=== PATIENT | male | born 1955 | race Caucasian/White ===

== ENCOUNTER 2019-01-15 18:15 | Inpatient (IN) | payer OTHER ==
--- NOTE | 2019-01-15 19:01 | PDOC ---
History of Present Illness - General Chief Complaint: SIRS, Suspected/Possible Stated Complaint: FEVER Time Seen by Provider: 01/15/19 18:44 - History of Present Illness Initial Comments: 01/15/19 20:18 The patient is a 63 year old male with a history of HTN, HLD, DM, CVA who presents via ambulance from his NH for evaluation of fever. Per the patient's NH, he was noted to have a fever of 100 today with associated hypotension prompting his presentation to the ED for further evaluation. The patient is a poor historian due to his prior CVA and denies any symptoms currently but is notably hypotensive on presentation to the ED. The patient otherwise denies chills, SOB, cough, chest pain, nausea, vomiting, abdominal pain, or changes with urination or bowel movements. Past History - Past Medical History Allergies/Adverse Reactions: Allergies Allergy/AdvReac Type Severity Reaction Status Date / Time No Known Allergies Allergy Verified 01/15/19 21:14 Home Medications: Ambulatory Orders Apixaban [Eliquis] 5 mg PO BID 01/15/19 Aspirin 81 mg PO DAILY 01/15/19 Atorvastatin Calcium 80 mg PO HS 01/15/19 Dextromethorphan HBr/Quinidine [Nuedexta 20-10 mg Capsule] 1 each PO BID Fluoxetine HCl [Prozac] 40 mg PO DAILY 01/15/19 Hydrochlorothiazide [Hctz -] 12.5 mg PO DAILY 01/15/19 LORazepam [Ativan] 0.5 mg PO BID 01/15/19 Metoprolol Succinate 50 mg PO DAILY 01/15/19 Metoprolol Succinate 100 mg PO DAILY 01/15/19 Sitagliptin Phosphate [Januvia] 50 mg PO DAILY 01/15/19 Cholecalciferol (Vitamin D3) [Vitamin D3] 2,000 unit PO DAILY 01/16/19 Potassium Chloride 40 meq PO DAILY 01/16/19 - Suicide/Smoking/Psychosocial Hx Smoking History: Never smoked Have you smoked in the past 12 months: No Information on smoking cessation initiated: No Hx Alcohol Use: No Drug/Substance Use Hx: No Review of Systems - Review of Systems Comments:: 01/15/19 20:21 Constitutional: Fever. No chills, fatigue, malaise HEENT: No Rhinorrhea, nasal congestion, visual changes Cardiovascular: No chest pain, syncope, palpitations, lightheadedness Respiratory: No Cough, SOB, Hemoptysis, Gastrointestinal: No Abdominal pain, Nausea, Vomiting, Constipation, Diarrhea, Melena Genitourinary: No Dysuria, Frequency, Urgency, Hesitancy, Hematuria, Flank pain Musculoskeletal: No Myalgia, arthralgia Skin: No rashes, itching, bruising, pallor Neurologic: No Headache, Dizziness, Numbness, Weakness, or Tingling Psychiatric: No Hallucinations. No SI or HI *Physical Exam - Vital Signs Last Vital Signs Temp Pulse Resp BP Pulse Ox 99.8 F H 65 18 90/61 98 01/15/19 18:51 01/15/19 18:36 01/15/19 18:36 01/15/19 18:36 01/15/19 18:36 - Physical Exam Comments: 01/15/19 20:21 General Appearance: Nourished. No Apparent Distress HEENT: EOMI, GERMAINE. No Pharyngeal Erythema, Tonsillar Exudate, Tonsillar Erythema Neck: No Cervical Lymphadenopathy Respiratory/Chest: Lungs Clear, Normal Breath Sounds. No Crackles, Rales, Rhonchi, Wheezing Cardiovascular: Regular Rhythm, Regular Rate. No Murmur, Gallops, Rubs Gastrointestinal/Abdominal: Normal Bowel Sounds, Soft. No Guarding, Rebound, Tenderness Musculoskeletal: No CVA Tenderness Extremity: Normal Capillary Refill Integumentary: Normal Color, Dry, Warm Neurologic: Oriented x1, Alert, Normal Mood/Affect, Normal Response, Heart Score/ECG Review #1 ECG reviewed & interpreted by me at: 20:22 General ECG Interpretation: Sinus Rhythm, Normal Intervals, No acute ischemic changes 01/15/19 20:22 Sinus Bradycardia No Acute ST changes HR 50 QRS 108 QTc 479 ED Treatment Course - LABORATORY CBC & Chemistry Diagram: 01/16/19 05:30 01/16/19 05:30 Medical Decision Making - Medical Decision Making 01/15/19 20:23 The patient is a 63 year old male with a history of HTN, HLD, DM, CVA who presents via ambulance from his [place] for evaluation of fever. Differential includes but is not limited to: Sepsis, UTI, Pneumonia, Infectious, Metabolic Derangement. Given the patient's history and physical exam, we will obtain a cbc, cmp, troponin, blood cultures, ua, lactate, urine cultures, chest plain film, ekg to evaluate further. We will treat with iv fluids, vanc and zosyn here in the ED and continue to monitor and reassess. The patient will likely require admission for further management and monitoring. 01/16/19 19:27 CBC demonstrates elevated wbc to 18. CMP demonstrates a creatinine of 1.4. UA demonstrates positive nitrites, leuk esterase and elevated wbc consistent with a UTI. Chest plain films are unremarkable. It is likely the patient's symptoms are due to sepsis from UTI. We discussed the case with the admitting team who accepted the patient for admission. *DC/Admit/Observation/Transfer Diagnosis at time of Disposition: Sepsis Qualifiers: Sepsis type: sepsis due to unspecified organism Qualified Code(s): A41.9 - Sepsis, unspecified organism UTI (urinary tract infection) Qualifiers: Urinary tract infection type: site unspecified - Discharge Dispostion Condition at time of disposition: Stable Decision to Admit order: Yes - Referrals - Patient Instructions - Post Discharge Activity
[2019-01-15] MEDS ORDERED: SODIUM CHLORIDE 1,000 ML IV STA ×2 (19:09→20:28)
[2019-01-15 19:50] LABS: BASO % 0.3 % (0-2.0); HEMATOCRIT 29.5 % (35.4-49); HEMOGLOBIN 9.8 GM/dL (11.7-16.9); LYMPH % 8.2 % (8-40); MCH 29.2 pg (25.7-33.7); MCHC 33.3 g/dl (32.0-35.9); MEAN CELL VOLUME 87.6 fl (80-96); MEAN PLT VOLUME 9.2 fl (7.5-11.1); MONO % 9.3 % (3.8-10.2); NEUT % 82.2 % (42.8-82.8); PLATELET COUNT 203 K/MM3 (134-434); RBC 3.37 M/mm3 (4.00-5.60); RDW 14.7 % (11.9-15.9); WHITE BLOOD COUNT 18.6 K/mm3 (4.0-10.0)
[2019-01-15 20:04] LABS: INR 2.27 (0.83-1.09)
[2019-01-15 20:12] LABS: ALBUMIN 3.2 g/dl (3.4-5.0); BILIRUBIN,TOTAL 1.6 mg/dL (0.2-1); CALCIUM 8.5 mg/dL (8.5-10.1); CREATININE 1.4 mg/dL (0.55-1.3); POTASSIUM 3.7 mmol/L (3.5-5.1); TOT PROT 6.8 g/dl (6.4-8.2)
[2019-01-15] MEDS ORDERED: PIPERACILLIN/TAZOB 4.5 GM 4.5 GM in DEXTROSE 5%-WATER 100 ML IVPB ONE (20:17)
[2019-01-15] MEDS ORDERED: VANCOMYCIN HCL 1,500 MG in DEXTROSE 5%-WATER - 500 ML IVPB ONE (20:17)
[2019-01-15] MEDS ORDERED: PIPERACILLIN/TAZOB 4.5 GM 4.5 GM/100 ML BAG IVPB ONE (20:34)
[2019-01-15 21:15] LABS: EPI CELLS 0.9 /HPF (0-5/HPF); URINE APPEARANCE CLOUDY; URINE BACTERIA 7196.8 /hpf (NEGATIVE); URINE BILIRUBIN NEGATIVE (NEGATIVE); URINE CASTS 1 /lpf (0-8); URINE COLOR YELLOW; URINE GLUCOSE (UA) NEGATIVE (NEGATIVE); URINE KETONE NEGATIVE (NEGATIVE); URINE LEUK ESTERASE 3+ (NEGATIVE); URINE NITRITE POSITIVE (NEGATIVE); URINE PROTEIN 1+ (NEGATIVE); URINE WBC 612 /hpf (0-5)
[2019-01-15 21:26] LABS: URINE RBC 66.3 /hpf (0-4)
--- NOTE | 2019-01-15 22:15 | PDOC ---
Documentation entered by Ferny Gleason SCRIBE, acting as scribe for Ericka Leonard DO. Ericka Leonard DO: This documentation has been prepared by the Victorino ferrara Matthew, SCRIBE, under my direction and personally reviewed by me in its entirety. I confirm that the documentation accurately reflects all work, treatment, procedures, and medical decision making performed by me. Attending Attestation - Resident Resident Name: Matteo Vazquez - ED Attending Attestation I have performed the following: I have examined & evaluated the patient, The case was reviewed & discussed with the resident, I agree w/resident's findings & plan - HPI HPI: 01/15/19 19:57 Patient is a 63 year old male with a significant past medical history of HTN, HLD, Diabetes, CVA, who presents to the ED with complaints of elevated fever. As per NH patient has been experiencing episodes of elevated fever of 100F and hypotension, prompting them to send him into the ED for further evaluation. Patient unable to give reliable history secondary to CVA. Denies chest pain, Sob. Denies nausea, vomiting. Denies fevers, chills. Denies constipation, diarrhea. Denies dysuria, hematuria. Denies contact with sick individuals, out of state travelling. Denies any other symptoms. Allergies: None Social history: No smoking, No alcohol. No illicit drugs. Surgical history: None PMD: Dr. Felix - Physicial Exam PE: 01/15/19 19:57 Agree with residents Physical Exam. - Critical Care Time Total Critical Care Time: 45 Critical Care Statement: The care of this patient involved high complexity decision making to prevent further life threatening deterioration of the patient 's condition and/or to evaluate & treat vital organ system(s) failure or risk of failure. - Medical Decision Making 01/15/19 22:14 63-year-old male sent from a senior living facility with fevers Patient meets SIRS/sepsis criteria with urinary tract infection Zosyn and vancomycin initiated in the emergency department as well as sepsis protocol IV fluid bolus Initial systolic blood pressure ranged from 85/53, now normalized Patient to be admitted to medical service for further management 01/15/19 22:15
--- NOTE | 2019-01-15 22:28 | PN ---
Teaching Attending Note Name of Resident: Angel Spivey ATTENDING PHYSICIAN STATEMENT I saw and evaluated the patient. I reviewed the resident's note and discussed the case with the resident. I agree with the resident's findings and plan as documented. SUBJECTIVE: Patient is a 63 year old man with PMH of HTN, HLD, NIDDM, Afib on Eliquis and CVA who presents via ambulance from his NH for evaluation of fever. Per the patient's NH, he was noted to have a fever of 100 today with associated hypotension prompting his referral to the ER for further evaluation. The patient is a poor historian due to his prior CVA and denies any symptoms currently but is notably hypotensive on presentation to the ER. The patient otherwise denies chills, SOB, cough, chest pain, nausea, vomiting, abdominal pain, or changes with urination or bowel movements. OBJECTIVE: Alert Vital Signs Period Temp Pulse Resp BP Sys/Meléndez Pulse Ox Last 24 Hr 98.1 F-99.8 F 47-65 18-20 83-103/53-63 96-100 HEENT: No Jaundice, eye redness or discharge, PERRLA, EOMI. Normocephalic, atraumatic. External ears are normal and hearing is grossly intact. No nasal discharge. Neck: Supple, nontender. No palpable adenopathy or thyromegaly. No JVD Chest: Good effort. Clear to auscultation and percussion. Heart: Regular. No S3, rub or murmur Abdomen: Obese abdomen, not distended, soft, nontender and no HSM. No rebound or guarding. Normal bowel sounds. Ext: Peripheral pulses intact. No leg edema. Left big toe amputation. Skin: Warm and dry. No petechiae, rash or ecchymosis. Neuro: Alert. Oriented to person and place. CN 2-12 grossly intact. Sensation grossly intact in all four extremities and DTR are symmetric. Psych: Appropriate mood and affect. Good insight. Current Medications Generic Name Dose Route Start Last Admin Trade Name Freq PRN Reason Stop Dose Admin Acetaminophen 650 mg 01/15/19 22:28 Tylenol - PO Q4H PRN PAIN Lactated Ringer's 1,000 mls @ 100 mls/hr 01/15/19 22:30 Lactated Ringers Solution IV 01/17/19 08:29 ASDIR KASSIDY Insulin Aspart 1 vial 01/16/19 07:00 Novolog Vial Sliding Scale - SQ ACHS [facility] Protocol Non-Formulary Medication 1 each 01/15/19 22:45 Dextromethorphan Hbr/Quinidine [Nuedexta 20-10 Mg Capsule] PO ONCE [facility] Home Medications Medication Instructions Recorded Apixaban [Eliquis] 5 mg PO ONCE 01/15/19 Aspirin 81 mg PO ONCE 01/15/19 Atorvastatin Calcium 80 mg PO ONCE 01/15/19 Cholecalciferol (Vitamin D3) 400 unit PO DAILY 01/15/19 [Vitamin D3 -] Dextromethorphan HBr/Quinidine 1 each PO ONCE 01/15/19 [Nuedexta 20-10 mg Capsule] Fluoxetine HCl [Prozac] 40 mg PO DAILY 01/15/19 Hydrochlorothiazide [Hctz -] 12.5 mg PO DAILY 01/15/19 KCl 20 Meq Premix Bag [Potassium 20 tab PO BID 01/15/19 Chloride 20 Meq Premix Ivpb -] LORazepam [Ativan] 0.5 mg PO BID 01/15/19 Metoprolol Succinate 50 mg PO ONCE 01/15/19 Metoprolol Succinate 100 mg PO ONCE 01/15/19 Sitagliptin Phosphate [Januvia] 50 mg PO ONCE 01/15/19 Abnormal Lab Results 01/15/19 01/15/19 01/15/19 19:36 19:36 19:36 WBC 18.6 H RBC 3.37 L Hgb 9.8 L Hct 29.5 L Absolute Neuts (auto) 15.3 H PT with INR 27.00 H INR 2.27 H PTT (Actin FS) 41.0 H BUN 28 H Creatinine 1.4 H Random Glucose 199 H Total Bilirubin 1.6 H AST 13 L Albumin 3.2 L Urine Protein Urine Blood Urine Nitrite Ur Leukocyte Esterase 01/15/19 21:03 WBC RBC Hgb Hct Absolute Neuts (auto) PT with INR INR PTT (Actin FS) BUN Creatinine Random Glucose Total Bilirubin AST Albumin Urine Protein 1+ H Urine Blood 3+ H Urine Nitrite Positive H Ur Leukocyte Esterase 3+ H ASSESSMENT AND PLAN: 1. Sepsis due to UTI - Being treated with IV Vancomycin and Zosyn and IV NS according to sepsis protocol. BP improved after initial fluid bolus. No acute abnormality on CXR and EKG shows sinus bradycardia with no significant ST-T wave changes. Bradycardia likely due to high dose of metoprolol - will reduce dose. Consult ID. 2. Hypoalbuminemia - Possibly due to combined effects of malnutrition, proteinuria and inflammation associated with comorbid chronic conditions. Will ensure adequate dietary protein intake and also consult teacher hearing impaired. 3. Uncontrolled DM For now, we will hold the home diabetes drugs and implement sliding scale insulin regimen. Provide comprehensive diabetes care with patient teaching and counseling about the importance of adherence to prescribed diabetes regimen, euglycemia, eye care and foot care. 4. CKD - Has risk factors for CKD. Will consult nephrology and avoid nephrotoxic agents such as NSAIDS, aminoglycosides, contrast dyes and certain Alternative medicine products. 5. Anemia - Likely multifactorial including renal anemia. will do basic anemia work up including serial stool guaiacs, reticulocyte count and iron studies. 6. Obesity Counseled on the risks associated with obesity. Will provide patient all the necessary assistance, counseling and positive reinforcement to facilitate weight loss. Consult teacher hearing impaired. 7. Hypertension - Restart outpatient antihypertensive drugs when clinically appropriate. Nonpharmacologic measures to control hypertension like weight loss , salt restriction and exercise discussed. 8. DVT prophylaxis - Patient on Eliquis 9. Advance directives - Full code
--- NOTE | 2019-01-15 22:40 | HP ---
CHIEF COMPLAINT: fever, hypotension PCP: from [facility] HISTORY OF PRESENT ILLNESS: 63 year old male with a history of HTN, HLD, DM, CVA who presents via ambulance from his NH for evaluation of fever. Per the patient's NH, he was noted to have a fever of 100 today with associated hypotension prompting his presentation to the ED for further evaluation. The patient is a poor historian , but denies any current complaints, including chest pain, SOB, nausea, vomiting , diarrhea, fevers, chills, abdominal pain, dysuria. Per ED, patient is incontinent. ER course was notable for: (1) WBC 18 (2) Cre 1.4 (3) CXR normal Recent Travel: PAST MEDICAL HISTORY: HTN, HLD, DM, CVA PAST SURGICAL HISTORY: unknown Social History: Smoking: unknown Alcohol: unknown Drugs: unknown Family History: unknown Allergies No Known Allergies Allergy (Verified 01/15/19 21:14) HOME MEDICATIONS: Home Medications Medication Instructions Recorded Apixaban [Eliquis] 5 mg PO ONCE 01/15/19 Aspirin 81 mg PO ONCE 01/15/19 Atorvastatin Calcium 80 mg PO ONCE 01/15/19 Cholecalciferol (Vitamin D3) 400 unit PO DAILY 01/15/19 [Vitamin D3 -] Dextromethorphan HBr/Quinidine 1 each PO ONCE 01/15/19 [Nuedexta 20-10 mg Capsule] Fluoxetine HCl [Prozac] 40 mg PO DAILY 01/15/19 Hydrochlorothiazide [Hctz -] 12.5 mg PO DAILY 01/15/19 KCl 20 Meq Premix Bag [Potassium 20 tab PO BID 01/15/19 Chloride 20 Meq Premix Ivpb -] LORazepam [Ativan] 0.5 mg PO BID 01/15/19 Metoprolol Succinate 50 mg PO ONCE 01/15/19 Metoprolol Succinate 100 mg PO ONCE 01/15/19 Sitagliptin Phosphate [Januvia] 50 mg PO ONCE 01/15/19 REVIEW OF SYSTEMS CONSTITUTIONAL: Absent: fever, chills, diaphoresis, generalized weakness, malaise, loss of appetite, weight change HEENT: Absent: rhinorrhea, nasal congestion, throat pain, throat swelling, difficulty swallowing, mouth swelling, ear pain, eye pain, visual changes CARDIOVASCULAR: Absent: chest pain, syncope, palpitations, irregular heart rate, lightheadedness , peripheral edema RESPIRATORY: Absent: cough, shortness of breath, dyspnea with exertion, orthopnea, wheezing, stridor, hemoptysis GASTROINTESTINAL: Absent: abdominal pain, abdominal distension, nausea, vomiting, diarrhea, constipation, melena, hematochezia GENITOURINARY: Absent: dysuria, frequency, urgency, hesitancy, hematuria, flank pain, genital pain MUSCULOSKELETAL: Absent: myalgia, arthralgia, joint swelling, back pain, neck pain SKIN: Absent: rash, itching, pallor HEMATOLOGIC/IMMUNOLOGIC: Absent: easy bleeding, easy bruising, lymphadenopathy, frequent infections ENDOCRINE: Absent: unexplained weight gain, unexplained weight loss, heat intolerance, cold intolerance NEUROLOGIC: Absent: headache, focal weakness or paresthesias, dizziness, unsteady gait, seizure, mental status changes, bladder or bowel incontinence PSYCHIATRIC: Absent: anxiety, depression, suicidal or homicidal ideation, hallucinations. PHYSICAL EXAMINATION Vital Signs - 24 hr 01/15/19 01/15/19 01/15/19 18:36 18:40 18:51 Temperature 98.1 F 99.8 F H 99.8 F H Pulse Rate 65 Pulse Rate [ Apical] Respiratory 18 Rate Blood Pressure 90/61 Blood Pressure [Right Arm] O2 Sat by Pulse 98 96 Oximetry (%) 01/15/19 01/15/19 01/15/19 19:18 20:30 22:00 Temperature 98.6 F Pulse Rate Pulse Rate [ 55 L 50 L 47 L Apical] Respiratory 18 20 20 Rate Blood Pressure Blood Pressure 83/53 L 103/60 100/63 [Right Arm] O2 Sat by Pulse 98 100 100 Oximetry (%) GENERAL: A&Ox2, no acute distress EYES: PERRLA, EOMI ENT: Dry mucus membranes NECK: No JVD LUNGS: CTA, no wheezes HEART: bradycardic, no murmurs ABDOMEN: Soft, nontender, BS present MUSCULOSKELETAL: No CVA Tenderness EXTREMITIES: 2+ pulses, no edema. L great toe amputated : Solis in place draining cloudy yellow urine Laboratory Results - last 24 hr 01/15/19 01/15/19 01/15/19 19:36 19:36 19:36 WBC 18.6 H RBC 3.37 L Hgb 9.8 L Hct 29.5 L MCV 87.6 MCH 29.2 MCHC 33.3 RDW 14.7 Plt Count 203 MPV 9.2 Absolute Neuts (auto) 15.3 H Neutrophils % 82.2 Lymphocytes % 8.2 Monocytes % 9.3 Eosinophils % 0.0 Basophils % 0.3 Nucleated RBC % 0 PT with INR 27.00 H INR 2.27 H PTT (Actin FS) 41.0 H Sodium 136 Potassium 3.7 Chloride 103 Carbon Dioxide 25 Anion Gap 8 BUN 28 H Creatinine 1.4 H Est GFR (CKD-EPI)AfAm 60.68 Est GFR (CKD-EPI)NonAf 52.35 Random Glucose 199 H Lactic Acid Calcium 8.5 Total Bilirubin 1.6 H AST 13 L ALT 20 Alkaline Phosphatase 81 Troponin I Total Protein 6.8 Albumin 3.2 L Urine Color Urine Appearance Urine pH Ur Specific Campbell Urine Protein Urine Glucose (UA) Urine Ketones Urine Blood Urine Nitrite Urine Bilirubin Urine Urobilinogen Ur Leukocyte Esterase Urine WBC (Auto) Urine RBC (Auto) Urine Casts (Auto) U Epithel Cells (Auto) Urine Bacteria (Auto) 01/15/19 01/15/19 01/15/19 19:36 19:36 21:03 WBC RBC Hgb Hct MCV MCH MCHC RDW Plt Count MPV Absolute Neuts (auto) Neutrophils % Lymphocytes % Monocytes % Eosinophils % Basophils % Nucleated RBC % PT with INR INR PTT (Actin FS) Sodium Potassium Chloride Carbon Dioxide Anion Gap BUN Creatinine Est GFR (CKD-EPI)AfAm Est GFR (CKD-EPI)NonAf Random Glucose Lactic Acid 1.0 Calcium Total Bilirubin AST ALT Alkaline Phosphatase Troponin I < 0.02 Total Protein Albumin Urine Color Yellow Urine Appearance Cloudy Urine pH 5.0 Ur Specific Campbell 1.017 Urine Protein 1+ H Urine Glucose (UA) Negative Urine Ketones Negative Urine Blood 3+ H Urine Nitrite Positive H Urine Bilirubin Negative Urine Urobilinogen 1.0 Ur Leukocyte Esterase 3+ H Urine WBC (Auto) 612 Urine RBC (Auto) 66.3 Urine Casts (Auto) 1 U Epithel Cells (Auto) 0.9 Urine Bacteria (Auto) 7196.8 ASSESSMENT/PLAN: 63 year old male with a history of HTN, HLD, DM, CVA who presents via ambulance from his [place] for evaluation of fever and admitted for treatment of sepsis 2/2 UTI #Sepsis 2/2 UTI: BP responded to fluid resuscitation and temp improved -UA + for protein, blood, LE and nitrites -cultures pending -LR resuscitatoin -vanc/zosyn -ID consultation -monitor vital signs #Acute Kidney Injury: likely prerenal but we do not have a baseline creatinine, could have component of chronic kidney disease -fluid hydration -renal/bladder US ordered -solis in place -consider renal lytes in AM if creatinine does not improve #Anemia: normochromic, normocytic, likely 2/2 chronic disease vs renal origin -reticulocytes -iron studies #Hyperbilirubinemia: unclear etiology at present -direct bilirubin -RUQ US #Atrial Fibrillation: currently sinus bradycardia on EKG -on eliquis 5mg, continue home dose -on toprol XL at home, per NH record he takes 2 doses daily, 100 and 50, possibly once in morning and once at night? but unclear -will start on toprol XL 100 in the morning and recommend calling NH in the morning to confirm dose and timing. Concerned about starting full 150 at present moment due to bradycardia in the 40s-50s #Diabetes Mellitus: BGM 199 -A1C -BGM ACHS -ISS -diabetic diet #Hx of CVA -continue home ASA -continue atorvastatin 80 #FEN -LR @ 100cc/hr 2-3 bags -replete lytes as necessary -diabetic diet #Prophylaxis -on eliquis #Disposition -admit med surg, anticipate DC in 3-4 days Visit type - Emergency Visit Emergency Visit: Yes ED Registration Date: 01/15/19 Care time: The patient presented to the Emergency Department on the above date and was hospitalized for further evaluation of their emergent condition. - New Patient This patient is new to me today: Yes Date on this admission: 01/16/19 - Critical Care Critical Care patient: No
[2019-01-15] MEDS ORDERED: [UNRECOGNIZED DRUG - OTHER] PO SCH (22:45)
[2019-01-15] MEDS ORDERED: QUINIDINE PO SCH (22:45)
[2019-01-15] MEDS ORDERED: DEXTROMETHORPHAN HBR PO SCH (22:45)
[2019-01-15] MEDS: LACTATED RINGERS SOLUTION 1,000 ML IV SCH (23:29)
[2019-01-16 00:49] LABS: BILIRUBIN,DIRECT 0.4 mg/dL (0.0-0.2)
[2019-01-16 02:17] VITALS: BMI 30.4
[2019-01-16] MEDS ORDERED: PIPERACILLIN/TAZOB 2.25 GM 2.25 GM in DEXTROSE 5%-WATER - 50 ML IVPB SCH ×2 (03:00→21:00)
[2019-01-16] MEDS ORDERED: DEXTROSE 5%-WATER - 50 ML IVPB ONE ×3 (04:29→15:38)
[2019-01-16] MEDS ORDERED: PIPERACILLIN/TAZOBACTAM 3.375 GM VIAL IVPB ONE ×2 (04:29→10:58)
[2019-01-16] MEDS: PIPERACILLIN/TAZOB 3.375 GM 3.375 GM in DEXTROSE 5%-WATER - 50 ML IVPB SCH ×2 (04:30→11:03)
[2019-01-16] MEDS: INSULIN SLIDING SCALE (NOVOLOG) 1 VIAL SQ SCH ×3 (06:04→15:57)
[2019-01-16 06:11] LABS: HEMATOCRIT 28.6 % (35.4-49); HEMOGLOBIN 9.8 GM/dL (11.7-16.9); MCH 29.8 pg (25.7-33.7); MCHC 34.2 g/dl (32.0-35.9); MEAN CELL VOLUME 87.3 fl (80-96); MEAN PLT VOLUME 9.1 fl (7.5-11.1); PLATELET COUNT 161 K/MM3 (134-434); RBC 3.27 M/mm3 (4.00-5.60); RDW 14.7 % (11.9-15.9); WHITE BLOOD COUNT 12.8 K/mm3 (4.0-10.0)
[2019-01-16 06:41] LABS: ALBUMIN 2.7 g/dl (3.4-5.0); BILIRUBIN,TOTAL 1.2 mg/dL (0.2-1); CALCIUM 8.1 mg/dL (8.5-10.1); MAGNESIUM 1.8 mg/dL (1.8-2.4); PHOSPHOROUS 2.7 mg/dL (2.5-4.9); POTASSIUM 3.6 mmol/L (3.5-5.1); TOT PROT 6.3 g/dl (6.4-8.2)
[2019-01-16] MEDS ORDERED: VANCOMYCIN 1,250 MG in DEXTROSE 5%-WATER - 250 ML IVPB SCH ×2 (08:00→20:00)
[2019-01-16] MEDS ORDERED: VANCOMYCIN 1 GRAM (PRE-DOCKED) 1,000 MG/250 ML BAG IVPB SCH (08:00)
--- NOTE | 2019-01-16 09:04 | PN ---
Teaching Attending Note Name of Resident: Amor Lester ATTENDING PHYSICIAN STATEMENT I saw and evaluated the patient. I reviewed the resident's note and discussed the case with the resident. I agree with the resident's findings and plan as documented. SUBJECTIVE: Patient is feeling better with no acute distress. Patient is from [facility]. OBJECTIVE: Vital Signs Temperature 97.3 F L 01/16/19 08:45 Pulse Rate 59 L 01/16/19 08:45 Respiratory Rate 20 01/16/19 08:45 Blood Pressure 127/89 01/16/19 08:45 O2 Sat by Pulse Oximetry (%) 100 01/16/19 01:40 GENERAL: The patient is awake, alert, and fully oriented, in no acute distress. HEAD: Normal with no signs of trauma. EYES: PERRL, extraocular movements intact, sclera anicteric, conjunctiva clear. ENT: Ears normal, oropharynx clear without exudates, moist mucous membranes. NECK: Trachea midline, full range of motion, supple. LUNGS: Breath sounds equal, clear to auscultation bilaterally, no wheezes, no crackles, no accessory muscle use. HEART: Regular rate and rhythm, S1, S2 without murmur, rub or gallop. ABDOMEN: Soft, nontender, ND, normoactive bowel sounds, no guarding, no rebound , no hepatosplenomegaly, no masses. EXTREMITIES: 2+ pulses, warm, well-perfused, no edema. NEUROLOGICAL: Cranial nerves II through XII grossly intact. speech is slightly delayed due to his old stroke, gait not observed. PSYCH: Normal mood, normal affect. SKIN: Warm, dry, normal turgor, no rashes or lesions noted CBCD WBC 12.8 K/mm3 (4.0-10.0) H 01/16/19 05:30 RBC 3.27 M/mm3 (4.00-5.60) L 01/16/19 05:30 Hgb 9.8 GM/dL (11.7-16.9) L 01/16/19 05:30 Hct 28.6 % (35.4-49) L 01/16/19 05:30 MCV 87.3 fl (80-96) 01/16/19 05:30 MCHC 34.2 g/dl (32.0-35.9) 01/16/19 05:30 RDW 14.7 % (11.9-15.9) 01/16/19 05:30 Plt Count 161 K/MM3 (134-434) D 01/16/19 05:30 MPV 9.1 fl (7.5-11.1) 01/16/19 05:30 CMP Sodium 136 mmol/L (136-145) 01/16/19 05:30 Potassium 3.6 mmol/L (3.5-5.1) 01/16/19 05:30 Chloride 104 mmol/L (98-107) 01/16/19 05:30 Carbon Dioxide 26 mmol/L (21-32) 01/16/19 05:30 Anion Gap 7 MMOL/L (8-16) L 01/16/19 05:30 BUN 21 mg/dL (7-18) H 01/16/19 05:30 Creatinine 1.0 mg/dL (0.55-1.3) 01/16/19 05:30 Random Glucose 164 mg/dL (74-106) H 01/16/19 05:30 Calcium 8.1 mg/dL (8.5-10.1) L 01/16/19 05:30 Total Bilirubin 1.2 mg/dL (0.2-1) H 01/16/19 05:30 AST 10 U/L (15-37) L 01/16/19 05:30 ALT 19 U/L (13-61) 01/16/19 05:30 Alkaline Phosphatase 69 U/L (45-117) 01/16/19 05:30 Total Protein 6.3 g/dl (6.4-8.2) L 01/16/19 05:30 Albumin 2.7 g/dl (3.4-5.0) L 01/16/19 05:30 CARDIAC ENZYMES Troponin I < 0.02 ng/ml (0.00-0.05) 01/15/19 19:36 Current Medications Generic Name Dose Route Start Last Admin Trade Name Freq PRN Reason Stop Dose Admin Acetaminophen 650 mg 01/15/19 22:28 Tylenol - PO Q4H PRN PAIN Apixaban 5 mg 01/16/19 10:00 Eliquis - PO BID [facility] Aspirin 81 mg 01/16/19 10:00 Asa - PO DAILY [facility] Atorvastatin Calcium 80 mg 01/16/19 22:00 Lipitor - PO HS [facility] Cholecalciferol 400 unit 01/16/19 10:00 Vitamin D3 - PO DAILY [facility] Lactated Ringer's 1,000 mls @ 100 mls/hr 01/15/19 22:30 01/15/19 23:29 Lactated Ringers Solution IV 01/17/19 08:29 100 mls/hr ASDIR KASSIDY Administration Vancomycin HCl 1,250 mg/ 250 mls @ 166.667 mls/hr 01/16/19 20:00 Dextrose IVPB BID@0800,2000 [facility] Protocol Piperacillin Sod/Tazobactam 50 mls @ 100 mls/hr 01/16/19 21:00 Sod 3.375 gm/ Dextrose IVPB Q6H-IV KASSIDY Protocol Vancomycin HCl 1,250 mg/ 250 mls @ 166.667 mls/hr 01/16/19 08:00 Dextrose IVPB 01/16/19 09:29 BID@0800,2000 [facility] Piperacillin Sod/Tazobactam 50 mls @ 100 mls/hr 01/16/19 03:00 01/16/19 04:30 Sod 3.375 gm/ Dextrose IVPB 01/16/19 15:29 100 mls/hr Q6H-IV KASSIDY Administration Insulin Aspart 1 vial 01/16/19 07:00 01/16/19 06:04 Novolog Vial Sliding Scale - SQ Not Given ACHS [facility] Protocol Lorazepam 0.5 mg 01/16/19 10:00 Ativan - PO BID [facility] Metoprolol Succinate 100 mg 01/16/19 10:00 Toprol Xl - PO DAILY [facility] Non-Formulary Medication 1 each 01/15/19 22:45 Dextromethorphan Hbr/Quinidine [Nuedexta 20-10 Mg Capsule] PO ONCE [facility] Home Medications Medication Instructions Recorded Apixaban [Eliquis] 5 mg PO BID 01/15/19 Aspirin 81 mg PO DAILY 01/15/19 Atorvastatin Calcium 80 mg PO DAILY 01/15/19 Cholecalciferol (Vitamin D3) 400 unit PO DAILY 01/15/19 [Vitamin D3 -] Dextromethorphan HBr/Quinidine 1 each PO BID 01/15/19 [Nuedexta 20-10 mg Capsule] Fluoxetine HCl [Prozac] 40 mg PO DAILY 01/15/19 Hydrochlorothiazide [Hctz -] 12.5 mg PO DAILY 01/15/19 KCl 20 Meq Premix Bag [Potassium 20 tab PO DAILY 01/15/19 Chloride 20 Meq Premix Ivpb -] LORazepam [Ativan] 0.5 mg PO BID 01/15/19 Metoprolol Succinate 50 mg PO DAILY 01/15/19 Metoprolol Succinate 100 mg PO DAILY 01/15/19 Sitagliptin Phosphate [Januvia] 50 mg PO DAILY 01/15/19 Cholecalciferol (Vitamin D3) 2,000 unit PO DAILY 01/16/19 [Vitamin D3] Valacyclovir HCl [Valtrex -] 1,000 mg PO BID 01/16/19 Urine Test Results Urine Color Yellow 01/15/19 21:03 Urine Appearance Cloudy 01/15/19 21:03 Urine pH 5.0 (5.0-8.0) 01/15/19 21:03 Ur Specific [place] 1.017 (1.010-1.035) 01/15/19 21:03 Urine Protein 1+ (NEGATIVE) H 01/15/19 21:03 Urine Glucose (UA) Negative (NEGATIVE) 01/15/19 21:03 Urine Ketones Negative (NEGATIVE) 01/15/19 21:03 Urine Blood 3+ (NEGATIVE) H 01/15/19 21:03 Urine Nitrite Positive (NEGATIVE) H 01/15/19 21:03 Urine Bilirubin Negative (NEGATIVE) 01/15/19 21:03 Ur Leukocyte Esterase 3+ (NEGATIVE) H 01/15/19 21:03 Laboratory Tests 01/15/19 01/16/19 19:36 05:30 BUN 28 H 21 H Creatinine 1.4 H 1.0 ASSESSMENT AND PLAN: Patient is a 63 year old male with a PMHx of HTN, HLD, DM, CVA who presents to ED. from [facility] ,presented with sepsis, UTI. #Sepsis due to UTI: On IV antibiotic Zosyn and Vancomycin, ID consult Dr. Hughes # Acute UTI: pancx ordered, on iv Antibiotic continue #Acute Kidney Injury: improved on IVF # Normochromic Anemia: will get Iron panel #Hyperbilirubinemia: will trend #Atrial Fibrillation: with slow ventricular rate, continue eliquis 5mg, will reduce the dose of Toprol XL 100mg from 150mg #Diabetes Mellitus: BGM 199, A1C, BGM ACHS, diabetic diet #Hx of CVA continue home ASA, and on atorvastatin 80 and on Eliquis DVt Px: on eliquis
[2019-01-16] MEDS ORDERED: CHOLECALCIFEROL (VITAMIN D3) 400 UNIT TABLET (FP) PO SCH (10:00)
[2019-01-16] MEDS: LACTATED RINGERS SOLUTION 1,000 ML IV SCH (11:03)
[2019-01-16] MEDS: ASPIRIN 81 MG CHEWABLE TABLETS PO SCH (11:11)
[2019-01-16] MEDS: LORazepam 0.5 MG TABLET PO SCH ×2 (11:11→22:38)
[2019-01-16] MEDS: APIXABAN 5 MG TABLET PO SCH ×2 (11:11→22:38)
[2019-01-16] MEDS ORDERED: CHOLECALCIFEROL (VITAMIN D3) 1,000 UNIT TABLET (FP) PO SCH (13:30)
--- NOTE | 2019-01-16 14:37 | PN ---
Physical Exam: SUBJECTIVE: Patient seen and examined at bedside. no complaints. denies fever, cp, sob, n/v/d OBJECTIVE: Vital Signs Period Temp Pulse Resp BP Sys/Meléndez Pulse Ox Last 24 Hr 97.6 F-99.8 F 47-66 18-20 83-143/53-86 96-100 GENERAL: A&Ox3, no acute distress EYES: PERRLA, EOMI ENT: Dry mucus membranes NECK: No JVD LUNGS: CTA, no wheezes HEART: bradycardic, no murmurs ABDOMEN: Soft, nontender, BS present MUSCULOSKELETAL: No CVA Tenderness EXTREMITIES: 2+ pulses, no edema. L great toe amputated NEURO: strength sensation grossly intact. L facial droop (chronic 2/2 old CVA) : [place] in place draining cloudy yellow urine Laboratory Results - last 24 hr 01/15/19 01/15/19 01/15/19 19:36 19:36 19:36 WBC 18.6 H RBC 3.37 L Hgb 9.8 L Hct 29.5 L MCV 87.6 MCH 29.2 MCHC 33.3 RDW 14.7 Plt Count 203 MPV 9.2 Absolute Neuts (auto) 15.3 H Neutrophils % 82.2 Lymphocytes % 8.2 Monocytes % 9.3 Eosinophils % 0.0 Basophils % 0.3 Nucleated RBC % 0 PT with INR 27.00 H INR 2.27 H PTT (Actin FS) 41.0 H Sodium 136 Potassium 3.7 Chloride 103 Carbon Dioxide 25 Anion Gap 8 BUN 28 H Creatinine 1.4 H Est GFR (CKD-EPI)AfAm 60.68 Est GFR (CKD-EPI)NonAf 52.35 POC Glucometer Random Glucose 199 H Lactic Acid Calcium 8.5 Phosphorus Magnesium Total Bilirubin 1.6 H Direct Bilirubin AST 13 L ALT 20 Alkaline Phosphatase 81 Troponin I Total Protein 6.8 Albumin 3.2 L TSH Urine Color Urine Appearance Urine pH Ur Specific [place] Urine Protein Urine Glucose (UA) Urine Ketones Urine Blood Urine Nitrite Urine Bilirubin Urine Urobilinogen Ur Leukocyte Esterase Urine WBC (Auto) Urine RBC (Auto) Urine Casts (Auto) U Epithel Cells (Auto) Urine Bacteria (Auto) 01/15/19 01/15/19 01/15/19 19:36 19:36 21:03 WBC RBC Hgb Hct MCV MCH MCHC RDW Plt Count MPV Absolute Neuts (auto) Neutrophils % Lymphocytes % Monocytes % Eosinophils % Basophils % Nucleated RBC % PT with INR INR PTT (Actin FS) Sodium Potassium Chloride Carbon Dioxide Anion Gap BUN Creatinine Est GFR (CKD-EPI)AfAm Est GFR (CKD-EPI)NonAf POC Glucometer Random Glucose Lactic Acid 1.0 Calcium Phosphorus Magnesium Total Bilirubin Direct Bilirubin 0.4 H AST ALT Alkaline Phosphatase Troponin I < 0.02 Total Protein Albumin TSH Urine Color Yellow Urine Appearance Cloudy Urine pH 5.0 Ur Specific [place] 1.017 Urine Protein 1+ H Urine Glucose (UA) Negative Urine Ketones Negative Urine Blood 3+ H Urine Nitrite Positive H Urine Bilirubin Negative Urine Urobilinogen 1.0 Ur Leukocyte Esterase 3+ H Urine WBC (Auto) 612 Urine RBC (Auto) 66.3 Urine Casts (Auto) 1 U Epithel Cells (Auto) 0.9 Urine Bacteria (Auto) 7196.8 01/16/19 01/16/19 01/16/19 05:30 05:30 05:45 WBC 12.8 H RBC 3.27 L Hgb 9.8 L Hct 28.6 L MCV 87.3 MCH 29.8 MCHC 34.2 RDW 14.7 Plt Count 161 D MPV 9.1 Absolute Neuts (auto) Neutrophils % Lymphocytes % Monocytes % Eosinophils % Basophils % Nucleated RBC % PT with INR INR PTT (Actin FS) Sodium 136 Potassium 3.6 Chloride 104 Carbon Dioxide 26 Anion Gap 7 L BUN 21 H Creatinine 1.0 Est GFR (CKD-EPI)AfAm 91.13 Est GFR (CKD-EPI)NonAf 78.63 POC Glucometer 146 Random Glucose 164 H Lactic Acid Calcium 8.1 L Phosphorus 2.7 Magnesium 1.8 Total Bilirubin 1.2 H Direct Bilirubin AST 10 L ALT 19 Alkaline Phosphatase 69 Troponin I Total Protein 6.3 L Albumin 2.7 L TSH 0.95 Urine Color Urine Appearance Urine pH Ur Specific [place] Urine Protein Urine Glucose (UA) Urine Ketones Urine Blood Urine Nitrite Urine Bilirubin Urine Urobilinogen Ur Leukocyte Esterase Urine WBC (Auto) Urine RBC (Auto) Urine Casts (Auto) U Epithel Cells (Auto) Urine Bacteria (Auto) 01/16/19 12:30 WBC RBC Hgb Hct MCV MCH MCHC RDW Plt Count MPV Absolute Neuts (auto) Neutrophils % Lymphocytes % Monocytes % Eosinophils % Basophils % Nucleated RBC % PT with INR INR PTT (Actin FS) Sodium Potassium Chloride Carbon Dioxide Anion Gap BUN Creatinine Est GFR (CKD-EPI)AfAm Est GFR (CKD-EPI)NonAf POC Glucometer 200 Random Glucose Lactic Acid Calcium Phosphorus Magnesium Total Bilirubin Direct Bilirubin AST ALT Alkaline Phosphatase Troponin I Total Protein Albumin TSH Urine Color Urine Appearance Urine pH Ur Specific [place] Urine Protein Urine Glucose (UA) Urine Ketones Urine Blood Urine Nitrite Urine Bilirubin Urine Urobilinogen Ur Leukocyte Esterase Urine WBC (Auto) Urine RBC (Auto) Urine Casts (Auto) U Epithel Cells (Auto) Urine Bacteria (Auto) Active Medications Generic Name Dose Route Start Last Admin Trade Name Freq PRN Reason Stop Dose Admin Acetaminophen 650 mg 01/15/19 22:28 Tylenol - PO Q4H PRN PAIN Apixaban 5 mg 01/16/19 10:00 01/16/19 11:11 Eliquis - PO 5 mg BID KASSIDY Administration Aspirin 81 mg 01/16/19 10:00 01/16/19 11:11 Asa - PO 81 mg DAILY [facility] Administration Atorvastatin Calcium 80 mg 01/16/19 22:00 Lipitor - PO HS [facility] Cholecalciferol 2,000 unit 01/17/19 10:00 Vitamin D3 - PO DAILY [facility] Lactated Ringer's 1,000 mls @ 100 mls/hr 01/15/19 22:30 01/16/19 11:03 Lactated Ringers Solution IV 01/17/19 08:29 100 mls/hr ASDIR KASSIDY Administration Ceftriaxone Sodium 1 gm/ 50 mls @ 100 mls/hr 01/16/19 13:15 Dextrose IVPB DAILY [facility] Protocol Insulin Aspart 1 vial 01/16/19 07:00 01/16/19 12:31 Novolog Vial Sliding Scale - SQ 2 units ACHS [facility] Administration Protocol Lorazepam 0.5 mg 01/16/19 10:00 01/16/19 11:11 Ativan - PO 0.5 mg BID [facility] Administration Metoprolol Succinate 100 mg 01/16/19 10:00 01/16/19 11:11 Toprol Xl - PO 100 mg DAILY [facility] Administration Non-Formulary Medication 1 each 01/15/19 22:45 Dextromethorphan Hbr/Quinidine [Nuedexta 20-10 Mg Capsule] PO ONCE [facility] [id number] US/ABDOMEN US -LIMITED HISTORY PROVIDED: Hyperbilirubinemia. Real time examination of the abdomen demonstrates the following: The gallbladder is normal in size. It is filled with echogenic biliary sludge. No definite calculi are seen. There is no evidence of intra or extrahepatic biliary duct dilatation. The liver is enlarged measuring 18.3 cm in craniocaudad and dimension. It is somewhat heterogeneous in texture suspicious for diffuse fatty infiltration. No discrete intrahepatic masses are identified. Hepatopedal flow is documented within the main portal vein. The pancreas is normal in size and texture with no pancreatic masses identified. The spleen is enlarged measuring 16 cm in craniocaudad dimension. There is no evidence of hydronephrosis or acute renal abnormalities. There is a septated cyst within the upper pole the right kidney measuring 6.8 x 5.5 x 6.8 cm. There is no evidence of AAA. The IVC is patent. IMPRESSION: 1. Biliary sludge within the gallbladder with no evidence of cholelithiasis or biliary ductal dilatation. 2. Hepatosplenomegaly with probable diffuse fatty infiltration of the liver. 3. Large right upper pole renal cyst. Please see above discussion. ASSESSMENT/PLAN: 63 yo M PMH HTN, HLD, DM, CVA who [place] for evaluation of fever and admitted for treatment of sepsis 2/2 UTI #Sepsis 2/2 UTI: BP responded to fluid resuscitation and temp improved. leukocytosis downtrending -UA + for protein, blood, LE and nitrites -cultures pending -LR resuscitatoin -s/p vanc/zosyn. start rocephin -ID consultation -monitor vital signs #Acute Kidney Injury: likely prerenal but we do not have a baseline creatinine, could have component of CKD -fluid hydration -renal/bladder US ordered -lydia [facility] #Anemia: normochromic, normocytic, likely 2/2 chronic disease vs renal origin -reticulocytes -iron studies #Hyperbilirubinemia: downtrending -direct bilirubin 0.4 -RUQ US reviewed #Atrial Fibrillation: currently sinus bradycardia on EKG -on eliquis 5mg, continue home dose -on toprol XL at home, per NH he takes 2 doses daily, 100 and 50, all at once -will start on toprol XL 100 in the morning. Concerned about starting full 150 at present moment due to bradycardia in the 40s-50s #Diabetes Mellitus: -A1C -BGM ACHS -ISS -diabetic diet #Hx of CVA -continue home ASA -continue atorvastatin 80 #FEN -LR @ 100cc/hr -replete lytes as necessary -diabetic diet #Prophylaxis -on eliquis #Disposition -med surg Visit type - Emergency Visit Emergency Visit: Yes ED Registration Date: 01/15/19 Care time: The patient presented to the Emergency Department on the above date and was hospitalized for further evaluation of their emergent condition. - New Patient This patient is new to me today: Yes Date on this admission: 01/16/19 - Critical Care Critical Care patient: No
[2019-01-16] MEDS ORDERED: cefTRIAXone SODIUM 1 GM VIAL ONE (15:38)
[2019-01-16] MEDS: CEFTRIAXONE 1 GM in DEXTROSE 5%-WATER - 50 ML IVPB SCH (15:43)
--- NOTE | 2019-01-16 15:56 | ECHO ---
Name: STELLA BURGOS Exam:Adult Echocardiogram Study Date: 01/16/2019 09:58 AM Age: 63 yrs Reason For Study: A-Fib Height: 73 in Weight: 228 lb BSA: 2.3 m2 MMode/2D Measurements & Calculations IVSd: 1.4 cm Ao root diam: 2.9 cm LVIDd: 4.4 cm LA dimension: 4.0 cm LVIDs: 3.2 cm LVPWd: 0.92 cm EDV(Teich): 86.7 ml LVOT diam: 2.0 cm ESV(Teich): 39.9 ml LAV (MOD-bp): 65.8 ml Doppler Measurements & Calculations MV E max lee: 69.4 cm/sec Ao V2 max: 177.8 cm/sec MV A max lee: 72.3 cm/sec Ao max P.6 mmHg MV E/A: 0.96 MV dec time: 0.28 sec LEONID(V,D): 2.2 cm2 LV V1 max P.6 mmHg PA V2 max: 97.7 cm/sec LV V1 max: 128.5 cm/sec PA max P.8 mmHg Med Peak E' Lee: 6.6 cm/sec PI Vmax: 146.6 cm/sec Med E/e': 10.5 Lat Peak E' Lee: 7.5 cm/sec Lat E/e': 9.2 Procedure A complete two-dimensional transthoracic echocardiogram was performed (2D, M-mode, Doppler and color flow Doppler). Left Ventricle The left ventricular size, thickness and function are normal. The left ventricular ejection fraction is normal. Ejection Fraction = 60-65%. The left ventricular wall motion is normal. Right Ventricle The right ventricle is normal in size and function. Atria Normal left and right atrial size and function. Mitral Valve There is no mitral regurgitation noted. Tricuspid Valve There is trace tricuspid regurgitation. There was insufficient TR detected to calculate RV systolic p ressure. Aortic Valve The aortic valve is trileaflet. There is mild aortic valve thickening. No hemodynamically significant valvular aortic stenosis. No aortic regurgitation is present. Pulmonic Valve There is no pulmonic valvular regurgitation. Great Vessels The aortic root is normal size. Pericardium/Pleura There is no pericardial effusion. Interpretation Summary The left ventricular size, thickness and function are normal The right ventricle is normal in size and function. There is trace tricuspid regurgitation. MD Lance Ballard 01/16/2019 03:56 PM
--- NOTE | 2019-01-16 17:16 | EKG ---
Test Reason : Blood Pressure : / mmHG Vent. Rate : 050 BPM Atrial Rate : 050 BPM P-R Int : 204 ms QRS Dur : 108 ms QT Int : 526 ms P-R-T Axes : 084 -25 016 degrees QTc Int : 479 ms SINUS BRADYCARDIA OTHERWISE NORMAL ECG NO PREVIOUS ECGS AVAILABLE Confirmed by JENNIFER AZEVEDO MD ([id number]) on 01/16/2019 5:16:15 PM Referred By: Confirmed By:JENNIFER AZEVEDO MD
[2019-01-16] MEDS ORDERED: PIPERACILLIN/TAZOB 3.375 GM 3.375 GM in DEXTROSE 5%-WATER - 50 ML IVPB SCH (21:00)
[2019-01-16] MEDS: ATORVASTATIN CA 80 MG TABLET (FP) PO SCH (22:38)
[2019-01-17] MEDS: INSULIN SLIDING SCALE (NOVOLOG) 1 VIAL SQ SCH ×5 (06:10→21:41)
[2019-01-17] MEDS: LACTATED RINGERS SOLUTION 1,000 ML IV SCH (06:12)
[2019-01-17 07:25] LABS: BASO % 0.5 % (0-2.0); EOS % 0.7 % (0-4.5); HEMATOCRIT 28.3 % (35.4-49); HEMOGLOBIN 9.6 GM/dL (11.7-16.9); LYMPH % 16.3 % (8-40); MCH 29.4 pg (25.7-33.7); MCHC 34.1 g/dl (32.0-35.9); MEAN CELL VOLUME 86.1 fl (80-96); MEAN PLT VOLUME 9.3 fl (7.5-11.1); MONO % 9.1 % (3.8-10.2); NEUT % 73.4 % (42.8-82.8); PLATELET COUNT 166 K/MM3 (134-434); RBC 3.28 M/mm3 (4.00-5.60); RDW 14.6 % (11.9-15.9); WHITE BLOOD COUNT 11.4 K/mm3 (4.0-10.0)
--- NOTE | 2019-01-17 07:42 | PN ---
Physical Exam: SUBJECTIVE: Patient seen and examined at bedside. no acute events. no complaints. denies fever, cp, sob, n/v/d OBJECTIVE: Vital Signs Period Temp Pulse Resp BP Sys/Meléndez Pulse Ox Last 24 Hr 97.7 F-98.6 F 50-62 17-20 110-149/59-80 100 GENERAL: A&Ox3, no acute distress EYES: PERRLA, EOMI ENT: MMM NECK: No JVD LUNGS: CTA, no wheezes HEART: bradycardic, no murmurs ABDOMEN: Soft, nontender, BS present MUSCULOSKELETAL: No CVA Tenderness EXTREMITIES: 2+ pulses, no edema. L great toe amputated NEURO: strength sensation grossly intact. L facial droop (chronic 2/2 old CVA) : [place] in place draining cloudy yellow urine Laboratory Results - last 24 hr 01/16/19 01/16/19 01/16/19 12:30 15:55 21:47 WBC RBC Hgb Hct MCV MCH MCHC RDW Plt Count MPV Absolute Neuts (auto) Neutrophils % Lymphocytes % Monocytes % Eosinophils % Basophils % Nucleated RBC % Retic Count POC Glucometer 200 163 132 01/17/19 01/17/19 01/17/19 05:51 06:00 06:00 WBC 11.4 H RBC 3.28 L Hgb 9.6 L Hct 28.3 L MCV 86.1 MCH 29.4 MCHC 34.1 RDW 14.6 Plt Count 166 MPV 9.3 Absolute Neuts (auto) 8.4 H Neutrophils % 73.4 Lymphocytes % 16.3 D Monocytes % 9.1 Eosinophils % 0.7 D Basophils % 0.5 Nucleated RBC % 0 Retic Count 1.44 POC Glucometer 138 Active Medications Generic Name Dose Route Start Last Admin Trade Name Freq PRN Reason Stop Dose Admin Acetaminophen 650 mg 01/15/19 22:28 Tylenol - PO Q4H PRN PAIN Apixaban 5 mg 01/16/19 10:00 01/16/19 22:38 Eliquis - PO 5 mg BID KASSIDY Administration Aspirin 81 mg 01/16/19 10:00 01/16/19 11:11 Asa - PO 81 mg DAILY KASSIDY Administration Atorvastatin Calcium 80 mg 01/16/19 22:00 01/16/19 22:38 Lipitor - PO 80 mg HS KASSIDY Administration Cholecalciferol 2,000 unit 01/17/19 10:00 Vitamin D3 - PO DAILY [facility] Lactated Ringer's 1,000 mls @ 100 mls/hr 01/15/19 22:30 01/17/19 06:12 Lactated Ringers Solution IV 01/17/19 08:29 Not Given ASDIR KASSIDY Ceftriaxone Sodium 1 gm/ 50 mls @ 100 mls/hr 01/16/19 13:15 01/16/19 15:43 Dextrose IVPB 100 mls/hr DAILY KASSIDY Administration Protocol Insulin Aspart 1 vial 01/16/19 07:00 01/17/19 06:10 Novolog Vial Sliding Scale - SQ Not Given ACHS [facility] Protocol Lorazepam 0.5 mg 01/16/19 10:00 01/16/19 22:38 Ativan - PO 0.5 mg BID KASSIDY Administration Metoprolol Succinate 100 mg 01/16/19 10:00 01/16/19 11:11 Toprol Xl - PO 100 mg DAILY KASSIDY Administration Non-Formulary Medication 1 each 01/15/19 22:45 Dextromethorphan Hbr/Quinidine [Nuedexta 20-10 Mg Capsule] PO ONCE [facility] [id number] US/ABDOMEN US -LIMITED HISTORY PROVIDED: Hyperbilirubinemia. Real time examination of the abdomen demonstrates the following: The gallbladder is normal in size. It is filled with echogenic biliary sludge. No definite calculi are seen. There is no evidence of intra or extrahepatic biliary duct dilatation. The liver is enlarged measuring 18.3 cm in craniocaudad and dimension. It is somewhat heterogeneous in texture suspicious for diffuse fatty infiltration. No discrete intrahepatic masses are identified. Hepatopedal flow is documented within the main portal vein. The pancreas is normal in size and texture with no pancreatic masses identified. The spleen is enlarged measuring 16 cm in craniocaudad dimension. There is no evidence of hydronephrosis or acute renal abnormalities. There is a septated cyst within the upper pole the right kidney measuring 6.8 x 5.5 x 6.8 cm. There is no evidence of AAA. The IVC is patent. IMPRESSION: 1. Biliary sludge within the gallbladder with no evidence of cholelithiasis or biliary ductal dilatation. 2. Hepatosplenomegaly with probable diffuse fatty infiltration of the liver. 3. Large right upper pole renal cyst. Please see above discussion. ECHO Interpretation Summary The left ventricular size, thickness and function are normal The right ventricle is normal in size and function. There is trace tricuspid regurgitation. ASSESSMENT/PLAN: 63 yo M PMH HTN, HLD, DM, CVA who presents via ambulance from his [place] for evaluation of fever and admitted for treatment of sepsis 2/2 UTI #Sepsis 2/2 UTI: resolving. BP responded to fluid resuscitation and remains afebrile. leukocytosis downtrending -bcx neg -ucx lactose ferm neg bacilli, f/u sensitivities -dc IVF -s/p vanc/zosyn. c/w rocephin -ID consulted #Acute Kidney Injury: likely prerenal but we do not have a baseline creatinine, could have component of CKD -PO fluid hydration -renal/bladder US ordered -dc irma #Anemia: normochromic, normocytic, likely 2/2 chronic disease vs renal origin -reticulocytes 1.44 nl -iron studies pending #Hyperbilirubinemia: downtrending -direct bilirubin 0.4 -RUQ US reviewed #Atrial Fibrillation: currently sinus bradycardia on EKG -on eliquis 5mg, continue home dose -on toprol XL at home, per NH he takes 2 doses daily, 100 and 50, all at once -will start on toprol XL 100 in the morning. Concerned about starting full 150 at present moment due to bradycardia in the 40s-50s #Diabetes Mellitus: -A1C 6.1 -BGM ACHS -ISS #Hx of CVA -continue home ASA -continue atorvastatin 80 #FEN -dc LR @ 100cc/hr. PO hydration -replete lytes as necessary -diabetic diet #Prophylaxis -on eliquis #Disposition -med surg -PT eval -can dc once sensitivities are back Visit type - Emergency Visit Emergency Visit: Yes ED Registration Date: 01/15/19 Care time: The patient presented to the Emergency Department on the above date and was hospitalized for further evaluation of their emergent condition. - New Patient This patient is new to me today: Yes Date on this admission: 01/17/19 - Critical Care Critical Care patient: No
[2019-01-17 08:13] LABS: ALBUMIN 2.7 g/dl (3.4-5.0); BILIRUBIN,TOTAL 1.1 mg/dL (0.2-1); CREATININE 0.7 mg/dL (0.55-1.3); POTASSIUM 3.5 mmol/L (3.5-5.1)
[2019-01-17] MEDS ORDERED: DEXTROSE 5%-WATER - 50 ML IVPB ONE (09:05)
[2019-01-17] MEDS ORDERED: cefTRIAXone SODIUM 1 GM VIAL ONE (09:05)
[2019-01-17] MEDS: LORazepam 0.5 MG TABLET PO SCH ×2 (09:15→21:42)
[2019-01-17] MEDS: ASPIRIN 81 MG CHEWABLE TABLETS PO SCH (09:15)
[2019-01-17] MEDS: CHOLECALCIFEROL (VITAMIN D3) 1,000 UNIT TABLET (FP) PO SCH (09:15)
[2019-01-17] MEDS: APIXABAN 5 MG TABLET PO SCH ×2 (09:15→21:42)
[2019-01-17] MEDS: CEFTRIAXONE 1 GM in DEXTROSE 5%-WATER - 50 ML IVPB SCH (09:15)
--- NOTE | 2019-01-17 10:14 | CONSULT ---
Admitting History and Physical - Primary Care Physician PCP: Kaitlin Tinoco - Admission History of Present Illness: 63 year old male with a history of HTN, HLD, DM, CVA who presents via ambulance from his [place] for evaluation of fever and admitted for treatment of sepsis 2/2 UTI Per transfer sheet from [facility]- "Cerebral infarction,Ataxia, Dysphagia type II, DM,HTN" Pt was on a reg diet/thin liquids. Full code. 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 - Admission Reason For Visit: URINARY TRACT INFECTION,SEPSIS - Diagnostics X-ray: Report Reviewed (CXR (-)) - General Mental Status: Alert and Oriented, Awake and Alert, Able to Follow Commands Attention: Distractible, Mild Impairment Ability to Follow Directions: Good Head/Neck Control: Good - Hearing Hearing: Functional Hearing: Normal Speech Evaluation - Communication Primary Language: MACEDONIAN Oral Expression Ability: Yes: Mild Impairment - Speech Production Apraxia: Yes Able to Make Needs Known: Yes: Mildly Impaired Intelligibility: Yes: WNL - Speech Characteristics Voice Loudness: Normal Voice Pitch: Yes: Normal Voice Phonatory-based Quality: Yes: Normal Speech Pattern: Normal Speech Clarity: < 100% Nasal Resonance: Normal Articulation: Yes: Precise Rate of Speech: Too Slow - Language/Auditory Comprehension Observation: Able to respond to yes/no queries: Yes, Yes/No Confusion: No, Comprehends Conversational Speech: Yes - Language/Verbal Expression Aphasia: Yes: Anomia Able to Respond to Simple Queries: Yes: Mildly Impaired Able to Communicate Wants and Needs: Yes: Mildly Impaired Functional Communication Status: Yes: Mildly Impaired - Swallow Evaluation/Bedside Assessment Current Nutritional Intake: Regular, Thin Liquids Oral Secretions: Yes: WFL Dentition: Yes: Adequate Facial Symmetry at Rest: Symmetrical Lingual Movement: Symmetric Lingual Speed of Movement: Reduced Lingual Movement Strgth Against Opposition: Normal Lingual Movement Characteristics: Normal Laryngeal Elevation: WFL Laryngeal Movement: Able to Palpate Rate of Intake: WFL Bolus Size: WFL Labial Seal: WFL Chewing: Impaired (mildly dyscoordinated) Oral Prep Time: Increased A-P Transit: WFL Pocketing: None Coughing/Throat Clear: No Change in Voice: No Recommendations - Speech Evaluation, Impression/Plan Impression: Although oriented and verbal, delayed word retrieval in propositional speech tasks. Says he is "very careful when speaking" but denies any difficulty. Apraxic, unable to smile/retract lips but not related to weakness. Suspect cognitive deficits in insight although decent historian. Pt can functionally communicate but slowly, distractible. Swallowing is functional. Mastication mildly dyscoordinated, likely sec to Apraxia - Dysphagia Impressions/Plan Dysphagia Impressions: Mild Impairment *Silent aspiration: cannot be R/O at bedside Dysphagia Treatment Plan: Chin Tuck/Down, Clear Pocket Food, OOB for meals, OOB for 1 h. after meals - Recommendations Diet Consistency: Regular Medication Administration: Whole with water Liquids: Thin Liquids
--- NOTE | 2019-01-17 14:33 | PN ---
Teaching Attending Note Name of Resident: Amor Lester ATTENDING PHYSICIAN STATEMENT I saw and evaluated the patient. I reviewed the resident's note and discussed the case with the resident. I agree with the resident's findings and plan as documented. SUBJECTIVE: Patient is feeling better with no acute distress. OBJECTIVE: Vital Signs Temperature 98.1 F 01/17/19 10:00 Pulse Rate 53 L 01/17/19 10:00 Respiratory Rate 18 01/17/19 10:00 Blood Pressure 148/75 01/17/19 10:00 O2 Sat by Pulse Oximetry (%) 99 01/17/19 09:00 GENERAL: The patient is awake, alert, and fully oriented, in no acute distress. HEAD: Normal with no signs of trauma. EYES: PERRL, extraocular movements intact, sclera anicteric, conjunctiva clear. ENT: Ears normal, oropharynx clear without exudates, moist mucous membranes. NECK: Trachea midline, full range of motion, supple. LUNGS: Breath sounds equal, clear to auscultation bilaterally, no wheezes, no crackles, no accessory muscle use. HEART: Regular rate and rhythm, S1, S2 without murmur, rub or gallop. ABDOMEN: Soft, nontender, ND, normoactive bowel sounds, no guarding, no rebound , no hepatosplenomegaly, no masses. EXTREMITIES: 2+ pulses, warm, well-perfused, no edema. NEUROLOGICAL: Cranial nerves II through XII grossly intact. speech is slightly delayed due to his old stroke, gait not observed. PSYCH: Normal mood, normal affect. SKIN: Warm, dry, normal turgor, no rashes or lesions noted CBCD WBC 11.4 K/mm3 (4.0-10.0) H 01/17/19 06:00 RBC 3.28 M/mm3 (4.00-5.60) L 01/17/19 06:00 Hgb 9.6 GM/dL (11.7-16.9) L 01/17/19 06:00 Hct 28.3 % (35.4-49) L 01/17/19 06:00 MCV 86.1 fl (80-96) 01/17/19 06:00 MCHC 34.1 g/dl (32.0-35.9) 01/17/19 06:00 RDW 14.6 % (11.9-15.9) 01/17/19 06:00 Plt Count 166 K/MM3 (134-434) 01/17/19 06:00 MPV 9.3 fl (7.5-11.1) 01/17/19 06:00 CMP Sodium 136 mmol/L (136-145) 01/17/19 06:00 Potassium 3.5 mmol/L (3.5-5.1) 01/17/19 06:00 Chloride 103 mmol/L (98-107) 01/17/19 06:00 Carbon Dioxide 25 mmol/L (21-32) 01/17/19 06:00 Anion Gap 8 MMOL/L (8-16) 01/17/19 06:00 BUN 16 mg/dL (7-18) 01/17/19 06:00 Creatinine 0.7 mg/dL (0.55-1.3) 01/17/19 06:00 Random Glucose 128 mg/dL (74-106) H 01/17/19 06:00 Calcium 8.0 mg/dL (8.5-10.1) L 01/17/19 06:00 Total Bilirubin 1.1 mg/dL (0.2-1) H 01/17/19 06:00 AST 14 U/L (15-37) L 01/17/19 06:00 ALT 17 U/L (13-61) 01/17/19 06:00 Alkaline Phosphatase 70 U/L (45-117) 01/17/19 06:00 Total Protein 6.0 g/dl (6.4-8.2) L 01/17/19 06:00 Albumin 2.7 g/dl (3.4-5.0) L 01/17/19 06:00 CARDIAC ENZYMES Troponin I < 0.02 ng/ml (0.00-0.05) 01/15/19 19:36 Current Medications Generic Name Dose Route Start Last Admin Trade Name Freq PRN Reason Stop Dose Admin Acetaminophen 650 mg 01/15/19 22:28 Tylenol - PO Q4H PRN PAIN Apixaban 5 mg 01/16/19 10:00 01/17/19 09:15 Eliquis - PO 5 mg BID KASSIDY Administration Aspirin 81 mg 01/16/19 10:00 01/17/19 09:15 Asa - PO 81 mg DAILY KASSIDY Administration Atorvastatin Calcium 80 mg 01/16/19 22:00 01/16/19 22:38 Lipitor - PO 80 mg HS [facility] Administration Cholecalciferol 2,000 unit 01/17/19 10:00 01/17/19 09:15 Vitamin D3 - PO 2,000 unit DAILY KASSIDY Administration Ceftriaxone Sodium 1 gm/ 50 mls @ 100 mls/hr 01/16/19 13:15 01/17/19 09:15 Dextrose IVPB 100 mls/hr DAILY [facility] Administration Protocol Insulin Aspart 1 vial 01/16/19 07:00 01/17/19 11:17 Novolog Vial Sliding Scale - SQ Not Given ACHS [facility] Protocol Lorazepam 0.5 mg 01/16/19 10:00 01/17/19 09:15 Ativan - PO 0.5 mg BID KASSIDY Administration Metoprolol Succinate 100 mg 01/16/19 10:00 01/17/19 09:15 Toprol Xl - PO 100 mg DAILY KASSIDY Administration Non-Formulary Medication 1 each 01/15/19 22:45 Dextromethorphan Hbr/Quinidine [Nuedexta 20-10 Mg Capsule] PO ONCE [facility] Home Medications Medication Instructions Recorded Apixaban [Eliquis] 5 mg PO BID 01/15/19 Aspirin 81 mg PO DAILY 01/15/19 Atorvastatin Calcium 80 mg PO HS 01/15/19 Dextromethorphan HBr/Quinidine 1 each PO BID 01/15/19 [Nuedexta 20-10 mg Capsule] Fluoxetine HCl [Prozac] 40 mg PO DAILY 01/15/19 Hydrochlorothiazide [Hctz -] 12.5 mg PO DAILY 01/15/19 LORazepam [Ativan] 0.5 mg PO BID 01/15/19 Metoprolol Succinate 50 mg PO DAILY 01/15/19 Metoprolol Succinate 100 mg PO DAILY 01/15/19 Sitagliptin Phosphate [Januvia] 50 mg PO DAILY 01/15/19 Cholecalciferol (Vitamin D3) 2,000 unit PO DAILY 01/16/19 [Vitamin D3] Potassium Chloride 40 meq PO DAILY 01/16/19 Microbiology 01/15/19 21:03 Urine - Urine - Catheterized Urine Culture - Preliminary Lactose Fermenting Neg Bacilli 01/15/19 19:36 Blood - Peripheral Venous Blood Culture - Preliminary NO GROWTH OBTAINED AFTER 24 HOURS, INCUBATION TO CONTINUE FOR 4 DAYS. 01/15/19 19:36 Blood - Peripheral Venous Blood Culture - Preliminary NO GROWTH OBTAINED AFTER 24 HOURS, INCUBATION TO CONTINUE FOR 4 DAYS. ASSESSMENT AND PLAN: Patient is a 63 year old male with a PMHx of HTN, HLD, DM, CVA who presents to ED. from [facility] ,presented with sepsis, UTI. #Sepsis due to UTI: On IV antibiotic Rocephin , waiting for the sensitivity , ID consult Dr. Hughes # Acute UTI: pancx ordered, on iv Antibiotic continue #Acute Kidney Injury: improved on IVF # Normochromic Anemia: follow up Iron panel #Hyperbilirubinemia: will trend #Atrial Fibrillation: with slow ventricular rate, continue eliquis 5mg, will reduce the dose of Toprol XL 100mg from 150mg #Diabetes Mellitus: BGM 199, A1C, BGM ACHS, diabetic diet #Hx of CVA continue home ASA, and on atorvastatin 80 and on Eliquis DVt Px: on eliquis
[2019-01-17] MEDS: ATORVASTATIN CA 80 MG TABLET (FP) PO SCH (21:42)
[2019-01-18 04:10] LABS: SERUM IRON SATURATION 23 % (15-55); TOTAL IRON BINDING CAPACITY 146 ug/dL (250-450); UIBC 113 ug/dL (111-343)
[2019-01-18] MEDS: INSULIN SLIDING SCALE (NOVOLOG) 1 VIAL SQ SCH ×4 (06:01→21:33)
[2019-01-18 08:02] LABS: BASO % 0.7 % (0-2.0); EOS % 0.8 % (0-4.5); HEMATOCRIT 28.1 % (35.4-49); HEMOGLOBIN 9.7 GM/dL (11.7-16.9); LYMPH % 22.4 % (8-40); MCH 30.1 pg (25.7-33.7); MCHC 34.6 g/dl (32.0-35.9); MEAN CELL VOLUME 86.9 fl (80-96); MEAN PLT VOLUME 9.8 fl (7.5-11.1); MONO % 10.7 % (3.8-10.2); NEUT % 65.4 % (42.8-82.8); PLATELET COUNT 155 K/MM3 (134-434); RBC 3.23 M/mm3 (4.00-5.60); RDW 14.2 % (11.9-15.9); WHITE BLOOD COUNT 7.2 K/mm3 (4.0-10.0)
[2019-01-18 08:13] LABS: ALBUMIN 2.5 g/dl (3.4-5.0); BILIRUBIN,TOTAL 0.9 mg/dL (0.2-1); CALCIUM 8.1 mg/dL (8.5-10.1); CREATININE 0.7 mg/dL (0.55-1.3); POTASSIUM 3.4 mmol/L (3.5-5.1); TOT PROT 5.9 g/dl (6.4-8.2)
[2019-01-18] MEDS ORDERED: DEXTROSE 5%-WATER - 50 ML IVPB ONE (09:42)
[2019-01-18] MEDS ORDERED: PT OWN MED DRAWER 7, Y5N ONE (09:42)
[2019-01-18] MEDS ORDERED: cefTRIAXone SODIUM 1 GM VIAL ONE (09:42)
[2019-01-18] MEDS: APIXABAN 5 MG TABLET PO SCH ×2 (09:45→21:32)
[2019-01-18] MEDS: CEFTRIAXONE 1 GM in DEXTROSE 5%-WATER - 50 ML IVPB SCH (09:45)
[2019-01-18] MEDS: CHOLECALCIFEROL (VITAMIN D3) 1,000 UNIT TABLET (FP) PO SCH (09:45)
[2019-01-18] MEDS: ASPIRIN 81 MG CHEWABLE TABLETS PO SCH (09:45)
[2019-01-18] MEDS: LORazepam 0.5 MG TABLET PO SCH ×2 (09:46→21:33)
--- NOTE | 2019-01-18 11:07 | PN ---
Progress Note (short form) - Note Progress Note: ID CONSULT DICTATED ESBL UTI POSSIBLE SEPSIS SECONDARY TO UTI OBS ERTAPENEM 1GM Q24H CONTACT PRECAUTIONS
--- NOTE | 2019-01-18 11:30 | CONS ---
INFECTIOUS DISEASE CONSULTATION DATE OF CONSULTATION: DATE OF DICTATION: 01/18/2019 The patient is a 63-year-old male who was admitted to the hospital on January 15, 2019, after he was noted to be febrile and hypotensive at the [facility]. He was evaluated in the emergency room where his white blood cell count was noted to 18,000. Urinalysis showed many white cells. He was empirically treated with vancomycin and Zosyn. Patient was subsequently changed to ceftriaxone. Urine culture is now growing an ESBL. He is awake and alert. However, he is confused. He offers no focal complaint. He denies any dysuria or hematuria. No complaints of suprapubic or flank pain. He has had no previous cultures here at [facility]. PAST MEDICAL HISTORY: Positive for dementia, stroke, hypertension, diabetes, hyperlipidemia. ALLERGIES: No known allergies. MEDICATIONS: Eliquis, aspirin, Lipitor, Prozac, hydrochlorothiazide, Januvia. SOCIAL HISTORY: He resides at a long-term facility, is dependent in activities of daily living. No active tobacco or alcohol use. SYSTEMS REVIEW: Neurologic: Positive for stroke and dementia. Cardiac: Negative chest pain or palpitations. Respiratory: Negative cough or sputum production. Gastrointestinal: Negative vomiting or diarrhea. Genitourinary: As per HPI. LABORATORY DATA: White count on admission 18.6, presently 7.2; hematocrit 28.1; platelet count 155. Urinalysis: White cells 612. Creatinine 0.7. Liver enzymes normal. Blood cultures negative. Chest x-ray: Negative for acute infiltrate. PHYSICAL EXAMINATION: General: He is awake, but confused. Vital Signs: Temperature 98.4, T-max 99.7; blood pressure 122/70; pulse 56, regular; respirations 18 per minute. HEENT: Sclerae are anicteric. Heart: Sounds S1, S2. Lungs: Clear. Abdomen: Soft. No tenderness elicited. No mass, rebound, or rigidity. No suprapubic or flank tenderness. Extremities: Negative for edema. IMPRESSION: 1. Extended spectrum beta-lactamase urinary tract infection. 2. Possible sepsis secondary to urinary tract infection. 3. Leukocytosis, resolved. 4. Dementia. Substitute ertapenem 1 g IV piggyback daily for treatment of ESBL urinary tract infection and possible urosepsis. Contact precautions. Thank you for the kind referral. RAUL HUSAIN M.D. [id number]
[2019-01-18] MEDS: ERTAPENEM SODIUM 1 GM in SODIUM CHLORIDE 50 ML IVPB SCH (12:36)
--- NOTE | 2019-01-18 14:10 | PN ---
Progress Note (short form) - Note Progress Note: Patient is better with no acute distress, no nausea or vomiting, no further fever. Vital Signs Temperature 98.4 F 01/18/19 10:00 Pulse Rate 56 L 01/18/19 10:00 Respiratory Rate 18 01/18/19 10:00 Blood Pressure 122/70 01/18/19 10:00 O2 Sat by Pulse Oximetry (%) 99 01/18/19 09:00 Initial Vital Signs Temp Pulse Resp BP Pulse Ox 98.1 F 65 18 90/61 98 01/15/19 18:36 01/15/19 18:36 01/15/19 18:36 01/15/19 18:36 01/15/19 18:36 GENERAL: The patient is awake, alert, and fully oriented, in no acute distress. HEAD: Normal with no signs of trauma. EYES: PERRL, extraocular movements intact, sclera anicteric, conjunctiva clear. . ENT: Ears normal, oropharynx clear without exudates, moist mucous membranes. NECK: Trachea midline, full range of motion, supple. LUNGS: Breath sounds equal, clear to auscultation bilaterally, no wheezes, no crackles, no accessory muscle use. HEART: Regular rate and rhythm, S1, S2 without murmur, rub or gallop. ABDOMEN: Soft, nontender, nondistended, normoactive bowel sounds, no guarding, no rebound, no hepatosplenomegaly, no masses. EXTREMITIES: 2+ pulses, warm, Left foot open wound, and swelling improving, positive for edema 2 plus. NEUROLOGICAL: Cranial nerves II through XII grossly intact. Normal speech, gait not observed. PSYCH: Normal mood, normal affect. SKIN: Warm, dry, normal turgor, no rashes or lesions noted CBCD WBC 7.2 K/mm3 (4.0-10.0) 01/18/19 05:15 RBC 3.23 M/mm3 (4.00-5.60) L 01/18/19 05:15 Hgb 9.7 GM/dL (11.7-16.9) L 01/18/19 05:15 Hct 28.1 % (35.4-49) L 01/18/19 05:15 MCV 86.9 fl (80-96) 01/18/19 05:15 MCHC 34.6 g/dl (32.0-35.9) 01/18/19 05:15 RDW 14.2 % (11.9-15.9) 01/18/19 05:15 Plt Count 155 K/MM3 (134-434) 01/18/19 05:15 MPV 9.8 fl (7.5-11.1) 01/18/19 05:15 CMP Sodium 135 mmol/L (136-145) L 01/18/19 05:15 Potassium 3.4 mmol/L (3.5-5.1) L 01/18/19 05:15 Chloride 102 mmol/L (98-107) 01/18/19 05:15 Carbon Dioxide 25 mmol/L (21-32) 01/18/19 05:15 Anion Gap 8 MMOL/L (8-16) 01/18/19 05:15 BUN 12 mg/dL (7-18) 01/18/19 05:15 Creatinine 0.7 mg/dL (0.55-1.3) 01/18/19 05:15 Random Glucose 123 mg/dL (74-106) H 01/18/19 05:15 Calcium 8.1 mg/dL (8.5-10.1) L 01/18/19 05:15 Total Bilirubin 0.9 mg/dL (0.2-1) 01/18/19 05:15 AST 13 U/L (15-37) L 01/18/19 05:15 ALT 16 U/L (13-61) 01/18/19 05:15 Alkaline Phosphatase 69 U/L (45-117) 01/18/19 05:15 Total Protein 5.9 g/dl (6.4-8.2) L 01/18/19 05:15 Albumin 2.5 g/dl (3.4-5.0) L 01/18/19 05:15 CARDIAC ENZYMES Troponin I < 0.02 ng/ml (0.00-0.05) 01/15/19 19:36 Current Medications Generic Name Dose Route Start Last Admin Trade Name Freq PRN Reason Stop Dose Admin Acetaminophen 650 mg 01/15/19 22:28 Tylenol - PO Q4H PRN PAIN Apixaban 5 mg 01/16/19 10:00 01/18/19 09:45 Eliquis - PO 5 mg BID KASSIDY Administration Aspirin 81 mg 01/16/19 10:00 01/18/19 09:45 Asa - PO 81 mg DAILY KASSIDY Administration Atorvastatin Calcium 80 mg 01/16/19 22:00 01/17/19 21:42 Lipitor - PO 80 mg HS KASSIDY Administration Cholecalciferol 2,000 unit 01/17/19 10:00 01/18/19 09:45 Vitamin D3 - PO 2,000 unit DAILY KASSIDY Administration Ertapenem 1 gm/ Sodium 50 mls @ 100 mls/hr 01/18/19 11:30 01/18/19 12:36 Chloride IVPB 100 mls/hr DAILY KASSIDY Administration Insulin Aspart 1 vial 01/16/19 07:00 01/18/19 11:42 Novolog Vial Sliding Scale - SQ Not Given ACHS [facility] Protocol Lorazepam 0.5 mg 01/16/19 10:00 01/18/19 09:46 Ativan - PO 0.5 mg BID KASSIDY Administration Metoprolol Succinate 100 mg 01/16/19 10:00 01/18/19 09:46 Toprol Xl - PO 100 mg DAILY KASSIDY Administration Home Medications Medication Instructions Recorded Apixaban [Eliquis] 5 mg PO BID 01/15/19 Aspirin 81 mg PO DAILY 01/15/19 Atorvastatin Calcium 80 mg PO HS 01/15/19 Dextromethorphan HBr/Quinidine 1 each PO BID 01/15/19 [Nuedexta 20-10 mg Capsule] Fluoxetine HCl [Prozac] 40 mg PO DAILY 01/15/19 Hydrochlorothiazide [Hctz -] 12.5 mg PO DAILY 01/15/19 LORazepam [Ativan] 0.5 mg PO BID 01/15/19 Metoprolol Succinate 50 mg PO DAILY 01/15/19 Metoprolol Succinate 100 mg PO DAILY 01/15/19 Sitagliptin Phosphate [Januvia] 50 mg PO DAILY 01/15/19 Cholecalciferol (Vitamin D3) 2,000 unit PO DAILY 01/16/19 [Vitamin D3] Potassium Chloride 40 meq PO DAILY 01/16/19 Microbiology 01/15/19 21:03 Urine - Urine - Catheterized Urine Culture - Final Escherichia Coli Esbl Tilt Tray Driver 01/15/19 19:36 Blood - Peripheral Venous Blood Culture - Preliminary NO GROWTH OBTAINED AFTER 48 HOURS, INCUBATION TO CONTINUE FOR 3 DAYS. 01/15/19 19:36 Blood - Peripheral Venous Blood Culture - Preliminary NO GROWTH OBTAINED AFTER 48 HOURS, INCUBATION TO CONTINUE FOR 3 DAYS. Laboratory Tests 01/15/19 01/16/19 01/17/19 19:36 05:30 06:00 Hgb Hct Retic Count 1.44 BUN 28 H 21 H Creatinine 1.4 H 1.0 Iron TIBC Iron Saturation Ferritin 01/17/19 01/17/19 01/18/19 06:00 06:00 05:15 Hgb 9.7 L Hct 28.1 L Retic Count BUN Creatinine Iron 33 L TIBC 146 L Iron Saturation 23 Ferritin 1110.2 H Assessment and plan: Patient is a 63 year old male with a PMHx of HTN, HLD, DM, CVA who presents to ED. from [facility], presented with sepsis, UTI. #Sepsis due to UTI:cx is growing ESBL, on Ertapenem now, will dc IV Rocephin , ID consult appreciated. # Acute UTI: growing ESBL e.coli on Ertapenem, continue iv Antibiotic. #Acute Kidney Injury: improved on IVF # Anemia of chronic disease. result as above #Hyperbilirubinemia: will trend #Atrial Fibrillation: with slow ventricular rate, continue eliquis 5mg, will reduce the dose of Toprol XL 100mg from 150mg #Diabetes Mellitus: BGM 199, A1C, BGM ACHS, diabetic diet #Hx of CVA continue home ASA, and on atorvastatin 80 and on Eliquis DVt Px: on eliquis Visit type - Emergency Visit Emergency Visit: Yes ED Registration Date: 01/15/19 Care time: The patient presented to the Emergency Department on the above date and was hospitalized for further evaluation of their emergent condition. - New Patient This patient is new to me today: No - Critical Care Critical Care patient: No - Discharge Referral Referred to [facility] Med P.C.: No
[2019-01-18] MEDS: ATORVASTATIN CA 80 MG TABLET (FP) PO SCH (21:32)
[2019-01-19] MEDS: INSULIN SLIDING SCALE (NOVOLOG) 1 VIAL SQ SCH ×4 (06:12→21:15)
--- NOTE | 2019-01-19 07:41 | PN ---
Physical Exam: SUBJECTIVE: Patient seen and examined at bedside. no acute events. no complaints. denies fever, cp, sob, n/v/d OBJECTIVE: Vital Signs Period Temp Pulse Resp BP Sys/Meléndez Pulse Ox Last 24 Hr 97.4 F-98.4 F 51-56 18-18 122-143/67-72 98-99 GENERAL: A&Ox3, no acute distress EYES: PERRLA, EOMI ENT: MMM NECK: No JVD LUNGS: CTA, no wheezes HEART: bradycardic, no murmurs ABDOMEN: Soft, nontender, BS present MUSCULOSKELETAL: No CVA Tenderness EXTREMITIES: 2+ pulses, no edema. L great toe amputated NEURO: strength sensation grossly intact. L facial droop (chronic 2/2 old CVA) Laboratory Results - last 24 hr 01/18/19 01/18/19 01/18/19 05:15 05:15 11:17 WBC 7.2 RBC 3.23 L Hgb 9.7 L Hct 28.1 L MCV 86.9 MCH 30.1 MCHC 34.6 RDW 14.2 Plt Count 155 MPV 9.8 Absolute Neuts (auto) 4.7 Neutrophils % 65.4 Lymphocytes % 22.4 D Monocytes % 10.7 H Eosinophils % 0.8 Basophils % 0.7 Nucleated RBC % 0 Sodium 135 L Potassium 3.4 L Chloride 102 Carbon Dioxide 25 Anion Gap 8 BUN 12 Creatinine 0.7 Est GFR (CKD-EPI)AfAm 114.78 Est GFR (CKD-EPI)NonAf 99.03 POC Glucometer 144 Random Glucose 123 H Calcium 8.1 L Total Bilirubin 0.9 AST 13 L ALT 16 Alkaline Phosphatase 69 Total Protein 5.9 L Albumin 2.5 L 01/18/19 01/18/19 01/19/19 16:31 21:03 05:35 WBC RBC Hgb Hct MCV MCH MCHC RDW Plt Count MPV Absolute Neuts (auto) Neutrophils % Lymphocytes % Monocytes % Eosinophils % Basophils % Nucleated RBC % Sodium Potassium Chloride Carbon Dioxide Anion Gap BUN Creatinine Est GFR (CKD-EPI)AfAm Est GFR (CKD-EPI)NonAf POC Glucometer 123 138 133 Random Glucose Calcium Total Bilirubin AST ALT Alkaline Phosphatase Total Protein Albumin Active Medications Generic Name Dose Route Start Last Admin Trade Name Freq PRN Reason Stop Dose Admin Acetaminophen 650 mg 01/15/19 22:28 Tylenol - PO Q4H PRN PAIN Apixaban 5 mg 01/16/19 10:00 01/18/19 21:32 Eliquis - PO 5 mg BID KASSIDY Administration Aspirin 81 mg 01/16/19 10:00 01/18/19 09:45 Asa - PO 81 mg DAILY KASSIDY Administration Atorvastatin Calcium 80 mg 01/16/19 22:00 01/18/19 21:32 Lipitor - PO 80 mg HS KASSIDY Administration Cholecalciferol 2,000 unit 01/17/19 10:00 01/18/19 09:45 Vitamin D3 - PO 2,000 unit DAILY KASSIDY Administration Ertapenem 1 gm/ Sodium 50 mls @ 100 mls/hr 01/18/19 11:30 01/18/19 12:36 Chloride IVPB 100 mls/hr DAILY KASSIDY Administration Insulin Aspart 1 vial 01/16/19 07:00 01/19/19 06:12 Novolog Vial Sliding Scale - SQ Not Given ACHS [facility] Protocol Lorazepam 0.5 mg 01/16/19 10:00 01/18/19 21:33 Ativan - PO 0.5 mg BID KASSIDY Administration Metoprolol Succinate 50 mg 01/18/19 15:43 Toprol Xl - PO DAILY [facility] [id number] US/ABDOMEN US -LIMITED HISTORY PROVIDED: Hyperbilirubinemia. Real time examination of the abdomen demonstrates the following: The gallbladder is normal in size. It is filled with echogenic biliary sludge. No definite calculi are seen. There is no evidence of intra or extrahepatic biliary duct dilatation. The liver is enlarged measuring 18.3 cm in craniocaudad and dimension. It is somewhat heterogeneous in texture suspicious for diffuse fatty infiltration. No discrete intrahepatic masses are identified. Hepatopedal flow is documented within the main portal vein. The pancreas is normal in size and texture with no pancreatic masses identified. The spleen is enlarged measuring 16 cm in craniocaudad dimension. There is no evidence of hydronephrosis or acute renal abnormalities. There is a septated cyst within the upper pole the right kidney measuring 6.8 x 5.5 x 6.8 cm. There is no evidence of AAA. The IVC is patent. IMPRESSION: 1. Biliary sludge within the gallbladder with no evidence of cholelithiasis or biliary ductal dilatation. 2. Hepatosplenomegaly with probable diffuse fatty infiltration of the liver. 3. Large right upper pole renal cyst. Please see above discussion. ECHO Interpretation Summary The left ventricular size, thickness and function are normal The right ventricle is normal in size and function. There is trace tricuspid regurgitation. ASSESSMENT/PLAN: 63 yo M PMH HTN, HLD, DM, CVA who presents via ambulance from [facility] for evaluation of fever and admitted for treatment of sepsis 2/2 UTI #Sepsis 2/2 ESBL UTI: resolving. BP responded to fluid resuscitation and remains afebrile. leukocytosis resolved -bcx neg -ucx is growing ESBL -s/p vanc/zosyn. s/p rocephin. on IV Ertapenem day 2 -ID consulted -isolation precautions #KEN: resolved w/ IVF. Cr 1.4...0.7 #Anemia: normochromic, normocytic, likely 2/2 chronic disease -reticulocytes nl -iron studies reviewed. ferritin 1110, iron 33 #Hyperbilirubinemia: downtrending -direct bilirubin 0.4 -RUQ US reviewed #Atrial Fibrillation: currently sinus bradycardia on EKG -on eliquis 5mg, continue home dose -on toprol XL at home, per [place] he takes 2 doses daily, 100 and 50, all at once -c/w decreased dose of 50mg due to trey 40s-50s w/ toprol XL 100 #HTN -restart home dose HCTZ #Diabetes Mellitus: -A1C 6.1 -BGM ACHS -ISS #Hx of CVA -continue home ASA -continue atorvastatin 80 #FEN -PO hydration -replete lytes prn, restart home dose Kdur 40 -diabetic diet #Prophylaxis -on eliquis #Disposition -med surg -PT eval -anticipate dc in 24-48hr Visit type - Emergency Visit Emergency Visit: Yes ED Registration Date: 01/15/19 Care time: The patient presented to the Emergency Department on the above date and was hospitalized for further evaluation of their emergent condition. - New Patient This patient is new to me today: Yes Date on this admission: 01/19/19 - Critical Care Critical Care patient: No
[2019-01-19] MEDS: ASPIRIN 81 MG CHEWABLE TABLETS PO SCH (09:14)
[2019-01-19] MEDS: APIXABAN 5 MG TABLET PO SCH ×2 (09:14→21:15)
[2019-01-19] MEDS: LORazepam 0.5 MG TABLET PO SCH ×2 (09:14→21:15)
[2019-01-19] MEDS: POTASSIUM CHLORIDE TABS 20 MEQ TABLET.ER (FP) PO SCH (09:15)
[2019-01-19] MEDS: CHOLECALCIFEROL (VITAMIN D3) 1,000 UNIT TABLET (FP) PO SCH (09:15)
[2019-01-19] MEDS ORDERED: HYDROCHLOROTHIAZIDE 12.5 MG CAPSULE (FP) PO SCH (10:00)
[2019-01-19] MEDS: ERTAPENEM SODIUM 1 GM in SODIUM CHLORIDE 50 ML IVPB SCH (10:09)
--- NOTE | 2019-01-19 16:52 | PN ---
Teaching Attending Note Name of Resident: Amor Lester ATTENDING PHYSICIAN STATEMENT I saw and evaluated the patient. I reviewed the resident's note and discussed the case with the resident. I agree with the resident's findings and plan as documented. SUBJECTIVE: Patient is comfortable with no acute distress, no new changes. OBJECTIVE: Vital Signs Temperature 98 F 01/19/19 14:11 Pulse Rate 52 L 01/19/19 14:11 Respiratory Rate 18 01/19/19 14:11 Blood Pressure 108/58 L 01/19/19 14:11 O2 Sat by Pulse Oximetry (%) 100 01/19/19 09:00 GENERAL: The patient is awake, alert, and fully oriented, in no acute distress. HEAD: Normal with no signs of trauma. EYES: PERRL, extraocular movements intact, sclera anicteric, conjunctiva clear. . ENT: Ears normal, oropharynx clear without exudates, moist mucous membranes. NECK: Trachea midline, full range of motion, supple. LUNGS: Breath sounds equal, clear to auscultation bilaterally, no wheezes, no crackles, no accessory muscle use. HEART: Regular rate and rhythm, S1, S2 without murmur, rub or gallop. ABDOMEN: Soft, nontender, nondistended, normoactive bowel sounds, no guarding, no rebound, no hepatosplenomegaly, no masses. EXTREMITIES: 2+ pulses, warm, Left foot open wound, and swelling improving, positive for edema 2 plus. NEUROLOGICAL: Cranial nerves II through XII grossly intact. Normal speech, gait not observed. PSYCH: Normal mood, normal affect. SKIN: Warm, dry, normal turgor, no rashes or lesions noted CBCD WBC 7.2 K/mm3 (4.0-10.0) 01/18/19 05:15 RBC 3.23 M/mm3 (4.00-5.60) L 01/18/19 05:15 Hgb 9.7 GM/dL (11.7-16.9) L 01/18/19 05:15 Hct 28.1 % (35.4-49) L 01/18/19 05:15 MCV 86.9 fl (80-96) 01/18/19 05:15 MCHC 34.6 g/dl (32.0-35.9) 01/18/19 05:15 RDW 14.2 % (11.9-15.9) 01/18/19 05:15 Plt Count 155 K/MM3 (134-434) 01/18/19 05:15 MPV 9.8 fl (7.5-11.1) 01/18/19 05:15 CMP Sodium 135 mmol/L (136-145) L 01/18/19 05:15 Potassium 3.4 mmol/L (3.5-5.1) L 01/18/19 05:15 Chloride 102 mmol/L (98-107) 01/18/19 05:15 Carbon Dioxide 25 mmol/L (21-32) 01/18/19 05:15 Anion Gap 8 MMOL/L (8-16) 01/18/19 05:15 BUN 12 mg/dL (7-18) 01/18/19 05:15 Creatinine 0.7 mg/dL (0.55-1.3) 01/18/19 05:15 Random Glucose 123 mg/dL (74-106) H 01/18/19 05:15 Calcium 8.1 mg/dL (8.5-10.1) L 01/18/19 05:15 Total Bilirubin 0.9 mg/dL (0.2-1) 01/18/19 05:15 AST 13 U/L (15-37) L 01/18/19 05:15 ALT 16 U/L (13-61) 01/18/19 05:15 Alkaline Phosphatase 69 U/L (45-117) 01/18/19 05:15 Total Protein 5.9 g/dl (6.4-8.2) L 01/18/19 05:15 Albumin 2.5 g/dl (3.4-5.0) L 01/18/19 05:15 CARDIAC ENZYMES Troponin I < 0.02 ng/ml (0.00-0.05) 01/15/19 19:36 Current Medications Generic Name Dose Route Start Last Admin Trade Name Freq PRN Reason Stop Dose Admin Acetaminophen 650 mg 01/15/19 22:28 Tylenol - PO Q4H PRN PAIN Apixaban 5 mg 01/16/19 10:00 01/19/19 09:14 Eliquis - PO 5 mg BID KASSIDY Administration Aspirin 81 mg 01/16/19 10:00 01/19/19 09:14 Asa - PO 81 mg DAILY KASSIDY Administration Atorvastatin Calcium 80 mg 01/16/19 22:00 01/18/19 21:32 Lipitor - PO 80 mg HS KASSIDY Administration Cholecalciferol 2,000 unit 01/17/19 10:00 01/19/19 09:15 Vitamin D3 - PO 2,000 unit DAILY KASSIDY Administration Hydrochlorothiazide 12.5 mg 01/19/19 10:00 01/19/19 09:14 Hctz - PO 12.5 mg DAILY KASSIDY Administration will discontinue Ertapenem 1 gm/ Sodium 50 mls @ 100 mls/hr 01/18/19 11:30 01/19/19 10:09 Chloride IVPB 100 mls/hr DAILY KASSIDY Administration Insulin Aspart 1 vial 01/16/19 07:00 01/19/19 16:30 Novolog Vial Sliding Scale - SQ 2 units ACHS KASSIDY Administration Protocol Lorazepam 0.5 mg 01/16/19 10:00 01/19/19 09:14 Ativan - PO 0.5 mg BID KASSIDY Administration Metoprolol Succinate 50 mg 01/18/19 15:43 01/19/19 09:14 Toprol Xl - PO 50 mg DAILY KASSIDY Administration Potassium Chloride 40 meq 01/19/19 10:00 01/19/19 09:15 K-Dur - PO 40 meq DAILY KASSIDY Administration Home Medications Medication Instructions Recorded Apixaban [Eliquis] 5 mg PO BID 01/15/19 Aspirin 81 mg PO DAILY 01/15/19 Atorvastatin Calcium 80 mg PO HS 01/15/19 Dextromethorphan HBr/Quinidine 1 each PO BID 01/15/19 [Nuedexta 20-10 mg Capsule] Fluoxetine HCl [Prozac] 40 mg PO DAILY 01/15/19 Hydrochlorothiazide [Hctz -] 12.5 mg PO DAILY 01/15/19 LORazepam [Ativan] 0.5 mg PO BID 01/15/19 Metoprolol Succinate 50 mg PO DAILY 01/15/19 Metoprolol Succinate 100 mg PO DAILY 01/15/19 Sitagliptin Phosphate [Januvia] 50 mg PO DAILY 01/15/19 Cholecalciferol (Vitamin D3) 2,000 unit PO DAILY 01/16/19 [Vitamin D3] Potassium Chloride 40 meq PO DAILY 01/16/19 Microbiology 01/15/19 21:03 Urine - Urine - Catheterized Urine Culture - Final Escherichia Coli Esbl Latcher 01/15/19 19:36 Blood - Peripheral Venous Blood Culture - Preliminary NO GROWTH OBTAINED AFTER 48 HOURS, INCUBATION TO CONTINUE FOR 3 DAYS. 01/15/19 19:36 Blood - Peripheral Venous Blood Culture - Preliminary NO GROWTH OBTAINED AFTER 48 HOURS, INCUBATION TO CONTINUE FOR 3 DAYS. Laboratory Tests 01/15/19 01/16/19 01/17/19 19:36 05:30 06:00 Hgb Hct Retic Count 1.44 BUN 28 H 21 H Creatinine 1.4 H 1.0 Iron TIBC Iron Saturation Ferritin 01/17/19 01/17/19 01/18/19 06:00 06:00 05:15 Hgb 9.7 L Hct 28.1 L Retic Count BUN Creatinine Iron 33 L TIBC 146 L Iron Saturation 23 Ferritin 1110.2 H ASSESSMENT AND PLAN: Patient is a 63 year old male with a PMHx of HTN, HLD, DM, CVA who presents to ED. from [facility], presented with sepsis, UTI. #Sepsis due to UTI:cx is growing ESBL, on Ertapenem since growing ESBL as per ID, s/p IV Rocephin, as per ID , we'll continue Ertapenem one more day if patient is stable then patient can be discharged As per ID. # Acute UTI: growing ESBL e.coli on Ertapenem, continue iv Antibiotic for one more day. #Acute Kidney Injury: improved on IVF , will discontinue Hctz for now # Anemia of chronic disease. result as above #Hyperbilirubinemia: will trend #Atrial Fibrillation: with slow ventricular rate, continue eliquis 5mg, reduced the dose of Toprol XL 100mg from 150mg to toprol xl 50mg, discontinued Hctz since the patient is high risk for fall as well and the blood pressure is running on the low side. #Diabetes Mellitus: BGM 199, A1C, BGM ACHS, diabetic diet #Hx of CVA continue home ASA, and on atorvastatin 80 and on Eliquis DVt Px: on eliquis rpeat labs in am
[2019-01-19] MEDS: ATORVASTATIN CA 80 MG TABLET (FP) PO SCH (21:14)
[2019-01-20] MEDS: INSULIN SLIDING SCALE (NOVOLOG) 1 VIAL SQ SCH ×4 (06:21→21:34)
[2019-01-20 09:19] LABS: CALCIUM 8.5 mg/dL (8.5-10.1); CREATININE 0.7 mg/dL (0.55-1.3); POTASSIUM 4.1 mmol/L (3.5-5.1)
[2019-01-20] MEDS ORDERED: PT OWN MED DRAWER 7, Y5N ONE (10:13)
[2019-01-20] MEDS: POTASSIUM CHLORIDE TABS 20 MEQ TABLET.ER (FP) PO SCH (10:22)
[2019-01-20] MEDS: LORazepam 0.5 MG TABLET PO SCH ×2 (10:23→21:34)
[2019-01-20] MEDS: ERTAPENEM SODIUM 1 GM in SODIUM CHLORIDE 50 ML IVPB SCH (10:23)
[2019-01-20] MEDS: CHOLECALCIFEROL (VITAMIN D3) 1,000 UNIT TABLET (FP) PO SCH (10:23)
[2019-01-20] MEDS: APIXABAN 5 MG TABLET PO SCH ×2 (10:23→21:34)
[2019-01-20] MEDS: ASPIRIN 81 MG CHEWABLE TABLETS PO SCH (10:23)
--- NOTE | 2019-01-20 12:08 | PN ---
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 Pt speeaking more fluently, much improved as compared to last session, presumably back to baseline.
--- NOTE | 2019-01-20 12:26 | PN ---
Progress Note, Physician History of Present Illness: AWAKE BUT CONFUSED OFFERS NO COMPLAINTS DENIES DYSURIA/ HEMATURIA NO C/O SUPRAPUBIC OR FLANK PAIN NO F/C AFEBRILE WBC WNL CULTURES NEGATIVE - Current Medication List Current Medications: Active Medications Acetaminophen (Tylenol -) 650 mg PO Q4H PRN PRN Reason: PAIN Apixaban (Eliquis -) 5 mg PO BID [facility] Last Admin: 01/20/19 10:23 Dose: 5 mg Aspirin (Asa -) 81 mg PO DAILY [facility] Last Admin: 01/20/19 10:23 Dose: 81 mg Atorvastatin Calcium (Lipitor -) 80 mg PO HS [facility] Last Admin: 01/19/19 21:14 Dose: 80 mg Cholecalciferol (Vitamin D3 -) 2,000 unit PO DAILY [facility] Last Admin: 01/20/19 10:23 Dose: 2,000 unit Ertapenem 1 gm/ Sodium (Chloride) 50 mls @ 100 mls/hr IVPB DAILY [facility] Last Admin: 01/20/19 10:23 Dose: 100 mls/hr Insulin Aspart (Novolog Vial Sliding Scale -) 1 vial SQ ACHS [facility]; Protocol Last Admin: 01/20/19 12:14 Dose: Not Given Lorazepam (Ativan -) 0.5 mg PO BID [facility] Last Admin: 01/20/19 10:23 Dose: 0.5 mg Metoprolol Succinate (Toprol Xl -) 50 mg PO DAILY [facility] Last Admin: 01/20/19 10:23 Dose: 50 mg Potassium Chloride (K-Dur -) 40 meq PO DAILY [facility] Last Admin: 01/20/19 10:22 Dose: 40 meq - Objective Vital Signs: Vital Signs Temperature 97.9 F 01/20/19 05:51 Pulse Rate 54 L 01/20/19 05:51 Respiratory Rate 01/20/19 09:00 Blood Pressure 135/70 01/20/19 05:51 O2 Sat by Pulse Oximetry (%) 100 01/20/19 09:00 Constitutional: Yes: No Distress Eyes: Yes: Conjunctiva Clear Cardiovascular: Yes: Regular Rate and Rhythm, S1, S2 Respiratory: Yes: Diminished Gastrointestinal: Yes: Normal Bowel Sounds, Soft. No: Tenderness Edema: No Labs: CBC, BMP 01/18/19 05:15 01/20/19 08:40 INR, PTT INR 2.27 (0.83-1.09) H 01/15/19 19:36 Assessment/Plan ESBL UTI LEUKOCYTOSIS- RESOLVED OBS PT HAS RECEIVED 2DAYS ZOSYN, 3DAYS ERTAPENEM D/C ANTIBIOTICS, OBSERVE OFF
--- NOTE | 2019-01-20 12:44 | PN ---
Teaching Attending Note Name of Resident: Amor Lester ATTENDING PHYSICIAN STATEMENT I saw and evaluated the patient. I reviewed the resident's note and discussed the case with the resident. I agree with the resident's findings and plan as documented. SUBJECTIVE: Patient is comfortable with no acute distress. wants to go home. OBJECTIVE: Vital Signs Temperature 97.9 F 01/20/19 05:51 Pulse Rate 54 L 01/20/19 05:51 Respiratory Rate 19 01/20/19 09:00 Blood Pressure 135/70 01/20/19 05:51 O2 Sat by Pulse Oximetry (%) 100 01/20/19 09:00 GENERAL: The patient is awake, alert, and fully oriented, in no acute distress. HEAD: Normal with no signs of trauma. EYES: PERRL, extraocular movements intact, sclera anicteric, conjunctiva clear. . ENT: Ears normal, oropharynx clear without exudates, moist mucous membranes. NECK: Trachea midline, full range of motion, supple. LUNGS: Breath sounds equal, clear to auscultation bilaterally, no wheezes, no crackles, no accessory muscle use. HEART: mild bradycardia , S1, S2 without murmur, rub or gallop. ABDOMEN: Soft, nontender, nondistended, normoactive bowel sounds, no guarding, no rebound, no hepatosplenomegaly, no masses. EXTREMITIES: 2+ pulses, warm, Left foot open wound, and swelling improved. trace edema. NEUROLOGICAL: Cranial nerves II through XII grossly intact. Normal speech, gait not observed. PSYCH: Normal mood, normal affect. SKIN: Warm, dry, normal turgor, no rashes or lesions noted CBCD WBC 7.2 K/mm3 (4.0-10.0) 01/18/19 05:15 RBC 3.23 M/mm3 (4.00-5.60) L 01/18/19 05:15 Hgb 9.7 GM/dL (11.7-16.9) L 01/18/19 05:15 Hct 28.1 % (35.4-49) L 01/18/19 05:15 MCV 86.9 fl (80-96) 01/18/19 05:15 MCHC 34.6 g/dl (32.0-35.9) 01/18/19 05:15 RDW 14.2 % (11.9-15.9) 01/18/19 05:15 Plt Count 155 K/MM3 (134-434) 01/18/19 05:15 MPV 9.8 fl (7.5-11.1) 01/18/19 05:15 CMP Sodium 133 mmol/L (136-145) L 01/20/19 08:40 Potassium 4.1 mmol/L (3.5-5.1) 01/20/19 08:40 Chloride 100 mmol/L (98-107) 01/20/19 08:40 Carbon Dioxide 28 mmol/L (21-32) 01/20/19 08:40 Anion Gap 5 MMOL/L (8-16) L 01/20/19 08:40 BUN 15 mg/dL (7-18) 01/20/19 08:40 Creatinine 0.7 mg/dL (0.55-1.3) 01/20/19 08:40 Random Glucose 138 mg/dL (74-106) H 01/20/19 08:40 Calcium 8.5 mg/dL (8.5-10.1) 01/20/19 08:40 Total Bilirubin 0.9 mg/dL (0.2-1) 01/18/19 05:15 AST 13 U/L (15-37) L 01/18/19 05:15 ALT 16 U/L (13-61) 01/18/19 05:15 Alkaline Phosphatase 69 U/L (45-117) 01/18/19 05:15 Total Protein 5.9 g/dl (6.4-8.2) L 01/18/19 05:15 Albumin 2.5 g/dl (3.4-5.0) L 01/18/19 05:15 CARDIAC ENZYMES Troponin I < 0.02 ng/ml (0.00-0.05) 01/15/19 19:36 Current Medications Generic Name Dose Route Start Last Admin Trade Name Freq PRN Reason Stop Dose Admin Acetaminophen 650 mg 01/15/19 22:28 Tylenol - PO Q4H PRN PAIN Apixaban 5 mg 01/16/19 10:00 01/20/19 10:23 Eliquis - PO 5 mg BID KASSIDY Administration Aspirin 81 mg 01/16/19 10:00 01/20/19 10:23 Asa - PO 81 mg DAILY KASSIDY Administration Atorvastatin Calcium 80 mg 01/16/19 22:00 01/19/19 21:14 Lipitor - PO 80 mg HS KASSIDY Administration Cholecalciferol 2,000 unit 01/17/19 10:00 01/20/19 10:23 Vitamin D3 - PO 2,000 unit DAILY KASSIDY Administration Ertapenem 1 gm/ Sodium 50 mls @ 100 mls/hr 01/18/19 11:30 01/20/19 10:23 Chloride IVPB 100 mls/hr DAILY KASSIDY Administration Insulin Aspart 1 vial 01/16/19 07:00 01/20/19 12:14 Novolog Vial Sliding Scale - SQ Not Given ACHS KASSIDY Protocol Lorazepam 0.5 mg 01/16/19 10:00 01/20/19 10:23 Ativan - PO 0.5 mg BID KASSIDY Administration Metoprolol Succinate 50 mg 01/18/19 15:43 01/20/19 10:23 Toprol Xl - PO 50 mg DAILY KASSIDY Administration Potassium Chloride 40 meq 01/19/19 10:00 01/20/19 10:22 K-Dur - PO 40 meq DAILY KASSIDY Administration Home Medications Medication Instructions Recorded Apixaban [Eliquis] 5 mg PO BID 01/15/19 Aspirin 81 mg PO DAILY 01/15/19 Atorvastatin Calcium 80 mg PO HS 01/15/19 Fluoxetine HCl [Prozac] 40 mg PO DAILY 01/15/19 LORazepam [Ativan] 0.5 mg PO BID 01/15/19 Metoprolol Succinate 50 mg PO DAILY 01/15/19 Sitagliptin Phosphate [Januvia] 50 mg PO DAILY 01/15/19 Cholecalciferol (Vitamin D3) 2,000 unit PO DAILY 01/16/19 [Vitamin D3] Microbiology 01/15/19 19:36 Blood - Peripheral Venous Blood Culture - Preliminary NO GROWTH OBTAINED AFTER 96 HOURS, INCUBATION TO CONTINUE FOR 1 DAYS. 01/15/19 19:36 Blood - Peripheral Venous Blood Culture - Preliminary NO GROWTH OBTAINED AFTER 96 HOURS, INCUBATION TO CONTINUE FOR 1 DAYS. 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 from [facility], presented with sepsis, UTI. #s/p sepsis due to UTI: cx is growing ESBL, received zosyn x 2 days and Ertapenem for 3 days, patient is feeling better now, as per ID, completed the treatment since the patient is afebrile and no further antibiotic is needed upon discharge # Acute UTI: growing ESBL e.coli on Ertapenem, continue iv Antibiotic for one more day. #Acute Kidney Injury: improved on IVF , will discontinue Hctz for now # Anemia of chronic disease. result as above #Hyperbilirubinemia: improved is 0.9 today #Atrial Fibrillation: with slow ventricular rate, continue eliquis 5mg, reduced the dose of Toprol XL 100mg from 150mg to toprol xl 50mg, discontinued Hctz since the patient is high risk for fall as well and the blood pressure is running on the low side. continue toprol xl 50mg #Diabetes Mellitus: BGM 199, A1C, BGM ACHS, diabetic diet #Hx of CVA continue home ASA, and on atorvastatin 80 and Eliquis discharge patient home.
--- NOTE | 2019-01-20 13:03 | DS ---
Physical Exam: SUBJECTIVE: Patient seen and examined at bedside. no acute events. no complaints. denies fever, cp, sob, n/v/d OBJECTIVE: Vital Signs Period Temp Pulse Resp BP Sys/Meléndez Pulse Ox Last 24 Hr 97.6 F-98.6 F 49-54 18-20 108-142/58-70 95-100 PHYSICAL EXAM GENERAL: A&Ox3, no acute distress EYES: PERRLA, EOMI ENT: MMM NECK: No JVD LUNGS: CTA, no wheezes HEART: bradycardic, no murmurs ABDOMEN: Soft, nontender, BS present MUSCULOSKELETAL: No CVA Tenderness EXTREMITIES: 2+ pulses, no edema. L great toe amputated NEURO: strength sensation grossly intact. L facial droop (chronic 2/2 old CVA) LABS Laboratory Results - last 24 hr 01/19/19 01/19/19 01/20/19 16:17 21:14 06:05 Sodium Potassium Chloride Carbon Dioxide Anion Gap BUN Creatinine Est GFR (CKD-EPI)AfAm Est GFR (CKD-EPI)NonAf POC Glucometer 153 125 131 Random Glucose Calcium 01/20/19 01/20/19 08:40 11:33 Sodium 133 L Potassium 4.1 Chloride 100 Carbon Dioxide 28 Anion Gap 5 L BUN 15 Creatinine 0.7 Est GFR (CKD-EPI)AfAm 114.78 Est GFR (CKD-EPI)NonAf 99.03 POC Glucometer 134 Random Glucose 138 H Calcium 8.5 [id number] US/ABDOMEN US -LIMITED HISTORY PROVIDED: Hyperbilirubinemia. Real time examination of the abdomen demonstrates the following: The gallbladder is normal in size. It is filled with echogenic biliary sludge. No definite calculi are seen. There is no evidence of intra or extrahepatic biliary duct dilatation. The liver is enlarged measuring 18.3 cm in craniocaudad and dimension. It is somewhat heterogeneous in texture suspicious for diffuse fatty infiltration. No discrete intrahepatic masses are identified. Hepatopedal flow is documented within the main portal vein. The pancreas is normal in size and texture with no pancreatic masses identified. The spleen is enlarged measuring 16 cm in craniocaudad dimension. There is no evidence of hydronephrosis or acute renal abnormalities. There is a septated cyst within the upper pole the right kidney measuring 6.8 x 5.5 x 6.8 cm. There is no evidence of AAA. The IVC is patent. IMPRESSION: 1. Biliary sludge within the gallbladder with no evidence of cholelithiasis or biliary ductal dilatation. 2. Hepatosplenomegaly with probable diffuse fatty infiltration of the liver. 3. Large right upper pole renal cyst. Please see above discussion. ECHO Interpretation Summary The left ventricular size, thickness and function are normal The right ventricle is normal in size and function. There is trace tricuspid regurgitation. HOSPITAL COURSE: Date of Admission:01/15/19 Date of Discharge: 01/20/19 63 yo M PMH HTN, HLD, DM, CVA who presents via ambulance from [facility] for evaluation of fever and admitted for treatment of sepsis 2/2 UTI #Sepsis 2/2 ESBL UTI: resolved. BP responded to fluid resuscitation and pt remains afebrile. leukocytosis resolved -bcx neg -s/p vanc/zosyn x2d. -s/p IV Ertapenem x3d -ID consulted, latoya #KEN: resolved w/ IVF. Cr 1.4...0.7 #Anemia: normochromic, normocytic, likely 2/2 chronic disease -reticulocytes nl -iron studies reviewed. ferritin 1110, iron 33 #Hyperbilirubinemia: resolved -direct bilirubin 0.4 -RUQ US reviewed above #Atrial Fibrillation: currently sinus bradycardia on EKG -on eliquis 5mg bid, continue home dose at dc -on toprol XL at home, per OR he takes 2 doses daily, 100 and 50, all at once -c/w decreased dose of 50mg at dc due to noted trey 40s-50s while on higher doses #HTN -will stop HCTZ and 40meq K at dc due to noted low BPs. pt to f/u w/ PCP as to when to resume #Diabetes Mellitus: -A1C 6.1 #Hx of CVA -continue home ASA -continue atorvastatin 80 pt stable and ready for dc w/ appropriate f/u Minutes to complete discharge: 39 Discharge Summary Reason For Visit: URINARY TRACT INFECTION,SEPSIS Current Active Problems Sepsis (Acute) UTI (urinary tract infection) (Acute) Condition: Stable - Instructions Diet, Activity, Other Instructions: you came in for urinary tract infection. we gave you antibiotics and you improved We decreased your metoprolol from 150 to 50mg once a day because your heart rate was slow Please resume your home meds Please follow up with your primary care physician within 1 week Please follow up with infectious disease Dr Schwartz within 1 week If you experience any fever, chills, shortness of breath, burning on urination, abdominal pain, please call 911 or go to the ER Referrals: Jagdish Schwartz MD [Staff Physician] - 1 Week Disposition: INTERMEDIATE FACILITY - Home Medications Comprehensive Discharge Medication List: Ambulatory Orders Apixaban [Eliquis] 5 mg PO BID 01/15/19 Aspirin 81 mg PO DAILY 01/15/19 Atorvastatin Calcium 80 mg PO HS 01/15/19 Fluoxetine HCl [Prozac] 40 mg PO DAILY 01/15/19 LORazepam [Ativan] 0.5 mg PO BID 01/15/19 Metoprolol Succinate 50 mg PO DAILY 01/15/19 Sitagliptin Phosphate [Januvia] 50 mg PO DAILY 01/15/19 Cholecalciferol (Vitamin D3) [Vitamin D3] 2,000 unit PO DAILY 01/16/19 This patient is new to me today: Yes Date on this admission: 01/20/19 Emergency Visit: Yes ED Registration Date: 01/15/19 Care time: The patient presented to the Emergency Department on the above date and was hospitalized for further evaluation of their emergent condition. Critical Care patient: No - Discharge Referral Referred to [facility] Med [facility].C.: No
[2019-01-20] MEDS ORDERED: TAMSULOSIN HCL 0.4 MG CAP PO ONE (16:06)
[2019-01-20] MEDS: ATORVASTATIN CA 80 MG TABLET (FP) PO SCH (21:34)
[2019-01-20] MEDS: ACETAMINOPHEN 325 MG TABLET (FP) PO PRN (23:26)
[2019-01-21] MEDS: INSULIN SLIDING SCALE (NOVOLOG) 1 VIAL SQ SCH ×4 (06:10→22:15)
--- NOTE | 2019-01-21 07:04 | PN ---
Progress Note (short form) - Note Progress Note: SUBJECTIVE: Patient seen and examined at bedside. no acute events. no complaints. denies fever, cp, sob, n/v/d. dc was held overnight since patient was having difficulty with urination, started on Flomax and now improved OBJECTIVE: Vital Signs Period Temp Pulse Resp BP Sys/Meléndez Pulse Ox Last 24 Hr 97.0 F-97.8 F 47-50 19-20 109-137/60-73 97-100 PHYSICAL EXAM GENERAL: A&Ox3, no acute distress EYES: PERRLA, EOMI ENT: MMM NECK: No JVD LUNGS: CTA, no wheezes HEART: bradycardic, no murmurs ABDOMEN: Soft, nontender, BS present MUSCULOSKELETAL: No CVA Tenderness EXTREMITIES: 2+ pulses, no edema. L great toe amputated NEURO: strength sensation grossly intact. L facial droop (chronic 2/2 old CVA) A/P 63 yo M PMH HTN, HLD, DM, CVA who presents via ambulance from [facility] for evaluation of fever and admitted for treatment of sepsis 2/2 UTI ESBL UTI - resolved w/ abx dispo dc was held overnight since patient was having difficulty with urination, was started on Flomax and now improved will dc this morning and cont flomax at dc
[2019-01-21] MEDS ORDERED: TAMSULOSIN HCL 0.4 MG CAP PO SCH (08:30)
[2019-01-21 08:52] LABS: CALCIUM 8.5 mg/dL (8.5-10.1); CREATININE 0.8 mg/dL (0.55-1.3); POTASSIUM 4.6 mmol/L (3.5-5.1)
[2019-01-21] MEDS ORDERED: GLYCERIN 1 RECTAL SUPPOSITORY, ADULT RC ONE (10:02)
[2019-01-21] MEDS ORDERED: DOCUSATE SODIUM 100 MG CAPSULE (FP) PO ONE (10:02)
[2019-01-21] MEDS ORDERED: SENNOSIDES 8.6MG TABLET (FP) PO ONE (10:03)
[2019-01-21] MEDS: ASPIRIN 81 MG CHEWABLE TABLETS PO SCH (10:31)
[2019-01-21] MEDS: LORazepam 0.5 MG TABLET PO SCH ×2 (10:31→22:14)
[2019-01-21] MEDS: CHOLECALCIFEROL (VITAMIN D3) 1,000 UNIT TABLET (FP) PO SCH (10:31)
[2019-01-21] MEDS: APIXABAN 5 MG TABLET PO SCH ×2 (10:31→22:14)
[2019-01-21] MEDS: POTASSIUM CHLORIDE TABS 20 MEQ TABLET.ER (FP) PO SCH (10:31)
[2019-01-21] MEDS ORDERED: PT OWN MED DRAWER 7, Y5N ONE (10:45)
[2019-01-21] MEDS ORDERED: TAMSULOSIN HCL 0.4 MG CAP PO ONE (14:18)
--- NOTE | 2019-01-21 14:26 | PN ---
Teaching Attending Note Name of Resident: Amor Lester ATTENDING PHYSICIAN STATEMENT I saw and evaluated the patient. I reviewed the resident's note and discussed the case with the resident. I agree with the resident's findings and plan as documented. SUBJECTIVE: Patient continues to have urinary retention ,as per nurse has 600ml urinary retention again, started on Flomax 0.4mcg yesterday will increase the dose. Other saravia no fever or chills. patient had a bid large movement. OBJECTIVE: Vital Signs Temperature 98.0 F 01/21/19 10:30 Pulse Rate 51 L 01/21/19 10:30 Respiratory Rate 17 01/21/19 10:30 Blood Pressure 106/57 L 01/21/19 10:30 O2 Sat by Pulse Oximetry (%) 97 01/20/19 20:39 GENERAL: The patient is awake, alert, and fully oriented, in no acute distress. HEAD: Normal with no signs of trauma. EYES: PERRL, extraocular movements intact, sclera anicteric, conjunctiva clear. . ENT: Ears normal, oropharynx clear without exudates, moist mucous membranes. NECK: Trachea midline, full range of motion, supple. LUNGS: Breath sounds equal, clear to auscultation bilaterally, no wheezes, no crackles, no accessory muscle use. HEART: mild bradycardia , S1, S2 without murmur, rub or gallop. ABDOMEN: Soft, NT, ND, normoactive bowel sounds, no guarding, no rebound, no hepatosplenomegaly, no masses appreciated. EXTREMITIES: 2+ pulses, warm, Left foot open wound, and swelling improved. trace edema. NEUROLOGICAL: Cranial nerves II through XII grossly intact. Normal speech, gait not observed. PSYCH: Normal mood, normal affect. SKIN: Warm, dry, normal turgor, no rashes or lesions noted. CBCD WBC 7.2 K/mm3 (4.0-10.0) 01/18/19 05:15 RBC 3.23 M/mm3 (4.00-5.60) L 01/18/19 05:15 Hgb 9.7 GM/dL (11.7-16.9) L 01/18/19 05:15 Hct 28.1 % (35.4-49) L 01/18/19 05:15 MCV 86.9 fl (80-96) 01/18/19 05:15 MCHC 34.6 g/dl (32.0-35.9) 01/18/19 05:15 RDW 14.2 % (11.9-15.9) 01/18/19 05:15 Plt Count 155 K/MM3 (134-434) 01/18/19 05:15 MPV 9.8 fl (7.5-11.1) 01/18/19 05:15 CMP Sodium 138 mmol/L (136-145) 01/21/19 08:05 Potassium 4.6 mmol/L (3.5-5.1) 01/21/19 08:05 Chloride 104 mmol/L (98-107) 01/21/19 08:05 Carbon Dioxide 28 mmol/L (21-32) 01/21/19 08:05 Anion Gap 6 MMOL/L (8-16) L 01/21/19 08:05 BUN 17 mg/dL (7-18) 01/21/19 08:05 Creatinine 0.8 mg/dL (0.55-1.3) 01/21/19 08:05 Random Glucose 139 mg/dL (74-106) H 01/21/19 08:05 Calcium 8.5 mg/dL (8.5-10.1) 01/21/19 08:05 Total Bilirubin 0.9 mg/dL (0.2-1) 01/18/19 05:15 AST 13 U/L (15-37) L 01/18/19 05:15 ALT 16 U/L (13-61) 01/18/19 05:15 Alkaline Phosphatase 69 U/L (45-117) 01/18/19 05:15 Total Protein 5.9 g/dl (6.4-8.2) L 01/18/19 05:15 Albumin 2.5 g/dl (3.4-5.0) L 01/18/19 05:15 CARDIAC ENZYMES Troponin I < 0.02 ng/ml (0.00-0.05) 01/15/19 19:36 Current Medications Generic Name Dose Route Start Last Admin Trade Name Freq PRN Reason Stop Dose Admin Acetaminophen 650 mg 01/15/19 22:28 01/20/19 23:26 Tylenol - PO 650 mg Q4H PRN Administration PAIN Apixaban 5 mg 01/16/19 10:00 01/21/19 10:31 Eliquis - PO 5 mg BID KASSIDY Administration Aspirin 81 mg 01/16/19 10:00 01/21/19 10:31 Asa - PO 81 mg DAILY KASSIDY Administration Atorvastatin Calcium 80 mg 01/16/19 22:00 01/20/19 21:34 Lipitor - PO 80 mg HS KASSIDY Administration Cholecalciferol 2,000 unit 01/17/19 10:00 01/21/19 10:31 Vitamin D3 - PO 2,000 unit DAILY KASSIDY Administration Insulin Aspart 1 vial 01/16/19 07:00 01/21/19 11:57 Novolog Vial Sliding Scale - SQ Not Given ACHS [facility] Protocol Lorazepam 0.5 mg 01/16/19 10:00 01/21/19 10:31 Ativan - PO 0.5 mg BID KASSIDY Administration Metoprolol Succinate 50 mg 01/18/19 15:43 01/21/19 10:31 Toprol Xl - PO 50 mg DAILY KASSIDY Administration Potassium Chloride 40 meq 01/19/19 10:00 01/21/19 10:31 K-Dur - PO 40 meq DAILY [facility] Administration Tamsulosin HCl 0.4 mg 01/21/19 14:17 Flomax - PO 01/21/19 14:18 ONCE ONE Tamsulosin HCl 0.4 mg 01/21/19 14:18 Flomax - PO 01/21/19 14:19 ONCE ONE Tamsulosin HCl 0.8 mg 01/22/19 08:30 Flomax - PO DAILY@0830 [facility] Home Medications Medication Instructions Recorded Apixaban [Eliquis] 5 mg PO BID 01/15/19 Aspirin 81 mg PO DAILY 01/15/19 Atorvastatin Calcium 80 mg PO HS 01/15/19 Fluoxetine HCl [Prozac] 40 mg PO DAILY 01/15/19 LORazepam [Ativan] 0.5 mg PO BID 01/15/19 Metoprolol Succinate 50 mg PO DAILY 01/15/19 Sitagliptin Phosphate [Januvia] 50 mg PO DAILY 01/15/19 Cholecalciferol (Vitamin D3) 2,000 unit PO DAILY 01/16/19 [Vitamin D3] Tamsulosin HCl [Flomax] 0.4 mg PO DAILY #14 capsule 01/20/19 Docusate Sodium [Colace] 100 mg PO TID #1 capsule 01/21/19 Microbiology 01/15/19 19:36 Blood - Peripheral Venous Blood Culture - Preliminary NO GROWTH OBTAINED AFTER 96 HOURS, INCUBATION TO CONTINUE FOR 1 DAYS. 01/15/19 19:36 Blood - Peripheral Venous Blood Culture - Preliminary NO GROWTH OBTAINED AFTER 96 HOURS, INCUBATION TO CONTINUE FOR 1 DAYS. 01/15/19 21:03 Urine - Urine - Catheterized Urine Culture - Final Escherichia Coli Esbl Hoof Trimmer ASSESSMENT AND PLAN: Patient is a 63 year old male with a PMHx of HTN, HLD, DM, CVA who presents to ED. from [facility], presented with sepsis, UTI. #s/p sepsis due to UTI: cx is growing ESBL, received zosyn x 2 days and Ertapenem for 3 days, patient is feeling better now, as per ID, completed the treatment since the patient is afebrile and no further antibiotic is needed. patient has been retaining urine for the past 2 days 600ml , will straight cath and increased the dose of Flomax, will get urology consulted Dr. Rodríguez # Acute UTI: growing ESBL e.coli on Ertapenem, completed antibiotic course. Will try to avoid foly catheter if possible since he had esbl ecoli uti. #Atrial Fibrillation: with slow ventricular rate, continue eliquis 5mg, reduced the dose of Toprol XL 100mg from 150mg to toprol xl 50mg, discontinued Hctz since the patient is high risk for fall as well and the blood pressure is running on the low side. continue toprol xl 50mg #Acute Kidney Injury: improved on IVF , will discontinue Hctz for now # Anemia of chronic disease. result as above #Hyperbilirubinemia: improved is 0.9 today #Diabetes Mellitus: BGM 199, A1C, BGM ACHS, diabetic diet #Hx of CVA continue home ASA, and on atorvastatin 80 and Eliquis discharge patient when stable .
[2019-01-21] MEDS: TAMSULOSIN HCL 0.4 MG CAP PO ONE ×2 (14:59→15:00)
[2019-01-21] MEDS ORDERED: SENNOSIDES 8.6MG TABLET (FP) PO PRN (16:21)
[2019-01-21] MEDS: ATORVASTATIN CA 80 MG TABLET (FP) PO SCH (22:14)
[2019-01-21] MEDS: ACETAMINOPHEN 325 MG TABLET (FP) PO PRN (22:15)
[2019-01-21] MEDS: DOCUSATE SODIUM 100 MG CAPSULE (FP) PO SCH (22:15)
[2019-01-22] MEDS: INSULIN SLIDING SCALE (NOVOLOG) 1 VIAL SQ SCH ×2 (06:16→11:02)
[2019-01-22 06:48] LABS: BASO % 0.5 % (0-2.0); EOS % 2.9 % (0-4.5); HEMATOCRIT 30.1 % (35.4-49); HEMOGLOBIN 10.3 GM/dL (11.7-16.9); LYMPH % 27.9 % (8-40); MCH 29.6 pg (25.7-33.7); MCHC 34.3 g/dl (32.0-35.9); MEAN CELL VOLUME 86.3 fl (80-96); MEAN PLT VOLUME 9.3 fl (7.5-11.1); MONO % 5.8 % (3.8-10.2); NEUT % 62.9 % (42.8-82.8); PLATELET COUNT 197 K/MM3 (134-434); RBC 3.48 M/mm3 (4.00-5.60); RDW 14.6 % (11.9-15.9); WHITE BLOOD COUNT 9.2 K/mm3 (4.0-10.0)
[2019-01-22 07:13] LABS: CALCIUM 8.7 mg/dL (8.5-10.1); CREATININE 0.7 mg/dL (0.55-1.3)
[2019-01-22] MEDS ORDERED: TAMSULOSIN HCL 0.4 MG CAP PO SCH (08:30)
[2019-01-22] MEDS: LORazepam 0.5 MG TABLET PO SCH (09:26)
[2019-01-22] MEDS: ASPIRIN 81 MG CHEWABLE TABLETS PO SCH (09:26)
[2019-01-22] MEDS: CHOLECALCIFEROL (VITAMIN D3) 1,000 UNIT TABLET (FP) PO SCH (09:26)
[2019-01-22] MEDS: APIXABAN 5 MG TABLET PO SCH (09:26)
[2019-01-22] MEDS: POTASSIUM CHLORIDE TABS 20 MEQ TABLET.ER (FP) PO SCH (09:26)
[2019-01-22] MEDS: DOCUSATE SODIUM 100 MG CAPSULE (FP) PO SCH (09:27)
--- NOTE | 2019-01-22 11:31 | DS ---
Physical Exam: SUBJECTIVE: Patient seen and examined at bedside. no acute events. no complaints. denies fever, cp, sob, n/v/d. urinating well now w/ flomax OBJECTIVE: Vital Signs Period Temp Pulse Resp BP Sys/Meléndez Pulse Ox Last 24 Hr 96.7 F-97.6 F 53-54 18-20 97-106/58-64 95 PHYSICAL EXAM GENERAL: A&Ox3, no acute distress EYES: PERRLA, EOMI ENT: MMM NECK: No JVD LUNGS: CTA, no wheezes HEART: bradycardic, no murmurs ABDOMEN: Soft, nontender, BS present MUSCULOSKELETAL: No CVA Tenderness EXTREMITIES: 2+ pulses, no edema. L great toe amputated NEURO: strength sensation grossly intact. L facial droop (chronic 2/2 old CVA) LABS Laboratory Results - last 24 hr 01/21/19 01/21/19 01/21/19 11:56 16:44 22:14 WBC RBC Hgb Hct MCV MCH MCHC RDW Plt Count MPV Absolute Neuts (auto) Neutrophils % Lymphocytes % Monocytes % Eosinophils % Basophils % Nucleated RBC % Sodium Potassium Chloride Carbon Dioxide Anion Gap BUN Creatinine Est GFR (CKD-EPI)AfAm Est GFR (CKD-EPI)NonAf POC Glucometer 145 129 141 Random Glucose Calcium 01/22/19 01/22/19 01/22/19 06:00 06:00 06:14 WBC 9.2 RBC 3.48 L Hgb 10.3 L Hct 30.1 L MCV 86.3 MCH 29.6 MCHC 34.3 RDW 14.6 Plt Count 197 D MPV 9.3 Absolute Neuts (auto) 5.8 Neutrophils % 62.9 Lymphocytes % 27.9 D Monocytes % 5.8 Eosinophils % 2.9 D Basophils % 0.5 Nucleated RBC % 0 Sodium 135 L Potassium 4.0 Chloride 104 Carbon Dioxide 24 Anion Gap 8 BUN 19 H Creatinine 0.7 Est GFR (CKD-EPI)AfAm 114.78 Est GFR (CKD-EPI)NonAf 99.03 POC Glucometer 129 Random Glucose 127 H Calcium 8.7 01/22/19 11:00 WBC RBC Hgb Hct MCV MCH MCHC RDW Plt Count MPV Absolute Neuts (auto) Neutrophils % Lymphocytes % Monocytes % Eosinophils % Basophils % Nucleated RBC % Sodium Potassium Chloride Carbon Dioxide Anion Gap BUN Creatinine Est GFR (CKD-EPI)AfAm Est GFR (CKD-EPI)NonAf POC Glucometer 135 Random Glucose Calcium 4379-2930 US/ABDOMEN US -LIMITED HISTORY PROVIDED: Hyperbilirubinemia. Real time examination of the abdomen demonstrates the following: The gallbladder is normal in size. It is filled with echogenic biliary sludge. No definite calculi are seen. There is no evidence of intra or extrahepatic biliary duct dilatation. The liver is enlarged measuring 18.3 cm in craniocaudad and dimension. It is somewhat heterogeneous in texture suspicious for diffuse fatty infiltration. No discrete intrahepatic masses are identified. Hepatopedal flow is documented within the main portal vein. The pancreas is normal in size and texture with no pancreatic masses identified. The spleen is enlarged measuring 16 cm in craniocaudad dimension. There is no evidence of hydronephrosis or acute renal abnormalities. There is a septated cyst within the upper pole the right kidney measuring 6.8 x 5.5 x 6.8 cm. There is no evidence of AAA. The IVC is patent. IMPRESSION: 1. Biliary sludge within the gallbladder with no evidence of cholelithiasis or biliary ductal dilatation. 2. Hepatosplenomegaly with probable diffuse fatty infiltration of the liver. 3. Large right upper pole renal cyst. Please see above discussion. ECHO Interpretation Summary The left ventricular size, thickness and function are normal The right ventricle is normal in size and function. There is trace tricuspid regurgitation. HOSPITAL COURSE: Date of Admission:01/15/19 Date of Discharge: 01/22/19 63 yo M PMH HTN, HLD, DM, CVA who presents via ambulance from [facility] for evaluation of fever and admitted for treatment of sepsis 2/2 UTI #Sepsis 2/2 ESBL UTI: resolved. BP responded to fluid resuscitation and pt remains afebrile. leukocytosis resolved -bcx neg -s/p vanc/zosyn x2d. -s/p IV Ertapenem x3d -ID latoya taylor #KEN: resolved w/ IVF. Cr 1.4...0.7 #Anemia: normochromic, normocytic, likely 2/2 chronic disease -reticulocytes nl -iron studies reviewed. ferritin 1110, iron 33 #Hyperbilirubinemia: resolved -direct bilirubin 0.4 -RUQ US reviewed above #Atrial Fibrillation: currently sinus bradycardia on EKG -on eliquis 5mg bid, continue home dose at dc -on toprol XL at home, per NH he takes 2 doses daily, 100 and 50, all at once -c/w decreased dose of 50mg at dc due to noted trey 40s-50s while on higher doses #HTN -will stop HCTZ and 40meq K at dc due to noted low BPs. pt to f/u w/ PCP as to when to resume #Diabetes Mellitus: -A1C 6.1 BPH? - pt noted w/ urinary retention requiring straight cath. flomax started and now pt urinating well. -will cont flomax at dc outpt uro f/u w/ grey or gilma colace 100mg tid for constipation #Hx of CVA -continue home ASA -continue atorvastatin 80 pt stable and ready for dc w/ appropriate f/u Minutes to complete discharge: 39 Discharge Summary Reason For Visit: URINARY TRACT INFECTION,SEPSIS Current Active Problems UTI (urinary tract infection) (Acute) Benign prostatic hyperplasia (Chronic) Condition: Improved - Instructions Diet, Activity, Other Instructions: you came in for urinary tract infection. we gave you antibiotics and you improved We decreased your metoprolol from 150 to 50mg once a day because your heart rate was slow please stop taking your potassium and hydrochlorothiazide as your blood pressure was low. Please follow up with your primary care physician about when to resume this medication. Please take flomax 0.4mg once a day to help you urinate Please resume your other home meds please take colace 100mg three times a day for constipation Please follow up with your primary care physician within 1 week Please follow up with infectious disease Dr Schwartz within 1 week please follow up with your key worker within a week period. if you don't have one please follow up with Dr. Hang felix. If you experience any fever, chills, shortness of breath, burning on urination, abdominal pain, please call 911 or go to the ER Referrals: Jagdish Schwartz MD [Staff Physician] - 1 Week Clayton Rooney MD [Staff Physician] - Angel Pepe MD [Staff Physician] - 1 Week Hang Tomlin MD [Staff Physician] - 1 Week Disposition: [facility] - Home Medications Comprehensive Discharge Medication List: Ambulatory Orders Apixaban [Eliquis] 5 mg PO BID 01/15/19 Aspirin 81 mg PO DAILY 01/15/19 Atorvastatin Calcium 80 mg PO HS 01/15/19 Fluoxetine HCl [Prozac] 40 mg PO DAILY 01/15/19 LORazepam [Ativan] 0.5 mg PO BID 01/15/19 Metoprolol Succinate 50 mg PO DAILY 01/15/19 Sitagliptin Phosphate [Januvia] 50 mg PO DAILY 01/15/19 Cholecalciferol (Vitamin D3) [Vitamin D3] 2,000 unit PO DAILY 01/16/19 Tamsulosin HCl [Flomax] 0.4 mg PO DAILY #14 capsule 01/20/19 Docusate Sodium [Colace] 100 mg PO TID #1 capsule 01/21/19 This patient is new to me today: Yes Date on this admission: 01/22/19 Emergency Visit: Yes ED Registration Date: 01/15/19 Care time: The patient presented to the Emergency Department on the above date and was hospitalized for further evaluation of their emergent condition. Critical Care patient: No - Discharge Referral Referred to [facility] No
[2019-01-22 14:15] VITALS: BP 133/58; PULSE 50; TEMP 97.8
--- NOTE | 2019-01-22 18:54 | PN ---
Teaching Attending Note Name of Resident: Bhargav Kessler ATTENDING PHYSICIAN STATEMENT I saw and evaluated the patient. I reviewed the resident's note and discussed the case with the resident. I agree with the resident's findings and plan as documented. SUBJECTIVE: no fever or chills. No RICHARDSON , no abd pain OBJECTIVE: NA d Cv : RRR Lungs: CTAB Ext ; rnoey elgin Abd: soft , NT, ND , NL BS. no CVA tenderness Ext : no edema or erythems ASSESSMENT AND PLAN: Patient is a 63 year old male with a PMHx of HTN, A fib,anemia, HLD, DM, CVA who has been treated with ESBL UTI 1- ESBL E coli UTI 2- A Fib 3- KEN : resolved 4- urinary retention : resolved . urinated all night and today plan : imporved - cont home meds - off Abx per Id recs ( d/w ID again today ) . - cont flomax - f/u with uro as out pt dc back to assisted living
== END 2019-01-22 17:52 | DRG 872 ==
LOC: JER 18:15 → JERBED 21:31 → J4S 01-16 01:24
PROVIDERS: ADMIT Internal Medicine; ATTEND Internal Medicine
PROC: 0T9B70Z Drainage of Bladder with Drainage Device, Via Natural or Artificial Opening (ICD-10-PCS; principal; 2019-01-20)
DX: A41.9 Sepsis, unspecified organism (principal); N39.0 Urinary tract infection, site not specified; N17.9 Acute kidney failure, unspecified; E11.65 Type 2 diabetes mellitus with hyperglycemia; Z16.12 Extended spectrum beta lactamase (ESBL) resistance; E88.09 Other disorders of plasma-protein metabolism, not elsewhere classified; I12.9 Hypertensive chronic kidney disease with stage 1 through stage 4 chronic kidney disease, or unspecified chronic kidney disease; E11.22 Type 2 diabetes mellitus with diabetic chronic kidney disease; N18.9 Chronic kidney disease, unspecified; I48.91 Unspecified atrial fibrillation; E66.9 Obesity, unspecified; Z68.30 Body mass index [BMI] 30.0-30.9, adult; D64.9 Anemia, unspecified; Z79.84 Long term (current) use of oral hypoglycemic drugs; I95.9 Hypotension, unspecified; Z89.412 Acquired absence of left great toe; D63.8 Anemia in other chronic diseases classified elsewhere; I69.392 Facial weakness following cerebral infarction; R13.10 Dysphagia, unspecified; B96.29 Other Escherichia coli [E. coli] as the cause of diseases classified elsewhere; E80.6 Other disorders of bilirubin metabolism; R33.9 Retention of urine, unspecified
CPT/HCPCS: 36415; 71045-TC-FY; 76705-TC; 76856-TC; 80048; 80053; 81003; 82248; 82607; 82728; 82962; 83036; 83540; 83550; 83605; 83735; 84100; 84443; 84484; 85025; 85027; 85044; 85610; 85730; 87040; 87086; 87186; 93005; 93010; 93306-TC; 97116-GP; 97161-GP; 99285-25; J7030

== ENCOUNTER 2019-02-07 07:08 | Inpatient (IN) | payer OTHER ==
--- NOTE | 2019-02-07 07:28 | PDOC ---
History of Present Illness - General Stated Complaint: Syncope/Near Syncope Time Seen by Provider: 02/07/19 07:24 - History of Present Illness Initial Comments: The pt is a 63M w/ a history of T2DM, HTN, CVA, and CAD who presents from [facility] after having a syncopal episode while sitting on the toilet this morning. History limited due to patient's limited memory, which he is reported to have at baseline per his NH. Per their staff, the patient was found unconscious on the toilet, he did not fall. He was noted to have some mild stiffening of his extremities and was noted to be having both a BM and urinating when found. The patient denies any pain, RICHARDSON, vision changes, dizziness, chest pain, SOB, abdominal pain, N/V/C/D, blood in his stool, or blood in his urine 02/07/19 07:42 Past History - Past Medical History Allergies/Adverse Reactions: Allergies Allergy/AdvReac Type Severity Reaction Status Date / Time No Known Allergies Allergy Verified 01/15/19 21:14 Home Medications: Ambulatory Orders Apixaban [Eliquis] 5 mg PO BID 01/15/19 Aspirin 81 mg PO DAILY 01/15/19 Atorvastatin Calcium 80 mg PO HS 01/15/19 Fluoxetine HCl [Prozac] 40 mg PO DAILY 01/15/19 LORazepam [Ativan] 0.5 mg PO BID 01/15/19 Metoprolol Succinate 50 mg PO DAILY 01/15/19 Sitagliptin Phosphate [Januvia] 50 mg PO DAILY 01/15/19 Cholecalciferol (Vitamin D3) [Vitamin D3] 2,000 unit PO DAILY 01/16/19 Dextromethorphan HBr/Quinidine [Nuedexta 20-10 mg Capsule] 1 each PO BID Cardiac Disorders: Yes (A. fib,) CVA: Yes COPD: No CHF: Yes Diabetes: Yes HTN: Yes Hypercholesterolemia: Yes - Suicide/Smoking/Psychosocial Hx Smoking History: Never smoked Have you smoked in the past 12 months: No Hx Alcohol Use: No Drug/Substance Use Hx: No Review of Systems - Review of Systems Able to Perform ROS?: Yes Comments:: GENERAL/CONSTITUTIONAL: No fever or chills HEAD, EYES, EARS, NOSE AND THROAT: No change in vision. No ear pain or discharge. No sore throat CARDIOVASCULAR: No chest pain or shortness of breath RESPIRATORY: Denies cough, hemoptysis GASTROINTESTINAL: No nausea, vomiting, diarrhea or constipation GENITOURINARY: No dysuria, frequency, or change in urination MUSCULOSKELETAL: No joint or muscle swelling or pain. No neck or back pain SKIN: No rash NEUROLOGIC: No headache, or change in strength/sensation ENDOCRINE: No increased thirst. No abnormal weight change HEMATOLOGIC/LYMPHATIC: +hx of CVA (eliquis) ALLERGIC/IMMUNOLOGIC: No hives or skin allergy 02/07/19 07:27 Is the patient limited Pakistani proficient: No *Physical Exam - Vital Signs Vital Signs Temp Pulse Resp BP Pulse Ox 97.5 F L 68 18 168/88 99 02/07/19 07:15 02/07/19 07:15 02/07/19 07:15 02/07/19 07:15 02/07/19 07:15 02/07/19 07:50 - Physical Exam Comments: GENERAL: Awake, alert, and oriented to person/place/time, in no acute distress HEAD: No signs of trauma, normocephalic, atraumatic EYES: PERRLA, EOMI, sclera anicteric, conjunctiva clear ENT: Hearing grossly normal, nares patent, oropharynx clear without exudates. Moist mucosa LUNGS: No distress, speaks full sentences, clear to auscultation bilaterally HEART: Regular rate and rhythm, normal S1 and S2, no murmurs appreciated, peripheral pulses normal and equal bilaterally ABDOMEN: Soft, nontender, normoactive bowel sounds. No guarding, no rebound EXTREMITIES: Moves all extremities independently. S/p left hallux ray amputation. Strength 5/5 throughout. Pelvis w/o lateral compression TTP NEUROLOGICAL: Cranial nerves II through XII grossly intact. Tangential speech, no focal sensorimotor deficits SKIN: Warm, Dry 02/07/19 07:28 ED Treatment Course - LABORATORY CBC & Chemistry Diagram: 02/07/19 08:18 02/07/19 08:18 Medical Decision Making - Medical Decision Making The pt is a 63M w/ a history of HTN, CVA, T2DM, BPH who presents for evaluation s/p syncopal episode Ddx includes vasovagal, ACS, dysrhythmia, lyte disturbance; consider CVA stroke (however, no focal deficits) ED Course CMP, CBC, Trop I, Coags ECG CXR CT head 02/07/19 07:53 No leukocytosis Mild anemia, at baseline CXR w/o acute pathology 02/07/19 08:36 CT Head w/o contrasts There is moderate atrophy and ventricular dilatation. Moderate to marked periventricular chronic microvascular ischemic disease changes. Low-attenuation density in the left posterior temporal and frontal lobe and left parietal lobe consistent with an infarct, likely chronic due to ex vacuo dilatation of the posterior aspect of the left lateral ventricle and occipital horn. No discrete mass lesion or intracranial hemorrhage are identified. There is no shift of the midline structures. The craniocervical junction appears unremarkable. Visualized paranasal sinuses and mastoid air cells are well aerated. Calcification of the cavernous carotid arteries are present. The calvarium is intact IMPRESSION: Likely chronic infarct in the left middle cerebral artery territory involving the left posterior temporal and frontal lobe as well as the left parietal lobe with ex vacuo dilatation of the left posterior lateral ventricle. Clinical correlation is needed. Consider correlation with MRI for confirmation of its chronicity since no prior is available for comparison and a late subacute infarct cannot be entirely excluded. 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
[2019-02-07 08:30] LABS: BASO % 0.5 % (0-2.0); EOS % 0.7 % (0-4.5); HEMATOCRIT 34.1 % (35.4-49); HEMOGLOBIN 11.4 GM/dL (11.7-16.9); LYMPH % 13.8 % (8-40); MCHC 33.5 g/dl (32.0-35.9); MEAN CELL VOLUME 89.4 fl (80-96); MEAN PLT VOLUME 9.1 fl (7.5-11.1); MONO % 5.1 % (3.8-10.2); NEUT % 79.9 % (42.8-82.8); PLATELET COUNT 156 K/MM3 (134-434); RBC 3.81 M/mm3 (4.00-5.60); WHITE BLOOD COUNT 9.4 K/mm3 (4.0-10.0)
[2019-02-07 09:03] LABS: ALBUMIN 3.4 g/dl (3.4-5.0); ALK PHOS 92 U/L (45-117); ANION GAP 11 MMOL/L (8-16); BILIRUBIN,TOTAL 0.9 mg/dL (0.2-1); BLOOD UREA NITROGEN 16 mg/dL (7-18); CALCIUM 8.9 mg/dL (8.5-10.1); CHLORIDE 104 mmol/L (98-107); CO2 24 mmol/L (21-32); GLUCOSE,RANDOM 159 mg/dL (74-106); POTASSIUM 3.6 mmol/L (3.5-5.1); SGOT/AST 15 U/L (15-37); SGPT/ALT 26 U/L (13-61); SODIUM 139 mmol/L (136-145); TOT PROT 6.8 g/dl (6.4-8.2)
[2019-02-07] MEDS ORDERED: SODIUM CHLORIDE 0.9% 500 ML INFUS.BAG IV ONE (09:47)
--- NOTE | 2019-02-07 09:58 | PDOC ---
Attending Attestation - Resident Resident Name: HafsajamilAbran - ED Attending Attestation I have performed the following: I have examined & evaluated the patient, The case was reviewed & discussed with the resident, I agree w/resident's findings & plan, Exceptions are as noted - HPI HPI: 02/07/19 14:06 Reviewed Residents HPI - Physicial Exam PE: 02/07/19 14:07 Reviewed Residents PE - Medical Decision Making 02/07/19 15:33 63 years old past medical history significant for type 2 diabetes, hypertension , CVA, coronary artery disease presents from assisted living with syncopal episode this morning history Limited by dementia Laboratory analysis within normal limits EKG demonstrates no acute ischemic changes EKG performed at 718 demonstrates normal sinus rhythm no ST elevations noted T-wave inversions possible inferior infarct age indeterminate Troponin was negative Given poor history and multiple risk factors we'll observe for syncope overnight.
--- NOTE | 2019-02-07 14:50 | HP ---
CHIEF COMPLAINT: syncope PCP: HISTORY OF PRESENT ILLNESS: Pt. is a 63 y.o. M w/ PMHx. of NIDDM, HTN, CVA( residual R. sided weakness) and ?CAD presents from [place] at [facility] after being found unconscious on toilet while passing stool and urine. Pt. states that he hit his head on the sink before going unconscious. Pt. states that he has difficulty initiating urine. Pt. denies any difficulty passing urine or constipation. Pt. denies constipation or straining while passing stool. Pt. denies any dizziness, lightheadedness, chest pain, shortness of breath or blood in the stool or urine before the syncopal episode. Pt. denies any headache, blurry vision, or abdominal pain. Pt. was recently treated for UTI, during last admission Pt. had Metoprolol decreased to 50mg and was instructed to discontinue HCTZ and potassium supplements. ER course was notable for: (1)CBC, CMP (2)Head CT (3) Recent Travel: No PAST MEDICAL HISTORY: As above PAST SURGICAL HISTORY: L. Hallux amputation. Social History: Smoking: Denies Alcohol: Denies Drugs: Denies Family History: Pt. unable to answer Allergies No Known Allergies Allergy (Verified 01/15/19 21:14) HOME MEDICATIONS: Home Medications Medication Instructions Recorded Apixaban [Eliquis] 5 mg PO BID 01/15/19 Aspirin 81 mg PO DAILY 01/15/19 Atorvastatin Calcium 80 mg PO HS 01/15/19 Fluoxetine HCl [Prozac] 40 mg PO DAILY 01/15/19 LORazepam [Ativan] 0.5 mg PO BID 01/15/19 Metoprolol Succinate 50 mg PO DAILY 01/15/19 Sitagliptin Phosphate [Januvia] 50 mg PO DAILY 01/15/19 Cholecalciferol (Vitamin D3) 2,000 unit PO DAILY 01/16/19 [Vitamin D3] Dextromethorphan HBr/Quinidine 1 each PO BID 02/07/19 [Nuedexta 20-10 mg Capsule] REVIEW OF SYSTEMS As above PHYSICAL EXAMINATION Vital Signs - 24 hr 02/07/19 07:15 Temperature 97.5 F L Pulse Rate 68 Respiratory 18 Rate Blood Pressure 168/88 O2 Sat by Pulse 99 Oximetry (%) GENERAL: Awake, alert, and fully oriented, in no acute distress. HEAD: Normal with no signs of trauma. EYES: Pupils equal, round and reactive to light, extraocular movements intact, sclera anicteric, conjunctiva clear. EARS, NOSE, THROAT: Ears normal, nares patent, poor dentition, Moist mucous membranes. NECK: Normal range of motion, no carotid bruit, supple without lymphadenopathy, JVD, or masses. LUNGS: Breath sounds equal, clear to auscultation bilaterally. No wheezes, and no crackles. No accessory muscle use. HEART: Regular rate and rhythm, normal S1 and S2 without murmur ABDOMEN: Soft, nontender, not distended, normoactive bowel sounds, no guarding, no rebound, no masses. MUSCULOSKELETAL: Normal range of motion at all joints. No bony deformities or tenderness. No CVA tenderness. UPPER EXTREMITIES: 2+ pulses, warm, well-perfused. No cyanosis. No clubbing. No peripheral edema. LOWER EXTREMITIES: 1+ dorsal pedal pulses, warm, no calf tenderness, well- perfused. No calf tenderness. No peripheral edema. NEUROLOGICAL: Cranial nerves II-XII intact. Normal speech. Gait not assessed. R. sided numbness including right face. 4/5 strength in the right side. PSYCHIATRIC: Cooperative. Good eye contact. Appropriate mood and affect. SKIN: Warm, dry, normal turgor, no rashes or lesions noted Laboratory Results - last 24 hr 02/07/19 02/07/19 02/07/19 08:18 08:18 08:18 WBC 9.4 RBC 3.81 L Hgb 11.4 L Hct 34.1 L MCV 89.4 MCH 30.0 MCHC 33.5 RDW 16.0 H Plt Count 156 D MPV 9.1 Absolute Neuts (auto) 7.5 Neutrophils % 79.9 D Lymphocytes % 13.8 D Monocytes % 5.1 Eosinophils % 0.7 Basophils % 0.5 Nucleated RBC % 0 PTT (Actin FS) 37.1 H Sodium 139 Potassium 3.6 Chloride 104 Carbon Dioxide 24 Anion Gap 11 BUN 16 Creatinine 1.0 Est GFR (CKD-EPI)AfAm 91.13 Est GFR (CKD-EPI)NonAf 78.63 Random Glucose 159 H Calcium 8.9 Total Bilirubin 0.9 AST 15 ALT 26 Alkaline Phosphatase 92 Troponin I < 0.02 Total Protein 6.8 Albumin 3.4 Stool Occult Blood 02/07/19 14:10 WBC RBC Hgb Hct MCV MCH MCHC RDW Plt Count MPV Absolute Neuts (auto) Neutrophils % Lymphocytes % Monocytes % Eosinophils % Basophils % Nucleated RBC % PTT (Actin FS) Sodium Potassium Chloride Carbon Dioxide Anion Gap BUN Creatinine Est GFR (CKD-EPI)AfAm Est GFR (CKD-EPI)NonAf Random Glucose Calcium Total Bilirubin AST ALT Alkaline Phosphatase Troponin I Total Protein Albumin Stool Occult Blood Negative ASSESSMENT/PLAN: Pt. is a 63 y.o. M w/ PMHx. of NIDDM, HTN, CVA(residual R. sided weakness) and ? CAD presents after being found unconscious on toilet while passing stool and urine. #Syncope Likely 2/2 vaso-vagal syncope EKG: NSR, QTc: 500 Echo(01/16/19): Normal, trace TR, EF: 60-65% Head CT: Neg. for acute pathology, chronic infarct in left MCA involving left posterior temporal and frontal lobe as well as left parietal w/ ex Vacuo dilatation of left posterior lateral ventricle f/u FOBT #Suspected UTI f/u UA and UCx. Hx. of recurrent UTIs #NIDDM Hold oral medications Recent A1c: 5.8% BGM ACHS ISS ACHS #CVA History c/w ASA 81mg c/w Eliquis 5mg BID #HTN c/w Metoprolol #HLD c/w Atorvastatin #Depression/Anxiety c/w Fluoxetine c/w Nuedexta for Pseudobulbar affect c/w Lorazepam #FEN no IVF, encourage PO intake monitor electrolytes and replete as needed Diabetic/Na restricted diet #DVT Ppx. c/w Eliquis Visit type - Emergency Visit Emergency Visit: Yes ED Registration Date: 02/08/19 Care time: The patient presented to the Emergency Department on the above date and was hospitalized for further evaluation of their emergent condition. - New Patient This patient is new to me today: Yes Date on this admission: 02/08/19 - Critical Care Critical Care patient: No
--- NOTE | 2019-02-07 15:05 | EKG ---
Test Reason : Blood Pressure : / mmHG Vent. Rate : 067 BPM Atrial Rate : 067 BPM P-R Int : 152 ms QRS Dur : 106 ms QT Int : 474 ms P-R-T Axes : 000 -20 006 degrees QTc Int : 500 ms NORMAL SINUS RHYTHM INFERIOR INFARCT , AGE UNDETERMINED PROLONGED QT ABNORMAL ECG WHEN COMPARED WITH ECG OF 15-JAN-2019 19:35, NO SIGNIFICANT CHANGE WAS FOUND Confirmed by RAUL SEBASTIAN MD ([id number]) on 02/07/2019 3:04:44 PM Referred By: Confirmed By:RAUL SEBASTIAN MD
--- NOTE | 2019-02-07 17:05 | PN ---
Teaching Attending Note Name of Resident: Raleigh Lopez ATTENDING PHYSICIAN STATEMENT I saw and evaluated the patient. I reviewed the resident's note and discussed the case with the resident. I agree with the resident's findings and plan as documented. SUBJECTIVE:63yo M [facility] dementia, DM, HTN, CVA with residual R sided weakness and CAD presented to the ER [facility] syncopal epsiode. pt was on the toilet having a BM when he fell forward and struck his head on the sink causing him to pass out. He recalls striking his head but does not recall what occurred after that. family saw him passed out on the toilet but did not witness him striking his head. was treated for UTI earlier this month and reports he completed abx therapy. During his recent hospitalization his metoprolol was reduced to 50mg and HCTZ was d/c denies Cp, SOB, fever, chills, N/V/C/D, blurred vision, loosing his bowels OBJECTIVE: Last Vital Signs Temp Pulse Resp BP Pulse Ox 97.5 F L 68 18 168/88 99 02/07/19 07:15 02/07/19 07:15 02/07/19 07:15 02/07/19 07:15 02/07/19 07:15 General NAD, dysarthric CV S1 S2 RRR no murmur/rub/gallop Lungs CTA B/L no wheezing/rales/rhonchi ABdomen soft NT/ND obese Extremities 1+ pitting edema B/L ASSESSMENT AND PLAN: 63yo M [facility] dementia, DM, HTN, afib on eliquis with residual R sided weakness and CAD presented to the ER [facility] syncopal episode while toileting 1. Syncope- liekly vasovagal but concern for arrhythmia or medication induced. will place on cardiac monitoring. check orthostatics. will cont his medication for now with possible further adjustment. echo done on recent hospitalization noted and no signs of . no indication to repeat. trop neg x2 2. HTN- above goal. possible due to pain. will monitor will consider adjusting medication if persists 3. DM- A1c 6.1 earlier this month. hold oral agents. cont bgm and iss. re-start po on discharge 4. CVA with residual R sided weakness and dysarthria- cont asa 5. Narcolepsy- on nuedexta. this has many side effects which could be contributing however been on medication for some time and unfamiliar with abruptly stopping.encouraged to f/u with prescriber about it 6. afib- on eliquis. cont rate control. on reduced dose of metoprolol 7. DVT ppx- eliquis 8. spoke with mother present at bedside. all questions answered. verbalized understanding and agreement
[2019-02-07] MEDS: INSULIN SLIDING SCALE (NOVOLOG) 1 VIAL SQ SCH ×2 (17:16→22:55)
[2019-02-07] MEDS ORDERED: ASPIRIN 81 MG CHEWABLE TABLETS ONE (19:33)
[2019-02-07] MEDS: ASPIRIN 81 MG CHEWABLE TABLETS PO SCH (19:40)
[2019-02-07] MEDS: CHOLECALCIFEROL (VIT D3) 1,000 UNIT (25 MCG) TABLET PO SCH (20:47)
[2019-02-07] MEDS: FLUoxetine HCL 20 MG CAPSULE (FP) PO SCH (20:47)
[2019-02-07] MEDS ORDERED: QUINIDINE PO SCH (22:00)
[2019-02-07] MEDS ORDERED: [UNRECOGNIZED DRUG - OTHER] PO SCH (22:00)
[2019-02-07] MEDS ORDERED: DEXTROMETHORPHAN HBR PO SCH (22:00)
[2019-02-07] MEDS ORDERED: ATORVASTATIN CA 80 MG TABLET (FP) ONE (22:34)
[2019-02-07] MEDS ORDERED: LORazepam 0.5 MG TABLET ONE (22:34)
[2019-02-07] MEDS: LORazepam 0.5 MG TABLET PO SCH (23:16)
[2019-02-07] MEDS: ATORVASTATIN CA 80 MG TABLET (FP) PO SCH (23:16)
[2019-02-07] MEDS: APIXABAN 5 MG TABLET PO SCH (23:16)
[2019-02-08 06:04] LABS: HEMATOCRIT 32.9 % (35.4-49); HEMOGLOBIN 11.3 GM/dL (11.7-16.9); MCH 30.5 pg (25.7-33.7); MCHC 34.5 g/dl (32.0-35.9); MEAN CELL VOLUME 88.5 fl (80-96); MEAN PLT VOLUME 8.9 fl (7.5-11.1); PLATELET COUNT 165 K/MM3 (134-434); RBC 3.72 M/mm3 (4.00-5.60); RDW 15.9 % (11.9-15.9); WHITE BLOOD COUNT 9.6 K/mm3 (4.0-10.0)
[2019-02-08 06:34] LABS: CREATININE 0.9 mg/dL (0.55-1.3); POTASSIUM 3.4 mmol/L (3.5-5.1)
[2019-02-08 06:35] LABS: CALCIUM 8.9 mg/dL (8.5-10.1); MAGNESIUM 1.6 mg/dL (1.8-2.4); PHOSPHOROUS 3.9 mg/dL (2.5-4.9)
[2019-02-08] MEDS: INSULIN SLIDING SCALE (NOVOLOG) 1 VIAL SQ SCH ×4 (08:18→22:30)
[2019-02-08] MEDS: FLUoxetine HCL 20 MG CAPSULE (FP) PO SCH (09:20)
[2019-02-08] MEDS: APIXABAN 5 MG TABLET PO SCH ×2 (09:20→22:26)
[2019-02-08] MEDS: CHOLECALCIFEROL (VIT D3) 1,000 UNIT (25 MCG) TABLET PO SCH (09:21)
[2019-02-08] MEDS: ASPIRIN 81 MG CHEWABLE TABLETS PO SCH (09:21)
[2019-02-08] MEDS ORDERED: LORazepam 0.5 MG TABLET ONE (09:23)
[2019-02-08] MEDS: LORazepam 0.5 MG TABLET PO SCH ×2 (09:24→22:27)
[2019-02-08] MEDS ORDERED: SODIUM CHLORIDE 1,000 ML IV STA (09:38)
[2019-02-08 11:58] LABS: EPI CELLS >36 /HPF (0-5/HPF); HYALINE CASTS 34 /lpf (0-8); PH,URINE 6.5 (5.0-8.0); URINE APPEARANCE TURBID; URINE BACTERIA 13.4 /hpf (NEGATIVE); URINE BILIRUBIN NEGATIVE (NEGATIVE); URINE COLOR YELLOW; URINE GLUCOSE (UA) NEGATIVE (NEGATIVE); URINE KETONE NEGATIVE (NEGATIVE); URINE LEUK ESTERASE 3+ (NEGATIVE); URINE NITRITE POSITIVE (NEGATIVE); URINE PROTEIN 2+ (NEGATIVE); URINE RBC 0 /hpf (0-4); URINE WBC 60 /hpf (0-5)
[2019-02-08] MEDS ORDERED: MAGNESIUM OXIDE 400 MG TABLET (FP) PO ONE (13:07)
[2019-02-08] MEDS ORDERED: POTASSIUM CHLORIDE ORAL LIQUID 20 MEQ/15 ML PO ONE (13:07)
--- NOTE | 2019-02-08 13:08 | PN ---
Progress Note (short form) - Note Progress Note: states he feels better today, no repeat episodes of feeling dizzy or near syncope. denies CP, SOB, fever, chills, N/V/C/D Current Medications Generic Name Dose Route Start Last Admin Trade Name Allison PRN Reason Stop Dose Admin Apixaban 5 mg 02/07/19 22:00 02/08/19 09:20 Eliquis - PO 5 mg BID KASSIDY Administration Aspirin 81 mg 02/07/19 18:30 02/08/19 09:21 Asa - PO 81 mg DAILY KASSIDY Administration Atorvastatin Calcium 80 mg 02/07/19 22:00 02/07/19 23:16 Lipitor - PO 80 mg HS KASSIDY Administration Cholecalciferol 2,000 unit 02/07/19 17:15 02/08/19 09:21 Vitamin D3 - PO 2,000 unit DAILY KASSIDY Administration Fluoxetine HCl 40 mg 02/07/19 17:15 02/08/19 09:20 Prozac - PO 40 mg DAILY KASSIDY Administration Insulin Aspart 1 vial 02/07/19 16:30 02/08/19 11:32 Novolog Vial Sliding Scale - SQ Not Given ACHS [facility] Protocol Lorazepam 0.5 mg 02/07/19 22:00 02/08/19 09:24 Ativan - PO 0.5 mg BID KASSIDY Administration Metoprolol Succinate 50 mg 02/07/19 18:30 02/08/19 09:21 Toprol Xl - PO 50 mg DAILY KASSIDY Administration Non-Formulary Medication 1 each 02/07/19 22:00 Dextromethorphan Hbr/Quinidine [Nuedexta 20-10 Mg Capsule] PO BID [facility] Last Vital Signs Temp Pulse Resp BP Pulse Ox 98.1 F 57 L 18 153/84 100 02/08/19 11:13 02/08/19 11:32 02/08/19 11:13 02/08/19 11:32 02/08/19 11:13 General NAD, dysarthric CV S1 S2 RRR no murmur/rub/gallop Lungs CTA B/L no wheezing/rales/rhonchi Abdomen soft +suprapubic tendenress no rebound or guarding extremities pedal edema CBCD WBC 9.6 K/mm3 (4.0-10.0) 02/08/19 05:41 RBC 3.72 M/mm3 (4.00-5.60) L 02/08/19 05:41 Hgb 11.3 GM/dL (11.7-16.9) L 02/08/19 05:41 Hct 32.9 % (35.4-49) L 02/08/19 05:41 MCV 88.5 fl (80-96) 02/08/19 05:41 MCHC 34.5 g/dl (32.0-35.9) 02/08/19 05:41 RDW 15.9 % (11.9-15.9) 02/08/19 05:41 Plt Count 165 K/MM3 (134-434) 02/08/19 05:41 MPV 8.9 fl (7.5-11.1) 02/08/19 05:41 CMP Sodium 139 mmol/L (136-145) 02/08/19 05:41 Potassium 3.4 mmol/L (3.5-5.1) L 02/08/19 05:41 Chloride 104 mmol/L (98-107) 02/08/19 05:41 Carbon Dioxide 25 mmol/L (21-32) 02/08/19 05:41 Anion Gap 10 MMOL/L (8-16) 02/08/19 05:41 BUN 12 mg/dL (7-18) 02/08/19 05:41 Creatinine 0.9 mg/dL (0.55-1.3) 02/08/19 05:41 Calcium 8.9 mg/dL (8.5-10.1) 02/08/19 05:41 Total Bilirubin 0.9 mg/dL (0.2-1) 02/07/19 08:18 AST 15 U/L (15-37) 02/07/19 08:18 ALT 26 U/L (13-61) 02/07/19 08:18 Alkaline Phosphatase 92 U/L (45-117) 02/07/19 08:18 Total Protein 6.8 g/dl (6.4-8.2) 02/07/19 08:18 Albumin 3.4 g/dl (3.4-5.0) 02/07/19 08:18 ASSESSMENT AND PLAN: 63yo M wtih PMH dementia, DM, HTN, afib on eliquis with residual R sided weakness and CAD presented to the ER wtih syncopal episode while toileting 1. Syncope- liekly vasovagal but concern for arrhythmia or medication induced. orthostatics + will give 1L NS and re-assess. no repeat episodes. 2. HTN- now controlled. cont current regimen. 3. UA- + with suprapubic pain was recently treated for ESBL E coli. will start zosyn and call ID ct. await UCx 4. hypokalemia- KCl 5. DM- A1c 6.1 earlier this month. hold oral agents. cont bgm and iss. re-start po on discharge 6. CVA with residual R sided weakness and dysarthria- cont asa 7. Narcolepsy- on nuedexta. this has many side effects which could be contributing however been on medication for some time and unfamiliar with abruptly stopping.encouraged to f/u with prescriber about it 8. afib- on eliquis. cont rate control. on reduced dose of metoprolol 9. DVT ppx- eliquis Visit type - Emergency Visit Emergency Visit: Yes ED Registration Date: 02/07/19 Care time: The patient presented to the Emergency Department on the above date and was hospitalized for further evaluation of their emergent condition. - New Patient This patient is new to me today: No - Critical Care Critical Care patient: No - Discharge Referral Referred to [facility] Med [facility].C.: No
[2019-02-08 13:12] LABS: YEAST NONE SEEN (NEGATIVE)
[2019-02-08] MEDS ORDERED: PIPERACILLIN/TAZOB 3.375 GM 3.375 GM in DEXTROSE 5%-WATER - 50 ML IVPB SCH ×2 (13:15→18:00)
[2019-02-08] MEDS ORDERED: PIPERACILLIN/TAZOB 3.375 GM 3.375 GM/50 ML BAG IVPB ONE (13:16)
[2019-02-08] MEDS ORDERED: PIPERACILLIN/TAZOBACTAM 3.375 GM VIAL IVPB ONE (17:46)
[2019-02-08] MEDS ORDERED: DEXTROSE 5%-WATER - 50 ML IVPB ONE (17:47)
[2019-02-08] MEDS: PIPERACILLIN/TAZOB 3.375 GM 3.375 GM in DEXTROSE 5%-WATER - 50 ML IVPB SCH (18:07)
[2019-02-08] MEDS: ATORVASTATIN CA 80 MG TABLET (FP) PO SCH (22:26)
[2019-02-09] MEDS ORDERED: PIPERACILLIN/TAZOBACTAM 3.375 GM VIAL IVPB ONE ×2 (02:36→08:58)
[2019-02-09] MEDS ORDERED: DEXTROSE 5%-WATER - 50 ML IVPB ONE ×2 (02:36→08:58)
[2019-02-09] MEDS: PIPERACILLIN/TAZOB 3.375 GM 3.375 GM in DEXTROSE 5%-WATER - 50 ML IVPB SCH ×2 (03:00→09:05)
[2019-02-09] MEDS: INSULIN SLIDING SCALE (NOVOLOG) 1 VIAL SQ SCH ×4 (07:05→22:30)
[2019-02-09 07:39] LABS: CALCIUM 8.9 mg/dL (8.5-10.1); CREATININE 0.9 mg/dL (0.55-1.3); POTASSIUM 3.6 mmol/L (3.5-5.1)
--- NOTE | 2019-02-09 08:24 | PN ---
Physical Exam: SUBJECTIVE: Patient seen and examined at bedside- no acute events overnight patient states that he is feeling ok; he denies any dizziness or palpitations nor is he having any urinary symptoms; denies CP/SOB/N/V OBJECTIVE: Vital Signs Period Temp Pulse Resp BP Sys/Meléndez Pulse Ox Last 24 Hr 97.8 F-98.3 F 56-82 16-18 92-156/65-91 94-100 GENERAL: The patient is awake, alert, and fully oriented, in no acute distress. EYES:PEERLA: EOMI no scleral icterus NECK:no JVD; no lymphadenopathy LUNGS: CTA B/L; no rales, rhonchi or wheezing. HEART: Regular rate and rhythm, S1, S2 without murmur, rub or gallop. ABDOMEN: Soft, no suprapubic tenderness; nondistended +BS in all 4 quadrants EXTREMITIES: 2+ pulses, warm, well-perfused, no edema. NEUROLOGICAL: Cranial nerves II through XII grossly intact. dysarthric (at baseline given history of L MCA stroke) ; sensation intact throughout 5/5 strength for LUE/LLE; 4/5 RUE/RLE (residual weakness from CVA) PSYCH: Normal mood, normal affect. SKIN: Warm, dry, normal turgor, no rashes or lesions noted Laboratory Results - last 24 hr 02/08/19 02/08/19 02/08/19 05:41 08:36 11:00 Sodium Potassium Chloride Carbon Dioxide Anion Gap BUN Creatinine Est GFR (CKD-EPI)AfAm Est GFR (CKD-EPI)NonAf POC Glucometer Random Glucose Calcium Magnesium Creatine Kinase 46 Troponin I < 0.02 Urine Color Yellow Urine Appearance Turbid Urine pH 6.5 D Ur Specific Echo 1.012 Urine Protein 2+ H Urine Glucose (UA) Negative Urine Ketones Negative Urine Blood 2+ H Urine Nitrite Positive H Urine Bilirubin Negative Urine Urobilinogen 1.0 Ur Leukocyte Esterase 3+ H Urine WBC (Auto) 60 Urine RBC (Auto) 0 Urine Casts (Auto) 34 U Pathogenic Cast Auto None seen U Epithel Cells (Auto) >36 Urine Bacteria (Auto) 13.4 Urine Yeast (Auto) None seen Blood Type O POSITIVE 02/08/19 02/08/19 02/08/19 11:21 16:36 22:25 Sodium Potassium Chloride Carbon Dioxide Anion Gap BUN Creatinine Est GFR (CKD-EPI)AfAm Est GFR (CKD-EPI)NonAf POC Glucometer 158 147 121 Random Glucose Calcium Magnesium Creatine Kinase Troponin I Urine Color Urine Appearance Urine pH Ur Specific Echo Urine Protein Urine Glucose (UA) Urine Ketones Urine Blood Urine Nitrite Urine Bilirubin Urine Urobilinogen Ur Leukocyte Esterase Urine WBC (Auto) Urine RBC (Auto) Urine Casts (Auto) U Pathogenic Cast Auto U Epithel Cells (Auto) Urine Bacteria (Auto) Urine Yeast (Auto) Blood Type 02/09/19 02/09/19 06:20 06:55 Sodium 137 Potassium 3.6 Chloride 106 Carbon Dioxide 25 Anion Gap 6 L BUN 10 Creatinine 0.9 Est GFR (CKD-EPI)AfAm 103.51 Est GFR (CKD-EPI)NonAf 89.31 POC Glucometer 121 Random Glucose 111 H Calcium 8.9 Magnesium 2.0 Creatine Kinase Troponin I Urine Color Urine Appearance Urine pH Ur Specific Echo Urine Protein Urine Glucose (UA) Urine Ketones Urine Blood Urine Nitrite Urine Bilirubin Urine Urobilinogen Ur Leukocyte Esterase Urine WBC (Auto) Urine RBC (Auto) Urine Casts (Auto) U Pathogenic Cast Auto U Epithel Cells (Auto) Urine Bacteria (Auto) Urine Yeast (Auto) Blood Type Active Medications Generic Name Dose Route Start Last Admin Trade Name Freq PRN Reason Stop Dose Admin Apixaban 5 mg 02/07/19 22:00 02/08/19 22:26 Eliquis - PO 5 mg BID KASSIDY Administration Aspirin 81 mg 02/07/19 18:30 02/08/19 09:21 Asa - PO 81 mg DAILY KASSIDY Administration Atorvastatin Calcium 80 mg 02/07/19 22:00 02/08/19 22:26 Lipitor - PO 80 mg HS KASSIDY Administration Cholecalciferol 2,000 unit 02/07/19 17:15 02/08/19 09:21 Vitamin D3 - PO 2,000 unit DAILY KASSIDY Administration Fluoxetine HCl 40 mg 02/07/19 17:15 02/08/19 09:20 Prozac - PO 40 mg DAILY KASSIDY Administration Piperacillin Sod/Tazobactam 50 mls @ 100 mls/hr 02/08/19 18:00 02/09/19 03:00 Sod 3.375 gm/ Dextrose IVPB 02/09/19 10:29 100 mls/hr Q8H-IV KASSIDY Administration Protocol Piperacillin Sod/Tazobactam 50 mls @ 100 mls/hr 02/08/19 18:00 Sod 3.375 gm/ Dextrose IVPB Q8H-IV KASSIDY Protocol Insulin Aspart 1 vial 02/07/19 16:30 02/09/19 07:05 Novolog Vial Sliding Scale - SQ Not Given ACHS KASSIDY Protocol Lorazepam 0.5 mg 02/07/19 22:00 02/08/19 22:27 Ativan - PO 0.5 mg BID KASSIDY Administration Metoprolol Succinate 50 mg 02/07/19 18:30 02/08/19 09:21 Toprol Xl - PO 50 mg DAILY KASSIDY Administration Non-Formulary Medication 1 each 02/07/19 22:00 Dextromethorphan Hbr/Quinidine [Nuedexta 20-10 Mg Capsule] PO BID KASSIDY ASSESSMENT/PLAN: Pt. is a 63 y.o. M w/ PMHx. of NIDDM, HTN, CVA(residual R. sided weakness) and ? CAD presents after being found unconscious on toilet while passing stool and urine. #Syncope Likely 2/2 vaso-vagal syncope EKG: NSR, QTc: 500 Echo(01/16/19): Normal, trace TR, EF: 60-65% Head CT: Neg. for acute pathology, chronic infarct in left MCA involving left posterior temporal and frontal lobe as well as left parietal w/ ex Vacuo dilatation of left posterior lateral ventricle #UTI patient had a positive UA given history of ESBL in past started patient on Zosyn (day 2) f/u cx ID consulted #NIDDM Hold oral medications Recent A1c: 5.8% BGM ACHS ISS ACHS #CVA History c/w ASA 81mg c/w Eliquis 5mg BID #HTN c/w Metoprolol #HLD c/w Atorvastatin #Depression/Anxiety c/w Fluoxetine c/w Nuedexta for Pseudobulbar affect c/w Lorazepam #FEN no IVF, encourage PO intake monitor electrolytes and replete as needed Diabetic/Na restricted diet #DVT Ppx. c/w Eliquis Problem List - Problems (1) CVA (cerebral vascular accident) Code(s): I63.9 - CEREBRAL INFARCTION, UNSPECIFIED Qualifiers: CVA mechanism: unspecified Qualified Code(s): I63.9 - Cerebral infarction, unspecified (2) Hypertension Code(s): I10 - ESSENTIAL (PRIMARY) HYPERTENSION Qualifiers: Hypertension type: unspecified Qualified Code(s): I10 - Essential (primary ) hypertension (3) Syncope Code(s): R55 - SYNCOPE AND COLLAPSE Qualifiers: Syncope type: unspecified Qualified Code(s): R55 - Syncope and collapse (4) Type 2 diabetes mellitus Code(s): E11.9 - TYPE 2 DIABETES MELLITUS WITHOUT COMPLICATIONS Qualifiers: Diabetes mellitus [employer] insulin use: unspecified senior care insulin use status Diabetes mellitus complication status: with unspecified complications Qualified Code(s): E11.8 - Type 2 diabetes mellitus with unspecified complications (5) UTI (urinary tract infection) Code(s): N39.0 - URINARY TRACT INFECTION, SITE NOT SPECIFIED Qualifiers: Urinary tract infection type: site unspecified Visit type - Emergency Visit Emergency Visit: Yes ED Registration Date: 02/08/19 Care time: The patient presented to the Emergency Department on the above date and was hospitalized for further evaluation of their emergent condition. - New Patient This patient is new to me today: Yes Date on this admission: 02/09/19 - Critical Care Critical Care patient: No
[2019-02-09] MEDS: ASPIRIN 81 MG CHEWABLE TABLETS PO SCH (09:04)
[2019-02-09] MEDS: FLUoxetine HCL 20 MG CAPSULE (FP) PO SCH (09:04)
[2019-02-09] MEDS: LORazepam 0.5 MG TABLET PO SCH ×2 (09:04→22:29)
[2019-02-09] MEDS: APIXABAN 5 MG TABLET PO SCH ×2 (09:05→22:29)
[2019-02-09] MEDS: CHOLECALCIFEROL (VIT D3) 1,000 UNIT (25 MCG) TABLET PO SCH (09:05)
--- NOTE | 2019-02-09 11:49 | PN ---
Teaching Attending Note Name of Resident: Yecenia Hernandez ATTENDING PHYSICIAN STATEMENT I saw and evaluated the patient. I reviewed the resident's note and discussed the case with the resident. I agree with the resident's findings and plan as documented. SUBJECTIVE: No complaints. Denies any chest pain/palps/dizziness/ lightheadedness. No fever/chills. No dysuria/hematuria. Unable to relate specifics of the episode that landed him in the ED. OBJECTIVE: Afebrile, Hemodynamically Stable. Last Vital Signs Temp Pulse Resp BP Pulse Ox 97.8 F 60 16 146/84 95 02/09/19 05:00 02/09/19 05:00 02/08/19 13:29 02/09/19 05:00 02/08/19 21:00 HEart - S1, S2, RRR Lungs - clear to auscultation Abdomen - Soft, non-tender. Bowel Sounds normal. Extremities - no edema, no calf tenderness. Laboratory Results - last 24 hr 02/08/19 02/08/19 02/08/19 11:00 16:36 22:25 Sodium Potassium Chloride Carbon Dioxide Anion Gap BUN Creatinine Est GFR (CKD-EPI)AfAm Est GFR (CKD-EPI)NonAf POC Glucometer 147 121 Random Glucose Calcium Magnesium Urine Color Yellow Urine Appearance Turbid Urine pH 6.5 D Ur Specific [place] 1.012 Urine Protein 2+ H Urine Glucose (UA) Negative Urine Ketones Negative Urine Blood 2+ H Urine Nitrite Positive H Urine Bilirubin Negative Urine Urobilinogen 1.0 Ur Leukocyte Esterase 3+ H Urine WBC (Auto) 60 Urine RBC (Auto) 0 Urine Casts (Auto) 34 U Pathogenic Cast Auto None seen U Epithel Cells (Auto) >36 Urine Bacteria (Auto) 13.4 Urine Yeast (Auto) None seen 02/09/19 02/09/19 06:20 06:55 Sodium 137 Potassium 3.6 Chloride 106 Carbon Dioxide 25 Anion Gap 6 L BUN 10 Creatinine 0.9 Est GFR (CKD-EPI)AfAm 103.51 Est GFR (CKD-EPI)NonAf 89.31 POC Glucometer 121 Random Glucose 111 H Calcium 8.9 Magnesium 2.0 Urine Color Urine Appearance Urine pH Ur Specific [place] Urine Protein Urine Glucose (UA) Urine Ketones Urine Blood Urine Nitrite Urine Bilirubin Urine Urobilinogen Ur Leukocyte Esterase Urine WBC (Auto) Urine RBC (Auto) Urine Casts (Auto) U Pathogenic Cast Auto U Epithel Cells (Auto) Urine Bacteria (Auto) Urine Yeast (Auto) Current Medications Generic Name Dose Route Start Last Admin Trade Name Allison PRN Reason Stop Dose Admin Apixaban 5 mg 02/07/19 22:00 02/09/19 09:05 Eliquis - PO 5 mg BID [facility] Administration Aspirin 81 mg 02/07/19 18:30 02/09/19 09:04 Asa - PO 81 mg DAILY [facility] Administration Atorvastatin Calcium 80 mg 02/07/19 22:00 02/08/19 22:26 Lipitor - PO 80 mg HS [facility] Administration Cholecalciferol 2,000 unit 02/07/19 17:15 02/09/19 09:05 Vitamin D3 - PO 2,000 unit DAILY [facility] Administration Fluoxetine HCl 40 mg 02/07/19 17:15 02/09/19 09:04 Prozac - PO 40 mg DAILY [facility] Administration Piperacillin Sod/Tazobactam 50 mls @ 100 mls/hr 02/08/19 18:00 Sod 3.375 gm/ Dextrose IVPB Q8H-IV [facility] Protocol Insulin Aspart 1 vial 02/07/19 16:30 02/09/19 07:05 Novolog Vial Sliding Scale - SQ Not Given ACHS [facility] Protocol Lorazepam 0.5 mg 02/07/19 22:00 02/09/19 09:04 Ativan - PO 0.5 mg BID [facility] Administration Metoprolol Succinate 50 mg 02/07/19 18:30 02/09/19 09:05 Toprol Xl - PO 50 mg DAILY [facility] Administration Non-Formulary Medication 1 each 02/07/19 22:00 Dextromethorphan Hbr/Quinidine [Nuedexta 20-10 Mg Capsule] PO BID [facility] Home Medications Medication Instructions Recorded Apixaban [Eliquis] 5 mg PO BID 01/15/19 Aspirin 81 mg PO DAILY 01/15/19 Atorvastatin Calcium 80 mg PO HS 01/15/19 Fluoxetine HCl [Prozac] 40 mg PO DAILY 01/15/19 LORazepam [Ativan] 0.5 mg PO BID 01/15/19 Metoprolol Succinate 50 mg PO DAILY 01/15/19 Sitagliptin Phosphate [Januvia] 50 mg PO DAILY 01/15/19 Cholecalciferol (Vitamin D3) 2,000 unit PO DAILY 01/16/19 [Vitamin D3] Dextromethorphan HBr/Quinidine 1 each PO BID 02/07/19 [Nuedexta 20-10 mg Capsule] ASSESSMENT AND PLAN: 63 year old male with history of Dementia, DM2, HTN, Atrial Fibrillation on Eliquis, CAD, Hx CVA with residual R sided weakness presented with syncopal episode while on toilet. 1. Syncope - likely vasovagal. Patient was found to have positive orthostatic vitals and responded well to IV hydration. No telemonitoring events. CT Brain - chronic infarct MCA territory 2. UTI - Urine Cx LFNB Hx ESBL Empirically on IV Zosyn as per ID Awaiting final Urine Cx ID and Sens as well as ID evaluation. Afebrile, Hemodynamically Stable. 3. Dehydration sec to UTI - resolved s/p IV hydration. 4. HTN - Continue Metoprolol 5. DM 2 - Controlled - A1c 6.1 - maintained on sliding scale. Oral anti- hyperglycemic agents held. 6. Hx CVA with mild residual R sided weakness and Expressive Dysphasia - on Aspirin and Apixaban, Statin. 8. Atrial Fibrillation - Continue Metoprolol and Eliquis. 9. Depression/Anxiety and Narcolepsy - on Fluoxetine and Nuedexta. DVT Px - on Eliquis.
--- NOTE | 2019-02-09 13:55 | CON.ID ---
Consult Consult Specialty:: infectious disease Referred by:: hospitalist Reason for Consultation:: UTI - History of Present Illness Chief Complaint: syncope History of Present Illness: admitted from SNF with syncope while sitting on the toilet notes some urinary incontinence no real dysuria no fevers recent admission to [facility] in January for hypotension and leukocytosis treated with zosyn then ertapenem for ecoli esbl in urine - History Source History Provided By: Patient, Family Member, Medical Record Limitations to Obtaining History: Dementia - Past Medical History NURSE MIDWIFE: Yes: CVA, Dementia Cardio/Vascular: Yes: CAD, HTN Endocrine: Yes: Diabetes Mellitus - Alcohol/Substance Use Hx Alcohol Use: No - Smoking History Smoking history: Former smoker Have you smoked in the past 12 months: No - Social History Usual Living Arrangement: [facility] ADL: Support Services 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,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 Place of : [facility] History of Recent Travel: No Home Medications - Allergies Allergies/Adverse Reactions: Allergies Allergy/AdvReac Type Severity Reaction Status Date / Time No Known Allergies Allergy Verified 01/15/19 21:14 - Home Medications Home Medications: Ambulatory Orders Apixaban [Eliquis] 5 mg PO BID 01/15/19 Aspirin 81 mg PO DAILY 01/15/19 Atorvastatin Calcium 80 mg PO HS 01/15/19 Fluoxetine HCl [Prozac] 40 mg PO DAILY 01/15/19 LORazepam [Ativan] 0.5 mg PO BID 01/15/19 Metoprolol Succinate 50 mg PO DAILY 01/15/19 Sitagliptin Phosphate [Januvia] 50 mg PO DAILY 01/15/19 Cholecalciferol (Vitamin D3) [Vitamin D3] 2,000 unit PO DAILY 01/16/19 Dextromethorphan HBr/Quinidine [Nuedexta 20-10 mg Capsule] 1 each PO BID Family Disease History - Family Disease History Family History: Unable to Obtain Review of Systems - Review of Systems Constitutional: denies: Chills, Fever Physical Exam Vital Signs: Vital Signs Temperature 98.2 F 02/09/19 10:00 Pulse Rate 60 02/09/19 10:00 Respiratory Rate 18 02/09/19 10:00 Blood Pressure 127/70 02/09/19 10:00 O2 Sat by Pulse Oximetry (%) 96 02/09/19 12:12 Constitutional: Yes: Well Nourished, No Distress, Calm Eyes: Yes: Conjunctiva Clear, EOM Intact HENT: Yes: Atraumatic, Normocephalic Neck: Yes: Supple, Trachea Midline Cardiovascular: Yes: Regular Rate and Rhythm Respiratory: Yes: Regular, CTA Bilaterally Gastrointestinal: Yes: Normal Bowel Sounds, Soft ...Rectal Exam: Yes: Deferred Renal/: No: Bladder Distention, CVA Tenderness - Left, CVA Tenderness - Right Extremities: Yes: WNL Labs: CBC, BMP 02/08/19 05:41 02/09/19 06:20 Microbiology 02/08/19 11:00 Urine - Urine Clean Catch Urine Culture - Preliminary Lactose Fermenting Neg Bacilli Imaging - Results Chest X-ray: Report Reviewed Problem List - Problems (1) Syncope Code(s): R55 - SYNCOPE AND COLLAPSE Qualifiers: Syncope type: unspecified Qualified Code(s): R55 - Syncope and collapse (2) UTI (urinary tract infection) Code(s): N39.0 - URINARY TRACT INFECTION, SITE NOT SPECIFIED Qualifiers: Urinary tract infection type: site unspecified (3) History of ESBL E. coli infection Code(s): Z86.19 - PERSONAL HISTORY OF OTHER INFECTIOUS AND PARASITIC DISEASES Assessment/Plan syncope UTI f/u cultures resume ertapenem
[2019-02-09] MEDS: ERTAPENEM SODIUM 1 GM in SODIUM CHLORIDE 50 ML IVPB SCH (16:53)
[2019-02-09] MEDS: ATORVASTATIN CA 80 MG TABLET (FP) PO SCH (22:29)
[2019-02-10] MEDS: INSULIN SLIDING SCALE (NOVOLOG) 1 VIAL SQ SCH ×4 (06:38→21:23)
[2019-02-10 07:10] LABS: HEMATOCRIT 35.5 % (35.4-49); HEMOGLOBIN 12.1 GM/dL (11.7-16.9); MCH 30.2 pg (25.7-33.7); MCHC 34.1 g/dl (32.0-35.9); MEAN CELL VOLUME 88.5 fl (80-96); MEAN PLT VOLUME 9.6 fl (7.5-11.1); PLATELET COUNT 166 K/MM3 (134-434); RBC 4.02 M/mm3 (4.00-5.60); RDW 15.5 % (11.9-15.9); WHITE BLOOD COUNT 14.3 K/mm3 (4.0-10.0)
[2019-02-10 07:43] LABS: CALCIUM 8.7 mg/dL (8.5-10.1); CREATININE 0.9 mg/dL (0.55-1.3); MAGNESIUM 1.7 mg/dL (1.8-2.4); PHOSPHOROUS 3.4 mg/dL (2.5-4.9); POTASSIUM 3.5 mmol/L (3.5-5.1)
[2019-02-10] MEDS ORDERED: MAGNESIUM SULF 50% (8.12 MEQ/2 ML-1 GM VIAL) IVPB ONE (07:58)
[2019-02-10] MEDS: FLUoxetine HCL 20 MG CAPSULE (FP) PO SCH (10:31)
[2019-02-10] MEDS: ASPIRIN 81 MG CHEWABLE TABLETS PO SCH (10:32)
[2019-02-10] MEDS: APIXABAN 5 MG TABLET PO SCH ×2 (10:32→21:20)
[2019-02-10] MEDS: CHOLECALCIFEROL (VIT D3) 1,000 UNIT (25 MCG) TABLET PO SCH (10:34)
[2019-02-10] MEDS: ERTAPENEM SODIUM 1 GM in SODIUM CHLORIDE 50 ML IVPB SCH (10:35)
[2019-02-10] MEDS: LORazepam 0.5 MG TABLET PO SCH ×2 (12:15→21:19)
[2019-02-10] MEDS ORDERED: PT OWN MED DRAWER 7, Y5N ONE (12:34)
--- NOTE | 2019-02-10 13:32 | PN ---
Physical Exam: SUBJECTIVE: Patient seen and examined at bedside. No acute events overnight. Denies f/c, n/v, chest pain, abd pain, urinary/bowel symptoms. Feels well. OBJECTIVE: Vital Signs Temperature 98.5 F 02/10/19 06:00 Pulse Rate 69 02/10/19 06:00 Respiratory Rate 20 02/09/19 22:00 Blood Pressure 157/75 02/10/19 06:00 O2 Sat by Pulse Oximetry (%) 98 02/09/19 21:00 GENERAL: AAOx3. NAD. Resting comfortably in bed. EYES:PEERLA: EOMI no scleral icterus LUNGS: CTA B/L; no rales, rhonchi or wheezing. HEART: Regular rate and rhythm, S1, S2 without murmur, rub or gallop. ABDOMEN: Soft, no suprapubic tenderness; nondistended +BS in all 4 quadrants EXTREMITIES: 2+ pulses, warm, well-perfused, no edema. NEUROLOGICAL: Cranial nerves II through XII grossly intact. dysarthric (at baseline given history of L MCA stroke) CBC, BMP 02/10/19 05:18 02/10/19 05:18 Active Medications Apixaban (Eliquis -) 5 mg PO BID [facility] Last Admin: 02/10/19 10:32 Dose: 5 mg Aspirin (Asa -) 81 mg PO DAILY [facility] Last Admin: 02/10/19 10:32 Dose: 81 mg Atorvastatin Calcium (Lipitor -) 80 mg PO HS [facility] Last Admin: 02/09/19 22:29 Dose: 80 mg Cholecalciferol (Vitamin D3 -) 2,000 unit PO DAILY [facility] Last Admin: 02/10/19 10:34 Dose: 2,000 unit Fluoxetine HCl (Prozac -) 40 mg PO DAILY [facility] Last Admin: 02/10/19 10:31 Dose: 40 mg Ertapenem 1 gm/ Sodium (Chloride) 50 mls @ 100 mls/hr IVPB DAILY [facility] Last Admin: 02/10/19 10:35 Dose: 100 mls/hr Insulin Aspart (Novolog Vial Sliding Scale -) 1 vial SQ ACHS [facility]; Protocol Last Admin: 02/10/19 12:13 Dose: 2 units Lorazepam (Ativan -) 0.5 mg PO BID [facility] Last Admin: 02/10/19 12:15 Dose: 0.5 mg Metoprolol Succinate (Toprol Xl -) 50 mg PO DAILY [facility] Last Admin: 02/10/19 10:32 Dose: 50 mg Non-Formulary Medication (Dextromethorphan Hbr/Quinidine [Nuedexta 20-10 Mg Capsule]) 1 each PO BID [facility] IMAGING: * Echo (01/16/19): Normal, trace TR, EF: 60-65% ASSESSMENT/PLAN: 63M w/ PMHx. of NIDDM, HTN, CVA(residual R. sided weakness) and ?CAD presents after being found unconscious on toilet while passing stool and urine. #Syncope, likely 2/2 vaso-vagal syncope -Head CT: Neg. for acute pathology, chronic infarct in left MCA involving left posterior temporal and frontal lobe as well as left parietal w/ ex Vacuo dilatation of -left posterior lateral ventricle -orthostatics neg -stable #ESBL E. 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 c/w Eliquis Visit type - Emergency Visit Emergency Visit: Yes ED Registration Date: 02/08/19 Care time: The patient presented to the Emergency Department on the above date and was hospitalized for further evaluation of their emergent condition. - New Patient This patient is new to me today: Yes Date on this admission: 02/10/19 - Critical Care Critical Care patient: No
--- NOTE | 2019-02-10 16:00 | PN ---
Teaching Attending Note Name of Resident: Amanda Whiteside ATTENDING PHYSICIAN STATEMENT I saw and evaluated the patient. I reviewed the resident's note and discussed the case with the resident. I agree with the resident's findings and plan as documented. SUBJECTIVE:asymptomatic. denies CP, SOB, fever, chills, N/V/C/D, LOC or dizzyness OBJECTIVE: Last Vital Signs Temp Pulse Resp BP Pulse Ox 98.5 F 69 20 157/75 98 02/10/19 06:00 02/10/19 06:00 02/09/19 22:00 02/10/19 06:00 02/09/19 21:00 General NAD Abdomen soft NT/ND ASSESSMENT AND PLAN: 63yo M wtih PMH dementia, DM, HTN, afib on eliquis with residual R sided weakness and CAD presented to the ER wtih syncopal episode while toileting 1. Syncope- liekly vasovagal but concern for arrhythmia or medication induced. orthostatics now negative. no further workup 2. HTN- now controlled. cont current regimen. 3. ESBL Ecoli UTI- MDR Ecoli. will need to d/w ID about duration. may require tunneled catheter for meterman IV abx. currently on Ertapenem day 2 but total of 4 days of IV abx. f/u with ID 4. hypokalemia- resolved 5. DM- A1c 6.1 earlier this month. hold oral agents. cont bgm and iss. re-start po on discharge 6. CVA with residual R sided weakness and dysarthria- cont asa 7. Narcolepsy- on nuedexta. this has many side effects which could be contributing however been on medication for some time and unfamiliar with abruptly stopping.encouraged to f/u with prescriber about it 8. afib- on eliquis. cont rate control. on reduced dose of metoprolol 9. DVT ppx- eliquis 10. spoke with mother present at bedside. informed her possible need of assisted IV abx, if needed will need to go to SNF for transfusions. verbalized understanding and agreement with plan
[2019-02-10] MEDS ORDERED: INSULIN (NOVOLOG) ASPART 100 UNITS/ML 10ML VIAL ONE (21:00)
[2019-02-10] MEDS: ATORVASTATIN CA 80 MG TABLET (FP) PO SCH (21:19)
[2019-02-10] MEDS ORDERED: QUINIDINE PO SCH (22:00)
[2019-02-10] MEDS ORDERED: DEXTROMETHORPHAN HBR PO SCH (22:00)
[2019-02-10] MEDS ORDERED: [UNRECOGNIZED DRUG - OTHER] PO SCH (22:00)
[2019-02-11] MEDS: INSULIN SLIDING SCALE (NOVOLOG) 1 VIAL SQ SCH ×4 (06:19→21:19)
[2019-02-11 08:25] LABS: HEMATOCRIT 34.3 % (35.4-49); HEMOGLOBIN 11.5 GM/dL (11.7-16.9); MCH 29.6 pg (25.7-33.7); MCHC 33.7 g/dl (32.0-35.9); MEAN CELL VOLUME 88.1 fl (80-96); MEAN PLT VOLUME 9.5 fl (7.5-11.1); PLATELET COUNT 148 K/MM3 (134-434); RDW 15.8 % (11.9-15.9)
[2019-02-11] MEDS: ERTAPENEM SODIUM 1 GM in SODIUM CHLORIDE 50 ML IVPB SCH (09:50)
[2019-02-11] MEDS: LORazepam 0.5 MG TABLET PO SCH ×2 (09:50→21:16)
[2019-02-11] MEDS: APIXABAN 5 MG TABLET PO SCH ×2 (09:50→21:17)
[2019-02-11] MEDS: ASPIRIN 81 MG CHEWABLE TABLETS PO SCH (09:50)
[2019-02-11] MEDS: FLUoxetine HCL 20 MG CAPSULE (FP) PO SCH (09:50)
[2019-02-11] MEDS: CHOLECALCIFEROL (VIT D3) 1,000 UNIT (25 MCG) TABLET PO SCH (09:50)
[2019-02-11 11:41] LABS: HEMATOCRIT 36.8 % (35.4-49); HEMOGLOBIN 12.3 GM/dL (11.7-16.9); MCH 29.7 pg (25.7-33.7); MCHC 33.3 g/dl (32.0-35.9); MEAN CELL VOLUME 89.2 fl (80-96); MEAN PLT VOLUME 10.2 fl (7.5-11.1); PLATELET COUNT 142 K/MM3 (134-434); RBC 4.13 M/mm3 (4.00-5.60); RDW 15.9 % (11.9-15.9); WHITE BLOOD COUNT 23.9 K/mm3 (4.0-10.0)
--- NOTE | 2019-02-11 12:36 | PN ---
Physical Exam: SUBJECTIVE: Patient seen and examined at bedside. No acute events overnight. Denies cp, sob, abd pain, urinary/bowel symptoms. OBJECTIVE: Vital Signs Temperature 98.0 F 02/11/19 10:00 Pulse Rate 68 02/11/19 10:00 Respiratory Rate 20 02/11/19 10:00 Blood Pressure 135/77 02/11/19 10:00 O2 Sat by Pulse Oximetry (%) 95 02/11/19 09:00 GENERAL: AAOx3. NAD. Resting comfortably in bed. EYES:PEERLA: EOMI no scleral icterus LUNGS: CTA B/L; no rales, rhonchi or wheezing. HEART: Regular rate and rhythm, S1, S2 without murmur, rub or gallop. ABDOMEN: Soft, no suprapubic tenderness; nondistended +BS in all 4 quadrants EXTREMITIES: 2+ pulses, warm, well-perfused, no edema. L great toe amputated NEUROLOGICAL: Cranial nerves II through XII grossly intact. dysarthric (at baseline given history of L MCA stroke) CBC, BMP 02/11/19 11:15 02/10/19 05:18 Active Medications Apixaban (Eliquis -) 5 mg PO BID [facility] Last Admin: 02/11/19 09:50 Dose: 5 mg Aspirin (Asa -) 81 mg PO DAILY [facility] Last Admin: 02/11/19 09:50 Dose: 81 mg Atorvastatin Calcium (Lipitor -) 80 mg PO HS [facility] Last Admin: 02/10/19 21:19 Dose: 80 mg Cholecalciferol (Vitamin D3 -) 2,000 unit PO DAILY [facility] Last Admin: 02/11/19 09:50 Dose: 2,000 unit Fluoxetine HCl (Prozac -) 40 mg PO DAILY [facility] Last Admin: 02/11/19 09:50 Dose: 40 mg Ertapenem 1 gm/ Sodium (Chloride) 50 mls @ 100 mls/hr IVPB DAILY [facility] Last Admin: 02/11/19 09:50 Dose: 100 mls/hr Insulin Aspart (Novolog Vial Sliding Scale -) 1 vial SQ ACHS [facility]; Protocol Last Admin: 02/11/19 10:54 Dose: 2 unit Lorazepam (Ativan -) 0.5 mg PO BID [facility] Last Admin: 02/11/19 09:50 Dose: 0.5 mg Metoprolol Succinate (Toprol Xl -) 50 mg PO DAILY [facility] Last Admin: 02/11/19 09:50 Dose: 50 mg Non-Formulary Medication (Dextromethorphan Hbr/Quinidine [Nuedexta 20-10 Mg Capsule]) 1 each PO BID [facility] ASSESSMENT/PLAN: IMAGING: * Echo (01/16/19): Normal, trace TR, EF: 60-65% ASSESSMENT/PLAN: 63M w/ PMHx. of NIDDM, HTN, CVA(residual R. sided weakness) and ?CAD presents after being found unconscious on toilet while passing stool and urine. #Syncope, likely 2/2 vaso-vagal syncope. Now stable, no new episodes. -Head CT: Neg. for acute pathology, chronic infarct in left MCA involving left posterior temporal and frontal lobe as well as left parietal w/ ex Vacuo dilatation of -left posterior lateral ventricle -orthostatics neg #ESBL E. coli UTI; multi-drug resistant -Per ID, cont Ertapenem 1 gm QD, day 3 (Day 5 total of IV abx) -Consult ID about duration of IV abx as he may need tunneled cath for assisted IV abx; await recs #NIDDM Hold home oral medications -Recent A1c: 5.8% -BGM/ISS ACHS #CVA History- Cont home meds: ASA 81mg, Eliquis 5mg BID #HTN- Cont home meds: Metoprolol 50 QD #HLD- Cont home meds: Atorvastatin 80 PO HS #Depression/Anxiety- Cont home meds: Fluoxetine 40 QD, 0.5 BID Lorazepam #Narcolepsy- Cont home med: Nuedexta 1 BID for Pseudobulbar affect #FEN -no IVF, encourage PO intake -monitor electrolytes and replete as needed -Diabetic/Na restricted diet #DVT Ppx. -Eliquis 5 BID Visit type - Emergency Visit Emergency Visit: Yes ED Registration Date: 02/08/19 Care time: The patient presented to the Emergency Department on the above date and was hospitalized for further evaluation of their emergent condition. - New Patient This patient is new to me today: No - Critical Care Critical Care patient: No
--- NOTE | 2019-02-11 14:19 | PN ---
Teaching Attending Note Name of Resident: Amanda Whiteside ATTENDING PHYSICIAN STATEMENT I saw and evaluated the patient. I reviewed the resident's note and discussed the case with the resident. I agree with the resident's findings and plan as documented. SUBJECTIVE: No complaints. Feels well. Denies any chest pain/palps/dizziness/ lightheadedness. No fever/chills. No dysuria/hematuria. Unable to relate specifics of the episode that landed him in the ED. OBJECTIVE: Afebrile, Hemodynamically Stable. Last Vital Signs Temp Pulse Resp BP Pulse Ox 98.0 F 68 20 135/77 95 02/11/19 10:00 02/11/19 10:00 02/11/19 10:02/11/19 10:02/11/19 09:00 HEart - S1, S2, RRR Lungs - clear to auscultation Abdomen - Soft, mild suprapubic tenderness. Bowel Sounds normal. Extremities - no edema, no calf tenderness. Neuro - AAO x 3. Mildly Reduced Power RUE/RLE. Mild expressive dysphasia. Laboratory Results - last 24 hr 02/10/19 02/10/19 02/11/19 17:32 21:21 05:26 WBC RBC Hgb Hct MCV MCH MCHC RDW Plt Count MPV POC Glucometer 169 182 219 02/11/19 02/11/19 02/11/19 07:35 10:51 11:15 WBC 23.0 H 23.9 H RBC 3.90 L 4.13 Hgb 11.5 L 12.3 Hct 34.3 L 36.8 MCV 88.1 89.2 MCH 29.6 29.7 MCHC 33.7 33.3 RDW 15.8 15.9 Plt Count 148 142 MPV 9.5 10.2 POC Glucometer 201 Current Medications Generic Name Dose Route Start Last Admin Trade Name Freq PRN Reason Stop Dose Admin Apixaban 5 mg 02/10/19 22:00 02/11/19 09:50 Eliquis - PO 5 mg BID [facility] Administration Aspirin 81 mg 02/11/19 10:00 02/11/19 09:50 Asa - PO 81 mg DAILY [facility] Administration Atorvastatin Calcium 80 mg 02/10/19 22:00 02/10/19 21:19 Lipitor - PO 80 mg HS [facility] Administration Cholecalciferol 2,000 unit 02/11/19 10:00 02/11/19 09:50 Vitamin D3 - PO 2,000 unit DAILY [facility] Administration Fluoxetine HCl 40 mg 02/11/19 10:00 02/11/19 09:50 Prozac - PO 40 mg DAILY [facility] Administration Ertapenem 1 gm/ Sodium 50 mls @ 100 mls/hr 02/09/19 16:00 02/11/19 09:50 Chloride IVPB 100 mls/hr DAILY [facility] Administration Insulin Aspart 1 vial 02/10/19 22:00 02/11/19 10:54 Novolog Vial Sliding Scale - SQ 2 unit ACHS [facility] Administration Protocol Lorazepam 0.5 mg 02/10/19 22:00 02/11/19 09:50 Ativan - PO 0.5 mg BID [facility] Administration Metoprolol Succinate 50 mg 02/11/19 10:00 02/11/19 09:50 Toprol Xl - PO 50 mg DAILY [facility] Administration Non-Formulary Medication 1 each 02/10/19 22:00 Dextromethorphan Hbr/Quinidine [Nuedexta 20-10 Mg Capsule] PO BID ON LICENSE OF [facility] ASSESSMENT AND PLAN: 63 year old male with history of Dementia, DM2, HTN, Atrial Fibrillation on Eliquis, CAD, Hx CVA with residual R sided weakness presented with syncopal episode while on toilet. 1. Syncope - likely vasovagal. Patient was found to have positive orthostatic vitals and responded well to IV hydration. No telemonitoring events. CT Brain - chronic infarct MCA territory No further syncopal events. Neurologically Stable. 2. UTI - Urine Cx ESBL Hx ESBL Leukocytosis worsening - WBC jumped to 23 from 14.3 - Afebrile, hemodynamically Stable. No diarrhea. Continue Ertapenem (Day 3). ID for further recommendations 3. Dehydration sec to UTI - resolved s/p IV hydration. 4. HTN - Continue Metoprolol 5. DM 2 - Controlled - A1c 6.1 - maintained on sliding scale. Oral anti- hyperglycemic agents held. 6. Hx CVA with mild residual R sided weakness and Expressive Dysphasia - on Aspirin and Apixaban, Statin. 8. Atrial Fibrillation - Continue Metoprolol and Eliquis. 9. Depression/Anxiety and Narcolepsy - on Fluoxetine and Nuedexta. DVT Px - on Eliquis.
--- NOTE | 2019-02-11 14:57 | PN ---
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 Current Medications Apixaban (Eliquis -) 5 mg PO BID [facility] Last Admin: 02/11/19 09:50 Dose: 5 mg Aspirin (Asa -) 81 mg PO DAILY [facility] Last Admin: 02/11/19 09:50 Dose: 81 mg Atorvastatin Calcium (Lipitor -) 80 mg PO HS [facility] Last Admin: 02/10/19 21:19 Dose: 80 mg Cholecalciferol (Vitamin D3 -) 2,000 unit PO DAILY [facility] Last Admin: 02/11/19 09:50 Dose: 2,000 unit Fluoxetine HCl (Prozac -) 40 mg PO DAILY [facility] Last Admin: 02/11/19 09:50 Dose: 40 mg Ertapenem 1 gm/ Sodium (Chloride) 50 mls @ 100 mls/hr IVPB DAILY [facility] Last Admin: 02/11/19 09:50 Dose: 100 mls/hr Insulin Aspart (Novolog Vial Sliding Scale -) 1 vial SQ ACHS [facility]; Protocol Last Admin: 02/11/19 10:54 Dose: 2 unit Lorazepam (Ativan -) 0.5 mg PO BID [facility] Last Admin: 02/11/19 09:50 Dose: 0.5 mg Metoprolol Succinate (Toprol Xl -) 50 mg PO DAILY [facility] Last Admin: 02/11/19 09:50 Dose: 50 mg Non-Formulary Medication (Dextromethorphan Hbr/Quinidine [Nuedexta 20-10 Mg Capsule]) 1 each PO BID [facility] a/p leukocytosis uti ecoli esbl day #3 ertapenem check bladder scan, may need bladder/renal sono blood cultures ?urinary retention he had urinary retention last admission and was placed on flomax (no longer taking) repeat cbc in am d/w resident Problem List - Problems (1) Syncope Code(s): R55 - SYNCOPE AND COLLAPSE Qualifiers: Syncope type: unspecified Qualified Code(s): R55 - Syncope and collapse (2) UTI (urinary tract infection) Code(s): N39.0 - URINARY TRACT INFECTION, SITE NOT SPECIFIED Qualifiers: Urinary tract infection type: site unspecified (3) History of ESBL E. coli infection Code(s): Z86.19 - PERSONAL HISTORY OF OTHER INFECTIOUS AND PARASITIC DISEASES
[2019-02-11] MEDS: ACETAMINOPHEN 325 MG TABLET (FP) PO PRN (18:53)
[2019-02-11] MEDS ORDERED: PT OWN MED DRAWER 7, Y5N ONE (21:06)
[2019-02-11] MEDS ORDERED: INSULIN (NOVOLOG) ASPART 100 UNITS/ML 10ML VIAL ONE (21:07)
[2019-02-11] MEDS: ATORVASTATIN CA 80 MG TABLET (FP) PO SCH (21:16)
[2019-02-12] MEDS ORDERED: MEROPENEM 1 GM in DEXTROSE 5%-WATER 100 ML IVPB ONE (00:48)
[2019-02-12] MEDS ORDERED: VANCOMYCIN 1 GM in D5W (PRE-DOCKED) 1,000 MG/250 ML IVPB ONE (00:49)
[2019-02-12] MEDS ORDERED: DEXTROSE 5%-WATER 100 ML IVPB ONE ×2 (01:23→17:09)
[2019-02-12] MEDS ORDERED: MEROPENEM 1 GM VIAL (RESTRICTED TO ID) IVPB ONE ×2 (01:23→17:08)
[2019-02-12 01:46] LABS: ALBUMIN 2.8 g/dl (3.4-5.0); BILIRUBIN,TOTAL 1.5 mg/dL (0.2-1); CALCIUM 8.3 mg/dL (8.5-10.1); CREATININE 1.1 mg/dL (0.55-1.3); POTASSIUM 3.6 mmol/L (3.5-5.1); TOT PROT 6.1 g/dl (6.4-8.2)
[2019-02-12] MEDS: ACETAMINOPHEN 325 MG TABLET (FP) PO PRN ×2 (01:53→18:33)
[2019-02-12] MEDS: INSULIN SLIDING SCALE (NOVOLOG) 1 VIAL SQ SCH ×4 (06:14→22:17)
[2019-02-12 08:30] LABS: HEMOGLOBIN 11.2 GM/dL (11.7-16.9); MCH 29.4 pg (25.7-33.7); MCHC 32.9 g/dl (32.0-35.9); MEAN CELL VOLUME 89.4 fl (80-96); MEAN PLT VOLUME 10.2 fl (7.5-11.1); PLATELET COUNT 165 K/MM3 (134-434); RDW 15.6 % (11.9-15.9); WHITE BLOOD COUNT 25.3 K/mm3 (4.0-10.0)
[2019-02-12] MEDS: ERTAPENEM SODIUM 1 GM in SODIUM CHLORIDE 50 ML IVPB SCH (09:57)
[2019-02-12] MEDS: LORazepam 0.5 MG TABLET PO SCH ×2 (10:00→22:17)
[2019-02-12] MEDS: CHOLECALCIFEROL (VIT D3) 1,000 UNIT (25 MCG) TABLET PO SCH (10:01)
[2019-02-12] MEDS: FLUoxetine HCL 20 MG CAPSULE (FP) PO SCH (10:01)
[2019-02-12] MEDS: ASPIRIN 81 MG CHEWABLE TABLETS PO SCH (10:01)
[2019-02-12 10:49] LABS: AMYLASE 31 U/L (25-115); LIPASE 92 U/L (73-393)
[2019-02-12] MEDS ORDERED: MEROPENEM 1 GM in DEXTROSE 5%-WATER 100 ML IVPB SCH (11:45)
[2019-02-12] MEDS ORDERED: INSULIN (NOVOLOG) ASPART 100 UNITS/ML 10ML VIAL ONE (12:02)
--- NOTE | 2019-02-12 13:09 | PN ---
Physical Exam: SUBJECTIVE: Patient seen and examined at bedside. Pt complaining of more diffuse abdominal pain today. Denies f/c, cp, sob, urinary/bowel symptoms. Per nurse, no acute events overnight. OBJECTIVE: Vital Signs Temperature 98.2 F 02/12/19 10:00 Pulse Rate 64 02/12/19 10:00 Respiratory Rate 18 02/12/19 10:00 Blood Pressure 113/58 L 02/12/19 10:00 O2 Sat by Pulse Oximetry (%) 94 L 02/12/19 09:00 GENERAL: AAOx3. NAD. Resting comfortably in bed. EYES:PEERLA: EOMI no scleral icterus LUNGS: CTA B/L; no rales, rhonchi or wheezing. HEART: Regular rate and rhythm, S1, S2 without murmur, rub or gallop. ABDOMEN: Soft, diffuse abdominal tenderness; nondistended +BS in all 4 quadrants EXTREMITIES: 2+ pulses, warm, well-perfused, no edema. L great toe amputated NEUROLOGICAL: Cranial nerves II through XII grossly intact. dysarthric (at baseline given history of L MCA stroke) CBC, BMP 02/12/19 07:30 02/12/19 01:00 Active Medications Acetaminophen (Tylenol -) 650 mg PO Q4H PRN PRN Reason: PAIN LEVEL 6-10 Last Admin: 02/12/19 01:53 Dose: 650 mg Apixaban (Eliquis -) 5 mg PO BID [facility] Last Admin: 02/11/19 21:17 Dose: 5 mg Aspirin (Asa -) 81 mg PO DAILY [facility] Last Admin: 02/12/19 10:01 Dose: 81 mg Atorvastatin Calcium (Lipitor -) 80 mg PO HS [facility] Last Admin: 02/11/19 21:16 Dose: 80 mg Cholecalciferol (Vitamin D3 -) 2,000 unit PO DAILY [facility] Last Admin: 02/12/19 10:01 Dose: 2,000 unit Fluoxetine HCl (Prozac -) 40 mg PO DAILY [facility] Last Admin: 02/12/19 10:01 Dose: 40 mg Meropenem 1 gm/ Dextrose 100 mls @ 200 mls/hr IVPB Q8H-IV KASSIDY Meropenem 1 gm/ Dextrose 100 mls @ 200 mls/hr IVPB Q8H-IV [facility] Stop: 02/13/19 10:29 Insulin Aspart (Novolog Vial Sliding Scale -) 1 vial SQ ACHS [facility]; Protocol Last Admin: 02/12/19 12:03 Dose: 2 unit Lorazepam (Ativan -) 0.5 mg PO BID [facility] Last Admin: 02/12/19 10:00 Dose: 0.5 mg Metoprolol Succinate (Toprol Xl -) 50 mg PO DAILY [facility] Last Admin: 02/12/19 10:01 Dose: 50 mg Non-Formulary Medication (Dextromethorphan Hbr/Quinidine [Nuedexta 20-10 Mg Capsule]) 1 each PO BID [facility] IMAGING: * Echo (01/16/19): Normal, trace TR, EF: 60-65% * Renal/Bladder U/S: No hydronephrosis seen. Kidneys unremarkable aside from incidental note of a 6.3 cm L renal cortical cyst. Urinary bladder volume 165 mL. Noted small to moderate amt of punctate debris within urinary bladder lumen layering along posterior wall. In comparison to study done on 01/16/19, interval development of diffuse GB wall thickening is seen. Trace amt of fluid within thickened GB wall. GB appears mildly overdistended. Mod amount of inspissated bile/sludge seen within GB lumen. No obvious GB calculus noted allowing for partially obscuring inspissated bile/sludge. CBD region not included. * CTAP w/ contrast: pending ASSESSMENT/PLAN: 63M w/ PMHx. of NIDDM, HTN, CVA(residual R. sided weakness) and ?CAD presents after being found unconscious on toilet while passing stool and urine. #Acute Cholecystitis -Finding of likely acute cholecystitis found on renal/bladder U/S. Per surg, cholecystectomy scheduled for tomorrow. Will discuss with surgery possibility of having procedure done earlier as pt's abd pain is worsening, and WBC is rising. Spoke with ID regarding status despite pt on Day 4 of Ertapenem and in agreement. -CTAP w/ oral contrast ordered by surg for further evaluation -F/u surgical recs -Switch IV abx to Meropenem 1 gm Q8H IVPB #Syncope, likely 2/2 vaso-vagal syncope. Now stable, no new episodes. -Head CT: Neg. for acute pathology, chronic infarct in left MCA involving left posterior temporal and frontal lobe as well as left parietal w/ ex Vacuo dilatation of -left posterior lateral ventricle -Orthostatics neg #ESBL E. coli UTI; multi-drug resistant -Per ID, cont Ertapenem 1 gm QD, day 4 (Day 5 total of IV abx) -Consult ID about duration of IV abx as he may need tunneled cath for senior living IV abx; await recs #NIDDM Hold home oral medications -Recent A1c: 5.8% -BGM/ISS ACHS #CVA History- Hold home meds: ASA 81mg, Eliquis 5mg BID due to surgery tomorrow #HTN- Cont home meds: Metoprolol 50 QD #HLD- Cont home meds: Atorvastatin 80 PO HS #Depression/Anxiety- Cont home meds: Fluoxetine 40 QD, 0.5 BID Lorazepam #Narcolepsy- Cont home med: Nuedexta 1 BID for Pseudobulbar affect #FEN -no IVF, encourage PO intake -monitor electrolytes and replete as needed -Diabetic/Na restricted diet #DVT Ppx. -Hold Eliquis 5 BID Dispo -cont to monitor on med-surg -full code -According to pt, his brother, Jon Casper (lives in [place]) makes medical decisions/gives consent for patient. Visit type - Emergency Visit Emergency Visit: Yes ED Registration Date: 02/08/19 Care time: The patient presented to the Emergency Department on the above date and was hospitalized for further evaluation of their emergent condition. - New Patient This patient is new to me today: No - Critical Care Critical Care patient: No
--- NOTE | 2019-02-12 13:39 | PN ---
Progress Note (short form) - Note Progress Note: leukocytosis persists notes diffuse abdominal pain sonogram with GB wall thickness (new) no diarrhea voiding difficulty per patient Vital Signs Period Temp Pulse Resp BP Sys/Meléndez Pulse Ox Last 24 Hr 98.2 F-99.7 F 58-89 16-19 113-131/58-78 94-99 cor-rrr lungs decreased bs at bases abd +bs soft, RUQ and suprapubic discomfort to pallpation ext no edema CBC, BMP 02/12/19 07:30 02/12/19 01:00 Microbiology 02/08/19 11:00 Urine - Urine Clean Catch Urine Culture - Final Escherichia Coli [employer] blood cultures pending a/p leukocytosis uti ecoli esbl day #4 ertapenem switch to meropenem surgical evaluation pending ct scan abd/pelvis ordered by surgery and pending d/w medical service Problem List - Problems (1) Syncope Code(s): R55 - SYNCOPE AND COLLAPSE Qualifiers: Syncope type: unspecified Qualified Code(s): R55 - Syncope and collapse (2) UTI (urinary tract infection) Code(s): N39.0 - URINARY TRACT INFECTION, SITE NOT SPECIFIED Qualifiers: Urinary tract infection type: site unspecified (3) History of ESBL E. coli infection Code(s): Z86.19 - PERSONAL HISTORY OF OTHER INFECTIOUS AND PARASITIC DISEASES
--- NOTE | 2019-02-12 15:34 | CONSULT ---
- Consultation REQUESTING PROVIDER: CONSULT REQUEST: We have been asked to surgically evaluate this patient for RUQ pain/cholecystitis PCP:Zana Snyder MD HISTORY OF PRESENT ILLNESS: 63yo M h/o CVA and paraplegia, pt has difficulty giving history as has some difficulty with speaking. As per medicine team and chart. Pt was admitted to the hospital for UTI, but was found to have worsening WBC now 25. Pt is unclear if he has abd pain with eating. Denies n/v. PMHx: CVA, AFIB, HTN, CAD, DM Home Medications Medication Instructions Recorded Apixaban [Eliquis] 5 mg PO BID 01/15/19 Aspirin 81 mg PO DAILY 01/15/19 Atorvastatin Calcium 80 mg PO HS 01/15/19 Fluoxetine HCl [Prozac] 40 mg PO DAILY 01/15/19 LORazepam [Ativan] 0.5 mg PO TID 01/15/19 Metoprolol Succinate 50 mg PO DAILY 01/15/19 Sitagliptin Phosphate [Januvia] 50 mg PO DAILY 01/15/19 Cholecalciferol (Vitamin D3) 2,000 unit PO DAILY 01/16/19 [Vitamin D3] Dextromethorphan HBr/Quinidine 1 each PO BID 02/07/19 [Nuedexta 20-10 mg Capsule] Hydrochlorothiazide [Hctz -] 12.5 mg PO DAILY 02/11/19 Allergies Allergy/AdvReac Type Severity Reaction Status Date / Time No Known Allergies Allergy Verified 01/15/19 21:14 PHYSICAL EXAM: GENERAL: Awake, alert, confused HEAD: Normal with no signs of trauma. EYES: PERRL, sclera anicteric, conjunctiva clear. NECK: Normal ROM, supple without lymphadenopathy, JVD, or masses. LUNGS: breathing comfortably ABDOMEN: Acutely tender RUQ, +schaeffer sign MUSCULOSKELETAL: Normal ROM at all joints. No bony deformities or tenderness. No CVA tenderness. SKIN: Warm, dry, normal turgor, no rashes or lesions noted. Vital Signs Temperature 98.2 F 02/12/19 10:00 Pulse Rate 64 02/12/19 10:00 Respiratory Rate 18 02/12/19 10:00 Blood Pressure 113/58 L 02/12/19 10:00 O2 Sat by Pulse Oximetry (%) 94 L 02/12/19 09:00 Lab Results WBC 25.3 K/mm3 (4.0-10.0) H 02/12/19 07:30 RBC 3.80 M/mm3 (4.00-5.60) L 02/12/19 07:30 Hgb 11.2 GM/dL (11.7-16.9) L 02/12/19 07:30 Hct 34.0 % (35.4-49) L 02/12/19 07:30 MCV 89.4 fl (80-96) 02/12/19 07:30 MCHC 32.9 g/dl (32.0-35.9) 02/12/19 07:30 RDW 15.6 % (11.9-15.9) 02/12/19 07:30 Plt Count 165 K/MM3 (134-434) 02/12/19 07:30 Sodium 132 mmol/L (136-145) L 02/12/19 01:00 Potassium 3.6 mmol/L (3.5-5.1) 02/12/19 01:00 Chloride 98 mmol/L (98-107) 02/12/19 01:00 Carbon Dioxide 26 mmol/L (21-32) 02/12/19 01:00 Anion Gap 8 MMOL/L (8-16) 02/12/19 01:00 BUN 32 mg/dL (7-18) H 02/12/19 01:00 Creatinine 1.1 mg/dL (0.55-1.3) 02/12/19 01:00 Random Glucose 211 mg/dL (74-106) H 02/12/19 01:00 Calcium 8.3 mg/dL (8.5-10.1) L 02/12/19 01:00 Blood Type O POSITIVE 02/08/19 08:36 Antibody Screen Negative 02/08/19 01:10 Problem List - Problems (1) Cholecystitis Assessment/Plan: Plan -Pt made NPO, will place on schedule for tomorrow for lap angelia -recommend CT abd/pel r/o any other etiology of high WBC -IV abx as per ID -if pt becomes more acutely ill or unstable may consider cholecystostomy tube Will follow Code(s): K81.9 - CHOLECYSTITIS, UNSPECIFIED (2) CVA (cerebral vascular accident) Code(s): I63.9 - CEREBRAL INFARCTION, UNSPECIFIED Qualifiers: CVA mechanism: unspecified Qualified Code(s): I63.9 - Cerebral infarction, unspecified
--- NOTE | 2019-02-12 16:08 | PN ---
Teaching Attending Note Name of Resident: Leia Andesr ATTENDING PHYSICIAN STATEMENT I saw and evaluated the patient. I reviewed the resident's note and discussed the case with the resident. I agree with the resident's findings and plan as documented. SUBJECTIVE: Not verbalizing any complaints. Denies any abdo pain/nausea/vomiting /chest pain/palps/dizziness/lightheadedness. No fever/chills. No dysuria/ hematuria. Unable to relate specifics of the episode that prompted his presentation to the ED. OBJECTIVE: Afebrile, Hemodynamically Stable. Last Vital Signs Temp Pulse Resp BP Pulse Ox 98.0 F 68 20 135/77 95 02/11/19 10:00 02/11/19 10:00 02/11/19 10:02/11/19 10:02/11/19 09:00 HEart - S1, S2, RRR Lungs - clear to auscultation Abdomen - Soft, generalized tenderness, worse in RUQ and suprapubic regions. Bowel Sounds normal. Extremities - no edema, no calf tenderness. Neuro - AAO x 3. Mildly Reduced Power RUE/RLE. Mild expressive dysphasia. Laboratory Results - last 24 hr 02/11/19 02/11/19 02/12/19 16:15 21:17 01:00 WBC RBC Hgb Hct MCV MCH MCHC RDW Plt Count MPV Sodium 132 L Potassium 3.6 Chloride 98 Carbon Dioxide 26 Anion Gap 8 BUN 32 H Creatinine 1.1 Est GFR (CKD-EPI)AfAm 81.22 Est GFR (CKD-EPI)NonAf 70.07 POC Glucometer 221 235 Random Glucose 211 H Calcium 8.3 L Total Bilirubin 1.5 H AST 35 ALT 39 Alkaline Phosphatase 77 Total Protein 6.1 L Albumin 2.8 L Total Amylase Lipase 02/12/19 02/12/19 02/12/19 05:57 07:30 07:30 WBC 25.3 H RBC 3.80 L Hgb 11.2 L Hct 34.0 L MCV 89.4 MCH 29.4 MCHC 32.9 RDW 15.6 Plt Count 165 MPV 10.2 Sodium Potassium Chloride Carbon Dioxide Anion Gap BUN Creatinine Est GFR (CKD-EPI)AfAm Est GFR (CKD-EPI)NonAf POC Glucometer 245 Random Glucose Calcium Total Bilirubin AST ALT Alkaline Phosphatase Total Protein Albumin Total Amylase 31 Lipase 92 02/12/19 02/12/19 12:01 15:54 WBC RBC Hgb Hct MCV MCH MCHC RDW Plt Count MPV Sodium Potassium Chloride Carbon Dioxide Anion Gap BUN Creatinine Est GFR (CKD-EPI)AfAm Est GFR (CKD-EPI)NonAf POC Glucometer 241 194 Random Glucose Calcium Total Bilirubin AST ALT Alkaline Phosphatase Total Protein Albumin Total Amylase Lipase Current Medications Generic Name Dose Route Start Last Admin Trade Name Freq PRN Reason Stop Dose Admin Acetaminophen 650 mg 02/11/19 18:40 02/12/19 01:53 Tylenol - PO 650 mg Q4H PRN Administration PAIN LEVEL 6-10 Apixaban 5 mg 02/10/19 22:00 02/11/19 21:17 Eliquis - PO 5 mg BID KASSIDY Administration Aspirin 81 mg 02/11/19 10:00 02/12/19 10:01 Asa - PO 81 mg DAILY KASSIDY Administration Atorvastatin Calcium 80 mg 02/10/19 22:00 02/11/19 21:16 Lipitor - PO 80 mg HS KASSIDY Administration Cholecalciferol 2,000 unit 02/11/19 10:00 02/12/19 10:01 Vitamin D3 - PO 2,000 unit DAILY [facility]Y Administration Fluoxetine HCl 40 mg 02/11/19 10:00 02/12/19 10:01 Prozac - PO 40 mg DAILY [facility]Y Administration Meropenem 1 gm/ Dextrose 100 mls @ 200 mls/hr 02/13/19 10:00 IVPB Q8H-IV KASSIDY Meropenem 1 gm/ Dextrose 100 mls @ 200 mls/hr 02/12/19 18:00 IVPB 02/13/19 10:29 Q8H-IV KASSIDY Insulin Aspart 1 vial 02/10/19 22:00 02/12/19 12:03 Novolog Vial Sliding Scale - SQ 2 unit ACHS [facility]Y Administration Protocol Lorazepam 0.5 mg 02/10/19 22:00 02/12/19 10:00 Ativan - PO 0.5 mg BID [facility]Y Administration Metoprolol Succinate 50 mg 02/11/19 10:00 02/12/19 10:01 Toprol Xl - PO 50 mg DAILY [facility] Administration Non-Formulary Medication 1 each 02/10/19 22:00 Dextromethorphan Hbr/Quinidine [Nuedexta 20-10 Mg Capsule] PO BID [facility] ASSESSMENT AND PLAN: 63 year old male with history of Dementia, DM2, HTN, Atrial Fibrillation on Eliquis, CAD, Hx CVA with residual R sided weakness presented with syncopal episode while on toilet. 1. Syncope - likely vasovagal. Patient was found to have positive orthostatic vitals and responded well to IV hydration. No telemonitoring events. CT Brain - chronic infarct MCA territory No further syncopal events. Neurologically Stable. 2. UTI - Urine Cx ESBL Hx ESBL Leukocytosis worsening - low grade temp 99.7, hemodynamically Stable. No diarrhea. Ertapenem changed to Meropenem (Day 4) due to superimposed Acute Cholecystitis ID for further recommendations 3. Dehydration sec to UTI - resolved s/p IV hydration. 4. Acute Cholecystitis - suggested on Abdo US, confirmed on CT A/P (Distended GB with thickened keller and pericholecystic inflammation suspicious for acute cholecystitis). TBil 1.5/AST 35/ALT 39 Ertapenem changed to Meropenem NPO/IV Fluids Aspirin, Apixaban held. Surgery consult - for OR in AM 5. HTN - Continue Metoprolol 6. DM 2 - Controlled - A1c 6.1 - maintained on sliding scale. Oral anti- hyperglycemic agents held. 7. Hx CVA with mild residual R sided weakness and Expressive Dysphasia - on Aspirin and Apixaban (currently held for Surgery), Statin. 8. Atrial Fibrillation - Continue Metoprolol and Eliquis. 9. Depression/Anxiety and Narcolepsy - on Fluoxetine and Nuedexta. 10. L Renal Cyst 6.3cm - for out-patient follow up. DVT Px - on Eliquis.
[2019-02-12] MEDS: MEROPENEM 1 GM in DEXTROSE 5%-WATER 100 ML IVPB SCH (17:11)
[2019-02-12] MEDS ORDERED: ACETAMINOPHEN 325 MG TABLET (FP) PO PRN (18:29)
[2019-02-12] MEDS: DEXTROSE 5%-0.45% SALINE 1,000 ML IV SCH (18:35)
[2019-02-12] MEDS: ATORVASTATIN CA 80 MG TABLET (FP) PO SCH (22:17)
[2019-02-13] MEDS: ACETAMINOPHEN 325 MG TABLET (FP) PO PRN ×2 (02:29→21:58)
[2019-02-13] MEDS: MEROPENEM 1 GM in DEXTROSE 5%-WATER 100 ML IVPB SCH ×4 (02:52→18:19)
[2019-02-13] MEDS ORDERED: DEXTROSE 5%-WATER 100 ML IVPB ONE ×3 (04:46→17:57)
[2019-02-13] MEDS ORDERED: MEROPENEM 1 GM VIAL (RESTRICTED TO ID) IVPB ONE ×3 (04:46→17:57)
--- NOTE | 2019-02-13 06:24 | PN ---
Physical Exam: SUBJECTIVE: Patient seen and examined at bedside. No acute events overnight. Pt still complains of diffuse abdominal tenderness. Has had bowel movement and good urine output. OBJECTIVE: Vital Signs Period Temp Pulse Resp BP Sys/Meléndez Pulse Ox Last 24 Hr 98.2 F-100.9 F 64-72 18-20 108-127/58-69 94-96 GENERAL: AAOx3. NAD. Resting comfortably in bed. EYES:PEERLA: EOMI no scleral icterus LUNGS: CTA B/L; no rales, rhonchi or wheezing. HEART: Regular rate and rhythm, S1, S2 without murmur, rub or gallop. ABDOMEN: Soft, diffuse abdominal tenderness; nondistended +BS in all 4 quadrants EXTREMITIES: 2+ pulses, warm, well-perfused, no edema. L great toe amputated NEUROLOGICAL: Cranial nerves II through XII grossly intact. dysarthric (at baseline given history of L MCA stroke) CBC, BMP 02/12/19 07:30 02/12/19 01:00 Active Medications Acetaminophen (Tylenol -) 650 mg PO Q4H PRN PRN Reason: PAIN LEVEL 6-10 Last Admin: 02/13/19 02:29 Dose: 650 mg Apixaban (Eliquis -) 5 mg PO BID [facility] Last Admin: 02/11/19 21:17 Dose: 5 mg Aspirin (Asa -) 81 mg PO DAILY [facility] Last Admin: 02/12/19 10:01 Dose: 81 mg Atorvastatin Calcium (Lipitor -) 80 mg PO HS [facility] Last Admin: 02/12/19 22:17 Dose: 80 mg Cholecalciferol (Vitamin D3 -) 2,000 unit PO DAILY [facility] Last Admin: 02/12/19 10:01 Dose: 2,000 unit Fluoxetine HCl (Prozac -) 40 mg PO DAILY [facility] Last Admin: 02/12/19 10:01 Dose: 40 mg Meropenem 1 gm/ Dextrose 100 mls @ 200 mls/hr IVPB Q8H-IV [facility] Meropenem 1 gm/ Dextrose 100 mls @ 200 mls/hr IVPB Q8H-IV [facility] Stop: 02/13/19 10:29 Last Admin: 02/13/19 02:52 Dose: 200 mls/hr Dextrose/Sodium Chloride (D5-1/2ns -) 1,000 mls @ 42 mls/hr IV ASDIR [facility] Last Admin: 02/12/19 18:35 Dose: 42 mls/hr Insulin Aspart (Novolog Vial Sliding Scale -) 1 vial SQ ACHS [facility]; Protocol Last Admin: 02/12/19 22:17 Dose: 2 unit Lorazepam (Ativan -) 0.5 mg PO BID [facility] Last Admin: 02/12/19 22:17 Dose: 0.5 mg Metoprolol Succinate (Toprol Xl -) 50 mg PO DAILY [facility] Last Admin: 02/12/19 10:01 Dose: 50 mg Non-Formulary Medication (Dextromethorphan Hbr/Quinidine [Nuedexta 20-10 Mg Capsule]) 1 each PO BID [facility] IMAGING: * Echo (01/16/19): Normal, trace TR, EF: 60-65% * Renal/Bladder U/S: No hydronephrosis seen. Kidneys unremarkable aside from incidental note of a 6.3 cm L renal cortical cyst. Urinary bladder volume 165 mL. Noted small to moderate amt of punctate debris within urinary bladder lumen layering along posterior wall. In comparison to study done on 01/16/19, interval development of diffuse GB wall thickening is seen. Trace amt of fluid within thickened GB wall. GB appears mildly overdistended. Mod amount of inspissated bile/sludge seen within GB lumen. No obvious GB calculus noted allowing for partially obscuring inspissated bile/sludge. CBD region not included. * CTAP w/ oral contrast: Distended GB w/ thickened keller and pericholecystic inflammation strongly suspicious for acute cholecystitis. Diffuse fatty infiltration of liver and mild splenomegaly. Fecal retention. ASSESSMENT/PLAN: 63M w/ PMHx. of NIDDM, HTN, CVA(residual R. sided weakness) and ?CAD presents after being found unconscious on toilet while passing stool and urine. #Acute acalculous cholecystitis -CTAP w/ oral contrast noted above; distended GB w/ thickened keller and pericholecystic inflammation strongly suspicious of acute cholecystitis. Diffuse fatty infiltration of liver and mild splenomegaly. Per surg, OR canceled as pt is a poor surgical candidate. Recommended percutaneous cholecystostomy tube with IR. IR consult placed. -Cont Meropenem 1 gm Q8H IVPB #Syncope, likely 2/2 vaso-vagal syncope. Now stable, no new episodes. -Head CT: Neg. for acute pathology, chronic infarct in left MCA involving left posterior temporal and frontal lobe as well as left parietal w/ ex vacuo dilatation of -left posterior lateral ventricle -Orthostatics neg #ESBL E. coli UTI; multi-drug resistant -Cont Meropenem 1 gm Q8H (Day 7 total of IV abx) #NIDDM Hold home oral medications -Recent A1c: 5.8% -BGM/ISS ACHS #CVA History- Hold home meds: ASA 81mg, Eliquis 5 mg BID #HTN- Cont home meds: Metoprolol 50 QD #HLD- Cont home meds: Atorvastatin 80 PO HS #Depression/Anxiety- Cont home meds: Fluoxetine 40 QD, 0.5 BID Lorazepam #Narcolepsy- Cont home med: Nuedexta 1 BID for Pseudobulbar affect #FEN -D5-1/2NS @ 42 -monitor electrolytes and replete as needed -NPO #DVT Ppx. -Hold Eliquis 5 BID Dispo -cont to monitor on med-surg -full code -According to pt, his brother, Jon Casper (lives in [place]) makes medical decisions/gives consent for patient. Visit type - Emergency Visit Emergency Visit: Yes ED Registration Date: 02/08/19 Care time: The patient presented to the Emergency Department on the above date and was hospitalized for further evaluation of their emergent condition. - New Patient This patient is new to me today: No - Critical Care Critical Care patient: No
[2019-02-13] MEDS: INSULIN SLIDING SCALE (NOVOLOG) 1 VIAL SQ SCH ×4 (06:32→22:00)
--- NOTE | 2019-02-13 08:14 | PN ---
Progress Note (short form) - Note Progress Note: Attending Surgeon Seen in f/u after evaluation w/ surgical PA 02/12/19; he has no c/o ??; moving his bowels; no nausea and/or vomiting; antibiotics were changed yesterday. VSS T max 100.9; does not appear septic abdo-soft; flat and minimal if any tenderness to palpation; o/w negative. labs and imaging w/u to date again reviewed IMP: acalculous cholecystitis PLAN: OR cancelled for lap angelia possible open today; patient is a poor risk for surgery given underlying comorbid conditions and poor nutritional stauts ; suggest percutaneous transhepatic cholecystostomy which would be both dx. and therapeutic; d/w the patients brother Jon in [place], [place]. via telephone as patient lacks the insight to understand the nature of his condition. Pilo Ferreira MD FACS
[2019-02-13 08:39] LABS: BASO % 0.1 % (0-2.0); EOS % 0.2 % (0-4.5); HEMATOCRIT 30.7 % (35.4-49); HEMOGLOBIN 10.3 GM/dL (11.7-16.9); MCH 29.5 pg (25.7-33.7); MCHC 33.4 g/dl (32.0-35.9); MEAN CELL VOLUME 88.2 fl (80-96); MONO % 5.3 % (3.8-10.2); NEUT % 90.4 % (42.8-82.8); PLATELET COUNT 169 K/MM3 (134-434); RBC 3.48 M/mm3 (4.00-5.60); RDW 15.5 % (11.9-15.9); WHITE BLOOD COUNT 18.4 K/mm3 (4.0-10.0)
[2019-02-13 09:09] LABS: ALBUMIN 2.5 g/dl (3.4-5.0); BILIRUBIN,TOTAL 1.3 mg/dL (0.2-1); CALCIUM 8.1 mg/dL (8.5-10.1); POTASSIUM 3.4 mmol/L (3.5-5.1)
[2019-02-13] MEDS: LORazepam 0.5 MG TABLET PO SCH ×2 (10:28→21:58)
--- NOTE | 2019-02-13 11:36 | PN ---
Teaching Attending Note Name of Resident: Amanda Whiteside ATTENDING PHYSICIAN STATEMENT I saw and evaluated the patient. I reviewed the resident's note and discussed the case with the resident. I agree with the resident's findings and plan as documented. SUBJECTIVE: Admits to some abdominal discomfort. No nausea/vomiting/diarhea/ chest pain/palps/dizziness/lightheadedness. No dysuria/hematuria. Unable to relate specifics of the episode that prompted his presentation to the ED. OBJECTIVE: Tmax 100.9, Hemodynamically Stable. Last Vital Signs Temp Pulse Resp BP Pulse Ox 98.7 F 68 20 127/64 96 02/13/19 05:38 02/13/19 05:38 02/13/19 05:38 02/13/19 05:38 02/12/19 21:00 HEart - S1, S2, RRR Lungs - clear to auscultation Abdomen - Soft, generalized tenderness, worse in RUQ and suprapubic regions. Bowel Sounds normal. Extremities - no edema, no calf tenderness. Neuro - AAO x 3. Mildly Reduced Power RUE/RLE. Mild expressive dysphasia. Laboratory Results - last 24 hr 02/12/19 02/12/19 02/12/19 12:01 15:54 22:16 WBC RBC Hgb Hct MCV MCH MCHC RDW Plt Count MPV Absolute Neuts (auto) Neutrophils % Lymphocytes % Monocytes % Eosinophils % Basophils % Nucleated RBC % Sodium Potassium Chloride Carbon Dioxide Anion Gap BUN Creatinine Est GFR (CKD-EPI)AfAm Est GFR (CKD-EPI)NonAf POC Glucometer 241 194 215 Random Glucose Calcium Total Bilirubin AST ALT Alkaline Phosphatase Total Protein Albumin 02/13/19 02/13/19 02/13/19 06:31 07:40 07:40 WBC 18.4 H RBC 3.48 L Hgb 10.3 L Hct 30.7 L MCV 88.2 MCH 29.5 MCHC 33.4 RDW 15.5 Plt Count 169 MPV 10.0 Absolute Neuts (auto) 16.6 H Neutrophils % 90.4 H Lymphocytes % 4.0 L D Monocytes % 5.3 Eosinophils % 0.2 Basophils % 0.1 Nucleated RBC % 0 Sodium 131 L Potassium 3.4 L Chloride 94 L Carbon Dioxide 28 Anion Gap 8 BUN 32 H Creatinine 1.0 Est GFR (CKD-EPI)AfAm 91.13 Est GFR (CKD-EPI)NonAf 78.63 POC Glucometer 216 Random Glucose 191 H Calcium 8.1 L Total Bilirubin 1.3 H AST 88 H ALT 81 H Alkaline Phosphatase 98 Total Protein 6.0 L Albumin 2.5 L Current Medications Generic Name Dose Route Start Last Admin Trade Name Freq PRN Reason Stop Dose Admin Acetaminophen 650 mg 02/11/19 18:40 02/13/19 02:29 Tylenol - PO 650 mg Q4H PRN Administration PAIN LEVEL 6-10 Apixaban 5 mg 02/10/19 22:00 02/11/19 21:17 Eliquis - PO 5 mg BID KASSIDY Administration Aspirin 81 mg 02/11/19 10:00 02/12/19 10:01 Asa - PO 81 mg DAILY KASSIDY Administration Atorvastatin Calcium 80 mg 02/10/19 22:00 02/12/19 22:17 Lipitor - PO 80 mg HS KASSIDY Administration Cholecalciferol 2,000 unit 02/11/19 10:00 02/12/19 10:01 Vitamin D3 - PO 2,000 unit DAILY KASSIDY Administration Fluoxetine HCl 40 mg 02/11/19 10:00 02/12/19 10:01 Prozac - PO 40 mg DAILY KASSIDY Administration Meropenem 1 gm/ Dextrose 100 mls @ 200 mls/hr 02/13/19 10:00 02/13/19 10:10 IVPB 200 mls/hr Q8H-IV KASSIDY Administration Dextrose/Sodium Chloride 1,000 mls @ 42 mls/hr 02/12/19 18:15 02/12/19 18:35 D5-1/2ns - IV 42 mls/hr ASDIR KASSIDY Administration Insulin Aspart 1 vial 02/10/19 22:00 02/13/19 06:32 Novolog Vial Sliding Scale - SQ 2 unit ACHS KASSIDY Administration Protocol Lorazepam 0.5 mg 02/10/19 22:00 02/13/19 10:28 Ativan - PO Not Given BID KASSIDY Metoprolol Succinate 50 mg 02/11/19 10:00 02/13/19 10:10 Toprol Xl - PO 50 mg DAILY KASSIDY Administration Non-Formulary Medication 1 each 02/10/19 22:00 Dextromethorphan Hbr/Quinidine [Nuedexta 20-10 Mg Capsule] PO BID [facility] ASSESSMENT AND PLAN: 63 year old male with history of Dementia, DM2, HTN, Atrial Fibrillation on Eliquis, CAD, Hx CVA with residual R sided weakness presented with syncopal episode while on toilet. 1. Syncope - likely vasovagal. Patient was found to have positive orthostatic vitals and responded well to IV hydration. No telemonitoring events. CT Brain - chronic infarct MCA territory No further syncopal events. Neurologically Stable. 2. UTI - Urine Cx ESBL Hx ESBL Ertapenem changed to Meropenem (Day 5) due to superimposed Acute Cholecystitis ID for further recommendations 3. Dehydration sec to UTI - resolved s/p IV hydration. 4. Sepsis secondary to Acute Cholecystitis - suggested on Abdo US, confirmed on CT A/P (Distended GB with thickened keller and pericholecystic inflammation suspicious for acute cholecystitis). TBil 1.3/AST 88/ALT 81 Ertapenem changed to Meropenem - Day 5 Abx therapy Febrile overnight Tmax 100.9 Leukocytosis improving, down from 25 to 18.7 Continue NPO/IV Fluids Aspirin, Apixaban held. Surgery consulted yesterday - surgical decision today is that patient is a poor surgical candidate with recommendation for transcutaneous cholecystostomy. IR consulted. 5. HTN - Continue Metoprolol 6. DM 2 - Controlled - A1c 6.1 - maintained on sliding scale. Oral anti- hyperglycemic agents held. 7. Hx CVA with mild residual R sided weakness and Expressive Dysphasia - on Aspirin and Apixaban (currently held for possible IR procedure), Statin. 8. Atrial Fibrillation - Continue Metoprolol and Eliquis. 9. Depression/Anxiety and Narcolepsy - on Fluoxetine and Nuedexta. 10. L Renal Cyst 6.3cm - for out-patient follow up. 11. Hypokalemia - repleted. DVT Px - on Eliquis (currently held). SCDs.
[2019-02-13] MEDS: KCL 10 MEQ IVPB 10 MEQ/100 ML INFUS.BAG IVPB SCH ×3 (13:10→17:47)
[2019-02-13] MEDS: FLUoxetine HCL 20 MG CAPSULE (FP) PO SCH (13:10)
[2019-02-13] MEDS: CHOLECALCIFEROL (VIT D3) 1,000 UNIT (25 MCG) TABLET PO SCH (13:10)
--- NOTE | 2019-02-13 15:10 | PN ---
Progress Note (short form) - Note Progress Note: events noted seen by surgery s/p percutaneous biliary drain placement today he is alert Vital Signs Period Temp Pulse Resp BP Sys/Meléndez Pulse Ox Last 24 Hr 98.4 F-100.9 F 66-72 16-20 109-172/61-95 96-97 cor-rrr lungs decreased bs at bases abd soft,mild discomfort to palpation, no distention, +biliary drain with minimal bile ext no edema CBC, BMP 02/13/19 07:40 02/13/19 07:40 Microbiology 02/11/19 17:10 Blood - Peripheral Venous Blood Culture - Preliminary NO GROWTH OBTAINED AFTER 24 HOURS, INCUBATION TO CONTINUE FOR 4 DAYS. 02/11/19 16:50 Blood - Peripheral Venous Blood Culture - Preliminary NO GROWTH OBTAINED AFTER 24 HOURS, INCUBATION TO CONTINUE FOR 4 DAYS. 02/08/19 11:00 Urine - Urine Clean Catch Urine Culture - Final Escherichia Coli Esbl [employer] ct scan noted- GB wall thickening and pericholycystic fluid a/p leukocytosis cholycystitis- s/p percutaneous drainage of GB today uti ecoli esbl day #5 antibiotics continue meropenem f/u labs and cultures in am Problem List - Problems (1) Syncope Code(s): R55 - SYNCOPE AND COLLAPSE Qualifiers: Syncope type: unspecified Qualified Code(s): R55 - Syncope and collapse (2) UTI (urinary tract infection) Code(s): N39.0 - URINARY TRACT INFECTION, SITE NOT SPECIFIED Qualifiers: Urinary tract infection type: site unspecified (3) History of ESBL E. coli infection Code(s): Z86.19 - PERSONAL HISTORY OF OTHER INFECTIOUS AND PARASITIC DISEASES
[2019-02-13] MEDS ORDERED: INSULIN (NOVOLOG) ASPART 100 UNITS/ML 10ML VIAL ONE (16:39)
[2019-02-13] MEDS: DEXTROSE 5%-0.45% SALINE 1,000 ML IV SCH (21:58)
[2019-02-13] MEDS: ATORVASTATIN CA 80 MG TABLET (FP) PO SCH (21:59)
[2019-02-14] MEDS ORDERED: MEROPENEM 1 GM VIAL (RESTRICTED TO ID) IVPB ONE ×2 (01:36→10:33)
[2019-02-14] MEDS ORDERED: DEXTROSE 5%-WATER 100 ML IVPB ONE ×2 (01:37→10:33)
[2019-02-14] MEDS: MEROPENEM 1 GM in DEXTROSE 5%-WATER 100 ML IVPB SCH ×3 (01:47→17:10)
[2019-02-14] MEDS: INSULIN SLIDING SCALE (NOVOLOG) 1 VIAL SQ SCH ×4 (06:35→21:29)
[2019-02-14 07:52] LABS: HEMATOCRIT 29.3 % (35.4-49); HEMOGLOBIN 9.9 GM/dL (11.7-16.9); MCH 29.4 pg (25.7-33.7); MCHC 33.7 g/dl (32.0-35.9); MEAN CELL VOLUME 87.4 fl (80-96); MEAN PLT VOLUME 9.5 fl (7.5-11.1); RBC 3.36 M/mm3 (4.00-5.60); RDW 15.8 % (11.9-15.9); WHITE BLOOD COUNT 17.6 K/mm3 (4.0-10.0)
[2019-02-14 09:08] LABS: ALBUMIN 2.3 g/dl (3.4-5.0); BILIRUBIN,TOTAL 1.1 mg/dL (0.2-1); CALCIUM 7.8 mg/dL (8.5-10.1); CREATININE 1.1 mg/dL (0.55-1.3); POTASSIUM 3.7 mmol/L (3.5-5.1); TOT PROT 5.7 g/dl (6.4-8.2)
[2019-02-14] MEDS: FLUoxetine HCL 20 MG CAPSULE (FP) PO SCH (10:37)
[2019-02-14] MEDS: APIXABAN 5 MG TABLET PO SCH ×2 (10:37→21:26)
[2019-02-14] MEDS: LORazepam 0.5 MG TABLET PO SCH ×2 (10:38→21:26)
[2019-02-14] MEDS: CHOLECALCIFEROL (VIT D3) 1,000 UNIT (25 MCG) TABLET PO SCH (10:38)
[2019-02-14 12:10] LABS: PLATELET COUNT 189 K/MM3 (134-434)
--- NOTE | 2019-02-14 14:22 | PN ---
Teaching Attending Note Name of Resident: Amanda Whiteside ATTENDING PHYSICIAN STATEMENT I saw and evaluated the patient. I reviewed the resident's note and discussed the case with the resident. I agree with the resident's findings and plan as documented. SUBJECTIVE: Improvement in abdominal discomfort. No nausea/vomiting/diarrhea/ chest pain/palps/dizziness/lightheadedness. No dysuria/hematuria. OBJECTIVE: Afebrile, Hemodynamically Stable. Last Vital Signs Temp Pulse Resp BP Pulse Ox 98.4 F 64 20 106/60 97 02/14/19 05:58 02/14/19 05:58 02/14/19 05:58 02/14/19 05:58 02/13/19 21:00 Heart - S1, S2, RRR Lungs - clear to auscultation Abdomen - Soft, generalized tenderness, worse in RUQ and suprapubic regions. Bowel Sounds normal. R cholecystostomy tube with minimal amts brown bilious material. Extremities - no edema, no calf tenderness. Neuro - AAO x 3. Mildly Reduced Power RUE/RLE. Mild expressive dysphasia. Laboratory Results - last 24 hr 02/13/19 02/13/19 02/14/19 16:35 21:56 06:34 WBC RBC Hgb Hct MCV MCH MCHC RDW Plt Count MPV Sodium Potassium Chloride Carbon Dioxide Anion Gap BUN Creatinine Est GFR (CKD-EPI)AfAm Est GFR (CKD-EPI)NonAf POC Glucometer 263 238 238 Random Glucose Calcium Total Bilirubin AST ALT Alkaline Phosphatase Total Protein Albumin 02/14/19 02/14/19 02/14/19 07:15 07:15 11:55 WBC 17.6 H RBC 3.36 L Hgb 9.9 L Hct 29.3 L MCV 87.4 MCH 29.4 MCHC 33.7 RDW 15.8 Plt Count 189 MPV 9.5 Sodium 131 L Potassium 3.7 Chloride 96 L Carbon Dioxide 26 Anion Gap 9 BUN 29 H Creatinine 1.1 Est GFR (CKD-EPI)AfAm 81.22 Est GFR (CKD-EPI)NonAf 70.07 POC Glucometer 311 Random Glucose 241 H Calcium 7.8 L Total Bilirubin 1.1 H AST 140 H ALT 111 H Alkaline Phosphatase 132 H Total Protein 5.7 L Albumin 2.3 L Current Medications Generic Name Dose Route Start Last Admin Trade Name Freq PRN Reason Stop Dose Admin Acetaminophen 650 mg 02/11/19 18:40 02/13/19 21:58 Tylenol - PO 650 mg Q4H PRN Administration PAIN LEVEL 6-10 Apixaban 5 mg 02/10/19 22:00 02/14/19 10:37 Eliquis - PO 5 mg BID KASSIDY Administration Aspirin 81 mg 02/11/19 10:00 02/12/19 10:01 Asa - PO 81 mg DAILY KASSIDY Administration Atorvastatin Calcium 80 mg 02/10/19 22:00 02/13/19 21:59 Lipitor - PO 80 mg HS KASSIDY Administration Cholecalciferol 2,000 unit 02/11/19 10:00 02/14/19 10:38 Vitamin D3 - PO 2,000 unit DAILY KASSIDY Administration Fluoxetine HCl 40 mg 02/11/19 10:00 02/14/19 10:37 Prozac - PO 40 mg DAILY KASSIDY Administration Meropenem 1 gm/ Dextrose 100 mls @ 200 mls/hr 02/13/19 10:00 02/14/19 10:37 IVPB 200 mls/hr Q8H-IV KASSIDY Administration Dextrose/Sodium Chloride 1,000 mls @ 42 mls/hr 02/12/19 18:15 02/13/19 21:58 D5-1/2ns - IV 42 mls/hr ASDIR KASSIDY Administration Insulin Aspart 1 vial 02/10/19 22:00 02/14/19 11:58 Novolog Vial Sliding Scale - SQ 6 unit ACHS KASSIDY Administration Protocol Lorazepam 0.5 mg 02/10/19 22:00 02/14/19 10:38 Ativan - PO 0.5 mg BID KASSIDY Administration Metoprolol Succinate 50 mg 02/11/19 10:00 02/14/19 10:38 Toprol Xl - PO 50 mg DAILY KASSIDY Administration Non-Formulary Medication 1 each 02/10/19 22:00 Dextromethorphan Hbr/Quinidine [Nuedexta 20-10 Mg Capsule] PO BID [facility] ASSESSMENT AND PLAN: 63 year old male with history of Dementia, DM2, HTN, Atrial Fibrillation on Eliquis, CAD, Hx CVA with residual R sided weakness presented with syncopal episode while on toilet. 1. Syncope - likely vasovagal. Patient was found to have positive orthostatic vitals and responded well to IV hydration. No telemonitoring events. CT Brain - chronic infarct MCA territory No further syncopal events. Neurologically Stable. 2. UTI - Urine Cx ESBL Hx ESBL Ertapenem changed to Meropenem (Day 6) due to superimposed Acute Cholecystitis ID for further recommendations - ? Abx duration 3. Dehydration sec to UTI - resolved s/p IV hydration. 4. Sepsis secondary to Acute Cholecystitis - suggested on Abdo US, confirmed on CT A/P (Distended GB with thickened keller and pericholecystic inflammation suspicious for acute cholecystitis). s/p Cholecystostomy by IR as Surgery eas of the opinion that patient was a poor surgical candidate for cholecystectomy. TBil 1.1/AST 140/ALT 111 (mild worsening of transmaminases). Ertapenem changed to Meropenem - Day 6 Abx therapy Fever resolved Leukocytosis improving, down from 25 to 17.6 Resume feeding Continue Aspirin, Apixaban. 5. HTN - Continue Metoprolol 6. DM 2 - Controlled - A1c 6.1 - maintained on sliding scale. Oral anti- hyperglycemic agents held. 7. 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 8. Atrial Fibrillation - Continue Metoprolol and Eliquis. 9. Depression/Anxiety and Narcolepsy - on Fluoxetine and Nuedexta. 10. L Renal Cyst 6.3cm - for out-patient follow up. 11. Hypokalemia - repleted. DVT Px - on Eliquis
--- NOTE | 2019-02-14 15:01 | PN ---
Progress Note (short form) - Note Progress Note: events noted seen by surgery s/p percutaneous biliary drain placement yesterday he is alert Vital Signs Period Temp Pulse Resp BP Sys/Meléndez Pulse Ox Last 24 Hr 98.3 F-99.3 F 64-80 20-21 95-121/51-78 97 cor-rrr lungs decreased bs at bases abd soft,nt ext no edema +biliary drain Microbiology 02/13/19 11:44 Cholecystectomy Fluid Gram Stain - Final 02/13/19 11:44 Cholecystectomy Fluid Body Fluid Culture - Preliminary NO AEROBIC GROWTH, 24 HRS 02/11/19 17:10 Blood - Peripheral Venous Blood Culture - Preliminary NO GROWTH OBTAINED AFTER 48 HOURS, INCUBATION TO CONTINUE FOR 3 DAYS. 02/11/19 16:50 Blood - Peripheral Venous Blood Culture - Preliminary NO GROWTH OBTAINED AFTER 48 HOURS, INCUBATION TO CONTINUE FOR 3 DAYS. 02/08/19 11:00 Urine - Urine Clean Catch Urine Culture - Final Escherichia Coli Esbl [employer] ct scan noted- GB wall thickening and pericholycystic fluid a/p leukocytosis improving cholycystitis- s/p percutaneous drainage of GB today uti ecoli esbl day #6 antibiotics continue meropenem f/u cultures f/u lfts in am- have risen today d/w hospitalist f/u labs and cultures in am Problem List - Problems (1) Syncope Code(s): R55 - SYNCOPE AND COLLAPSE Qualifiers: Syncope type: unspecified Qualified Code(s): R55 - Syncope and collapse (2) UTI (urinary tract infection) Code(s): N39.0 - URINARY TRACT INFECTION, SITE NOT SPECIFIED Qualifiers: Urinary tract infection type: site unspecified (3) History of ESBL E. coli infection Code(s): Z86.19 - PERSONAL HISTORY OF OTHER INFECTIOUS AND PARASITIC DISEASES
--- NOTE | 2019-02-14 16:17 | PN ---
Physical Exam: SUBJECTIVE: Patient seen and examined OBJECTIVE: Vital Signs Temperature 98.3 F 02/14/19 14:00 Pulse Rate 76 02/14/19 14:00 Respiratory Rate 21 H 02/14/19 14:00 Blood Pressure 114/68 02/14/19 14:00 O2 Sat by Pulse Oximetry (%) 97 02/13/19 21:00 GENERAL: AAOx3. NAD. Resting comfortably in bed. EYES:PEERLA: EOMI no scleral icterus LUNGS: CTA B/L; no rales, rhonchi or wheezing. HEART: Regular rate and rhythm, S1, S2 without murmur, rub or gallop. ABDOMEN: Soft, diffuse abdominal tenderness; nondistended +BS in all 4 quadrants ; cholecystostomy tube in place EXTREMITIES: 2+ pulses, warm, well-perfused, no edema. L great toe amputated NEUROLOGICAL: Cranial nerves II through XII grossly intact. dysarthric (at baseline given history of L MCA stroke) CBC, BMP 02/14/19 07:15 02/14/19 07:15 Active Medications Acetaminophen (Tylenol -) 650 mg PO Q4H PRN PRN Reason: PAIN LEVEL 6-10 Last Admin: 02/13/19 21:58 Dose: 650 mg Apixaban (Eliquis -) 5 mg PO BID [facility] Last Admin: 02/14/19 10:37 Dose: 5 mg Aspirin (Asa -) 81 mg PO DAILY [facility] Last Admin: 02/12/19 10:01 Dose: 81 mg Atorvastatin Calcium (Lipitor -) 80 mg PO HS [facility] Last Admin: 02/13/19 21:59 Dose: 80 mg Cholecalciferol (Vitamin D3 -) 2,000 unit PO DAILY [facility] Last Admin: 02/14/19 10:38 Dose: 2,000 unit Fluoxetine HCl (Prozac -) 40 mg PO DAILY [facility] Last Admin: 02/14/19 10:37 Dose: 40 mg Meropenem 1 gm/ Dextrose 100 mls @ 200 mls/hr IVPB Q8H-IV [facility] Last Admin: 02/14/19 10:37 Dose: 200 mls/hr Dextrose/Sodium Chloride (D5-1/2ns -) 1,000 mls @ 42 mls/hr IV ASDIR [facility] Last Admin: 02/13/19 21:58 Dose: 42 mls/hr Insulin Aspart (Novolog Vial Sliding Scale -) 1 vial SQ ACHS [facility]; Protocol Last Admin: 02/14/19 11:58 Dose: 6 unit Lorazepam (Ativan -) 0.5 mg PO BID [facility] Last Admin: 02/14/19 10:38 Dose: 0.5 mg Metoprolol Succinate (Toprol Xl -) 50 mg PO DAILY [facility] Last Admin: 02/14/19 10:38 Dose: 50 mg Non-Formulary Medication (Dextromethorphan Hbr/Quinidine [Nuedexta 20-10 Mg Capsule]) 1 each PO BID [facility] IMAGING: * Echo (01/16/19): Normal, trace TR, EF: 60-65% * Renal/Bladder U/S: No hydronephrosis seen. Kidneys unremarkable aside from incidental note of a 6.3 cm L renal cortical cyst. Urinary bladder volume 165 mL. Noted small to moderate amt of punctate debris within urinary bladder lumen layering along posterior wall. In comparison to study done on 01/16/19, interval development of diffuse GB wall thickening is seen. Trace amt of fluid within thickened GB wall. GB appears mildly overdistended. Mod amount of inspissated bile/sludge seen within GB lumen. No obvious GB calculus noted allowing for partially obscuring inspissated bile/sludge. CBD region not included. * CTAP w/ oral contrast: Distended GB w/ thickened keller and pericholecystic inflammation strongly suspicious for acute cholecystitis. Diffuse fatty infiltration of liver and mild splenomegaly. Fecal retention. ASSESSMENT/PLAN: 63M w/ PMHx. of NIDDM, HTN, CVA(residual R. sided weakness) and ?CAD presents after being found unconscious on toilet while passing stool and urine. #Acute acalculous cholecystitis, s/p cholecystosotomy tube placement on 02/13 -CTAP w/ oral contrast noted above; distended GB w/ thickened keller and pericholecystic inflammation strongly suspicious of acute cholecystitis. Diffuse fatty infiltration of liver and mild splenomegaly. Per surg, pt poor surgical candidate. S/p percutaneous cholecystostomy tube with IR. -LFTs rising; repeat in AM -f/u angelia fluid cx, BCx neg x48h -Cont Meropenem 1 gm Q8H IVPB (Day 6 of IV abx) #Syncope, likely 2/2 vaso-vagal syncope. Now stable, no new episodes. -Head CT: Neg. for acute pathology, chronic infarct in left MCA involving left posterior temporal and frontal lobe as well as left parietal w/ ex vacuo dilatation of -left posterior lateral ventricle -Orthostatics neg #ESBL E. coli UTI; multi-drug resistant -Cont Meropenem 1 gm Q8H (Day 6 total of IV abx) -Discuss with ID about duration of abx #NIDDM Hold home oral medications -Recent A1c: 5.8% -BGM/ISS ACHS #CVA History- Cont home meds: ASA 81mg, Eliquis 5 mg BID #HTN- Cont home meds: Metoprolol 50 QD #HLD- Cont home meds: Atorvastatin 80 PO HS #Depression/Anxiety- Cont home meds: Fluoxetine 40 QD, 0.5 BID Lorazepam #Narcolepsy- Cont home med: Nuedexta 1 BID for Pseudobulbar affect #FEN -D5-1/2NS @ 42 -monitor electrolytes and replete as needed -CLD #DVT Ppx. -Cont Eliquis 5 BID Dispo -cont to monitor on med-surg -full code -According to pt, his brother, Jon Casper (lives in [place]) makes medical decisions/gives consent for patient. Visit type - Emergency Visit Emergency Visit: Yes ED Registration Date: 02/08/19 Care time: The patient presented to the Emergency Department on the above date and was hospitalized for further evaluation of their emergent condition. - New Patient This patient is new to me today: No - Critical Care Critical Care patient: No
[2019-02-14] MEDS: ATORVASTATIN CA 80 MG TABLET (FP) PO SCH (21:26)
[2019-02-15] MEDS ORDERED: MEROPENEM 1 GM VIAL (RESTRICTED TO ID) IVPB ONE ×3 (00:35→16:28)
[2019-02-15] MEDS ORDERED: DEXTROSE 5%-WATER 100 ML IVPB ONE ×3 (00:36→16:28)
[2019-02-15] MEDS: DEXTROSE 5%-0.45% SALINE 1,000 ML IV SCH ×2 (01:21→18:44)
[2019-02-15] MEDS: MEROPENEM 1 GM in DEXTROSE 5%-WATER 100 ML IVPB SCH ×3 (01:22→17:01)
[2019-02-15] MEDS: INSULIN SLIDING SCALE (NOVOLOG) 1 VIAL SQ SCH ×4 (06:05→21:46)
[2019-02-15 07:12] LABS: HEMATOCRIT 28.8 % (35.4-49); HEMOGLOBIN 9.9 GM/dL (11.7-16.9); MCHC 34.3 g/dl (32.0-35.9); MEAN CELL VOLUME 87.6 fl (80-96); MEAN PLT VOLUME 9.9 fl (7.5-11.1); RBC 3.29 M/mm3 (4.00-5.60); RDW 15.7 % (11.9-15.9); WHITE BLOOD COUNT 17.1 K/mm3 (4.0-10.0)
[2019-02-15 07:44] LABS: ALBUMIN 2.1 g/dl (3.4-5.0); BILIRUBIN,TOTAL 0.9 mg/dL (0.2-1); BLOOD UREA NITROGEN 20.6 mg/dL (7-18); CALCIUM 7.6 mg/dL (8.5-10.1); CREATININE 0.9 mg/dL (0.55-1.3); POTASSIUM 3.5 mmol/L (3.5-5.1); TOT PROT 5.7 g/dl (6.4-8.2)
[2019-02-15] MEDS: CHOLECALCIFEROL (VIT D3) 1,000 UNIT (25 MCG) TABLET PO SCH (09:58)
[2019-02-15] MEDS: APIXABAN 5 MG TABLET PO SCH ×2 (09:58→21:46)
[2019-02-15] MEDS: ASPIRIN 81 MG CHEWABLE TABLETS PO SCH (09:58)
[2019-02-15] MEDS: FLUoxetine HCL 20 MG CAPSULE (FP) PO SCH (09:58)
[2019-02-15] MEDS: LORazepam 0.5 MG TABLET PO SCH ×2 (09:58→21:46)
--- NOTE | 2019-02-15 10:56 | DS ---
Physical Exam: SUBJECTIVE: Patient seen and examined at bedside. OBJECTIVE: Vital Signs Period Temp Pulse Resp BP Sys/Meléndez Pulse Ox Last 24 Hr 98 F-98.4 F 68-76 14-21 110-140/56-73 98-98 PHYSICAL EXAM GENERAL: AAOx3. NAD. Resting comfortably in bed. EYES:PEERLA: EOMI no scleral icterus LUNGS: CTA B/L; no rales, rhonchi or wheezing. HEART: Regular rate and rhythm, S1, S2 without murmur, rub or gallop. ABDOMEN: Soft, mild abdominal tenderness to palpation; nondistended, +BS in all 4 quadrants; cholecystostomy tube in place, bag draining dark red blood/fluid EXTREMITIES: 2+ pulses, warm, well-perfused, no edema. L great toe amputated NEUROLOGICAL: Cranial nerves II through XII grossly intact. dysarthric (at baseline given history of L MCA stroke) LABS Laboratory Results - last 24 hr 02/14/19 02/14/19 02/14/19 07:15 11:55 17:06 WBC RBC Hgb Hct MCV MCH MCHC RDW Plt Count 189 MPV Sodium Potassium Chloride Carbon Dioxide Anion Gap BUN Creatinine Est GFR (CKD-EPI)AfAm Est GFR (CKD-EPI)NonAf POC Glucometer 311 252 Random Glucose Calcium Total Bilirubin AST ALT Alkaline Phosphatase Total Protein Albumin 02/14/19 02/15/19 02/15/19 21:25 05:34 06:05 WBC 17.1 H RBC 3.29 L Hgb 9.9 L Hct 28.8 L MCV 87.6 MCH 30.0 MCHC 34.3 RDW 15.7 Plt Count MPV 9.9 Sodium Potassium Chloride Carbon Dioxide Anion Gap BUN Creatinine Est GFR (CKD-EPI)AfAm Est GFR (CKD-EPI)NonAf POC Glucometer 212 184 Random Glucose Calcium Total Bilirubin AST ALT Alkaline Phosphatase Total Protein Albumin 02/15/19 06:05 WBC RBC Hgb Hct MCV MCH MCHC RDW Plt Count MPV Sodium 131 L Potassium 3.5 Chloride 96 L Carbon Dioxide 26 Anion Gap 8 BUN 20.6 H Creatinine 0.9 Est GFR (CKD-EPI)AfAm 103.51 Est GFR (CKD-EPI)NonAf 89.31 POC Glucometer Random Glucose 172 H Calcium 7.6 L Total Bilirubin 0.9 AST 103 H ALT 87 H Alkaline Phosphatase 145 H Total Protein 5.7 L Albumin 2.1 L HOSPITAL COURSE: Date of Admission:02/08/19 IMAGING: * Echo (01/16/19): Normal, trace TR, EF: 60-65% * Renal/Bladder U/S: No hydronephrosis seen. Kidneys unremarkable aside from incidental note of a 6.3 cm L renal cortical cyst. Urinary bladder volume 165 mL. Noted small to moderate amt of punctate debris within urinary bladder lumen layering along posterior wall. In comparison to study done on 01/16/19, interval development of diffuse GB wall thickening is seen. Trace amt of fluid within thickened GB wall. GB appears mildly overdistended. Mod amount of inspissated bile/sludge seen within GB lumen. No obvious GB calculus noted allowing for partially obscuring inspissated bile/sludge. CBD region not included. * CTAP w/ oral contrast: Distended GB w/ thickened keller and pericholecystic inflammation strongly suspicious for acute cholecystitis. Diffuse fatty infiltration of liver and mild splenomegaly. Fecal retention. 63M w/ PMHx. of NIDDM, HTN, CVA(residual R. sided weakness) and ?CAD presents after being found unconscious on toilet while passing stool and urine, found to have an acute cholecystitis, s/p cholecystostomy tube placement. Initially, pt had syncopal work up done that revealed head CT that was unremarkable for acute changes. Syncopal episode was likely vasovagal. He was also found to have U/A + ESBL E.coli after which he was started on Ertapenem. Leukocytosis increased despite abx therapy and as a result, pt was switched to Meropenem per ID recs. A renal/bladder u/s was done and showed an incidental finding of GB overdistension. As a result, a CTAP w/ oral contrast was done (results noted above) that showed suspicion for cholecystitis. Pt was evaluated by surgery who did not feel pt was a good surgical candidate after which IR was consulted. Cholecystostomy tube was placed, and pt was monitored for drainage through tube. He tolerated the procedure well and was continued on IV Meropenem. Date of Discharge: 02/15/19 Discharge Summary Reason For Visit: DIABETES MELLITUS, SYNCOPE, HYPERTENSION, Current Active Problems Cholecystitis (Acute) History of ESBL E. coli infection (Acute) CVA (cerebral vascular accident) (Chronic) Hypertension (Chronic) Type 2 diabetes mellitus (Chronic) Condition: Good - Instructions Diet, Activity, Other Instructions: You were seen in the hospital after a fainting episode. During your visit, you were found to have a urinary tract infection (UTI). You were seen by the infectious disease doctor and treated with IV antibiotics. A CT scan of your abdomen was done that showed acute cholecystitis (infection of the gallbladder) . You were evaluated by surgery, with recommendation to have the interventional radiologist drain the infection in your gallbladder. As a result, a cholecystostomy tube was placed in your gall bladder. Throughout your stay, you had received IV antibiotics to treat both your UTI and gall bladder infection. Your symptoms improved. You are being discharged to a [facility] facility to continue your IV antibiotic regimen as advised by the infectious disease doctor. MEDICAL RECOMMENDATIONS Please take Meropenem 1 gm every 8 hours for You may continue taking the rest of your home medications as prescribed. FOLLOW UP Please follow up with your primary care physician within 1 week. If you experience another fainting episode, worsening fever/chills, abdominal pain, flank pain, please proceed to your nearest emergency room immediately. - Home Medications Comprehensive Discharge Medication List: Ambulatory Orders Apixaban [Eliquis] 5 mg PO BID 01/15/19 Aspirin 81 mg PO DAILY 01/15/19 Atorvastatin Calcium 80 mg PO HS 01/15/19 Fluoxetine HCl [Prozac] 40 mg PO DAILY 01/15/19 LORazepam [Ativan] 0.5 mg PO TID 01/15/19 Metoprolol Succinate 50 mg PO DAILY 01/15/19 Sitagliptin Phosphate [Januvia] 50 mg PO DAILY 01/15/19 Cholecalciferol (Vitamin D3) [Vitamin D3] 2,000 unit PO DAILY 01/16/19 Dextromethorphan HBr/Quinidine [Nuedexta 20-10 mg Capsule] 1 each PO BID Hydrochlorothiazide [Hctz -] 12.5 mg PO DAILY 02/11/19 - Discharge Referral Referred to [facility] No
--- NOTE | 2019-02-15 11:53 | PN ---
Teaching Attending Note Name of Resident: Amanda Whitesdie ATTENDING PHYSICIAN STATEMENT I saw and evaluated the patient. I reviewed the resident's note and discussed the case with the resident. I agree with the resident's findings and plan as documented. SUBJECTIVE: Improvement in abdominal discomfort. No nausea/vomiting/diarrhea/ chest pain/palps/dizziness/lightheadedness. No dysuria/hematuria. OBJECTIVE: Afebrile, Hemodynamically Stable. Last Vital Signs Temp Pulse Resp BP Pulse Ox 98.4 F 71 14 112/63 98 02/15/19 07:51 02/15/19 07:51 02/15/19 07:51 02/15/19 07:51 02/15/19 08:55 Heart - S1, S2, RRR Lungs - clear to auscultation Abdomen - Soft, tenderness improved. Bowel Sounds normal. R cholecystostomy tube draining dark material. Extremities - no edema, no calf tenderness. Neuro - AAO x 3. Mildly Reduced Power RUE/RLE. Mild expressive dysphasia. Laboratory Results - last 24 hr 02/14/19 02/14/19 02/14/19 07:15 11:55 17:06 WBC RBC Hgb Hct MCV MCH MCHC RDW Plt Count 189 MPV Sodium Potassium Chloride Carbon Dioxide Anion Gap BUN Creatinine Est GFR (CKD-EPI)AfAm Est GFR (CKD-EPI)NonAf POC Glucometer 311 252 Random Glucose Calcium Total Bilirubin AST ALT Alkaline Phosphatase Total Protein Albumin 02/14/19 02/15/19 02/15/19 21:25 05:34 06:05 WBC 17.1 H RBC 3.29 L Hgb 9.9 L Hct 28.8 L MCV 87.6 MCH 30.0 MCHC 34.3 RDW 15.7 Plt Count MPV 9.9 Sodium Potassium Chloride Carbon Dioxide Anion Gap BUN Creatinine Est GFR (CKD-EPI)AfAm Est GFR (CKD-EPI)NonAf POC Glucometer 212 184 Random Glucose Calcium Total Bilirubin AST ALT Alkaline Phosphatase Total Protein Albumin 02/15/19 02/15/19 06:05 11:21 WBC RBC Hgb Hct MCV MCH MCHC RDW Plt Count MPV Sodium 131 L Potassium 3.5 Chloride 96 L Carbon Dioxide 26 Anion Gap 8 BUN 20.6 H Creatinine 0.9 Est GFR (CKD-EPI)AfAm 103.51 Est GFR (CKD-EPI)NonAf 89.31 POC Glucometer 264 Random Glucose 172 H Calcium 7.6 L Total Bilirubin 0.9 AST 103 H ALT 87 H Alkaline Phosphatase 145 H Total Protein 5.7 L Albumin 2.1 L Current Medications Generic Name Dose Route Start Last Admin Trade Name Freq PRN Reason Stop Dose Admin Acetaminophen 650 mg 02/11/19 18:40 02/13/19 21:58 Tylenol - PO 650 mg Q4H PRN Administration PAIN LEVEL 6-10 Apixaban 5 mg 02/10/19 22:00 02/15/19 09:58 Eliquis - PO 5 mg BID KASSIDY Administration Aspirin 81 mg 02/11/19 10:00 02/15/19 09:58 Asa - PO 81 mg DAILY KASSIDY Administration Atorvastatin Calcium 80 mg 02/10/19 22:00 02/14/19 21:26 Lipitor - PO 80 mg HS KASSIDY Administration Cholecalciferol 2,000 unit 02/11/19 10:00 02/15/19 09:58 Vitamin D3 - PO 2,000 unit DAILY KASSIDY Administration Fluoxetine HCl 40 mg 02/11/19 10:00 02/15/19 09:58 Prozac - PO 40 mg DAILY KASSIDY Administration Meropenem 1 gm/ Dextrose 100 mls @ 200 mls/hr 02/13/19 10:00 02/15/19 09:58 IVPB 200 mls/hr Q8H-IV KASSIDY Administration Dextrose/Sodium Chloride 1,000 mls @ 42 mls/hr 02/12/19 18:15 02/15/19 01:21 D5-1/2ns - IV 42 mls/hr ASDIR KASSIDY Administration Insulin Aspart 1 vial 02/10/19 22:00 02/15/19 11:25 Novolog Vial Sliding Scale - SQ 4 unit ACHS KASSIDY Administration Protocol Lorazepam 0.5 mg 02/10/19 22:00 02/15/19 09:58 Ativan - PO 0.5 mg BID KASSIDY Administration Metoprolol Succinate 50 mg 02/11/19 10:00 02/15/19 09:58 Toprol Xl - PO 50 mg DAILY KASSIDY Administration Non-Formulary Medication 1 each 02/10/19 22:00 Dextromethorphan Hbr/Quinidine [Nuedexta 20-10 Mg Capsule] PO BID KASSIDY ASSESSMENT AND PLAN: 63 year old male with history of Dementia, DM2, HTN, Atrial Fibrillation on Eliquis, CAD, Hx CVA with residual R sided weakness presented with syncopal episode while on toilet. 1. Syncope - likely vasovagal. Patient was found to have positive orthostatic vitals and responded well to IV hydration. No telemonitoring events. CT Brain - chronic infarct MCA territory No further syncopal events. Neurologically Stable. 2. UTI - Urine Cx ESBL Hx ESBL Ertapenem changed to Meropenem (Day 7) due to superimposed Acute Cholecystitis ID for further recommendations - ? Abx choice and duration 3. Dehydration sec to UTI - resolved s/p IV hydration. 4. Sepsis secondary to Acute Cholecystitis - suggested on Abdo US, confirmed on CT A/P (Distended GB with thickened keller and pericholecystic inflammation suspicious for acute cholecystitis). s/p Cholecystostomy by IR as Surgery was of the opinion that patient was a poor surgical candidate for cholecystectomy. TBil 0.9/AST 103/ALT 87 (trending down). Ertapenem changed to Meropenem - Day 7 Abx therapy WBC plateaued at 17.1 - Afebrile, Hemodynamically Stable. Diet advanced ID following. 5. HTN - Continue Metoprolol 6. DM 2 - Controlled - A1c 6.1 - maintained on sliding scale. Oral anti- hyperglycemic agents held. 7. 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 8. Atrial Fibrillation - Continue Metoprolol and Eliquis. 9. Depression/Anxiety and Narcolepsy - on Fluoxetine and Nuedexta. 10. L Renal Cyst 6.3cm - for out-patient follow up. 11. Hypokalemia - repleted. DVT Px - on Eliquis
[2019-02-15 12:26] LABS: PLATELET COUNT 235 K/MM3 (134-434)
--- NOTE | 2019-02-15 13:09 | PN ---
Physical Exam: SUBJECTIVE: Patient seen and examined at bedside. No acute events overnight. Cholecystostomy bag seen draining dark red fluid, ?blood. Denies f/c, n/v, cp, sob, abd pain. Bryson PO diet. OBJECTIVE: Vital Signs Temperature 98.4 F 02/15/19 07:51 Pulse Rate 71 02/15/19 07:51 Respiratory Rate 14 02/15/19 07:51 Blood Pressure 112/63 02/15/19 07:51 O2 Sat by Pulse Oximetry (%) 98 02/15/19 08:55 GENERAL: AAOx3. NAD. Resting comfortably in bed. EYES:PEERLA: EOMI no scleral icterus LUNGS: CTA B/L; no rales, rhonchi or wheezing. HEART: Regular rate and rhythm, S1, S2 without murmur, rub or gallop. ABDOMEN: Soft, mild abdominal tenderness to palpation; nondistended, +BS in all 4 quadrants; cholecystostomy tube in place, bag draining dark red blood/fluid EXTREMITIES: 2+ pulses, warm, well-perfused, no edema. L great toe amputated NEUROLOGICAL: Cranial nerves II through XII grossly intact. dysarthric (at baseline given history of L MCA stroke) CBC, BMP 02/15/19 06:05 02/15/19 06:05 Active Medications Acetaminophen (Tylenol -) 650 mg PO Q4H PRN PRN Reason: PAIN LEVEL 6-10 Last Admin: 02/13/19 21:58 Dose: 650 mg Apixaban (Eliquis -) 5 mg PO BID [facility] Last Admin: 02/15/19 09:58 Dose: 5 mg Aspirin (Asa -) 81 mg PO DAILY [facility] Last Admin: 02/15/19 09:58 Dose: 81 mg Atorvastatin Calcium (Lipitor -) 80 mg PO HS [facility] Last Admin: 02/14/19 21:26 Dose: 80 mg Cholecalciferol (Vitamin D3 -) 2,000 unit PO DAILY [facility] Last Admin: 02/15/19 09:58 Dose: 2,000 unit Fluoxetine HCl (Prozac -) 40 mg PO DAILY [facility] Last Admin: 02/15/19 09:58 Dose: 40 mg Meropenem 1 gm/ Dextrose 100 mls @ 200 mls/hr IVPB Q8H-IV [facility] Last Admin: 02/15/19 09:58 Dose: 200 mls/hr Dextrose/Sodium Chloride (D5-1/2ns -) 1,000 mls @ 42 mls/hr IV ASDIR [facility] Last Admin: 02/15/19 01:21 Dose: 42 mls/hr Insulin Aspart (Novolog Vial Sliding Scale -) 1 vial SQ ACHS [facility]; Protocol Last Admin: 02/15/19 11:25 Dose: 4 unit Lorazepam (Ativan -) 0.5 mg PO BID [facility] Last Admin: 02/15/19 09:58 Dose: 0.5 mg Metoprolol Succinate (Toprol Xl -) 50 mg PO DAILY [facility] Last Admin: 02/15/19 09:58 Dose: 50 mg Non-Formulary Medication (Dextromethorphan Hbr/Quinidine [Nuedexta 20-10 Mg Capsule]) 1 each PO BID [facility] IMAGING: * Echo (01/16/19): Normal, trace TR, EF: 60-65% * Renal/Bladder U/S: No hydronephrosis seen. Kidneys unremarkable aside from incidental note of a 6.3 cm L renal cortical cyst. Urinary bladder volume 165 mL. Noted small to moderate amt of punctate debris within urinary bladder lumen layering along posterior wall. In comparison to study done on 01/16/19, interval development of diffuse GB wall thickening is seen. Trace amt of fluid within thickened GB wall. GB appears mildly overdistended. Mod amount of inspissated bile/sludge seen within GB lumen. No obvious GB calculus noted allowing for partially obscuring inspissated bile/sludge. CBD region not included. * CTAP w/ oral contrast: Distended GB w/ thickened keller and pericholecystic inflammation strongly suspicious for acute cholecystitis. Diffuse fatty infiltration of liver and mild splenomegaly. Fecal retention. ASSESSMENT/PLAN: 63M w/ PMHx. of NIDDM, HTN, CVA(residual R. sided weakness) and ?CAD presents after being found unconscious on toilet while passing stool and urine. #Acute acalculous cholecystitis, s/p cholecystosotomy tube placement on 02/13 -CTAP w/ oral contrast noted above; distended GB w/ thickened keller and pericholecystic inflammation strongly suspicious of acute cholecystitis. Diffuse fatty infiltration of liver and mild splenomegaly. Per surg, pt poor surgical candidate. S/p percutaneous cholecystostomy tube with IR. -WBC still elevated, but slightly improving. Today 17.1 -LFTs improving; angelia bag draining ?blood; will cont to monitor as pt is also on ASA and Eliquis. Will cont to monitor Hgb as well -f/u angelia fluid cx, BCx neg x72h -Cont Meropenem 1 gm Q8H IVPB (Day 7 of IV abx); f/u ID recs #Syncope, likely 2/2 vaso-vagal syncope. Now stable, no new episodes. -Head CT: Neg. for acute pathology, chronic infarct in left MCA involving left posterior temporal and frontal lobe as well as left parietal w/ ex vacuo dilatation of -left posterior lateral ventricle -Orthostatics neg #ESBL E. coli UTI; multi-drug resistant -Cont Meropenem 1 gm Q8H (Day 7 total of IV abx) -f/u ID recs #NIDDM Hold home oral medications -Recent A1c: 5.8% -BGM/ISS ACHS #CVA History- Cont home meds: ASA 81mg, Eliquis 5 mg BID #HTN- Cont home meds: Metoprolol 50 QD #HLD- Cont home meds: Atorvastatin 80 PO HS #Depression/Anxiety- Cont home meds: Fluoxetine 40 QD, 0.5 BID Lorazepam #Narcolepsy- Cont home med: Nuedexta 1 BID for Pseudobulbar affect #FEN -D5-1/2NS @ 42 -monitor electrolytes and replete as needed -CLD #DVT Ppx -Cont Eliquis 5 BID Dispo -cont to monitor on med-surg -full code -According to pt, his brother, Jon Casper (lives in [place]) makes medical decisions/gives consent for patient. Visit type - Emergency Visit Emergency Visit: Yes ED Registration Date: 02/08/19 Care time: The patient presented to the Emergency Department on the above date and was hospitalized for further evaluation of their emergent condition. - New Patient This patient is new to me today: No - Critical Care Critical Care patient: No
[2019-02-15] MEDS: ACETAMINOPHEN 325 MG TABLET (FP) PO PRN (15:42)
[2019-02-15] MEDS ORDERED: INSULIN (NOVOLOG) ASPART 100 UNITS/ML 10ML VIAL ONE (16:27)
--- NOTE | 2019-02-15 20:11 | PN ---
Progress Note, Physician History of Present Illness: AWAKE, LETHARGIC NO ACUTE DISTRESS WBC TRENDING DOWNWARD - Current Medication List Current Medications: Active Medications Acetaminophen (Tylenol -) 650 mg PO Q4H PRN PRN Reason: PAIN LEVEL 6-10 Last Admin: 02/15/19 15:42 Dose: 650 mg Apixaban (Eliquis -) 5 mg PO BID [facility] Last Admin: 02/15/19 09:58 Dose: 5 mg Aspirin (Asa -) 81 mg PO DAILY [facility] Last Admin: 02/15/19 09:58 Dose: 81 mg Atorvastatin Calcium (Lipitor -) 80 mg PO HS [facility] Last Admin: 02/14/19 21:26 Dose: 80 mg Cholecalciferol (Vitamin D3 -) 2,000 unit PO DAILY [facility] Last Admin: 02/15/19 09:58 Dose: 2,000 unit Fluoxetine HCl (Prozac -) 40 mg PO DAILY [facility] Last Admin: 02/15/19 09:58 Dose: 40 mg Meropenem 1 gm/ Dextrose 100 mls @ 200 mls/hr IVPB Q8H-IV [facility] Last Admin: 02/15/19 17:01 Dose: 200 mls/hr Dextrose/Sodium Chloride (D5-1/2ns -) 1,000 mls @ 42 mls/hr IV ASDIR [facility] Last Admin: 02/15/19 18:44 Dose: Not Given Insulin Aspart (Novolog Vial Sliding Scale -) 1 vial SQ ACHS [facility]; Protocol Last Admin: 02/15/19 16:42 Dose: 2 unit Lorazepam (Ativan -) 0.5 mg PO BID [facility] Last Admin: 02/15/19 09:58 Dose: 0.5 mg Metoprolol Succinate (Toprol Xl -) 50 mg PO DAILY [facility] Last Admin: 02/15/19 09:58 Dose: 50 mg - Objective Vital Signs: Vital Signs Temperature 101.2 F H 02/15/19 15:58 Pulse Rate 68 02/15/19 15:58 Respiratory Rate 20 02/15/19 15:58 Blood Pressure 108/66 02/15/19 15:58 O2 Sat by Pulse Oximetry (%) 98 02/15/19 08:55 Constitutional: Yes: No Distress Cardiovascular: Yes: Regular Rate and Rhythm, S1, S2 Respiratory: Yes: Diminished Gastrointestinal: Yes: Soft, Other (+ BLOODY FLUID IN PERCUTANEOUS BILIARY DRAIN ) Labs: CBC, BMP 02/15/19 06:05 02/15/19 06:05 Assessment/Plan S/P PERCUTANEOUS CHOLECYSTOSTOMY LEUKOCYTOSIS +URINE C/S ESBL CONTINUE MEROPENEM
[2019-02-15] MEDS: ATORVASTATIN CA 80 MG TABLET (FP) PO SCH (21:45)
[2019-02-16] MEDS ORDERED: DEXTROSE 5%-WATER 100 ML IVPB ONE ×3 (01:27→16:17)
[2019-02-16] MEDS ORDERED: MEROPENEM 1 GM VIAL (RESTRICTED TO ID) IVPB ONE ×3 (01:27→16:16)
[2019-02-16] MEDS: MEROPENEM 1 GM in DEXTROSE 5%-WATER 100 ML IVPB SCH ×3 (02:15→18:16)
[2019-02-16] MEDS: INSULIN SLIDING SCALE (NOVOLOG) 1 VIAL SQ SCH ×4 (06:08→22:13)
[2019-02-16 07:45] LABS: HEMATOCRIT 27.1 % (35.4-49); HEMOGLOBIN 9.4 GM/dL (11.7-16.9); MCH 29.9 pg (25.7-33.7); MCHC 34.6 g/dl (32.0-35.9); MEAN CELL VOLUME 86.3 fl (80-96); MEAN PLT VOLUME 8.9 fl (7.5-11.1); PLATELET COUNT 201 K/MM3 (134-434); RBC 3.14 M/mm3 (4.00-5.60); RDW 15.7 % (11.9-15.9); WHITE BLOOD COUNT 13.8 K/mm3 (4.0-10.0)
[2019-02-16 08:49] LABS: ALBUMIN 2.1 g/dl (3.4-5.0); BILIRUBIN,TOTAL 0.8 mg/dL (0.2-1); BLOOD UREA NITROGEN 19.9 mg/dL (7-18); CALCIUM 7.7 mg/dL (8.5-10.1); CREATININE 0.9 mg/dL (0.55-1.3); POTASSIUM 3.5 mmol/L (3.5-5.1); TOT PROT 5.6 g/dl (6.4-8.2)
[2019-02-16] MEDS: APIXABAN 5 MG TABLET PO SCH (09:37)
[2019-02-16] MEDS: FLUoxetine HCL 20 MG CAPSULE (FP) PO SCH (09:38)
[2019-02-16] MEDS: ASPIRIN 81 MG CHEWABLE TABLETS PO SCH (09:38)
[2019-02-16] MEDS: LORazepam 0.5 MG TABLET PO SCH ×2 (09:38→22:14)
[2019-02-16] MEDS: CHOLECALCIFEROL (VIT D3) 1,000 UNIT (25 MCG) TABLET PO SCH (09:38)
[2019-02-16] MEDS ORDERED: INSULIN (NOVOLOG) ASPART 100 UNITS/ML 10ML VIAL ONE ×2 (11:11→16:16)
--- NOTE | 2019-02-16 11:14 | PN ---
Progress Note (short form) - Note Progress Note: SUBJECTIVE: Some ongoing abdominal/RUQ discomfort. No nausea/vomiting/diarrhea/ chest pain/palps/dizziness/lightheadedness. No dysuria/hematuria. OBJECTIVE: Afebrile, Hemodynamically Stable. Last Vital Signs Temp Pulse Resp BP Pulse Ox 98.8 F 68 14 124/70 98 02/16/19 07:39 02/16/19 07:39 02/16/19 07:39 02/16/19 07:39 02/16/19 08:54 Heart - S1, S2, RRR Lungs - clear to auscultation Abdomen - Soft, RUQ tenderness. Bowel Sounds normal. R cholecystostomy tube with minimal amts dark material ?blood. Extremities - no edema, no calf tenderness. Stage 1 sacral decubitus - no superimposed infection. Neuro - AAO x 3. Mildly Reduced Power RUE/RLE. Mild expressive dysphasia. Laboratory Results - last 24 hr 02/15/19 02/15/19 02/15/19 06:05 11:21 16:21 WBC RBC Hgb Hct MCV MCH MCHC RDW Plt Count 235 D MPV Sodium Potassium Chloride Carbon Dioxide Anion Gap BUN Creatinine Est GFR (CKD-EPI)AfAm Est GFR (CKD-EPI)NonAf POC Glucometer 264 210 Random Glucose Calcium Total Bilirubin AST ALT Alkaline Phosphatase Total Protein Albumin 02/15/19 02/16/19 02/16/19 21:43 05:55 07:12 WBC 13.8 H RBC 3.14 L Hgb 9.4 L Hct 27.1 L MCV 86.3 MCH 29.9 MCHC 34.6 RDW 15.7 Plt Count MPV 8.9 D Sodium Potassium Chloride Carbon Dioxide Anion Gap BUN Creatinine Est GFR (CKD-EPI)AfAm Est GFR (CKD-EPI)NonAf POC Glucometer 214 194 Random Glucose Calcium Total Bilirubin AST ALT Alkaline Phosphatase Total Protein Albumin 02/16/19 07:12 WBC RBC Hgb Hct MCV MCH MCHC RDW Plt Count MPV Sodium 132 L Potassium 3.5 Chloride 98 Carbon Dioxide 26 Anion Gap 7 L BUN 19.9 H Creatinine 0.9 Est GFR (CKD-EPI)AfAm 103.51 Est GFR (CKD-EPI)NonAf 89.31 POC Glucometer Random Glucose 187 H Calcium 7.7 L Total Bilirubin 0.8 AST 100 H ALT 81 H Alkaline Phosphatase 160 H Total Protein 5.6 L Albumin 2.1 L Current Medications Generic Name Dose Route Start Last Admin Trade Name Freq PRN Reason Stop Dose Admin Acetaminophen 650 mg 02/11/19 18:40 02/15/19 15:42 Tylenol - PO 650 mg Q4H PRN Administration PAIN LEVEL 6-10 Apixaban 5 mg 02/10/19 22:00 02/16/19 09:37 Eliquis - PO 5 mg BID KASS[facility]Y Administration Aspirin 81 mg 02/11/19 10:00 02/16/19 09:38 Asa - PO 81 mg DAILY K[facility]IDY Administration Atorvastatin Calcium 80 mg 02/10/19 22:00 02/15/19 21:45 Lipitor - PO 80 mg HS K[facility]IDY Administration Cholecalciferol 2,000 unit 02/11/19 10:00 02/16/19 09:38 Vitamin D3 - PO 2,000 unit DAILY [facility] Administration Fluoxetine HCl 40 mg 02/11/19 10:00 02/16/19 09:38 Prozac - PO 40 mg DAILY [facility] Administration Dextrose/Sodium Chloride 1,000 mls @ 42 mls/hr 02/12/19 18:15 02/15/19 18:44 D5-1/2ns - IV Not Given ASDIR K[facility]Y Meropenem 1 gm/ Dextrose 100 mls @ 200 mls/hr 02/16/19 11:00 IVPB Q8H-IV K[facility]Y Insulin Aspart 1 vial 02/10/19 22:00 02/16/19 06:08 Novolog Vial Sliding Scale - SQ Not Given ACHS [facility] Protocol Lorazepam 0.5 mg 02/10/19 22:00 02/16/19 09:38 Ativan - PO 0.5 mg BID [facility] Administration Metoprolol Succinate 50 mg 02/11/19 10:00 02/16/19 09:38 Toprol Xl - PO 50 mg DAILY KASSIDY Administration ASSESSMENT AND PLAN: 63 year old male with history of Dementia, DM2, HTN, Atrial Fibrillation on Eliquis, CAD, Hx CVA with residual R sided weakness presented with syncopal episode while on toilet. 1. Syncope - likely vasovagal. Patient was found to have positive orthostatic vitals and responded well to IV hydration. No telemonitoring events. CT Brain - chronic infarct MCA territory No further syncopal events. Neurologically Stable. 2. UTI - Urine Cx ESBL Hx ESBL Ertapenem changed to Meropenem (Day 8) due to superimposed Acute Cholecystitis ID for further recommendations - ? Abx choice and duration 3. Dehydration sec to UTI - resolved s/p IV hydration. 4. Sepsis secondary to Acute Cholecystitis - suggested on Abdo US, confirmed on CT A/P (Distended GB with thickened keller and pericholecystic inflammation suspicious for acute cholecystitis). s/p Cholecystostomy by IR as Surgery was of the opinion that patient was a poor surgical candidate for cholecystectomy. TBil 0.8/AST 100/ALT 81 (plateaued). Ertapenem changed to Meropenem - Day 8 Abx therapy WBC improving but patient febrile overnight - will order CT A/P. ID following. Some bloody content in cholecystostomy bag - will hold Eliquis. 5. HTN - Continue Metoprolol 6. DM 2 - Controlled - A1c 6.1 - maintained on sliding scale. Oral anti- hyperglycemic agents held. 7. Hx CVA with mild residual R sided weakness and Expressive Dysphasia - on Aspirin, Apixaban, Statin - will hold Apixaban given some bloody content from cholecystostomy tube. 8. Atrial Fibrillation - Normally on Metoprolol and Eliquis (held). 9. Depression/Anxiety and Narcolepsy - on Fluoxetine and Nuedexta. 10. L Renal Cyst 6.3cm - for out-patient follow up. 11. Hypokalemia - repleted. DVT Px - on Eliquis (will hold today). Visit type - Emergency Visit Emergency Visit: Yes ED Registration Date: 02/08/19 Care time: The patient presented to the Emergency Department on the above date and was hospitalized for further evaluation of their emergent condition. - New Patient This patient is new to me today: No - Critical Care Critical Care patient: No - Discharge Referral Referred to [facility] No
[2019-02-16] MEDS: ACETAMINOPHEN 325 MG TABLET (FP) PO PRN (12:54)
[2019-02-16] MEDS: DEXTROSE 5%-0.45% SALINE 1,000 ML IV SCH (18:15)
--- NOTE | 2019-02-16 19:28 | PN ---
Progress Note, Physician History of Present Illness: AWAKE, LETHARGIC NO ACUTE DISTRESS FEBRILE PAST 24HR WBC TRENDING DOWNWARD - Current Medication List Current Medications: Active Medications Acetaminophen (Tylenol -) 650 mg PO Q4H PRN PRN Reason: PAIN LEVEL 6-10 Last Admin: 02/16/19 12:54 Dose: 650 mg Apixaban (Eliquis -) 5 mg PO BID [facility] Last Admin: 02/16/19 09:37 Dose: 5 mg Aspirin (Asa -) 81 mg PO DAILY [facility] Last Admin: 02/16/19 09:38 Dose: 81 mg Atorvastatin Calcium (Lipitor -) 80 mg PO HS [facility] Last Admin: 02/15/19 21:45 Dose: 80 mg Cholecalciferol (Vitamin D3 -) 2,000 unit PO DAILY [facility] Last Admin: 02/16/19 09:38 Dose: 2,000 unit Fluoxetine HCl (Prozac -) 40 mg PO DAILY [facility] Last Admin: 02/16/19 09:38 Dose: 40 mg Dextrose/Sodium Chloride (D5-1/2ns -) 1,000 mls @ 42 mls/hr IV ASDIR [facility] Last Admin: 02/16/19 18:15 Dose: Not Given Meropenem 1 gm/ Dextrose 100 mls @ 200 mls/hr IVPB Q8H-IV [facility] Last Admin: 02/16/19 18:16 Dose: 200 mls/hr Insulin Aspart (Novolog Vial Sliding Scale -) 1 vial SQ ACHS [facility]; Protocol Last Admin: 02/16/19 18:14 Dose: 2 unit Lorazepam (Ativan -) 0.5 mg PO BID [facility] Last Admin: 02/16/19 09:38 Dose: 0.5 mg Metoprolol Succinate (Toprol Xl -) 50 mg PO DAILY [facility] Last Admin: 02/16/19 09:38 Dose: 50 mg - Objective Vital Signs: Vital Signs Temperature 98.8 F 02/16/19 07:39 Pulse Rate 68 02/16/19 07:39 Respiratory Rate 14 02/16/19 07:39 Blood Pressure 124/70 02/16/19 07:39 O2 Sat by Pulse Oximetry (%) 98 02/16/19 08:54 Cardiovascular: Yes: Regular Rate and Rhythm, S1, S2 Respiratory: Yes: CTA Bilaterally Gastrointestinal: Yes: Normal Bowel Sounds, Soft, Other (+ CHOLECYSTOSTOMY TUBE WITH BLOODY DRAINAGE IN COLLECTION BAG) Edema: No Labs: CBC, BMP 02/16/19 07:12 02/16/19 07:12 Assessment/Plan S/P PERCUTANEOUS CHOLECYSTOSTOMY LEUKOCYTOSIS IMPROVED +URINE C/S ESBL CONTINUE MEROPENEM
[2019-02-16] MEDS: ATORVASTATIN CA 80 MG TABLET (FP) PO SCH (22:13)
[2019-02-17] MEDS ORDERED: MEROPENEM 1 GM VIAL (RESTRICTED TO ID) IVPB ONE ×2 (00:34→09:45)
[2019-02-17] MEDS ORDERED: DEXTROSE 5%-WATER 100 ML IVPB ONE ×2 (00:35→09:46)
[2019-02-17] MEDS: MEROPENEM 1 GM in DEXTROSE 5%-WATER 100 ML IVPB SCH ×2 (02:33→09:49)
[2019-02-17] MEDS: INSULIN SLIDING SCALE (NOVOLOG) 1 VIAL SQ SCH ×4 (06:08→21:14)
--- NOTE | 2019-02-17 07:08 | PN ---
Physical Exam: SUBJECTIVE: Patient seen and examined at bedside. No acute events overnight. Pt complaining of pain in his back side OBJECTIVE: Vital Signs Temperature 99.0 F 02/17/19 05:00 Pulse Rate 57 L 02/17/19 05:00 Respiratory Rate 22 H 02/17/19 05:00 Blood Pressure 111/60 02/17/19 05:00 O2 Sat by Pulse Oximetry (%) 98 02/16/19 21:00 GENERAL: AAOx3. NAD. Resting comfortably in bed. EYES:PEERLA: EOMI no scleral icterus LUNGS: CTA B/L; no rales, rhonchi or wheezing. HEART: Regular rate and rhythm, S1, S2 without murmur, rub or gallop. ABDOMEN: Soft, mild abdominal tenderness to palpation; nondistended, +BS in all 4 quadrants; cholecystostomy tube in place, bag draining dark red blood/fluid EXTREMITIES: 2+ pulses, warm, well-perfused, no edema. L great toe amputated NEUROLOGICAL: Cranial nerves II through XII grossly intact. dysarthric (at baseline given history of L MCA stroke) CBC, BMP 02/16/19 07:12 02/16/19 07:12 Active Medications Acetaminophen (Tylenol -) 650 mg PO Q4H PRN PRN Reason: PAIN LEVEL 6-10 Last Admin: 02/16/19 12:54 Dose: 650 mg Apixaban (Eliquis -) 5 mg PO BID [facility] Last Admin: 02/16/19 09:37 Dose: 5 mg Aspirin (Asa -) 81 mg PO DAILY [facility] Last Admin: 02/16/19 09:38 Dose: 81 mg Atorvastatin Calcium (Lipitor -) 80 mg PO HS [facility] Last Admin: 02/16/19 22:13 Dose: 80 mg Cholecalciferol (Vitamin D3 -) 2,000 unit PO DAILY [facility] Last Admin: 02/16/19 09:38 Dose: 2,000 unit Fluoxetine HCl (Prozac -) 40 mg PO DAILY [facility] Last Admin: 02/16/19 09:38 Dose: 40 mg Dextrose/Sodium Chloride (D5-1/2ns -) 1,000 mls @ 42 mls/hr IV ASDIR [facility] Last Admin: 02/16/19 18:15 Dose: Not Given Meropenem 1 gm/ Dextrose 100 mls @ 200 mls/hr IVPB Q8H-IV [facility] Last Admin: 02/17/19 02:33 Dose: 200 mls/hr Insulin Aspart (Novolog Vial Sliding Scale -) 1 vial SQ ACHS [facility]; Protocol Last Admin: 02/17/19 06:08 Dose: Not Given Lorazepam (Ativan -) 0.5 mg PO BID [facility] Last Admin: 02/16/19 22:14 Dose: 0.5 mg Metoprolol Succinate (Toprol Xl -) 50 mg PO DAILY [facility] Last Admin: 02/16/19 09:38 Dose: 50 mg IMAGING: * Echo (01/16/19): Normal, trace TR, EF: 60-65% * Renal/Bladder U/S: No hydronephrosis seen. Kidneys unremarkable aside from incidental note of a 6.3 cm L renal cortical cyst. Urinary bladder volume 165 mL. Noted small to moderate amt of punctate debris within urinary bladder lumen layering along posterior wall. In comparison to study done on 01/16/19, interval development of diffuse GB wall thickening is seen. Trace amt of fluid within thickened GB wall. GB appears mildly overdistended. Mod amount of inspissated bile/sludge seen within GB lumen. No obvious GB calculus noted allowing for partially obscuring inspissated bile/sludge. CBD region not included. * CTAP w/ oral contrast (02/12/19): Distended GB w/ thickened keller and pericholecystic inflammation strongly suspicious for acute cholecystitis. Diffuse fatty infiltration of liver and mild splenomegaly. Fecal retention. * CTAP (02/16/19): prelim read-- Post-surgical changes following percutaneous cholecystectomy tube placement w/ marked thickening of the GB compatible with acute cholecystitis ASSESSMENT/PLAN: 63M w/ PMHx. of NIDDM, HTN, CVA(residual R. sided weakness) and ?CAD presents after being found unconscious on toilet while passing stool and urine. #Acute acalculous cholecystitis, s/p cholecystostomy tube placement on 02/13 -CTAP w/ oral contrast noted above; distended GB w/ thickened keller and pericholecystic inflammation strongly suspicious of acute cholecystitis. Diffuse fatty infiltration of liver and mild splenomegaly. Per surg, pt poor surgical candidate. S/p percutaneous cholecystostomy tube with IR. -WBC still elevated, but slightly improving. -LFTs improving; angelia bag draining ?blood; will cont to monitor and hold Eliquis and ASA. Will re-consult IR to assess angelia bag drainage as it seems like blood is being drained -BCx neg x5 days, Bcg neg x24h, angelia fluid neg -Afebrile past 24 hours -Cont Meropenem 1 gm Q8H IVPB (Day 9 of IV abx); f/u ID recs #Syncope, likely 2/2 vaso-vagal syncope. Now stable, no new episodes. -Head CT: Neg. for acute pathology, chronic infarct in left MCA involving left posterior temporal and frontal lobe as well as left parietal w/ ex vacuo dilatation of -left posterior lateral ventricle -Orthostatics neg #ESBL E. coli UTI; multi-drug resistant -Cont Meropenem 1 gm Q8H (Day 9 total of IV abx) -f/u ID recs #NIDDM Hold home oral medications -Recent A1c: 5.8% -BGM/ISS ACHS #CVA History- Hold home meds due to bloody drainage from angelia bag: ASA 81mg, Eliquis 5 mg BID #HTN- Cont home meds: Metoprolol 50 QD #HLD- Cont home meds: Atorvastatin 80 PO HS #Depression/Anxiety- Cont home meds: Fluoxetine 40 QD, 0.5 BID Lorazepam #Narcolepsy- Cont home med: Nuedexta 1 BID for Pseudobulbar affect #FEN -D5-1/2NS @ 42 -monitor electrolytes and replete as needed -CLD #DVT Ppx -Hold Eliquis 5 BID Dispo -cont to monitor on med-surg -full code -According to pt, his brother, Jon Casper (lives in [place]) makes medical decisions/gives consent for patient. Visit type - Emergency Visit Emergency Visit: Yes ED Registration Date: 02/08/19 Care time: The patient presented to the Emergency Department on the above date and was hospitalized for further evaluation of their emergent condition. - New Patient This patient is new to me today: No - Critical Care Critical Care patient: No
[2019-02-17 08:22] LABS: BASO % 0.9 % (0-2.0); EOS % 1.6 % (0-4.5); HEMATOCRIT 27.8 % (35.4-49); HEMOGLOBIN 9.4 GM/dL (11.7-16.9); LYMPH % 9.4 % (8-40); MCH 29.6 pg (25.7-33.7); MCHC 33.9 g/dl (32.0-35.9); MEAN CELL VOLUME 87.3 fl (80-96); MEAN PLT VOLUME 9.2 fl (7.5-11.1); MONO % 7.1 % (3.8-10.2); PLATELET COUNT 226 K/MM3 (134-434); RBC 3.19 M/mm3 (4.00-5.60); RDW 15.1 % (11.9-15.9); WHITE BLOOD COUNT 12.9 K/mm3 (4.0-10.0)
[2019-02-17 08:57] LABS: BLOOD UREA NITROGEN 14.9 mg/dL (7-18); CALCIUM 7.8 mg/dL (8.5-10.1); CREATININE 0.8 mg/dL (0.55-1.3); POTASSIUM 3.9 mmol/L (3.5-5.1)
[2019-02-17] MEDS ORDERED: GLYCERIN 1 RECTAL SUPPOSITORY, ADULT RC PRN (09:40)
[2019-02-17] MEDS: CHOLECALCIFEROL (VIT D3) 1,000 UNIT (25 MCG) TABLET PO SCH (09:48)
[2019-02-17] MEDS: LORazepam 0.5 MG TABLET PO SCH ×2 (09:49→21:27)
[2019-02-17] MEDS: FLUoxetine HCL 20 MG CAPSULE (FP) PO SCH (09:49)
--- NOTE | 2019-02-17 10:13 | PN ---
Progress Note (short form) - Note Progress Note: Attending Surgeon Seen in f/u s/p percutaneous cholecystostomy 4 days ago; he has no c/p; tolerating regualr diet; no n/v/abdominal pain. VSS AF abdo-soft; flat and non tender WBC-12.9 Bile culture negatives JUSTICE-minimal dark bloody output; most likely post procedural in nature; drain either blocked or all bile is flowing into the duodenum; doubt ongoing cystic duct obstruction. CT reviewed-b/l pleural effusions and atelectasis; PGB wall thickened h/e I do not believe this is consistent w/ongoing acute inflammation. IMP: improved PLAN: Continue IVAB's as per ID; ? drain study to check for patency ? and/or need for irrigation h/e it appears alldrainage is going distally as it should; terminal makeup operator would be to remove the tube as an outpatient and follow expectantly. Pilo Ferreira MD FACS
--- NOTE | 2019-02-17 11:08 | PN ---
Teaching Attending Note Name of Resident: Amanda Whiteside ATTENDING PHYSICIAN STATEMENT I saw and evaluated the patient. I reviewed the resident's note and discussed the case with the resident. I agree with the resident's findings and plan as documented. SUBJECTIVE: Some ongoing abdominal/RUQ discomfort. No nausea/vomiting/diarrhea/ chest pain/palps/dizziness/lightheadedness. No dysuria/hematuria. Complains of being constipated but nursing reports 2 bowel movements yesterday. OBJECTIVE: Afebrile, Hemodynamically Stable. Minimal out-patient via cholecystostomy. Last Vital Signs Temp Pulse Resp BP Pulse Ox 98.7 F 62 20 115/68 98 02/17/19 09:02 02/17/19 09:02 02/17/19 09:02 02/17/19 09:02 02/17/19 09:00 Heart - S1, S2, RRR Lungs - clear to auscultation Abdomen - Soft, RUQ tenderness. Bowel Sounds normal. R cholecystostomy tube with minimal amts bloody fluid. Extremities - no edema, no calf tenderness. Stage 1 sacral decubitus - no superimposed infection. PICC line RUE Neuro - AAO x 3. Mildly Reduced Power RUE/RLE. Mild expressive dysphasia. Laboratory Results - last 24 hr 02/16/19 02/16/19 02/16/19 07:12 11:26 18:09 WBC RBC Hgb Hct MCV MCH MCHC RDW Plt Count 201 MPV Absolute Neuts (auto) Neutrophils % Lymphocytes % Monocytes % Eosinophils % Basophils % Nucleated RBC % Sodium Potassium Chloride Carbon Dioxide Anion Gap BUN Creatinine Est GFR (CKD-EPI)AfAm Est GFR (CKD-EPI)NonAf POC Glucometer 234 211 Random Glucose Calcium 02/16/19 02/17/19 02/17/19 22:10 05:54 07:47 WBC 12.9 H RBC 3.19 L Hgb 9.4 L Hct 27.8 L MCV 87.3 MCH 29.6 MCHC 33.9 RDW 15.1 Plt Count 226 MPV 9.2 Absolute Neuts (auto) 10.5 H Neutrophils % 81.0 Lymphocytes % 9.4 D Monocytes % 7.1 Eosinophils % 1.6 D Basophils % 0.9 D Nucleated RBC % 0 Sodium Potassium Chloride Carbon Dioxide Anion Gap BUN Creatinine Est GFR (CKD-EPI)AfAm Est GFR (CKD-EPI)NonAf POC Glucometer 199 164 Random Glucose Calcium 02/17/19 07:47 WBC RBC Hgb Hct MCV MCH MCHC RDW Plt Count MPV Absolute Neuts (auto) Neutrophils % Lymphocytes % Monocytes % Eosinophils % Basophils % Nucleated RBC % Sodium 131 L Potassium 3.9 Chloride 96 L Carbon Dioxide 30 Anion Gap 5 L BUN 14.9 Creatinine 0.8 Est GFR (CKD-EPI)AfAm 107.89 Est GFR (CKD-EPI)NonAf 93.09 POC Glucometer Random Glucose 165 H Calcium 7.8 L Current Medications Generic Name Dose Route Start Last Admin Trade Name Freq PRN Reason Stop Dose Admin Acetaminophen 650 mg 02/11/19 18:40 02/16/19 12:54 Tylenol - PO 650 mg Q4H PRN Administration PAIN LEVEL 6-10 Apixaban 5 mg 02/10/19 22:00 02/16/19 09:37 Eliquis - PO 5 mg BID [facility] Administration Aspirin 81 mg 02/11/19 10:00 02/16/19 09:38 Asa - PO 81 mg DAILY [facility] Administration Atorvastatin Calcium 80 mg 02/10/19 22:00 02/16/19 22:13 Lipitor - PO 80 mg HS [facility] Administration Cholecalciferol 2,000 unit 02/11/19 10:00 02/17/19 09:48 Vitamin D3 - PO 2,000 unit DAILY [facility] Administration Fluoxetine HCl 40 mg 02/11/19 10:00 02/17/19 09:49 Prozac - PO 40 mg DAILY [facility] Administration Glycerin 1 each 02/17/19 09:40 Glycerin Suppository Adult - RC DAILY PRN CONSTIPATION Dextrose/Sodium Chloride 1,000 mls @ 42 mls/hr 02/12/19 18:15 02/16/19 18:15 D5-1/2ns - IV Not Given ASDIR [facility] Meropenem 1 gm/ Dextrose 100 mls @ 200 mls/hr 02/16/19 11:00 02/17/19 09:49 IVPB 200 mls/hr Q8H-IV [facility] Administration Insulin Aspart 1 vial 02/10/19 22:00 02/17/19 06:08 Novolog Vial Sliding Scale - SQ Not Given ACHS [facility] Protocol Lorazepam 0.5 mg 02/10/19 22:00 02/17/19 09:49 Ativan - PO 0.5 mg BID [facility] Administration Metoprolol Succinate 50 mg 02/11/19 10:00 02/17/19 09:49 Toprol Xl - PO 50 mg DAILY [facility] Administration ASSESSMENT AND PLAN: 63 year old male with history of Dementia, DM2, HTN, Atrial Fibrillation on Eliquis, CAD, Hx CVA with residual R sided weakness presented with syncopal episode while on toilet. 1. Syncope - likely vasovagal. Patient was found to have positive orthostatic vitals and responded well to IV hydration. No telemonitoring events. CT Brain - chronic infarct MCA territory No further syncopal events. Neurologically Stable. 2. UTI - Urine Cx ESBL Ertapenem changed to Meropenem (Day 9) due to superimposed Acute Cholecystitis Last fever 101.2 on 02/15/19 ID for further recommendations - ? Abx choice and duration 3. Dehydration sec to UTI - resolved s/p IV hydration. 4. Sepsis secondary to UTI and Acute Cholecystitis - suggested on Abdo US, confirmed on CT A/P (Distended GB with thickened keller and pericholecystic inflammation suspicious for acute cholecystitis). s/p Cholecystostomy by IR as Surgery was of the opinion that patient was a poor surgical candidate for cholecystectomy. Repeat CT A/P 02/16 shows hyperdense material in GB, likley blood - Eliquis/ASA held. Elevated transaminases - will monitor, today's labs pending. Ertapenem changed to Meropenem - Day 9 Abx therapy ID/Suregry following. IR asked to re-evaluate the Cholecystostomy tube due to low volume bloody output. 5. HTN - Continue Metoprolol 6. DM 2 - Controlled - A1c 6.1 - maintained on sliding scale. Oral anti- hyperglycemic agents held. 7. Hx CVA with mild residual R sided weakness and Expressive Dysphasia - on Aspirin, Apixaban, Statin normally - will hold Apixaban and Aspirin given some bloody content from cholecystostomy tube. 8. Atrial Fibrillation - Normally on Metoprolol and Eliquis (held). 9. Depression/Anxiety and Narcolepsy - on Fluoxetine and Nuedexta. 10. L Renal Cyst 6.3cm - for out-patient follow up. 11. Hypokalemia - repleted. DVT Px - SCDs. Eliquis on hold.
[2019-02-17] MEDS ORDERED: PT OWN MED DRAWER 7, Y5N ONE (12:40)
[2019-02-17 15:15] LABS: BILIRUBIN,DIRECT 0.3 mg/dL (0.0-0.2); BILIRUBIN,TOTAL 0.7 mg/dL (0.2-1); TOT PROT 5.6 g/dl (6.4-8.2)
--- NOTE | 2019-02-17 15:41 | PN ---
Progress Note (short form) - Note Progress Note: events noted seen by surgery s/p percutaneous biliary drain placement last fever on 02/15 Vital Signs Period Temp Pulse Resp BP Sys/Meléndez Pulse Ox Last 24 Hr 98 F-99.0 F 57-62 20-22 111-115/60-73 98-98 cor-rrr lungs clear decreased bs at bases abd soft,nt +biliary drain- minimal fluid- thick dark blood tinged ext no edema CBC, BMP 02/17/19 07:47 02/17/19 07:47 Microbiology 02/11/19 17:10 Blood - Peripheral Venous Blood Culture - Final NO GROWTH AFTER 5 DAYS INCUBATION 02/11/19 16:50 Blood - Peripheral Venous Blood Culture - Final NO GROWTH AFTER 5 DAYS INCUBATION 02/15/19 17:05 Blood - Peripheral Venous Blood Culture - Preliminary NO GROWTH OBTAINED AFTER 24 HOURS, INCUBATION TO CONTINUE FOR 4 DAYS. 02/15/19 16:45 Blood - Peripheral Venous Blood Culture - Preliminary NO GROWTH OBTAINED AFTER 24 HOURS, INCUBATION TO CONTINUE FOR 4 DAYS. 02/13/19 11:44 Cholecystectomy Fluid Gram Stain - Final 02/13/19 11:44 Cholecystectomy Fluid Body Fluid Culture - Final NO GROWTH OF AEROBIC ORGANISMS AFTER 48 HOURS INCUBATION 02/13/19 11:44 Cholecystectomy Fluid Anaerobic Culture - Final NO ANAEROBES WERE ISOLATED 02/08/19 11:00 Urine - Urine Clean Catch Urine Culture - Final Escherichia Coli Esbl Health Counselor a/p leukocytosis improving cholycystitis- s/p percutaneous drainage of GB uti ecoli esbl abnl lfts awaiting surgery and IR can switch to ertapenem daily for one week Problem List - Problems (1) Syncope Code(s): R55 - SYNCOPE AND COLLAPSE Qualifiers: Syncope type: unspecified Qualified Code(s): R55 - Syncope and collapse (2) UTI (urinary tract infection) Code(s): N39.0 - URINARY TRACT INFECTION, SITE NOT SPECIFIED Qualifiers: Urinary tract infection type: site unspecified (3) History of ESBL E. coli infection Code(s): Z86.19 - PERSONAL HISTORY OF OTHER INFECTIOUS AND PARASITIC DISEASES
[2019-02-17] MEDS: ERTAPENEM SODIUM 1 GM in SODIUM CHLORIDE 50 ML IVPB SCH (17:32)
[2019-02-17] MEDS ORDERED: INSULIN (NOVOLOG) ASPART 100 UNITS/ML 10ML VIAL ONE (21:03)
[2019-02-17] MEDS: DEXTROSE 5%-0.45% SALINE 1,000 ML IV SCH (21:05)
[2019-02-17] MEDS: ATORVASTATIN CA 80 MG TABLET (FP) PO SCH (21:13)
[2019-02-18 06:06] LABS: BASO % 0.5 % (0-2.0); EOS % 1.3 % (0-4.5); HEMATOCRIT 27.5 % (35.4-49); HEMOGLOBIN 9.3 GM/dL (11.7-16.9); LYMPH % 12.7 % (8-40); MCH 29.4 pg (25.7-33.7); MEAN CELL VOLUME 86.7 fl (80-96); MEAN PLT VOLUME 8.7 fl (7.5-11.1); MONO % 7.1 % (3.8-10.2); NEUT % 78.4 % (42.8-82.8); RBC 3.18 M/mm3 (4.00-5.60); RDW 15.4 % (11.9-15.9); WHITE BLOOD COUNT 13.1 K/mm3 (4.0-10.0)
[2019-02-18] MEDS: INSULIN SLIDING SCALE (NOVOLOG) 1 VIAL SQ SCH ×2 (06:17→11:55)
[2019-02-18 06:29] LABS: BILIRUBIN,TOTAL 0.7 mg/dL (0.2-1); BLOOD UREA NITROGEN 13.1 mg/dL (7-18); CALCIUM 7.6 mg/dL (8.5-10.1); CREATININE 0.7 mg/dL (0.55-1.3); POTASSIUM 3.9 mmol/L (3.5-5.1); TOT PROT 5.6 g/dl (6.4-8.2)
[2019-02-18 06:30] LABS: PLATELET COUNT 248 K/MM3 (134-434)
[2019-02-18 09:54] VITALS: TEMP 97.9
[2019-02-18] MEDS: FLUoxetine HCL 20 MG CAPSULE (FP) PO SCH (11:21)
[2019-02-18] MEDS: CHOLECALCIFEROL (VIT D3) 1,000 UNIT (25 MCG) TABLET PO SCH (11:21)
[2019-02-18] MEDS: LORazepam 0.5 MG TABLET PO SCH (11:22)
[2019-02-18] MEDS: ERTAPENEM SODIUM 1 GM in SODIUM CHLORIDE 50 ML IVPB SCH (11:22)
--- NOTE | 2019-02-18 12:01 | PN ---
Teaching Attending Note Name of Resident: Amanda Whiteside ATTENDING PHYSICIAN STATEMENT I saw and evaluated the patient. I reviewed the resident's note and discussed the case with the resident. I agree with the resident's findings and plan as documented. SUBJECTIVE: asymptomatic OBJECTIVE: Last Vital Signs Temp Pulse Resp BP Pulse Ox 97.9 F 57 L 18 131/79 98 02/18/19 09:54 02/18/19 09:54 02/18/19 09:54 02/18/19 09:54 02/17/19 21:00 General NAD ASSESSMENT AND PLAN: 63yo M wtih PMH dementia, DM, HTN, afib on eliquis with residual R sided weakness and CAD presented to the ER wtih syncopal episode while toileting 1. Syncope- liekly vasovagal but concern for arrhythmia or medication induced. orthostatics now negative. no further workup 2. HTN- now controlled. cont current regimen. 3. ESBL Ecoli UTI- MDR Ecoli. on ertapenem. will need PICC line placement. 7 more days of IV abx. 4. sepsis due to acute cholecystitis- cholecystostomy tube placed as not a good surgical candidate. Tube was clogged and having tube adjusted by IR today. on ertapenem. plan for additional 7 days 4. hypokalemia- resolved 5. DM- A1c 6.1 earlier this month. hold oral agents. cont bgm and iss. re-start po on discharge 6. CVA with residual R sided weakness and dysarthria- d/w IR when can re-start asa 7. Narcolepsy- on nuedexta. this has many side effects which could be contributing however been on medication for some time and unfamiliar with abruptly stopping.encouraged to f/u with prescriber about it 8. afib- on eliquis. cont rate control. on reduced dose of metoprolol. eliquis on hold for procedure 9. DVT ppx- eliquis on hold for procedure 10. once tube is adjusted is optimized medically. plan for d/c to SNF for terminal manager iv abx
--- NOTE | 2019-02-18 13:24 | DS ---
Physical Exam: SUBJECTIVE: Patient seen and examined at bedside. No acute events overnight. OBJECTIVE: Vital Signs Period Temp Pulse Resp BP Sys/Meléndez Pulse Ox Last 24 Hr 97.9 F-98.9 F 57-63 18-21 114-131/59-79 98 PHYSICAL EXAM GENERAL: AAOx3. NAD. Resting comfortably in bed. EYES:PEERLA: EOMI no scleral icterus LUNGS: CTA B/L; no rales, rhonchi or wheezing. HEART: Regular rate and rhythm, S1, S2 without murmur, rub or gallop. ABDOMEN: Soft, mild abdominal tenderness to palpation; nondistended, +BS in all 4 quadrants; cholecystostomy tube in place, bag draining dark red blood/fluid EXTREMITIES: 2+ pulses, warm, well-perfused, no edema. L great toe amputated NEUROLOGICAL: Cranial nerves II through XII grossly intact. dysarthric (at baseline given history of L MCA stroke) LABS Laboratory Results - last 24 hr 02/17/19 02/17/19 02/17/19 07:47 17:08 21:12 WBC RBC Hgb Hct MCV MCH MCHC RDW Plt Count MPV Absolute Neuts (auto) Neutrophils % Lymphocytes % Monocytes % Eosinophils % Basophils % Nucleated RBC % Sodium Potassium Chloride Carbon Dioxide Anion Gap BUN Creatinine Est GFR (CKD-EPI)AfAm Est GFR (CKD-EPI)NonAf POC Glucometer 176 190 Random Glucose Calcium Total Bilirubin 0.7 Direct Bilirubin 0.3 H AST 108 H ALT 90 H Alkaline Phosphatase 178 H Total Protein 5.6 L Albumin 2.0 L 02/18/19 02/18/19 02/18/19 05:21 05:21 06:16 WBC 13.1 H RBC 3.18 L Hgb 9.3 L Hct 27.5 L MCV 86.7 MCH 29.4 MCHC 34.0 RDW 15.4 Plt Count 248 MPV 8.7 Absolute Neuts (auto) 10.3 H Neutrophils % 78.4 Lymphocytes % 12.7 D Monocytes % 7.1 Eosinophils % 1.3 Basophils % 0.5 Nucleated RBC % 0 Sodium 131 L Potassium 3.9 Chloride 98 Carbon Dioxide 27 Anion Gap 7 L BUN 13.1 Creatinine 0.7 Est GFR (CKD-EPI)AfAm 113.98 Est GFR (CKD-EPI)NonAf 98.34 POC Glucometer 154 Random Glucose 142 H Calcium 7.6 L Total Bilirubin 0.7 Direct Bilirubin AST 79 H ALT 71 H Alkaline Phosphatase 165 H Total Protein 5.6 L Albumin 2.0 L 02/18/19 11:54 WBC RBC Hgb Hct MCV MCH MCHC RDW Plt Count MPV Absolute Neuts (auto) Neutrophils % Lymphocytes % Monocytes % Eosinophils % Basophils % Nucleated RBC % Sodium Potassium Chloride Carbon Dioxide Anion Gap BUN Creatinine Est GFR (CKD-EPI)AfAm Est GFR (CKD-EPI)NonAf POC Glucometer 172 Random Glucose Calcium Total Bilirubin Direct Bilirubin AST ALT Alkaline Phosphatase Total Protein Albumin HOSPITAL COURSE: Date of Admission:02/08/19 IMAGING: * Echo (01/16/19): Normal, trace TR, EF: 60-65% * Renal/Bladder U/S: No hydronephrosis seen. Kidneys unremarkable aside from incidental note of a 6.3 cm L renal cortical cyst. Urinary bladder volume 165 mL. Noted small to moderate amt of punctate debris within urinary bladder lumen layering along posterior wall. In comparison to study done on 01/16/19, interval development of diffuse GB wall thickening is seen. Trace amt of fluid within thickened GB wall. GB appears mildly overdistended. Mod amount of inspissated bile/sludge seen within GB lumen. No obvious GB calculus noted allowing for partially obscuring inspissated bile/sludge. CBD region not included. * CTAP w/ oral contrast: Distended GB w/ thickened keller and pericholecystic inflammation strongly suspicious for acute cholecystitis. Diffuse fatty infiltration of liver and mild splenomegaly. Fecal retention. 63M w/ PMHx. of NIDDM, HTN, CVA(residual R. sided weakness) and ?CAD presents after being found unconscious on toilet while passing stool and urine, found to have an acute cholecystitis, s/p cholecystostomy tube placement. Initially, pt had syncopal work up done that revealed head CT that was unremarkable for acute changes. Syncopal episode was likely vasovagal. He was also found to have U/A + ESBL E.coli after which he was started on Ertapenem. Leukocytosis increased despite abx therapy and as a result, pt was switched to Meropenem per ID recs. A renal/bladder u/s was done and showed an incidental finding of GB overdistension. As a result, a CTAP w/ oral contrast was done (results noted above) that showed suspicion for cholecystitis. Pt was evaluated by surgery who did not feel pt was a good surgical candidate after which IR was consulted. Cholecystostomy tube was placed, and pt was monitored for drainage through tube. Pt's tube drained what appeared to be blood so pt was re-evaluated by IR after which the tube was replaced with a bigger size. He tolerated the procedure well and was continued on IV Ertapenem per ID recommendation. Pt was subsequently discharged to SNF for continuation of IV abx. She was also advised to follow up with his PCP, surgeon, as well as interventional radiologist for evaluation of the cholecystostomy tube. Date of Discharge: 02/18/19 Minutes to complete discharge: 40 Discharge Summary Reason For Visit: DIABETES MELLITUS, SYNCOPE, HYPERTENSION, Current Active Problems Cholecystitis (Acute) History of ESBL E. coli infection (Acute) CVA (cerebral vascular accident) (Chronic) Hypertension (Chronic) Type 2 diabetes mellitus (Chronic) Condition: Improved - Instructions Diet, Activity, Other Instructions: You were seen in the hospital after a fainting episode. A head CT was done that did not show any acute changes. During your visit, you were found to have a urinary tract infection (UTI). You were seen by the infectious disease doctor and treated with IV antibiotics. A CT scan of your abdomen was done that showed acute cholecystitis (infection of the gallbladder). You were evaluated by surgery, with recommendation to have the interventional radiologist drain the infection in your gallbladder. As a result, a cholecystostomy tube was placed in your gall bladder. Throughout your stay, you had received IV antibiotics to treat both your UTI and gall bladder infection. Your symptoms improved. You are being discharged to a longterm facility to continue your IV antibiotic regimen as advised by the infectious disease doctor. Additionally, you were found to have a cyst in your kidney that will need to be further evaluated as an outpatient. MEDICAL RECOMMENDATIONS Please take Ertapenem 1 gm IV for 7 more days. You may continue taking the rest of your home medications as prescribed. FOLLOW UP Please follow up with your primary care physician within 1 week for any adjustment to your medications, especially Nuedexta as this may cause side effects related to your syncopal episode. Please follow up with your interventional radiologist as an outpatient for further evaluation of your cholecystostomy tube and for removal in the future. If you experience another fainting episode, worsening fever/chills, abdominal pain, flank pain, please proceed to your nearest emergency room immediately. Referrals: Zaire Hein MD [Staff Physician] - Disposition: RETIREMENT FACILITY - Home Medications Comprehensive Discharge Medication List: Ambulatory Orders Apixaban [Eliquis] 5 mg PO BID 01/15/19 Atorvastatin Calcium 80 mg PO HS 01/15/19 Fluoxetine HCl [Prozac] 40 mg PO DAILY 01/15/19 LORazepam [Ativan] 0.5 mg PO TID 01/15/19 Metoprolol Succinate 50 mg PO DAILY 01/15/19 Sitagliptin Phosphate [Januvia] 50 mg PO DAILY 01/15/19 Cholecalciferol (Vitamin D3) [Vitamin D3] 2,000 unit PO DAILY 01/16/19 Dextromethorphan HBr/Quinidine [Nuedexta 20-10 mg Capsule] 1 each PO BID Hydrochlorothiazide [Hctz -] 12.5 mg PO DAILY 02/11/19 Ertapenem Sodium [Invanz -] 1 gm IVPB DAILY vial 02/18/19 This patient is new to me today: No Emergency Visit: Yes ED Registration Date: 02/08/19 Care time: The patient presented to the Emergency Department on the above date and was hospitalized for further evaluation of their emergent condition. Critical Care patient: No - Discharge Referral Referred to [facility] Med P.C.: No
[2019-02-18 14:14] VITALS: BP 132/75; PULSE 53
== END 2019-02-18 19:05 | DRG 408 ==
LOC: JER 07:08 → UNDOADMOB 14:18 → JERBED 14:18 → J6S 14:51 → INTOOBSV 02-08 13:10 → OBSVTOIN 02-08 13:10 → J6S 02-08 14:08 → JERBED 02-08 14:08
PROVIDERS: ADMIT Internal Medicine; ATTEND Internal Medicine
PROC: 0F9430Z Drainage of Gallbladder with Drainage Device, Percutaneous Approach (ICD-10-PCS; 2019-02-13)
PROC: 02HV33Z Insertion of Infusion Device into Superior Vena Cava, Percutaneous Approach (ICD-10-PCS; principal; 2019-02-14)
PROC: B518ZZA Fluoroscopy of Superior Vena Cava, Guidance (ICD-10-PCS; 2019-02-14)
PROC: 0FP430Z Removal of Drainage Device from Gallbladder, Percutaneous Approach (ICD-10-PCS; 2019-02-18)
PROC: 0FH Hepatobiliary System and Pancreas, Insertion (ICD-10-PCS; 2019-02-18)
DX: K81.0 Acute cholecystitis (principal); A41.9 Sepsis, unspecified organism; I69.351 Hemiplegia and hemiparesis following cerebral infarction affecting right dominant side; N39.0 Urinary tract infection, site not specified; I69.30 Unspecified sequelae of cerebral infarction; I25.10 Atherosclerotic heart disease of native coronary artery without angina pectoris; I10 Essential (primary) hypertension; E11.9 Type 2 diabetes mellitus without complications; I48.91 Unspecified atrial fibrillation; E78.00 Pure hypercholesterolemia, unspecified; F41.8 Other specified anxiety disorders; G47.419 Narcolepsy without cataplexy; E87.6 Hypokalemia; K59.00 Constipation, unspecified; B96.20 Unspecified Escherichia coli [E. coli] as the cause of diseases classified elsewhere; E86.0 Dehydration; D72.829 Elevated white blood cell count, unspecified; N28.1 Cyst of kidney, acquired; R16.1 Splenomegaly, not elsewhere classified; K76.0 Fatty (change of) liver, not elsewhere classified; L89.151 Pressure ulcer of sacral region, stage 1
CPT/HCPCS: 36415; 36569; 47490; 47536; 70450-TC; 71045-TC-FY; 74177-TC; 75984-TC-RT-FY; 76000-TC-FY; 76098-TC-FY; 76775-TC; 76856-TC; 76998-TC; 77001-TC-FY; 80048; 80053; 80076; 81003; 82150; 82272; 82550; 82962; 83690; 83735; 84100; 84484; 85025; 85027; 85730; 86850; 86900; 86901; 87040; 87070; 87075; 87086; 87186; 87205; 87899; 93005; 93010; 97116-GP; 97161-GP; 99285-25; A4358; C1729; C1751; C1769; G0378; J7030; Q9967

== ENCOUNTER 2019-04-02 20:06 | Inpatient (IN) | payer OTHER ==
--- NOTE | 2019-04-02 21:30 | PDOC ---
History of Present Illness - General Chief Complaint: G Tube Problem Stated Complaint: PEG TUBE NEEDS ADJUSTMENT Time Seen by Provider: 04/02/19 20:43 History Source: Patient, [facility] Records, Old Records Exam Limitations: Dementia - History of Present Illness Initial Comments: HPI: 64 y/o male presenting to [facility] ER from [facility] after pts cholecystostomy tube was accidentally removed today. Pt denies any pain to the area. Cannot provide details about what occurred earlier. HPI limited by pts delayed cognition, which is documented as baseline in prior encounters. Medical Hx: T2DM, HTN, CVA, CAD, Dementia Review of Systems: In addition to that documented in the HPI above, the additional ROS was obtained : Constitutional: Denies fevers or chills ENMT: Denies sore throat CV: Denies chest pain Resp: Denies SOB GI: Denies vomiting or diarrhea : Denies dysuria, hematuria, or urinary frequency Physical Examination: Constitutional: Nontoxic adult male in no acute distress or obvious discomfort. Found semi-fowlers on hospital bed. Alert and oriented x4 but unable to provide details and exact timeline of recent events. Speech was non-labored, non- pressured. Cardiovascular / Chest: Regular rate and regular rhythm. No murmur, rubs, clicks , or gallops. Peripheral pulses: radial pulses full. Respiratory: Breathing unlabored. Equal chest rise and fall. Clear to auscultation bilaterally. No stridor, no wheezing, no rhonchi. Gastrointestinal: abdomen is soft, non-tender, non-distended. Ostomy site in RUQ covered with bandages, which were taken down to reveal swell vitalized post- op site. No purulence, discharge, surrounding erythema or fluctuance. Neuro: Alert and oriented to baseline. Moving all four extremities spontaneously. Skin: Globally skin is warm, dry, and intact. Psych: Affect: appropriate. Mood: normal. MDM: *Reviewed vital signs, nursing notes, and prior visit documentation (if available). 64 y/o male presenting for accidentally displaced/removed cholecystostomy tube. Placed at another facility. Per transfer paperwork, Dr. Ferreira is surgeon of record. Afebrile. Vitals unremarkable for hypotension or tachycardia. Physical exam as described above. No acute abdominal signs. Surgical site well appearing. RUQ u/s unremarkable for signs of acute cholecystitis. Radiologist recommends possible CT evaluation. Normal bilirubin. Will defer further workup to Dr. Ferreira. Telephone discussion with Dr. Ferreira. Verbally appraised of the pts HPI, ED course, and current plan of management. Will evaluate the pt in the morning. Telephone discussion with resident Dr. Hernandez. Verbally appraised of the pts HPI, ED course, and current plan of management. Will admit pt to med/surg for attending Dr. Navarrete. Gurwinder Alfaro M.D., PGY2 Emergency Medicine Resident Past History - Past Medical History Allergies/Adverse Reactions: Allergies Allergy/AdvReac Type Severity Reaction Status Date / Time No Known Allergies Allergy Verified 04/02/19 20:23 Home Medications: Ambulatory Orders Apixaban [Eliquis] 5 mg PO BID 01/15/19 Atorvastatin Calcium 80 mg PO HS 01/15/19 Fluoxetine HCl [Prozac] 40 mg PO DAILY 01/15/19 LORazepam [Ativan] 0.5 mg PO TID 01/15/19 Metoprolol Succinate 50 mg PO DAILY 01/15/19 Sitagliptin Phosphate [Januvia] 50 mg PO DAILY 01/15/19 Cholecalciferol (Vitamin D3) [Vitamin D3] 2,000 unit PO DAILY 01/16/19 Dextromethorphan HBr/Quinidine [Nuedexta 20-10 mg Capsule] 1 each PO BID Hydrochlorothiazide [Hctz -] 12.5 mg PO DAILY 02/11/19 Aa/Hydrolyzed Collagen, Whey [Lps 15-30 Liquid] 30 ml PO DAILY 04/02/19 Dextromethorphan HBr/Quinidine [Nuedexta 20-10 mg Capsule] 1 each PO BID Docusate Sodium [Colace] 100 mg PO HS 04/02/19 Cardiac Disorders: Yes (A. fib,) CVA: Yes COPD: No CHF: Yes Diabetes: Yes HTN: Yes Hypercholesterolemia: Yes - Suicide/Smoking/Psychosocial Hx Smoking History: Unknown if ever smoked Have you smoked in the past 12 months: No Information on smoking cessation initiated: No Hx Alcohol Use: No Drug/Substance Use Hx: No *Physical Exam - Vital Signs Last Vital Signs Temp Pulse Resp BP Pulse Ox 98.4 F 66 18 118/76 100 04/02/19 20:23 04/02/19 20:23 04/02/19 20:23 04/02/19 20:23 04/02/19 20:23 ED Treatment Course - LABORATORY CBC & Chemistry Diagram: 04/02/19 21:49 04/02/19 21:49 - RADIOLOGY Radiology Studies Ordered: Category Date Time Status CXRPORT [CHEST X-RAY PORTABLE*] [RAD] Stat Radiology 04/02/19 21:24 Ordered Radiograph Interpretation: RUQ U/S THIS IS A PRELIMINARY REPORT FROM IMAGING OFFICE MACHINE TECHNICIAN DATE OF SERVICE: 2019-04-02 22:47:40 IMAGES: 40 EXAM: Right upper quadrant abdominal ultrasound HISTORY: Evaluate gallbladder status post cholecystostomy tube removal by patient. COMPARISON: None. FINDINGS: The gallbladder is filled with complex heterogeneously echogenic material. Difficult to determine if this represents blood, debris, or purulent material or a combination. In any event, there is still abundant material within the gallbladder status post tube removal. It may be helpful to assess the gallbladder with CT if contemplating tube replacement. Normal liver. No right hydronephrosis. No right upper quadrant free fluid. Common bile duct is slightly dilated at 6.5 mm. THIS DOCUMENT HAS BEEN ELECTRONICALLY SIGNED Raleigh Cote MD 04/02/2019 23:19 EST *DC/Admit/Observation/Transfer Diagnosis at time of Disposition: Cholecystostomy tube dysfunction Qualifiers: Encounter type: initial encounter Qualified Code(s): T85.518A - Breakdown ( mechanical) of other gastrointestinal prosthetic devices, implants and grafts, initial encounter - Discharge Dispostion Condition at time of disposition: Stable Decision to Admit order: Yes - Referrals - Patient Instructions - Post Discharge Activity
--- NOTE | 2019-04-02 21:53 | PDOC ---
Documentation entered by Diane Munson SCRIBE, acting as scribe for Stephanie Gillette DO. Stephanie Gillette DO: This documentation has been prepared by the Arpit ferrara Adrianna, SCRIBE, under my direction and personally reviewed by me in its entirety. I confirm that the documentation accurately reflects all work, treatment, procedures, and medical decision making performed by me. Attending Attestation - Resident Resident Name: Gurwinder Alfaro - ED Attending Attestation I have performed the following: I have examined & evaluated the patient, The case was reviewed & discussed with the resident, I agree w/resident's findings & plan, Exceptions are as noted - HPI HPI: Patient is a 4 year old male with a significant PMH of HTN, HLD, Diabetes, CVA, who presents to the ED for evaluation BIBEMS from [facility] for accidental G tube removal. Patients RUQ cholecystostomy tube was accidentally removed, but he is unsure of when or how. He denies any pain around the insertion site. HPI limited secondary to patient being a poor historian. Allergies: NKA, NKDA Social history: No smoking, No alcohol. No illicit drugs. Surgical history: G tube (02/12/18 at [facility]) PMD: Dr. Quinteros - Physicial Exam PE: Constitutional: Awake, alert, oriented. No acute distress. Head: Normocephalic. Atraumatic Eyes: PERRL. EOMI. Conjunctivae are not pale. ENT: Mucous membranes are moist and intact. Posterior pharynx without exudates or erythema. Uvula midline. Neck: Supple. Full ROM. No lymphadenopathy. Cardiovascular: Regular rate. Regular rhythm. S1, S2 regular. Distal pulses are 2+ and symmetric. Pulmonary/Chest: No evidence of respiratory distress. Clear to auscultation bilaterally No wheezing, rales or rhonchi. Abdominal: +RUQ cystostomy tube insertion site dislodged. +Mild redness around the site, and mild bloody drainage. No purulence, erythema, or ecchymosis. Soft and non-distended. There is no tenderness. No rebound, guarding or rigidity. No organomegaly. No palpable masses. Good bowel sounds. Back: No CVA tenderness. Musculoskeletal: +Weak upper and lower extremities. No edema. No cyanosis. No clubbing. Full range of motion in all extremities. No calf tenderness. Radial/ pedal pulses are intact and 2+ bilaterally Skin: Skin is warm and dry. No petechiae. No purpura. Neurological: Alert and oriented to person, place, and time. No focal deficits. Normal speech. Strength is grossly symmetric. Psychiatric: Good eye contact. Normal interaction, affect and behavior. - Medical Decision Making 04/02/19 21:49 I, Dr. Stephanie Gillette, DO, attest that this document has been prepared under my direction and personally reviewed by me in its entirety. I further attest, that it accurately reflects all work, treatment, procedures and medical decision -making performed by me. 04/02/19 21:49 a/p: 64yo male from [facility] for eval of dislodged cholecystostomy tube -placed in February for acalculous cholecystitis -pt denies abd pain -no n/v -no abd pain at this time -will repeat labs, will repeat ultrasound -will monitor and reassess -pt is nontoxic in appearance 04/02/19 22:23 discussed with the patients brother who is poa for financial -Jerrod Casper who states pt was being worked up for cholecystectomy by dr. funk states pt has hx of anxiety and has felt nervous about the t-tube vs the angelia -updated on the plan for the patient 04/02/19 23:38 ultrasound shows gallbladder filled with complex heterogenous echogenic material resident discussed the case with dr. funk microblog sent to [facility] for admission 04/03/19 00:11 resident discussed the case with [facility] who accepts the patient to service Heart Score/ECG Review - ECG Intrepretation Comment:: 04/02/19 22:24 junctional at 62, no acute st/t wave findings
[2019-04-02 22:02] LABS: BASO % 0.9 % (0-2.0); EOS % 0.6 % (0-4.5); HEMATOCRIT 29.4 % (35.4-49); HEMOGLOBIN 10.1 GM/dL (11.7-16.9); MCHC 34.5 g/dl (32.0-35.9); MEAN CELL VOLUME 87.2 fl (80-96); MEAN PLT VOLUME 9.2 fl (7.5-11.1); MONO % 7.7 % (3.8-10.2); NEUT % 75.8 % (42.8-82.8); PLATELET COUNT 185 K/MM3 (134-434); RBC 3.37 M/mm3 (4.00-5.60); RDW 16.1 % (11.9-15.9); WHITE BLOOD COUNT 12.6 K/mm3 (4.0-10.0)
[2019-04-02 22:25] LABS: ALBUMIN 3.2 g/dl (3.4-5.0); BILIRUBIN,TOTAL 0.8 mg/dL (0.2-1); BLOOD UREA NITROGEN 25.8 mg/dL (7-18); CALCIUM 8.5 mg/dL (8.5-10.1); CREATININE 0.9 mg/dL (0.55-1.3); POTASSIUM 3.9 mmol/L (3.5-5.1)
[2019-04-03] MEDS ORDERED: ERTAPENEM SODIUM 1 GM in SODIUM CHLORIDE 50 ML IVPB ONE (01:12)
[2019-04-03] MEDS: LACTATED RINGERS SOLUTION 1,000 ML IV SCH ×2 (01:28→23:06)
--- NOTE | 2019-04-03 05:12 | HP ---
CHIEF COMPLAINT: cholecystostomy tube displacement PCP: HISTORY OF PRESENT ILLNESS: 64M w/ pmh of HTN, HLD, nonID-DM, CVA(LLE weakness, expressive aphasia; 2017), Afib(on Eliquis) referred from [facility] for displaced cholecystostomy tube. Patient was using the toilet when he accidentally pulled out his cholecystostomy tube. Prior to displacement, cholecystostomy drainage was thin brown, not sure how much volume. Had cholecystostomy on 02/13/19(~7weeks ago), after pt was determined to not be a surgical candidate for cholecystitis due to comorbidities and poor nutrition(Alb ~2) at that time. Currently, denies symptoms. No abd pain, F/C, SOB, CP, palpitations, jaundice. Has baseline LLE weakness, uses walker. Tolerating regular PO diet. ER course was notable for: (1) RUQ U/S: CBD 6.5mm; lumen w/ complex heterogenous echogenic material (2) consulted Gen Surg(Hanna) who would evaluate in AM Recent Travel: PAST MEDICAL HISTORY: HTN, HLD, nonID-DM, CVA(LLE weakness, expressive aphasia; 2016), Afib(on Eliquis ) PAST SURGICAL HISTORY: cholecystostomy Social History: Smoking: distant smoking Alcohol: distant smoking Drugs: distant smoking Family History: father w/ lung cancer Allergies No Known Allergies Allergy (Verified 04/02/19 20:23) HOME MEDICATIONS: Home Medications Medication Instructions Recorded Apixaban [Eliquis] 5 mg PO BID 01/15/19 Atorvastatin Calcium 80 mg PO HS 01/15/19 Fluoxetine HCl [Prozac] 40 mg PO DAILY 01/15/19 LORazepam [Ativan] 0.5 mg PO TID 01/15/19 Metoprolol Succinate 50 mg PO DAILY 01/15/19 Sitagliptin Phosphate [Januvia] 50 mg PO DAILY 01/15/19 Cholecalciferol (Vitamin D3) 2,000 unit PO DAILY 01/16/19 [Vitamin D3] Dextromethorphan HBr/Quinidine 1 each PO BID 02/07/19 [Nuedexta 20-10 mg Capsule] Hydrochlorothiazide [Hctz -] 12.5 mg PO DAILY 02/11/19 Aa/Hydrolyzed Collagen, Whey [Lps 30 ml PO DAILY 04/02/19 15-30 Liquid] Dextromethorphan HBr/Quinidine 1 each PO BID 04/02/19 [Nuedexta 20-10 mg Capsule] Docusate Sodium [Colace] 100 mg PO HS 04/02/19 REVIEW OF SYSTEMS CONSTITUTIONAL: Absent: fever, chills, diaphoresis, generalized weakness, malaise, loss of appetite, weight change HEENT: Absent: rhinorrhea, nasal congestion, visual changes CARDIOVASCULAR: Absent: chest pain, syncope, palpitations, irregular heart rate, lightheadedness , peripheral edema RESPIRATORY: Absent: cough, shortness of breath, dyspnea with exertion, wheezing, stridor, hemoptysis GASTROINTESTINAL: Absent: abdominal pain, abdominal distension, nausea, vomiting, diarrhea, constipation, melena, hematochezia GENITOURINARY: Absent: dysuria, frequency, urgency, hematuria MUSCULOSKELETAL: Absent: myalgia, arthralgia, joint swelling, back pain, neck pain SKIN: Absent: rash, itching, pallor HEMATOLOGIC/IMMUNOLOGIC: Absent: easy bleeding, easy bruising, frequent infections ENDOCRINE: Absent: unexplained weight gain, unexplained weight loss NEUROLOGIC: LLE weakness Absent: headache, focal weakness or paresthesias, dizziness PHYSICAL EXAMINATION Vital Signs - 24 hr 04/02/19 04/03/19 04/03/19 20:23 01:47 04:51 Temperature 98.4 F Pulse Rate 66 Pulse Rate [ 66 Apical] Respiratory 18 18 Rate Blood Pressure 118/76 Blood Pressure 128/74 [Right Arm] O2 Sat by Pulse 100 96 96 Oximetry (%) GENERAL: Awake, alert, and fully oriented, in no acute distress. HEAD: Normal with no signs of trauma. EYES: extraocular movements intact, sclera anicteric, conjunctiva clear. EARS, NOSE, THROAT: Ears normal, nares patent, oropharynx clear without exudates. Moist mucous membranes. NECK: Normal range of motion, supple without lymphadenopathy, JVD, or masses. LUNGS: Breath sounds equal, clear to auscultation bilaterally. No wheezes, and no crackles. No accessory muscle use. HEART: Regular rate and rhythm, normal S1 and S2 without murmur, rub or gallop. ABDOMEN: Soft, nontender, not distended, no guarding, no rebound, no masses. RUQ with subcentimeter wound w/ no active drainage, SS on gauze MUSCULOSKELETAL: Normal range of motion at all joints. No bony deformities or tenderness. No CVA tenderness. UPPER EXTREMITIES: 2+ pulses, warm, well-perfused. No cyanosis. No clubbing. No peripheral edema. LOWER EXTREMITIES: 2+ pulses, warm, well-perfused. No calf tenderness. No peripheral edema. 4/5 weakness of LLE at thigh NEUROLOGICAL: expressive aphasia with mild slurring, and hesistancy initiating sentences PSYCHIATRIC: Cooperative. Good eye contact. Appropriate mood and affect. SKIN: Warm, dry, normal turgor, no rashes or lesions noted, normal capillary refill. Laboratory Results - last 24 hr 04/02/19 04/02/19 04/03/19 21:49 21:49 02:15 WBC 12.6 H RBC 3.37 L Hgb 10.1 L Hct 29.4 L MCV 87.2 MCH 30.0 MCHC 34.5 RDW 16.1 H Plt Count 185 D MPV 9.2 Absolute Neuts (auto) 9.6 H Neutrophils % 75.8 Lymphocytes % 15.0 Monocytes % 7.7 Eosinophils % 0.6 Basophils % 0.9 Nucleated RBC % 0 Sodium 137 Potassium 3.9 Chloride 102 Carbon Dioxide 29 Anion Gap 7 L BUN 25.8 H Creatinine 0.9 Est GFR (CKD-EPI)AfAm 102.79 Est GFR (CKD-EPI)NonAf 88.69 POC Glucometer 126 Random Glucose 116 H Calcium 8.5 Total Bilirubin 0.8 AST 23 ALT 21 Alkaline Phosphatase 118 H Total Protein 7.0 Albumin 3.2 L ASSESSMENT/PLAN: 64M w/ pmh of HTN, HLD, nonID-DM, CVA(LLE weakness, expressive aphasia; 2016), Afib(on Eliquis) with displaced cholecystostomy tube from a nonoperative cholecystistits. # displaced cholecystostomy tube > RUQ U/S: CBD 6.5mm, complex heterogenous echogenic material > Tbil 0.8 - fu Surgery recommendations # leukocytosis possibly 2/2 chronic cholecystitis > WBC 12.6 - fu CBC - consider starting IV abx NEURO # CVA w/ residual deficients - fall precautions FEN - NPO - LR @75 ENDO # insulin-independent DM - SSI DVT prophylaxis - SCD Palmer Harmon, DO PGY-1 Medicine, PM-Float [id number] 04/03/19 Visit type - Emergency Visit Emergency Visit: Yes ED Registration Date: 04/02/19 Care time: The patient presented to the Emergency Department on the above date and was hospitalized for further evaluation of their emergent condition. - New Patient This patient is new to me today: Yes Date on this admission: 04/03/19 - Critical Care Critical Care patient: No ATTENDING PHYSICIAN STATEMENT I saw and evaluated the patient. I reviewed the resident's note and discussed the case with the resident. I agree with the resident's findings and plan as documented. SUBJECTIVE: OBJECTIVE: ASSESSMENT AND PLAN:
[2019-04-03 05:57] LABS: BASO % 0.4 % (0-2.0); EOS % 0.9 % (0-4.5); HEMATOCRIT 29.5 % (35.4-49); HEMOGLOBIN 10.2 GM/dL (11.7-16.9); LYMPH % 14.2 % (8-40); MCH 30.3 pg (25.7-33.7); MCHC 34.5 g/dl (32.0-35.9); MEAN CELL VOLUME 87.9 fl (80-96); MEAN PLT VOLUME 9.2 fl (7.5-11.1); MONO % 7.1 % (3.8-10.2); NEUT % 77.4 % (42.8-82.8); PLATELET COUNT 178 K/MM3 (134-434); RBC 3.36 M/mm3 (4.00-5.60); RDW 15.5 % (11.9-15.9); WHITE BLOOD COUNT 11.8 K/mm3 (4.0-10.0)
[2019-04-03 06:32] LABS: BILIRUBIN,TOTAL 0.8 mg/dL (0.2-1); BLOOD UREA NITROGEN 20.4 mg/dL (7-18); CALCIUM 8.4 mg/dL (8.5-10.1); CREATININE 0.8 mg/dL (0.55-1.3); MAGNESIUM 1.9 mg/dL (1.8-2.4); POTASSIUM 3.5 mmol/L (3.5-5.1); TOT PROT 6.5 g/dl (6.4-8.2)
[2019-04-03 06:35] LABS: INR 1.68 (0.83-1.09); PROTHROMBIN TIME (PATIENT) 19.9 SEC (9.7-13.0)
[2019-04-03 06:38] LABS: ACTIVATED PTT 39.6 SECONDS (25.2-36.5)
[2019-04-03] MEDS: INSULIN SLIDING SCALE (NOVOLOG) 1 VIAL SQ SCH ×4 (06:40→23:09)
--- NOTE | 2019-04-03 09:08 | PN ---
Progress Note, Physician Chief Complaint: Mr Casper is without complaint today. Denies chest pain, shortness of breath, nausea/vomiting, or pain in general. - Current Medication List Current Medications: Active Medications Atorvastatin Calcium (Lipitor -) 80 mg PO HS [facility] Fluoxetine HCl (Prozac -) 40 mg PO DAILY [facility] Lactated Ringer's (Lactated Ringers Solution) 1,000 mls @ 75 mls/hr IV ASDIR [facility] Last Admin: 04/03/19 01:28 Dose: 75 mls/hr Insulin Aspart (Novolog Vial Sliding Scale -) 0 vial SQ ACHS [facility]; Protocol Last Admin: 04/03/19 06:40 Dose: Not Given Metoprolol Succinate (Toprol Xl -) 50 mg PO DAILY [facility] - Objective Vital Signs: Vital Signs Temperature 37.2 C 04/03/19 06:34 Pulse Rate 65 04/03/19 06:34 Respiratory Rate 20 04/03/19 06:34 Blood Pressure 115/73 04/03/19 06:34 O2 Sat by Pulse Oximetry (%) 98 04/03/19 06:34 Constitutional: Yes: Well Nourished, No Distress, Calm Cardiovascular: Yes: Regular Rate and Rhythm. No: Gallop, Murmur, Rub Respiratory: Yes: Regular, CTA Bilaterally. No: Rales, Rhonchi, Wheezes Gastrointestinal: Yes: Normal Bowel Sounds, Soft. No: Distention, Tenderness Extremities: Yes: WNL Edema: No Labs: CBC, BMP 04/03/19 05:10 04/03/19 05:10 INR, PTT INR 1.68 (0.83-1.09) H 04/03/19 05:10 Problem List - Problems (1) Cholecystitis Assessment/Plan: -s/p percutaneous cholecystostomy tube with accidental removal -case d/w Dr Ferreira who will see in consultation -recommended not having tube replaced, was planning for surgery on Sunday -will see and decide if appropriate for the OR -earliest will be tomorrow as is on eliquis -EKG reviewed, no signs of ACS -recent ECHO in January 2019 -chest x-ray clear and no respiratory symptoms -no further evaluation needed, patient medically stable for surgical intervention Code(s): K81.9 - CHOLECYSTITIS, UNSPECIFIED (2) CVA (cerebral vascular accident) Assessment/Plan: -on aspirin and eliquis -holding eliquis in anticipation of surgery Code(s): I63.9 - CEREBRAL INFARCTION, UNSPECIFIED Qualifiers: CVA mechanism: unspecified Qualified Code(s): I63.9 - Cerebral infarction, unspecified (3) Hypertension Assessment/Plan: -controlled -continue toprol xl Code(s): I10 - ESSENTIAL (PRIMARY) HYPERTENSION Qualifiers: Hypertension type: unspecified Qualified Code(s): I10 - Essential (primary ) hypertension (4) Type 2 diabetes mellitus Assessment/Plan: -continue SSI Code(s): E11.9 - TYPE 2 DIABETES MELLITUS WITHOUT COMPLICATIONS Qualifiers: Diabetes mellitus detention insulin use: unspecified detention insulin use status Diabetes mellitus complication status: with unspecified complications
[2019-04-03] MEDS: FLUoxetine HCL 20 MG CAPSULE (FP) PO SCH (09:23)
--- NOTE | 2019-04-03 14:37 | EKG ---
Test Reason : Blood Pressure : / mmHG Vent. Rate : 062 BPM Atrial Rate : 062 BPM P-R Int : 184 ms QRS Dur : 096 ms QT Int : 458 ms P-R-T Axes : -64 -17 023 degrees QTc Int : 464 ms UNUSUAL P AXIS, POSSIBLE ECTOPIC ATRIAL RHYTHM ABNORMAL ECG WHEN COMPARED WITH ECG OF 07-FEB-2019 07:18, ECTOPIC ATRIAL RHYTHM HAS REPLACED SINUS RHYTHM Confirmed by ROBERTO CARLOS MCCLENDON, JENNIFER ([id number]) on 04/03/2019 2:36:59 PM Referred By: Confirmed By:JENNIFER AZEVEDO MD
--- NOTE | 2019-04-03 21:38 | CONSULT ---
- Consultation REQUESTING PROVIDER: Jon MCCLENDON CONSULT REQUEST: We have been asked to surgically evaluate this patient for e/m of sequelae of acute cholecystitis txed w/perc cholecystostomy in the recent past. PCP:Lauro Webb MD HISTORY OF PRESENT ILLNESS: Patient is well known to me and was scheduled for lap angelia possible open for 04/14/19;he was xferred here yesterday from [facility] because his percutaneous cholecystostomy tube " fell out "; he has no c/o; I discussed the proposed upcoming surgery w/his HCP his brother in [place]. He has no c/o today. PMHx: AF/NIDDM/CVA PSHx: none Home Medications Medication Instructions Recorded Apixaban [Eliquis] 5 mg PO BID 01/15/19 Atorvastatin Calcium 80 mg PO HS 01/15/19 Fluoxetine HCl [Prozac] 40 mg PO DAILY 01/15/19 LORazepam [Ativan] 0.5 mg PO TID 01/15/19 Metoprolol Succinate 50 mg PO DAILY 01/15/19 Sitagliptin Phosphate [Januvia] 50 mg PO DAILY 01/15/19 Cholecalciferol (Vitamin D3) 2,000 unit PO DAILY 01/16/19 [Vitamin D3] Dextromethorphan HBr/Quinidine 1 each PO BID 02/07/19 [Nuedexta 20-10 mg Capsule] Hydrochlorothiazide [Hctz -] 12.5 mg PO DAILY 02/11/19 Aa/Hydrolyzed Collagen, Whey [Lps 30 ml PO DAILY 04/02/19 15-30 Liquid] Dextromethorphan HBr/Quinidine 1 each PO BID 04/02/19 [Nuedexta 20-10 mg Capsule] Docusate Sodium [Colace] 100 mg PO HS 04/02/19 Allergies Allergy/AdvReac Type Severity Reaction Status Date / Time No Known Allergies Allergy Verified 04/02/19 20:23 REVIEW OF SYSTEMS:unable to provide; no change from previous admission and d/w family PHYSICAL EXAM: GENERAL: Awake, alert, and not fully oriented, in no acute distress. HEAD: Normal with no signs of trauma. EYES: clera anicteric, conjunctiva clear. NECK: Normal ROM, supple without lymphadenopathy, JVD, or masses. LUNGS: Clear to auscultation bilat HEART: Regular rate and irreg. rhythm. No murmurs ABDOMEN: Soft, nontender, not distended, normoactive bowel sounds, no guarding, no rebound, no masses. No organomegaly. Scar in RUQ from percutaneous cholecystostomy tube. MUSCULOSKELETAL: Normal ROM at all joints. No bony deformities or tenderness. No CVA tenderness. UPPER EXTREMITIES: 2+ pulses, warm, well-perfused. No cyanosis. Cap refill <2 seconds. No peripheral edema. LOWER EXTREMITIES: 2+ pulses, warm, well-perfused. No calf tenderness. No peripheral edema. NEUROLOGICAL: Normal speech, gait not observed. PSYCH: Cooperative. Good eye contact. Appropriate mood and affect. SKIN: Warm, dry, normal turgor, no rashes or lesions noted. Vital Signs Temperature 97.4 F L 04/03/19 20:37 Pulse Rate 103 H 04/03/19 20:37 Respiratory Rate 18 04/03/19 20:56 Blood Pressure 145/73 04/03/19 20:37 O2 Sat by Pulse Oximetry (%) 100 04/03/19 20:56 Lab Results WBC 11.8 K/mm3 (4.0-10.0) H 04/03/19 05:10 RBC 3.36 M/mm3 (4.00-5.60) L 04/03/19 05:10 Hgb 10.2 GM/dL (11.7-16.9) L 04/03/19 05:10 Hct 29.5 % (35.4-49) L 04/03/19 05:10 MCV 87.9 fl (80-96) 04/03/19 05:10 MCHC 34.5 g/dl (32.0-35.9) 04/03/19 05:10 RDW 15.5 % (11.9-15.9) 04/03/19 05:10 Plt Count 178 K/MM3 (134-434) 04/03/19 05:10 Sodium 137 mmol/L (136-145) 04/03/19 05:10 Potassium 3.5 mmol/L (3.5-5.1) 04/03/19 05:10 Chloride 103 mmol/L (98-107) 04/03/19 05:10 Carbon Dioxide 28 mmol/L (21-32) 04/03/19 05:10 Anion Gap 7 MMOL/L (8-16) L 04/03/19 05:10 BUN 20.4 mg/dL (7-18) H 04/03/19 05:10 Creatinine 0.8 mg/dL (0.55-1.3) 04/03/19 05:10 Random Glucose 115 mg/dL (74-106) H 04/03/19 05:10 Calcium 8.4 mg/dL (8.5-10.1) L 04/03/19 05:10 Blood Type O POSITIVE 04/03/19 05:10 Antibody Screen Negative 04/03/19 05:10 INR 1.68 (0.83-1.09) H 04/03/19 05:10 US reviewed/CT scan a/p reviewed IMP: acute on chronic cholecystitis/cholelithiasis PLAN: He will need Cardiology clearance and will aim for lap angelia possible open for 04/07/19; d/w the patient and will d/w his HCP in [place]; his brother ; in the interim I advise clear liquids/IVAB's; WILL F/U. MARLYN PARK MD FACS
[2019-04-03] MEDS: ATORVASTATIN CA 80 MG TABLET (FP) PO SCH (23:10)
--- NOTE | 2019-04-03 23:14 | PN ---
Teaching Attending Note Name of Resident: Palmer Harmon ATTENDING PHYSICIAN STATEMENT I saw and evaluated the patient. I reviewed the resident's note and discussed the case with the resident. I agree with the resident's findings and plan as documented. *Late Entry due to original not being saved for History and Physical* Seen and examined; please refer to resident note for further historical information. Briefly, this is a 64 y/o male presenting to the hospital with a CC of removal of C-tube accidentally. Seen by Dr. Ferreira for cholecystitis and recent admission with ESBL+ on erta, completed course. IR inserted C-tube at that time. No complaints now but poor historian. Imaging reviewed VS, labs, imaging reviewed NAD, AAOx2, resting in bed C-tube completely removed; bandaged over by ER. No s/s infection NT ND +BS RRR s1/2 Normal mood, not agitated Imaging reviewed Prior admisison reviewed ASSESSMENT AND PLAN: Patient presents with accidental removal of C-tube; consulting his surgeon and IR to discuss replacement. Giving 1x dose erta; no signs of current infection, though. Per scheduling may be actually getting GB removed so may not benefit from tube replacement. Need to discuss with sgy/IR. Will keep NPO and place on IVF. # Removal of C-tube # Subacute cholecystitis # Recent ESBL+ # Dementia
[2019-04-04] MEDS: LACTATED RINGERS SOLUTION 1,000 ML IV SCH ×2 (06:49→09:58)
[2019-04-04] MEDS: INSULIN SLIDING SCALE (NOVOLOG) 1 VIAL SQ SCH ×4 (06:49→21:49)
[2019-04-04 07:03] LABS: BASO % 0.6 % (0-2.0); EOS % 0.8 % (0-4.5); HEMATOCRIT 30.1 % (35.4-49); HEMOGLOBIN 10.4 GM/dL (11.7-16.9); LYMPH % 9.2 % (8-40); MCH 29.8 pg (25.7-33.7); MCHC 34.4 g/dl (32.0-35.9); MEAN CELL VOLUME 86.6 fl (80-96); MEAN PLT VOLUME 8.9 fl (7.5-11.1); MONO % 6.5 % (3.8-10.2); NEUT % 82.9 % (42.8-82.8); PLATELET COUNT 200 K/MM3 (134-434); RBC 3.47 M/mm3 (4.00-5.60); RDW 15.7 % (11.9-15.9); WHITE BLOOD COUNT 12.5 K/mm3 (4.0-10.0)
[2019-04-04 08:15] LABS: BLOOD UREA NITROGEN 13.5 mg/dL (7-18); CALCIUM 8.7 mg/dL (8.5-10.1); CREATININE 0.7 mg/dL (0.55-1.3); PHOSPHOROUS 3.8 mg/dL (2.5-4.9); POTASSIUM 3.5 mmol/L (3.5-5.1)
[2019-04-04] MEDS: FLUoxetine HCL 20 MG CAPSULE (FP) PO SCH (09:50)
[2019-04-04] MEDS ORDERED: ERTAPENEM SODIUM 1 GM in SODIUM CHLORIDE 50 ML IVPB ONE (11:30)
[2019-04-04] MEDS ORDERED: INSULIN (NOVOLOG) ASPART 100 UNITS/ML 10ML VIAL ONE ×3 (11:49→20:55)
[2019-04-04] MEDS ORDERED: PT OWN MED DRAWER 7, Y5N ONE (13:53)
--- NOTE | 2019-04-04 16:06 | CON.CARD ---
Cardiology Consult (text) - Consultation Consultation Note: cc: GB tube removal hpi: 64 m hx afib, htn, hld, cva, dm, [facility] after [facility] his GB tube. Pt has been feeling well. No cp sob palps dizzy loc pnd orthopnea le edema. Plans for cholecystectomy sunday. pmh: per hpi psh: g-tube social: no tob fam: no premature cad ros: per hpi, deficits from cva; all others normal meds: Home Medications Medication Instructions Recorded Apixaban [Eliquis] 5 mg PO BID 01/15/19 Atorvastatin Calcium 80 mg PO HS 01/15/19 Fluoxetine HCl [Prozac] 40 mg PO DAILY 01/15/19 LORazepam [Ativan] 0.5 mg PO TID 01/15/19 Metoprolol Succinate 50 mg PO DAILY 01/15/19 Sitagliptin Phosphate [Januvia] 50 mg PO DAILY 01/15/19 Cholecalciferol (Vitamin D3) 2,000 unit PO DAILY 01/16/19 [Vitamin D3] Dextromethorphan HBr/Quinidine 1 each PO BID 02/07/19 [Nuedexta 20-10 mg Capsule] Hydrochlorothiazide [Hctz -] 12.5 mg PO DAILY 02/11/19 Aa/Hydrolyzed Collagen, Whey [Lps 30 ml PO DAILY 04/02/19 15-30 Liquid] Dextromethorphan HBr/Quinidine 1 each PO BID 04/02/19 [Nuedexta 20-10 mg Capsule] Docusate Sodium [Colace] 100 mg PO HS 04/02/19 Vital Signs Period Temp Pulse Resp BP Sys/Meléndez Pulse Ox Last 24 Hr 97.4 F-98.9 F 60-103 18-18 122-145/68-80 98-100 nad no jvd rrr s1s2 no mrg cta bl nl eff aao3 abd nt nd pos bs no jaundice diaphoresis pos dp pt no carotid bruits no le e/c/c Laboratory Last Values WBC 12.5 K/mm3 (4.0-10.0) H 04/04/19 06:42 RBC 3.47 M/mm3 (4.00-5.60) L 04/04/19 06:42 Hgb 10.4 GM/dL (11.7-16.9) L 04/04/19 06:42 Hct 30.1 % (35.4-49) L 04/04/19 06:42 MCV 86.6 fl (80-96) 04/04/19 06:42 MCH 29.8 pg (25.7-33.7) 04/04/19 06:42 MCHC 34.4 g/dl (32.0-35.9) 04/04/19 06:42 RDW 15.7 % (11.9-15.9) 04/04/19 06:42 Plt Count 200 K/MM3 (134-434) 04/04/19 06:42 MPV 8.9 fl (7.5-11.1) 04/04/19 06:42 Absolute Neuts (auto) 10.4 K/mm3 (1.5-8.0) H 04/04/19 06:42 Neutrophils % 82.9 % (42.8-82.8) H 04/04/19 06:42 Lymphocytes % 9.2 % (8-40) D 04/04/19 06:42 Monocytes % 6.5 % (3.8-10.2) 04/04/19 06:42 Eosinophils % 0.8 % (0-4.5) 04/04/19 06:42 Basophils % 0.6 % (0-2.0) 04/04/19 06:42 Nucleated RBC % 0 % (0-0) 04/04/19 06:42 PT with INR 19.90 SEC (9.7-13.0) H 04/03/19 05:10 INR 1.68 (0.83-1.09) H 04/03/19 05:10 PTT (Actin FS) 39.6 SECONDS (25.2-36.5) H 04/03/19 05:10 Sodium 136 mmol/L (136-145) 04/04/19 06:42 Potassium 3.5 mmol/L (3.5-5.1) 04/04/19 06:42 Chloride 103 mmol/L (98-107) 04/04/19 06:42 Carbon Dioxide 25 mmol/L (21-32) 04/04/19 06:42 Anion Gap 9 MMOL/L (8-16) 04/04/19 06:42 BUN 13.5 mg/dL (7-18) 04/04/19 06:42 Creatinine 0.7 mg/dL (0.55-1.3) 04/04/19 06:42 Est GFR (CKD-EPI)AfAm 113.98 04/04/19 06:42 Est GFR (CKD-EPI)NonAf 98.34 04/04/19 06:42 POC Glucometer 143 UNITS (80-120) 04/04/19 12:05 Random Glucose 104 mg/dL (74-106) 04/04/19 06:42 Calcium 8.7 mg/dL (8.5-10.1) 04/04/19 06:42 Phosphorus 3.8 mg/dL (2.5-4.9) 04/04/19 06:42 Magnesium 2.0 mg/dL (1.8-2.4) 04/04/19 06:42 Total Bilirubin 0.8 mg/dL (0.2-1) 04/03/19 05:10 AST 17 U/L (15-37) 04/03/19 05:10 ALT 20 U/L (13-61) 04/03/19 05:10 Alkaline Phosphatase 104 U/L (45-117) 04/03/19 05:10 Total Protein 6.5 g/dl (6.4-8.2) 04/03/19 05:10 Albumin 3.0 g/dl (3.4-5.0) L 04/03/19 05:10 Blood Type O POSITIVE 04/03/19 05:10 Antibody Screen Negative 04/03/19 05:10 ecg: sr nl intervals no ischemic changes cxr: clear lungs echo 01/2019: nl lv/rv, no sig valve path a/p: 64 m hx afib, htn, hld, cva, dm, [facility] after [facility] GB tube. afib: -in sr now, cont bb -was on eliquis, holding for OR on sunday, resume post op when possible htn: -cont bb hld: -cont statin preop: -no cardiac contraindications (intermediate risk) for planned cholecystectomy
--- NOTE | 2019-04-04 18:19 | PN ---
Progress Note, Physician Chief Complaint: Mr Casper says he feels well. Denies cp, sob, n/v. - Current Medication List Current Medications: Active Medications Atorvastatin Calcium (Lipitor -) 80 mg PO HS [facility] Last Admin: 04/03/19 23:10 Dose: 80 mg Fluoxetine HCl (Prozac -) 40 mg PO DAILY [facility] Last Admin: 04/04/19 09:50 Dose: 40 mg Lactated Ringer's (Lactated Ringers Solution) 1,000 mls @ 75 mls/hr IV ASDIR [facility] Last Admin: 04/04/19 09:58 Dose: 75 mls/hr Insulin Aspart (Novolog Vial Sliding Scale -) 0 vial SQ ACHS [facility]; Protocol Last Admin: 04/04/19 17:27 Dose: 2 unit Metoprolol Succinate (Toprol Xl -) 50 mg PO DAILY [facility] Last Admin: 04/04/19 09:50 Dose: 50 mg - Objective Vital Signs: Vital Signs Temperature 36.3 C L 04/04/19 14:41 Pulse Rate 61 04/04/19 14:41 Respiratory Rate 18 04/04/19 14:41 Blood Pressure 135/69 04/04/19 14:41 O2 Sat by Pulse Oximetry (%) 100 04/03/19 20:56 Constitutional: Yes: Well Nourished, No Distress, Calm Cardiovascular: Yes: Regular Rate and Rhythm. No: Gallop, Murmur, Rub Respiratory: Yes: Regular, CTA Bilaterally. No: Rales, Rhonchi, Wheezes Gastrointestinal: Yes: Normal Bowel Sounds, Soft. No: Distention, Tenderness Extremities: Yes: WNL Edema: No Labs: CBC, BMP 04/04/19 06:42 04/04/19 06:42 INR, PTT INR 1.68 (0.83-1.09) H 04/03/19 05:10 Problem List - Problems (1) Cholecystitis Code(s): K81.9 - CHOLECYSTITIS, UNSPECIFIED (2) CVA (cerebral vascular accident) Code(s): I63.9 - CEREBRAL INFARCTION, UNSPECIFIED Qualifiers: CVA mechanism: unspecified Qualified Code(s): I63.9 - Cerebral infarction, unspecified (3) Hypertension Code(s): I10 - ESSENTIAL (PRIMARY) HYPERTENSION Qualifiers: Hypertension type: unspecified Qualified Code(s): I10 - Essential (primary ) hypertension (4) Type 2 diabetes mellitus Code(s): E11.9 - TYPE 2 DIABETES MELLITUS WITHOUT COMPLICATIONS Qualifiers: Diabetes mellitus exterminator insulin use: unspecified exterminator insulin use status Diabetes mellitus complication status: with unspecified complications Assessment/Plan (1) Cholecystitis Assessment/Plan: -case d/w Dr Ferreira -plan for surgery Sunday -appreciate cardiology evaluation -will start antibiotics -has history of ESBL in the urine -even though lower suspicion patient has ESBL in gallbladder, since has history of UTI will start ertapenem -will also begin flagyl for anaerobes -consult ID Code(s): K81.9 - CHOLECYSTITIS, UNSPECIFIED (2) CVA (cerebral vascular accident) Assessment/Plan: -on aspirin and eliquis -holding eliquis in anticipation of surgery Code(s): I63.9 - CEREBRAL INFARCTION, UNSPECIFIED Qualifiers: CVA mechanism: unspecified Qualified Code(s): I63.9 - Cerebral infarction, unspecified (3) Hypertension Assessment/Plan: -controlled -continue toprol xl Code(s): I10 - ESSENTIAL (PRIMARY) HYPERTENSION Qualifiers: Hypertension type: unspecified Qualified Code(s): I10 - Essential (primary ) hypertension (4) Type 2 diabetes mellitus Assessment/Plan: -continue SSI Code(s): E11.9 - TYPE 2 DIABETES MELLITUS WITHOUT COMPLICATIONS Qualifiers: Diabetes mellitus jail insulin use: unspecified exterminator insulin use status Diabetes mellitus complication status: with unspecified complications
[2019-04-04] MEDS: ATORVASTATIN CA 80 MG TABLET (FP) PO SCH (21:44)
[2019-04-05] MEDS: LACTATED RINGERS SOLUTION 1,000 ML IV SCH (03:45)
[2019-04-05] MEDS: INSULIN SLIDING SCALE (NOVOLOG) 1 VIAL SQ SCH ×4 (06:11→21:52)
[2019-04-05 07:00] LABS: BASO % 0.6 % (0-2.0); EOS % 0.8 % (0-4.5); HEMATOCRIT 30.1 % (35.4-49); HEMOGLOBIN 10.6 GM/dL (11.7-16.9); LYMPH % 13.1 % (8-40); MCHC 35.2 g/dl (32.0-35.9); MEAN CELL VOLUME 85.2 fl (80-96); MEAN PLT VOLUME 9.2 fl (7.5-11.1); MONO % 7.8 % (3.8-10.2); NEUT % 77.7 % (42.8-82.8); PLATELET COUNT 210 K/MM3 (134-434); RBC 3.53 M/mm3 (4.00-5.60); RDW 15.7 % (11.9-15.9); WHITE BLOOD COUNT 11.5 K/mm3 (4.0-10.0)
[2019-04-05 07:24] LABS: BLOOD UREA NITROGEN 9.3 mg/dL (7-18); CALCIUM 8.4 mg/dL (8.5-10.1); CREATININE 0.7 mg/dL (0.55-1.3); MAGNESIUM 1.7 mg/dL (1.8-2.4); PHOSPHOROUS 2.8 mg/dL (2.5-4.9); POTASSIUM 3.4 mmol/L (3.5-5.1)
[2019-04-05] MEDS: FLUoxetine HCL 20 MG CAPSULE (FP) PO SCH (10:50)
--- NOTE | 2019-04-05 12:40 | CON.ID ---
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 History of Recent Travel: No Home Medications - Allergies Allergies/Adverse Reactions: Allergies Allergy/AdvReac Type Severity Reaction Status Date / Time No Known Allergies Allergy Verified 04/02/19 20:23 - Home Medications Home Medications: Ambulatory Orders Apixaban [Eliquis] 5 mg PO BID 01/15/19 Atorvastatin Calcium 80 mg PO HS 01/15/19 Fluoxetine HCl [Prozac] 40 mg PO DAILY 01/15/19 LORazepam [Ativan] 0.5 mg PO TID 01/15/19 Metoprolol Succinate 50 mg PO DAILY 01/15/19 Sitagliptin Phosphate [Januvia] 50 mg PO DAILY 01/15/19 Cholecalciferol (Vitamin D3) [Vitamin D3] 2,000 unit PO DAILY 01/16/19 Dextromethorphan HBr/Quinidine [Nuedexta 20-10 mg Capsule] 1 each PO BID Hydrochlorothiazide [Hctz -] 12.5 mg PO DAILY 02/11/19 Aa/Hydrolyzed Collagen, Whey [Lps 15-30 Liquid] 30 ml PO DAILY 04/02/19 Dextromethorphan HBr/Quinidine [Nuedexta 20-10 mg Capsule] 1 each PO BID Docusate Sodium [Colace] 100 mg PO HS 04/02/19 Physical Exam Vital Signs: Vital Signs Temperature 98.7 F 04/05/19 06:00 Pulse Rate 66 04/05/19 06:00 Respiratory Rate 20 04/05/19 06:00 Blood Pressure 148/75 04/05/19 06:00 O2 Sat by Pulse Oximetry (%) 97 04/04/19 21:00 Labs: CBC, BMP 04/05/19 06:33 04/05/19 06:33
[2019-04-05] MEDS ORDERED: PIPERACILLIN/TAZOBACTAM 3.375 GM VIAL IVPB ONE ×2 (13:49→17:44)
[2019-04-05] MEDS ORDERED: DEXTROSE 5%-WATER - 50 ML IVPB ONE ×2 (13:49→17:45)
[2019-04-05] MEDS: PIPERACILLIN/TAZOB 3.375 GM 3.375 GM in DEXTROSE 5%-WATER - 50 ML IVPB SCH ×2 (14:06→17:54)
[2019-04-05] MEDS ORDERED: POTASSIUM CHLORIDE TABS 20 MEQ TABLET.ER (FP) PO ONE (14:53)
[2019-04-05] MEDS ORDERED: MAGNESIUM SULF 50% (8.12 MEQ/2 ML-1 GM VIAL) IVPB ONE (15:15)
[2019-04-05] MEDS ORDERED: INSULIN (NOVOLOG) ASPART 100 UNITS/ML 10ML VIAL ONE (16:14)
--- NOTE | 2019-04-05 18:32 | PN ---
Progress Note, Physician Chief Complaint: Mr Casper complains that he feels like he is gaining weight. Denies cp, sob, n/v. - Current Medication List Current Medications: Active Medications Atorvastatin Calcium (Lipitor -) 80 mg PO HS [facility] Last Admin: 04/04/19 21:44 Dose: 80 mg Fluoxetine HCl (Prozac -) 40 mg PO DAILY [facility] Last Admin: 04/05/19 10:50 Dose: 40 mg Lactated Ringer's (Lactated Ringers Solution) 1,000 mls @ 75 mls/hr IV ASDIR [facility] Last Admin: 04/05/19 03:45 Dose: 75 mls/hr Metronidazole (Flagyl 500mg Premixed Ivpb -) 500 mg in 100 mls @ 100 mls/hr IVPB Q8H-IV [facility] Last Admin: 04/05/19 10:50 Dose: 100 mls/hr Piperacillin Sod/Tazobactam (Sod 3.375 gm/ Dextrose) 50 mls @ 100 mls/hr IVPB Q8H-IV [facility]; Protocol Last Admin: 04/05/19 17:54 Dose: 100 mls/hr Insulin Aspart (Novolog Vial Sliding Scale -) 0 vial SQ ACHS [facility]; Protocol Last Admin: 04/05/19 16:14 Dose: 2 unit Metoprolol Succinate (Toprol Xl -) 50 mg PO DAILY [facility] Last Admin: 04/05/19 10:50 Dose: 50 mg - Objective Vital Signs: Vital Signs Temperature 36.7 C 04/05/19 10:00 Pulse Rate 84 04/05/19 10:00 Respiratory Rate 20 04/05/19 10:00 Blood Pressure 130/70 04/05/19 10:00 O2 Sat by Pulse Oximetry (%) 97 04/04/19 21:00 Constitutional: Yes: Well Nourished, No Distress, Calm Cardiovascular: Yes: Regular Rate and Rhythm. No: Gallop, Murmur, Rub Respiratory: Yes: Regular, CTA Bilaterally. No: Rales, Rhonchi, Wheezes Gastrointestinal: Yes: Normal Bowel Sounds, Soft. No: Distention, Tenderness Extremities: Yes: WNL Edema: No Labs: CBC, BMP 04/05/19 06:33 04/05/19 06:33 INR, PTT INR 1.68 (0.83-1.09) H 04/03/19 05:10 Problem List - Problems (1) Cholecystitis Code(s): K81.9 - CHOLECYSTITIS, UNSPECIFIED (2) CVA (cerebral vascular accident) Code(s): I63.9 - CEREBRAL INFARCTION, UNSPECIFIED Qualifiers: CVA mechanism: unspecified Qualified Code(s): I63.9 - Cerebral infarction, unspecified (3) Hypertension Code(s): I10 - ESSENTIAL (PRIMARY) HYPERTENSION Qualifiers: Hypertension type: unspecified Qualified Code(s): I10 - Essential (primary ) hypertension (4) Type 2 diabetes mellitus Code(s): E11.9 - TYPE 2 DIABETES MELLITUS WITHOUT COMPLICATIONS Qualifiers: Diabetes mellitus terminal carman insulin use: unspecified jail insulin use status Diabetes mellitus complication status: with unspecified complications Assessment/Plan (1) Cholecystitis Assessment/Plan: -case d/w Dr Ferreira -plan for surgery Sunday -appreciate cardiology evaluation -appreciate ID assistance -now on zosyn and flagyl Code(s): K81.9 - CHOLECYSTITIS, UNSPECIFIED (2) CVA (cerebral vascular accident) Assessment/Plan: -on aspirin and eliquis -holding eliquis in anticipation of surgery Code(s): I63.9 - CEREBRAL INFARCTION, UNSPECIFIED Qualifiers: CVA mechanism: unspecified Qualified Code(s): I63.9 - Cerebral infarction, unspecified (3) Hypertension Assessment/Plan: -controlled -continue toprol xl Code(s): I10 - ESSENTIAL (PRIMARY) HYPERTENSION Qualifiers: Hypertension type: unspecified Qualified Code(s): I10 - Essential (primary ) hypertension (4) Type 2 diabetes mellitus Assessment/Plan: -continue SSI Code(s): E11.9 - TYPE 2 DIABETES MELLITUS WITHOUT COMPLICATIONS Qualifiers: Diabetes mellitus terminal carman insulin use: unspecified terminal carman insulin use status Diabetes mellitus complication status: with unspecified complications
[2019-04-05] MEDS: ATORVASTATIN CA 80 MG TABLET (FP) PO SCH (21:51)
[2019-04-06] MEDS: PIPERACILLIN/TAZOB 3.375 GM 3.375 GM in DEXTROSE 5%-WATER - 50 ML IVPB SCH ×3 (01:37→16:59)
[2019-04-06] MEDS: LACTATED RINGERS SOLUTION 1,000 ML IV SCH ×2 (01:38→17:03)
[2019-04-06] MEDS ORDERED: PIPERACILLIN/TAZOBACTAM 3.375 GM VIAL IVPB ONE ×4 (01:41→21:57)
[2019-04-06] MEDS ORDERED: DEXTROSE 5%-WATER - 50 ML IVPB ONE ×4 (01:41→21:58)
[2019-04-06] MEDS: INSULIN SLIDING SCALE (NOVOLOG) 1 VIAL SQ SCH ×4 (06:04→22:34)
[2019-04-06] MEDS ORDERED: INSULIN (LEVEMIR) 100 UNITS/ML UNITS SQ ONE (06:57)
[2019-04-06 07:57] LABS: BASO % 0.4 % (0-2.0); EOS % 0.9 % (0-4.5); HEMATOCRIT 31.1 % (35.4-49); HEMOGLOBIN 10.9 GM/dL (11.7-16.9); LYMPH % 12.1 % (8-40); MCH 30.3 pg (25.7-33.7); MEAN CELL VOLUME 86.6 fl (80-96); MEAN PLT VOLUME 9.1 fl (7.5-11.1); MONO % 7.5 % (3.8-10.2); NEUT % 79.1 % (42.8-82.8); PLATELET COUNT 202 K/MM3 (134-434)
[2019-04-06 08:11] LABS: BLOOD UREA NITROGEN 5.9 mg/dL (7-18); CALCIUM 8.5 mg/dL (8.5-10.1); CREATININE 0.7 mg/dL (0.55-1.3); MAGNESIUM 2.1 mg/dL (1.8-2.4); PHOSPHOROUS 2.8 mg/dL (2.5-4.9); POTASSIUM 3.7 mmol/L (3.5-5.1)
[2019-04-06] MEDS: FLUoxetine HCL 20 MG CAPSULE (FP) PO SCH (08:59)
--- NOTE | 2019-04-06 10:03 | PN ---
Progress Note, Physician Chief Complaint: cholecystitis History of Present Illness: suboptimal historian, poor recall denies cp, sob, palpit, syncope - Current Medication List Current Medications: Active Medications Atorvastatin Calcium (Lipitor -) 80 mg PO HS [facility] Last Admin: 04/05/19 21:51 Dose: 80 mg Fluoxetine HCl (Prozac -) 40 mg PO DAILY [facility] Last Admin: 04/06/19 08:59 Dose: 40 mg Lactated Ringer's (Lactated Ringers Solution) 1,000 mls @ 75 mls/hr IV ASDIR [facility] Last Admin: 04/06/19 01:38 Dose: 75 mls/hr Metronidazole (Flagyl 500mg Premixed Ivpb -) 500 mg in 100 mls @ 100 mls/hr IVPB Q8H-IV [facility] Last Admin: 04/06/19 09:55 Dose: 100 mls/hr Piperacillin Sod/Tazobactam (Sod 3.375 gm/ Dextrose) 50 mls @ 100 mls/hr IVPB Q8H-IV [facility]; Protocol Last Admin: 04/06/19 08:59 Dose: 100 mls/hr Insulin Aspart (Novolog Vial Sliding Scale -) 0 vial SQ ACHS [facility]; Protocol Last Admin: 04/06/19 06:04 Dose: Not Given Metoprolol Succinate (Toprol Xl -) 50 mg PO DAILY [facility] Last Admin: 04/06/19 08:59 Dose: 50 mg - Objective Vital Signs: Vital Signs Temperature 97.6 F 04/06/19 09:00 Pulse Rate 66 04/06/19 09:00 Respiratory Rate 20 04/06/19 09:00 Blood Pressure 132/80 04/06/19 09:00 O2 Sat by Pulse Oximetry (%) 100 04/05/19 21:00 Constitutional: Yes: Well Nourished, No Distress, Calm Cardiovascular: Yes: Regular Rate and Rhythm, S1, S2. No: Gallop, Murmur Respiratory: Yes: Regular, CTA Bilaterally. No: Accessory Muscle Use, Rales, Wheezes Extremities: No: Cold Edema: No Neurological: Yes: Alert. No: Seizure Psychiatric: No: Agitated Labs: CBC, BMP 04/06/19 06:20 04/06/19 06:20 INR, PTT INR 1.68 (0.83-1.09) H 07/25/19 05:10 Assessment/Plan ecg: sr nl intervals no ischemic changes cxr: clear lungs echo 01/2019: nl lv/rv, no sig valve path a/p: 64 m hx afib, htn, hld, cva, dm, sent from [place] after accidentally removing his GB tube. afib: -in sinus here, cont bb -holding eliquis preop--resume post op when bleeding risk is ok, per surgey rec.s htn: -bp controlled -cont bb hld: -cont statin cholecystitis for cholecystectomy, preop eval: -Revised CV Risk Index = 0, unknown functional status (suspect poor). -no signs/sx's of active CAD, CHF -at acceptable CV risk for planned surgery
--- NOTE | 2019-04-06 10:09 | PN ---
Progress Note, Physician History of Present Illness: stable no new issues plan for surgery on sunday - Current Medication List Current Medications: Active Medications Atorvastatin Calcium (Lipitor -) 80 mg PO HS [facility] Last Admin: 04/05/19 21:51 Dose: 80 mg Fluoxetine HCl (Prozac -) 40 mg PO DAILY [facility] Last Admin: 04/06/19 08:59 Dose: 40 mg Lactated Ringer's (Lactated Ringers Solution) 1,000 mls @ 75 mls/hr IV ASDIR [facility] Last Admin: 04/06/19 01:38 Dose: 75 mls/hr Metronidazole (Flagyl 500mg Premixed Ivpb -) 500 mg in 100 mls @ 100 mls/hr IVPB Q8H-IV [facility] Last Admin: 04/06/19 09:55 Dose: 100 mls/hr Piperacillin Sod/Tazobactam (Sod 3.375 gm/ Dextrose) 50 mls @ 100 mls/hr IVPB Q8H-IV [facility]; Protocol Last Admin: 04/06/19 08:59 Dose: 100 mls/hr Insulin Aspart (Novolog Vial Sliding Scale -) 0 vial SQ ACHS [facility]; Protocol Last Admin: 04/06/19 06:04 Dose: Not Given Metoprolol Succinate (Toprol Xl -) 50 mg PO DAILY [facility] Last Admin: 04/06/19 08:59 Dose: 50 mg - Objective Vital Signs: Vital Signs Temperature 97.6 F 04/06/19 09:00 Pulse Rate 66 04/06/19 09:00 Respiratory Rate 20 04/06/19 09:00 Blood Pressure 132/80 04/06/19 09:00 O2 Sat by Pulse Oximetry (%) 100 04/05/19 21:00 Constitutional: Yes: No Distress, Calm Cardiovascular: Yes: S1, S2 Respiratory: Yes: Regular, CTA Bilaterally Gastrointestinal: Yes: Normal Bowel Sounds, Soft Musculoskeletal: Yes: WNL Extremities: Yes: WNL Neurological: Yes: Alert Psychiatric: Yes: Other Labs: CBC, BMP 04/06/19 06:20 04/06/19 06:20 INR, PTT INR 1.68 (0.83-1.09) H 04/03/19 05:10 Assessment/Plan Problem List - Problems (1) Cholecystitis Code(s): K81.9 - CHOLECYSTITIS, UNSPECIFIED (2) CVA (cerebral vascular accident) Code(s): I63.9 - CEREBRAL INFARCTION, UNSPECIFIED Qualifiers: CVA mechanism: unspecified Qualified Code(s): I63.9 - Cerebral infarction, unspecified (3) Hypertension Code(s): I10 - ESSENTIAL (PRIMARY) HYPERTENSION Qualifiers: Hypertension type: unspecified Qualified Code(s): I10 - Essential (primary ) hypertension (4) Type 2 diabetes mellitus Code(s): E11.9 - TYPE 2 DIABETES MELLITUS WITHOUT COMPLICATIONS Qualifiers: Diabetes mellitus chcf insulin use: unspecified chcf insulin use status Diabetes mellitus complication status: with unspecified complications plan continue current mgmt abx for surgery tomorrow rest as per the team
--- NOTE | 2019-04-06 10:28 | PN ---
Progress Note (short form) - Note Progress Note: Attending Surgeon For lap angelia possible open 04/07/19; r/b/t/a's d/w the patient and his brother in [place] on # occasions and informed consent to be obtained. Pilo Ferreira MD FACS
--- NOTE | 2019-04-06 12:20 | PN ---
Progress Note, Physician Chief Complaint: Mr Casper denies cp, sob, n/v today. - Current Medication List Current Medications: Active Medications Atorvastatin Calcium (Lipitor -) 80 mg PO HS [facility] Last Admin: 04/05/19 21:51 Dose: 80 mg Emollient Ointment (Aquaphor -) 1 applic TP TID [facility] Fluoxetine HCl (Prozac -) 40 mg PO DAILY [facility] Last Admin: 04/06/19 08:59 Dose: 40 mg Lactated Ringer's (Lactated Ringers Solution) 1,000 mls @ 75 mls/hr IV ASDIR [facility] Last Admin: 04/06/19 01:38 Dose: 75 mls/hr Metronidazole (Flagyl 500mg Premixed Ivpb -) 500 mg in 100 mls @ 100 mls/hr IVPB Q8H-IV [facility] Last Admin: 04/06/19 09:55 Dose: 100 mls/hr Piperacillin Sod/Tazobactam (Sod 3.375 gm/ Dextrose) 50 mls @ 100 mls/hr IVPB Q8H-IV [facility]; Protocol Last Admin: 04/06/19 08:59 Dose: 100 mls/hr Insulin Aspart (Novolog Vial Sliding Scale -) 0 vial SQ ACHS [facility]; Protocol Last Admin: 04/06/19 11:28 Dose: 2 units Metoprolol Succinate (Toprol Xl -) 50 mg PO DAILY [facility] Last Admin: 04/06/19 08:59 Dose: 50 mg - Objective Vital Signs: Vital Signs Temperature 36.4 C 04/06/19 09:00 Pulse Rate 66 04/06/19 09:00 Respiratory Rate 20 04/06/19 09:00 Blood Pressure 132/80 04/06/19 09:00 O2 Sat by Pulse Oximetry (%) 100 04/05/19 21:00 Constitutional: Yes: Well Nourished, No Distress, Calm Cardiovascular: Yes: Regular Rate and Rhythm. No: Gallop, Murmur, Rub Respiratory: Yes: Regular, CTA Bilaterally. No: Rales, Rhonchi, Wheezes Gastrointestinal: Yes: Normal Bowel Sounds, Soft. No: Distention, Tenderness Extremities: Yes: WNL Edema: No Labs: CBC, BMP 04/06/19 06:20 04/06/19 06:20 INR, PTT INR 1.68 (0.83-1.09) H 04/03/19 05:10 Problem List - Problems (1) Cholecystitis Code(s): K81.9 - CHOLECYSTITIS, UNSPECIFIED (2) CVA (cerebral vascular accident) Code(s): I63.9 - CEREBRAL INFARCTION, UNSPECIFIED Qualifiers: CVA mechanism: unspecified Qualified Code(s): I63.9 - Cerebral infarction, unspecified (3) Hypertension Code(s): I10 - ESSENTIAL (PRIMARY) HYPERTENSION Qualifiers: Hypertension type: unspecified Qualified Code(s): I10 - Essential (primary ) hypertension (4) Type 2 diabetes mellitus Code(s): E11.9 - TYPE 2 DIABETES MELLITUS WITHOUT COMPLICATIONS Qualifiers: Diabetes mellitus half-way insulin use: unspecified half-way insulin use status Diabetes mellitus complication status: with unspecified complications Assessment/Plan (1) Cholecystitis Assessment/Plan: -case d/w Dr Ferreira -plan for surgery tomorrow -appreciate cardiology evaluation -appreciate ID assistance -now on zosyn and flagyl Code(s): K81.9 - CHOLECYSTITIS, UNSPECIFIED (2) CVA (cerebral vascular accident) Assessment/Plan: -on aspirin and eliquis -holding eliquis in anticipation of surgery Code(s): I63.9 - CEREBRAL INFARCTION, UNSPECIFIED Qualifiers: CVA mechanism: unspecified Qualified Code(s): I63.9 - Cerebral infarction, unspecified (3) Hypertension Assessment/Plan: -controlled -continue toprol xl Code(s): I10 - ESSENTIAL (PRIMARY) HYPERTENSION Qualifiers: Hypertension type: unspecified Qualified Code(s): I10 - Essential (primary ) hypertension (4) Type 2 diabetes mellitus Assessment/Plan: -continue SSI Code(s): E11.9 - TYPE 2 DIABETES MELLITUS WITHOUT COMPLICATIONS Qualifiers: Diabetes mellitus long term care phlebotomist insulin use: unspecified long term care phlebotomist insulin use status Diabetes mellitus complication status: with unspecified complications
[2019-04-06] MEDS: MINERAL OIL/PET HY-PHL TOPICAL OINTMENT 454 GM JAR TP SCH ×2 (14:45→22:40)
[2019-04-06] MEDS: ATORVASTATIN CA 80 MG TABLET (FP) PO SCH (22:34)
[2019-04-07] MEDS: PIPERACILLIN/TAZOB 3.375 GM 3.375 GM in DEXTROSE 5%-WATER - 50 ML IVPB SCH ×3 (02:32→17:37)
[2019-04-07] MEDS: MINERAL OIL/PET HY-PHL TOPICAL OINTMENT 454 GM JAR TP SCH ×4 (06:28→22:40)
[2019-04-07] MEDS ORDERED: PIPERACILLIN/TAZOBACTAM 3.375 GM VIAL IVPB ONE ×2 (08:17→16:12)
[2019-04-07] MEDS ORDERED: DEXTROSE 5%-WATER - 50 ML IVPB ONE ×2 (08:17→16:12)
[2019-04-07 08:31] LABS: BASO % 0.6 % (0-2.0); EOS % 0.8 % (0-4.5); HEMATOCRIT 32.5 % (35.4-49); HEMOGLOBIN 11.2 GM/dL (11.7-16.9); LYMPH % 10.3 % (8-40); MCH 29.4 pg (25.7-33.7); MCHC 34.4 g/dl (32.0-35.9); MEAN CELL VOLUME 85.5 fl (80-96); NEUT % 82.3 % (42.8-82.8); PLATELET COUNT 221 K/MM3 (134-434); WHITE BLOOD COUNT 11.2 K/mm3 (4.0-10.0)
[2019-04-07 09:00] LABS: INR 1.36 (0.83-1.09); PROTHROMBIN TIME (PATIENT) 16.1 SEC (9.7-13.0)
--- NOTE | 2019-04-07 09:02 | PN ---
Progress Note, Physician History of Present Illness: stable for surgery today - Current Medication List Current Medications: Active Medications Atorvastatin Calcium (Lipitor -) 80 mg PO HS [facility] Last Admin: 04/06/19 22:34 Dose: 80 mg Emollient Ointment (Aquaphor -) 1 applic TP TID [facility] Last Admin: 04/07/19 06:28 Dose: 1 applic Fluoxetine HCl (Prozac -) 40 mg PO DAILY [facility] Last Admin: 04/06/19 08:59 Dose: 40 mg Lactated Ringer's (Lactated Ringers Solution) 1,000 mls @ 75 mls/hr IV ASDIR [facility] Last Admin: 04/06/19 17:03 Dose: 75 mls/hr Metronidazole (Flagyl 500mg Premixed Ivpb -) 500 mg in 100 mls @ 100 mls/hr IVPB Q8H-IV [facility] Last Admin: 04/07/19 01:40 Dose: 100 mls/hr Piperacillin Sod/Tazobactam (Sod 3.375 gm/ Dextrose) 50 mls @ 100 mls/hr IVPB Q8H-IV [facility]; Protocol Last Admin: 04/07/19 02:32 Dose: 100 mls/hr Insulin Aspart (Novolog Vial Sliding Scale -) 0 vial SQ ACHS [facility]; Protocol Last Admin: 04/06/19 22:34 Dose: 4 units Metoprolol Succinate (Toprol Xl -) 50 mg PO DAILY [facility] Last Admin: 04/06/19 08:59 Dose: 50 mg - Objective Vital Signs: Vital Signs Temperature 97.2 F L 04/07/19 06:22 Pulse Rate 66 04/07/19 06:22 Respiratory Rate 20 04/07/19 06:22 Blood Pressure 136/93 04/07/19 06:22 O2 Sat by Pulse Oximetry (%) 100 04/06/19 21:00 Constitutional: Yes: No Distress, Calm Cardiovascular: Yes: S1, S2 Respiratory: Yes: Regular, CTA Bilaterally Gastrointestinal: Yes: Normal Bowel Sounds, Soft Musculoskeletal: Yes: WNL Extremities: Yes: WNL Neurological: Yes: Alert, Oriented Psychiatric: Yes: Alert, Oriented Labs: CBC, BMP 04/07/19 07:23 INR, PTT INR 1.36 (0.83-1.09) H 04/07/19 07:23 Assessment/Plan Problem List - Problems (1) Cholecystitis Code(s): K81.9 - CHOLECYSTITIS, UNSPECIFIED (2) CVA (cerebral vascular accident) Code(s): I63.9 - CEREBRAL INFARCTION, UNSPECIFIED Qualifiers: CVA mechanism: unspecified Qualified Code(s): I63.9 - Cerebral infarction, unspecified (3) Hypertension Code(s): I10 - ESSENTIAL (PRIMARY) HYPERTENSION Qualifiers: Hypertension type: unspecified Qualified Code(s): I10 - Essential (primary ) hypertension (4) Type 2 diabetes mellitus Code(s): E11.9 - TYPE 2 DIABETES MELLITUS WITHOUT COMPLICATIONS Qualifiers: Diabetes mellitus intermediate project manager insulin use: unspecified nursing home insulin use status Diabetes mellitus complication status: with unspecified complications plan continue current mgmt abx for surgery rest as per the team
[2019-04-07 09:03] LABS: ACTIVATED PTT 34.6 SECONDS (25.2-36.5)
[2019-04-07 09:06] LABS: BLOOD UREA NITROGEN 4.2 mg/dL (7-18); CALCIUM 8.5 mg/dL (8.5-10.1); CREATININE 0.7 mg/dL (0.55-1.3); MAGNESIUM 1.8 mg/dL (1.8-2.4); PHOSPHOROUS 3.3 mg/dL (2.5-4.9); POTASSIUM 3.4 mmol/L (3.5-5.1)
[2019-04-07] MEDS ORDERED: BUPIVACAINE HCL/PF 0.5% (5MG/ML) 10 ML VIAL ONE (09:39)
--- NOTE | 2019-04-07 10:10 | PN ---
Progress Note, Physician Chief Complaint: preop History of Present Illness: denies cp, sob, palp, syncope - Current Medication List Current Medications: Active Medications Atorvastatin Calcium (Lipitor -) 80 mg PO HS [facility] Last Admin: 04/06/19 22:34 Dose: 80 mg Emollient Ointment (Aquaphor -) 1 applic TP TID [facility] Last Admin: 04/07/19 06:28 Dose: 1 applic Fluoxetine HCl (Prozac -) 40 mg PO DAILY [facility] Last Admin: 04/06/19 08:59 Dose: 40 mg Lactated Ringer's (Lactated Ringers Solution) 1,000 mls @ 75 mls/hr IV ASDIR [facility] Last Admin: 04/06/19 17:03 Dose: 75 mls/hr Metronidazole (Flagyl 500mg Premixed Ivpb -) 500 mg in 100 mls @ 100 mls/hr IVPB Q8H-IV [facility] Last Admin: 04/07/19 01:40 Dose: 100 mls/hr Piperacillin Sod/Tazobactam (Sod 3.375 gm/ Dextrose) 50 mls @ 100 mls/hr IVPB Q8H-IV [facility]; Protocol Last Admin: 04/07/19 02:32 Dose: 100 mls/hr Insulin Aspart (Novolog Vial Sliding Scale -) 0 vial SQ ACHS [facility]; Protocol Last Admin: 04/06/19 22:34 Dose: 4 units Metoprolol Succinate (Toprol Xl -) 50 mg PO DAILY [facility] Last Admin: 04/06/19 08:59 Dose: 50 mg - Objective Vital Signs: Vital Signs Temperature 97.2 F L 04/07/19 06:22 Pulse Rate 66 04/07/19 06:22 Respiratory Rate 20 04/07/19 06:22 Blood Pressure 136/93 04/07/19 06:22 O2 Sat by Pulse Oximetry (%) 100 04/06/19 21:00 Constitutional: Yes: Well Nourished, No Distress, Calm Cardiovascular: Yes: Regular Rate and Rhythm, S1, S2. No: Gallop, Murmur Respiratory: Yes: Regular, CTA Bilaterally. No: Accessory Muscle Use Extremities: No: Cold Edema: No Neurological: Yes: Alert. No: Seizure Psychiatric: No: Agitated Labs: CBC, BMP 04/07/19 07:23 04/07/19 07:23 INR, PTT INR 1.36 (0.83-1.09) H 04/07/19 07:23 Assessment/Plan ecg: sr nl intervals no ischemic changes cxr: clear lungs echo 01/2019: nl lv/rv, no sig valve path a/p: 64 m hx afib, htn, hld, cva, dm, sent from [place] after accidentally removing his GB tube. afib: -in sinus here, cont bb -holding eliquis preop--resume post op when bleeding risk is ok, per surgey rec.s htn: -bp controlled -cont bb hld: -cont statin h/o CVA: -cont prior sec prevention regimen (statin, bp control, AC (after surgery completed)) cholecystitis for cholecystectomy, preop eval: -Revised CV Risk Index = 1, unknown functional status (suspect poor). -no signs/sx's of active CAD, CHF -at acceptable CV risk for planned surgery
[2019-04-07] MEDS: FLUoxetine HCL 20 MG CAPSULE (FP) PO SCH (10:21)
[2019-04-07] MEDS ORDERED: BENZOIN TINCTURE SWABSTICK TP ONE (10:26)
[2019-04-07] MEDS: LACTATED RINGERS SOLUTION 1,000 ML IV SCH ×2 (10:35→17:33)
[2019-04-07] MEDS: INSULIN SLIDING SCALE (NOVOLOG) 1 VIAL SQ SCH ×4 (10:36→22:20)
[2019-04-07] MEDS ORDERED: fentaNYL CITRATE 250 MCG/5 ML VIAL ONE (11:19)
[2019-04-07] MEDS ORDERED: PROPOFOL 20 ML ONE (11:19)
[2019-04-07] MEDS ORDERED: MIDAZOLAM HCL 2 MG/2 ML SINGLE DOSE VIAL ONE (11:19)
[2019-04-07] MEDS ORDERED: ROCURONIUM BROMIDE 50 MG/5 ML SYRINGE ONE (11:21)
[2019-04-07] MEDS ORDERED: BUPIVACAINE HCL/PF 0.5% (5MG/ML) 10 ML VIAL IJ ONE (13:10)
[2019-04-07] MEDS ORDERED: ONDANSETRON 4 MG/2 ML VIAL IVPUSH PRN (13:52)
[2019-04-07] MEDS ORDERED: LACTATED RINGERS SOLUTION 1,000 ML IV SCH (14:00)
[2019-04-07] MEDS ORDERED: ONDANSETRON 4 MG/2 ML VIAL ONE (14:10)
--- NOTE | 2019-04-07 15:27 | PN ---
Progress Note, Physician Chief Complaint: Mr Casper is without complaint. No cp, sob, n/v. - Current Medication List Current Medications: Active Medications Atorvastatin Calcium (Lipitor -) 80 mg PO HS [facility] Emollient Ointment (Aquaphor -) 1 applic TP TID [facility] Fentanyl (Sublimaze Injection -) 25 mcg IVPUSH [id number] PRN PRN Reason: PAIN-PACU ORDER X 4 DOSES ONLY Stop: 04/08/19 13:51 Last Admin: 04/07/19 14:10 Dose: 50 mcg Fluoxetine HCl (Prozac -) 40 mg PO DAILY [facility] Metronidazole (Flagyl 500mg Premixed Ivpb -) 500 mg in 100 mls @ 100 mls/hr IVPB Q8H-IV [facility] Lactated Ringer's (Lactated Ringers Solution) 1,000 mls @ 75 mls/hr IV ASDIR [facility] Piperacillin Sod/Tazobactam (Sod 3.375 gm/ Dextrose) 50 mls @ 100 mls/hr IVPB Q8H-IV [facility]; Protocol Insulin Aspart (Novolog Vial Sliding Scale -) 1 vial SQ ACHS [facility]; Protocol Metoprolol Succinate (Toprol Xl -) 50 mg PO DAILY [facility] Ondansetron HCl (Zofran Injection) 4 mg IVPUSH Q6H PRN PRN Reason: NAUSEA AND/OR VOMITING Last Admin: 04/07/19 14:25 Dose: 4 mg - Objective Vital Signs: Vital Signs Temperature 36.4 C L 04/07/19 13:36 Pulse Rate 64 04/07/19 14:40 Respiratory Rate 16 04/07/19 14:40 Blood Pressure 119/74 04/07/19 14:40 O2 Sat by Pulse Oximetry (%) 100 04/07/19 14:40 Constitutional: Yes: Well Nourished, No Distress, Calm Cardiovascular: Yes: Regular Rate and Rhythm. No: Gallop, Murmur, Rub Respiratory: Yes: Regular, CTA Bilaterally. No: Rales, Rhonchi, Wheezes Gastrointestinal: Yes: Normal Bowel Sounds, Soft. No: Distention, Tenderness Extremities: Yes: WNL Edema: No Labs: CBC, BMP 04/07/19 07:23 04/07/19 07:23 INR, PTT INR 1.36 (0.83-1.09) H 07/29/19 07:23 Problem List - Problems (1) Cholecystitis Code(s): K81.9 - CHOLECYSTITIS, UNSPECIFIED (2) CVA (cerebral vascular accident) Code(s): I63.9 - CEREBRAL INFARCTION, UNSPECIFIED Qualifiers: CVA mechanism: unspecified Qualified Code(s): I63.9 - Cerebral infarction, unspecified (3) Hypertension Code(s): I10 - ESSENTIAL (PRIMARY) HYPERTENSION Qualifiers: Hypertension type: unspecified Qualified Code(s): I10 - Essential (primary ) hypertension (4) Type 2 diabetes mellitus Code(s): E11.9 - TYPE 2 DIABETES MELLITUS WITHOUT COMPLICATIONS Qualifiers: Diabetes mellitus terminal press operator insulin use: unspecified nursing home insulin use status Diabetes mellitus complication status: with unspecified complications Assessment/Plan (1) Cholecystitis Assessment/Plan: -seen prior to surgery, patient medically stable for surgery -case d/w Dr Ferreira after surgery, removed as much as possible with drain placed -continue zosyn and flagyl -monitor Code(s): K81.9 - CHOLECYSTITIS, UNSPECIFIED (2) CVA (cerebral vascular accident) Assessment/Plan: -on aspirin and eliquis -holding eliquis in anticipation of surgery -restart eliquis when cleared by surgery Code(s): I63.9 - CEREBRAL INFARCTION, UNSPECIFIED Qualifiers: CVA mechanism: unspecified Qualified Code(s): I63.9 - Cerebral infarction, unspecified (3) Hypertension Assessment/Plan: -controlled -continue toprol xl Code(s): I10 - ESSENTIAL (PRIMARY) HYPERTENSION Qualifiers: Hypertension type: unspecified Qualified Code(s): I10 - Essential (primary ) hypertension (4) Type 2 diabetes mellitus Assessment/Plan: -continue SSI Code(s): E11.9 - TYPE 2 DIABETES MELLITUS WITHOUT COMPLICATIONS Qualifiers: Diabetes mellitus terminal press operator insulin use: unspecified terminal press operator insulin use status Diabetes mellitus complication status: with unspecified complications
--- NOTE | 2019-04-07 15:53 | OP ---
Operative Note - Note: Operative Date: 04/07/19 Pre-Operative Diagnosis: cholecystitis and cholecystostomy tube displacement Operation: laproscopic subtotal cholecystectomy Post-Operative Diagnosis: Same as Pre-op Surgeon: Pilo Ferreira Branch Lending Officer: Elia Dunlap Anesthesiologist/SOCIOCULTURAL ANTHROPOLOGY PROFESSOR: Lisandra Dutta MD Anesthesia: General Estimated Blood Loss (mls): 100 Operative Report Dictated: Yes
--- NOTE | 2019-04-07 15:54 | SURG ---
Surgery Sponge Clipper Note Sponge Clipper: Elia Dunlap PA-C Date of Service: 04/07/19 Diagnosis: cholecystitis and cholecystectomy removal Procedure: Laproscopic subtotal cholecystectomy I was present for the entirety of the operative procedure. For further detail, please refer to operative report. Visit type - Case Type Case Type: ED Admission - Emergency Emergency Visit: Yes ED Registration Date: 04/02/19 Care time: The patient presented to the Emergency Department on the above date and was hospitalized for further evaluation of their emergent condition. - New patient This patient is new to me today: Yes Date on this admission: 04/07/19 - Critical Care Critical Care patient: No
[2019-04-07] MEDS ORDERED: PT OWN MED DRAWER 7, Y5N ONE (20:42)
[2019-04-07] MEDS: ATORVASTATIN CA 80 MG TABLET (FP) PO SCH (22:21)
[2019-04-08] MEDS ORDERED: DEXTROSE 5%-WATER - 100 ML IVPB ONE (01:22)
[2019-04-08] MEDS ORDERED: PIPERACILLIN/TAZOBACTAM 3.375 GM VIAL IVPB ONE ×3 (01:22→17:16)
[2019-04-08] MEDS: PIPERACILLIN/TAZOB 3.375 GM 3.375 GM in DEXTROSE 5%-WATER - 50 ML IVPB SCH ×3 (01:40→17:29)
[2019-04-08] MEDS: MINERAL OIL/PET HY-PHL TOPICAL OINTMENT 454 GM JAR TP SCH ×5 (02:09→21:57)
[2019-04-08] MEDS: LACTATED RINGERS SOLUTION 1,000 ML IV SCH ×2 (05:39→17:28)
[2019-04-08] MEDS: INSULIN SLIDING SCALE (NOVOLOG) 1 VIAL SQ SCH ×4 (06:05→21:54)
[2019-04-08 07:51] LABS: BASO % 0.3 % (0-2.0); HEMATOCRIT 29.4 % (35.4-49); HEMOGLOBIN 10.2 GM/dL (11.7-16.9); LYMPH % 7.6 % (8-40); MCHC 34.8 g/dl (32.0-35.9); MEAN CELL VOLUME 86.1 fl (80-96); MEAN PLT VOLUME 9.1 fl (7.5-11.1); MONO % 5.1 % (3.8-10.2); PLATELET COUNT 217 K/MM3 (134-434); RBC 3.41 M/mm3 (4.00-5.60); RDW 14.9 % (11.9-15.9); WHITE BLOOD COUNT 14.9 K/mm3 (4.0-10.0)
--- NOTE | 2019-04-08 08:16 | SPA.POSTOP ---
- POST-OP NOTE POD #1 s/p Laproscopic subtotal cholecystectomy No acute events since surgical procedure per RN notes. Patient resting comfortably. Pain management via prn meds. Denies n/v/f/c, CP or SOB. Last Vital Signs Temp Pulse Resp BP Pulse Ox 98 F 63 20 129/73 96 04/08/19 06:00 04/08/19 06:00 04/08/19 06:00 04/08/19 06:00 04/07/19 21:00 24 Hour Output 04/07/19 04/07/19 04/08/19 18:12 23:00 07:53 JUSTICE 60 80 30 General: No acute distress. Abd: Soft. All surgical ports c/d/i. JUSTICE serosang LE: Soft, non-tender bilat. SCD's bilat. Problem List - Problems (1) Cholecystitis Assessment/Plan: POD #1 s/p laproscopic subtotal cholecystectomy Begin diabetic diet Incentive spirometer Monitor & record JUSTICE output q shift (possible removal in AM) DVT PPX Resume ASA & Eliquis Will follow until JUSTICE removed Cont medical management Code(s): K81.9 - CHOLECYSTITIS, UNSPECIFIED (2) Cholecystostomy tube dysfunction Code(s): T85.518A - BREAKDOWN (MECHANICAL) OF GI PROSTH DEV/GRFT, INIT Qualifiers: Encounter type: initial encounter Qualified Code(s): T85.518A - Breakdown ( mechanical) of other gastrointestinal prosthetic devices, implants and grafts, initial encounter (3) Benign prostatic hyperplasia Code(s): N40.0 - BENIGN PROSTATIC HYPERPLASIA WITHOUT LOWER URINRY TRACT SYMP (4) CVA (cerebral vascular accident) Code(s): I63.9 - CEREBRAL INFARCTION, UNSPECIFIED Qualifiers: CVA mechanism: unspecified Qualified Code(s): I63.9 - Cerebral infarction, unspecified (5) Hypertension Code(s): I10 - ESSENTIAL (PRIMARY) HYPERTENSION Qualifiers: Hypertension type: unspecified Qualified Code(s): I10 - Essential (primary ) hypertension (6) Type 2 diabetes mellitus Code(s): E11.9 - TYPE 2 DIABETES MELLITUS WITHOUT COMPLICATIONS Qualifiers: Diabetes mellitus continuous 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
[2019-04-08 08:28] LABS: BLOOD UREA NITROGEN 8.8 mg/dL (7-18); CALCIUM 7.8 mg/dL (8.5-10.1); MAGNESIUM 1.6 mg/dL (1.8-2.4); POTASSIUM 3.5 mmol/L (3.5-5.1)
[2019-04-08] MEDS ORDERED: DEXTROSE 5%-WATER - 50 ML IVPB ONE ×2 (10:22→17:16)
[2019-04-08] MEDS ORDERED: PT OWN MED DRAWER 7, Y5N ONE (10:22)
[2019-04-08] MEDS: FLUoxetine HCL 20 MG CAPSULE (FP) PO SCH (10:35)
--- NOTE | 2019-04-08 10:53 | PN ---
Progress Note, Physician History of Present Illness: stable post op rina drain in place confused - Current Medication List Current Medications: Active Medications Atorvastatin Calcium (Lipitor -) 80 mg PO HS [facility] Last Admin: 04/07/19 22:21 Dose: 80 mg Emollient Ointment (Aquaphor -) 1 applic TP TID [facility] Last Admin: 04/08/19 06:03 Dose: 1 applic Fluoxetine HCl (Prozac -) 40 mg PO DAILY [facility] Last Admin: 04/08/19 10:35 Dose: 40 mg Metronidazole (Flagyl 500mg Premixed Ivpb -) 500 mg in 100 mls @ 100 mls/hr IVPB Q8H-IV [facility] Last Admin: 04/08/19 01:40 Dose: 100 mls/hr Lactated Ringer's (Lactated Ringers Solution) 1,000 mls @ 75 mls/hr IV ASDIR [facility] Last Admin: 04/08/19 05:39 Dose: 75 mls/hr Piperacillin Sod/Tazobactam (Sod 3.375 gm/ Dextrose) 50 mls @ 100 mls/hr IVPB Q8H-IV [facility]; Protocol Last Admin: 04/08/19 10:35 Dose: 100 mls/hr Insulin Aspart (Novolog Vial Sliding Scale -) 1 vial SQ ACHS [facility]; Protocol Last Admin: 04/08/19 06:05 Dose: 2 units Metoprolol Succinate (Toprol Xl -) 50 mg PO DAILY [facility] Last Admin: 04/08/19 10:35 Dose: 50 mg - Objective Vital Signs: Vital Signs Temperature 98 F 04/08/19 06:00 Pulse Rate 63 04/08/19 06:00 Respiratory Rate 20 04/08/19 06:00 Blood Pressure 129/73 04/08/19 06:00 O2 Sat by Pulse Oximetry (%) 96 04/07/19 21:00 Constitutional: Yes: No Distress, Calm Cardiovascular: Yes: S1, S2 Respiratory: Yes: Regular, CTA Bilaterally Gastrointestinal: Yes: Soft, Other (rina in place) Musculoskeletal: Yes: WNL Extremities: Yes: WNL Neurological: Yes: Alert, Oriented Psychiatric: Yes: Alert, Oriented Labs: CBC, BMP 04/08/19 06:27 04/08/19 06:27 INR, PTT INR 1.36 (0.83-1.09) H 04/07/19 07:23 Assessment/Plan Problem List - Problems (1) Cholecystitis Code(s): K81.9 - CHOLECYSTITIS, UNSPECIFIED (2) CVA (cerebral vascular accident) Code(s): I63.9 - CEREBRAL INFARCTION, UNSPECIFIED Qualifiers: CVA mechanism: unspecified Qualified Code(s): I63.9 - Cerebral infarction, unspecified (3) Hypertension Code(s): I10 - ESSENTIAL (PRIMARY) HYPERTENSION Qualifiers: Hypertension type: unspecified Qualified Code(s): I10 - Essential (primary ) hypertension (4) Type 2 diabetes mellitus Code(s): E11.9 - TYPE 2 DIABETES MELLITUS WITHOUT COMPLICATIONS Qualifiers: Diabetes mellitus predatory animal exterminator insulin use: unspecified predatory animal exterminator insulin use status Diabetes mellitus complication status: with unspecified complications plan continue current mgmt abx nutrition rest as per the team
--- NOTE | 2019-04-08 10:54 | PN ---
Progress Note, Physician Chief Complaint: s/p lap cholecystectomy under general anesthesia History of Present Illness: post op day one - Current Medication List Current Medications: Active Medications Atorvastatin Calcium (Lipitor -) 80 mg PO HS [facility] Last Admin: 04/07/19 22:21 Dose: 80 mg Emollient Ointment (Aquaphor -) 1 applic TP TID [facility] Last Admin: 04/08/19 06:03 Dose: 1 applic Fluoxetine HCl (Prozac -) 40 mg PO DAILY [facility] Last Admin: 04/08/19 10:35 Dose: 40 mg Lactated Ringer's (Lactated Ringers Solution) 1,000 mls @ 75 mls/hr IV ASDIR [facility] Last Admin: 04/08/19 05:39 Dose: 75 mls/hr Piperacillin Sod/Tazobactam (Sod 3.375 gm/ Dextrose) 50 mls @ 100 mls/hr IVPB Q8H-IV [facility]; Protocol Last Admin: 04/08/19 10:35 Dose: 100 mls/hr Insulin Aspart (Novolog Vial Sliding Scale -) 1 vial SQ ACHS [facility]; Protocol Last Admin: 04/08/19 06:05 Dose: 2 units Metoprolol Succinate (Toprol Xl -) 50 mg PO DAILY [facility] Last Admin: 04/08/19 10:35 Dose: 50 mg - Objective Vital Signs: Vital Signs Temperature 98 F 04/08/19 06:00 Pulse Rate 63 04/08/19 06:00 Respiratory Rate 20 04/08/19 06:00 Blood Pressure 129/73 04/08/19 06:00 O2 Sat by Pulse Oximetry (%) 96 04/07/19 21:00 Constitutional: Yes: Well Nourished Cardiovascular: Yes: WNL Respiratory: Yes: WNL Gastrointestinal: Yes: WNL Labs: CBC, BMP 04/08/19 06:27 04/08/19 06:27 INR, PTT INR 1.36 (0.83-1.09) H 04/07/19 07:23 Assessment/Plan No adverse anesthetic complications, dept of anesthesia will sign off care at this time
[2019-04-08] MEDS ORDERED: INSULIN (NOVOLOG) ASPART 100 UNITS/ML 10ML VIAL ONE (11:31)
[2019-04-08] MEDS: oxyCODONE HCL 5 MG TABLET PO PRN (11:34)
--- NOTE | 2019-04-08 12:45 | PN ---
Progress Note, Physician Chief Complaint: Mr Casper denies cp, sob, n/v. Says he needs to have a bowel movement. - Current Medication List Current Medications: Active Medications Atorvastatin Calcium (Lipitor -) 80 mg PO HS [facility] Last Admin: 04/07/19 22:21 Dose: 80 mg Emollient Ointment (Aquaphor -) 1 applic TP TID [facility] Last Admin: 04/08/19 06:03 Dose: 1 applic Fluoxetine HCl (Prozac -) 40 mg PO DAILY [facility] Last Admin: 04/08/19 10:35 Dose: 40 mg Lactated Ringer's (Lactated Ringers Solution) 1,000 mls @ 75 mls/hr IV ASDIR [facility] Last Admin: 04/08/19 05:39 Dose: 75 mls/hr Piperacillin Sod/Tazobactam (Sod 3.375 gm/ Dextrose) 50 mls @ 100 mls/hr IVPB Q8H-IV [facility]; Protocol Last Admin: 04/08/19 10:35 Dose: 100 mls/hr Insulin Aspart (Novolog Vial Sliding Scale -) 1 vial SQ ACHS [facility]; Protocol Last Admin: 04/08/19 11:34 Dose: 2 units Metoprolol Succinate (Toprol Xl -) 50 mg PO DAILY [facility] Last Admin: 04/08/19 10:35 Dose: 50 mg Oxycodone HCl (Roxicodone -) 5 mg PO Q4H PRN PRN Reason: PAIN LEVEL 1-5 Last Admin: 04/08/19 11:34 Dose: 5 mg - Objective Vital Signs: Vital Signs Temperature 36.6 C 04/08/19 06:00 Pulse Rate 63 04/08/19 06:00 Respiratory Rate 20 04/08/19 06:00 Blood Pressure 129/73 04/08/19 06:00 O2 Sat by Pulse Oximetry (%) 96 04/07/19 21:00 Constitutional: Yes: Well Nourished, No Distress, Calm Cardiovascular: Yes: Regular Rate and Rhythm. No: Gallop, Murmur, Rub Respiratory: Yes: Regular, CTA Bilaterally. No: Rales, Rhonchi, Wheezes Gastrointestinal: Yes: Normal Bowel Sounds, Soft, Other (drain in place). No: Distention, Tenderness Extremities: Yes: WNL Edema: No Labs: CBC, BMP 04/08/19 06:27 04/08/19 06:27 INR, PTT INR 1.36 (0.83-1.09) H 04/07/19 07:23 Problem List - Problems (1) Cholecystitis Code(s): K81.9 - CHOLECYSTITIS, UNSPECIFIED (2) CVA (cerebral vascular accident) Code(s): I63.9 - CEREBRAL INFARCTION, UNSPECIFIED Qualifiers: CVA mechanism: unspecified Qualified Code(s): I63.9 - Cerebral infarction, unspecified (3) Hypertension Code(s): I10 - ESSENTIAL (PRIMARY) HYPERTENSION Qualifiers: Hypertension type: unspecified Qualified Code(s): I10 - Essential (primary ) hypertension (4) Type 2 diabetes mellitus Code(s): E11.9 - TYPE 2 DIABETES MELLITUS WITHOUT COMPLICATIONS Qualifiers: Diabetes mellitus fci insulin use: unspecified fci insulin use status Diabetes mellitus complication status: with unspecified complications Assessment/Plan (1) Cholecystitis Assessment/Plan: -Dr Ferreira following -continue zosyn per ID -drain in place Code(s): K81.9 - CHOLECYSTITIS, UNSPECIFIED (2) CVA (cerebral vascular accident) Assessment/Plan: -on aspirin and eliquis -restart eliquis when cleared by surgery Code(s): I63.9 - CEREBRAL INFARCTION, UNSPECIFIED Qualifiers: CVA mechanism: unspecified Qualified Code(s): I63.9 - Cerebral infarction, unspecified (3) Hypertension Assessment/Plan: -controlled -continue toprol xl Code(s): I10 - ESSENTIAL (PRIMARY) HYPERTENSION Qualifiers: Hypertension type: unspecified Qualified Code(s): I10 - Essential (primary ) hypertension (4) Type 2 diabetes mellitus Assessment/Plan: -continue SSI Code(s): E11.9 - TYPE 2 DIABETES MELLITUS WITHOUT COMPLICATIONS Qualifiers: Diabetes mellitus fci insulin use: unspecified fci insulin use status Diabetes mellitus complication status: with unspecified complications
--- NOTE | 2019-04-08 13:59 | PN ---
Progress Note, Physician Chief Complaint: no cp or sob Having diarrhea - Current Medication List Current Medications: Active Medications Atorvastatin Calcium (Lipitor -) 80 mg PO HS [facility] Last Admin: 04/07/19 22:21 Dose: 80 mg Emollient Ointment (Aquaphor -) 1 applic TP TID [facility] Last Admin: 04/08/19 13:41 Dose: 1 applic Fluoxetine HCl (Prozac -) 40 mg PO DAILY [facility] Last Admin: 04/08/19 10:35 Dose: 40 mg Lactated Ringer's (Lactated Ringers Solution) 1,000 mls @ 75 mls/hr IV ASDIR [facility] Last Admin: 04/08/19 05:39 Dose: 75 mls/hr Piperacillin Sod/Tazobactam (Sod 3.375 gm/ Dextrose) 50 mls @ 100 mls/hr IVPB Q8H-IV [facility]; Protocol Last Admin: 04/08/19 10:35 Dose: 100 mls/hr Insulin Aspart (Novolog Vial Sliding Scale -) 1 vial SQ ACHS [facility]; Protocol Last Admin: 04/08/19 11:34 Dose: 2 units Metoprolol Succinate (Toprol Xl -) 50 mg PO DAILY [facility] Last Admin: 04/08/19 10:35 Dose: 50 mg Oxycodone HCl (Roxicodone -) 5 mg PO Q4H PRN PRN Reason: PAIN LEVEL 1-5 Last Admin: 04/08/19 11:34 Dose: 5 mg - Objective Vital Signs: Vital Signs Temperature 98 F 04/08/19 06:00 Pulse Rate 63 04/08/19 06:00 Respiratory Rate 20 04/08/19 06:00 Blood Pressure 129/73 04/08/19 06:00 O2 Sat by Pulse Oximetry (%) 96 04/07/19 21:00 Constitutional: Yes: No Distress Cardiovascular: Yes: Regular Rate and Rhythm Respiratory: Yes: CTA Bilaterally Gastrointestinal: Yes: Soft, Other (abdominal drain in place) Edema: No Neurological: Yes: Alert, Oriented ...Motor Strength: WNL Labs: CBC, BMP 04/08/19 06:27 04/08/19 06:27 INR, PTT INR 1.36 (0.83-1.09) H 04/07/19 07:23 Assessment/Plan Assessment/Plan ecg: sr nl intervals no ischemic changes cxr: clear lungs echo 01/2019: nl lv/rv, no sig valve path a/p: 64 m hx afib, htn, hld, cva, dm, sent from [place] after accidentally removing his GB tube. afib: -in sinus here, cont bb -holding eliquis preop--resume as per Surgery htn: -bp controlled -cont bb hld: -cont statin h/o CVA: -cont prior sec prevention regimen (statin, bp control, AC (after surgery completed)) cholecystitis s/p lap angelia: -no signs/sx's of active CAD, CHF, tolerated surgery well
[2019-04-08] MEDS: ACETAMINOPHEN 1000 MG/100 ML VIAL (NON FORMULARY) IVPB PRN (17:02)
[2019-04-08] MEDS: APIXABAN 5 MG TABLET PO SCH (21:53)
[2019-04-08] MEDS: ATORVASTATIN CA 80 MG TABLET (FP) PO SCH (21:53)
[2019-04-09] MEDS ORDERED: DEXTROSE 5%-WATER - 50 ML IVPB ONE ×3 (02:47→17:26)
[2019-04-09] MEDS ORDERED: PIPERACILLIN/TAZOBACTAM 3.375 GM VIAL IVPB ONE ×3 (02:47→17:26)
[2019-04-09] MEDS: PIPERACILLIN/TAZOB 3.375 GM 3.375 GM in DEXTROSE 5%-WATER - 50 ML IVPB SCH ×3 (02:49→17:36)
[2019-04-09] MEDS: oxyCODONE HCL 5 MG TABLET PO PRN ×2 (02:58→21:52)
[2019-04-09] MEDS: MINERAL OIL/PET HY-PHL TOPICAL OINTMENT 454 GM JAR TP SCH ×3 (06:25→21:43)
[2019-04-09] MEDS: LACTATED RINGERS SOLUTION 1,000 ML IV SCH (06:36)
[2019-04-09] MEDS: INSULIN SLIDING SCALE (NOVOLOG) 1 VIAL SQ SCH ×4 (07:08→21:44)
[2019-04-09 07:49] LABS: BASO % 0.6 % (0-2.0); HEMATOCRIT 29.7 % (35.4-49); HEMOGLOBIN 10.2 GM/dL (11.7-16.9); LYMPH % 4.6 % (8-40); MCH 29.3 pg (25.7-33.7); MCHC 34.3 g/dl (32.0-35.9); MEAN CELL VOLUME 85.5 fl (80-96); MEAN PLT VOLUME 9.2 fl (7.5-11.1); MONO % 3.4 % (3.8-10.2); NEUT % 91.4 % (42.8-82.8); PLATELET COUNT 208 K/MM3 (134-434); RBC 3.47 M/mm3 (4.00-5.60); RDW 15.1 % (11.9-15.9); WHITE BLOOD COUNT 19.9 K/mm3 (4.0-10.0)
--- NOTE | 2019-04-09 07:51 | SPA.POSTOP ---
- POST-OP NOTE POD #2 s/p Laproscopic subtotal cholecystectomy No acute events since surgical procedure per RN notes. Patient resting comfortably. Pain management via prn meds. Tolerating PO diet. Denies n/v/f/c, CP or SOB. Last Vital Signs Temp Pulse Resp BP Pulse Ox 98.8 F 76 20 144/80 100 04/09/19 06:32 04/09/19 06:32 04/09/19 06:32 04/09/19 06:32 04/08/19 21:00 General: No acute distress. Abd: Soft. All surgical ports c/d/i. JUSTICE 25mL/24hrs serous LE: Soft, non-tender bilat. SCD's bilat. Problem List - Problems (1) Cholecystitis Assessment/Plan: POD #2 s/p laproscopic subtotal cholecystectomy Cont DM diet Cont Incentive spirometer JUSTICE dc'd on rounds DVT PPX ASA & Eliquis f/u Repeat CBC and LFTs (ordered) Cont medical management Tight glycemic control On behalf of Dr. Ferreira, thank you for the opportunity to participate in your patient's care Code(s): K81.9 - CHOLECYSTITIS, UNSPECIFIED (2) Cholecystostomy tube dysfunction Code(s): T85.518A - BREAKDOWN (MECHANICAL) OF GI PROSTH DEV/GRFT, INIT Qualifiers: Encounter type: initial encounter Qualified Code(s): T85.518A - Breakdown ( mechanical) of other gastrointestinal prosthetic devices, implants and grafts, initial encounter (3) Benign prostatic hyperplasia Code(s): N40.0 - BENIGN PROSTATIC HYPERPLASIA WITHOUT LOWER URINRY TRACT SYMP (4) CVA (cerebral vascular accident) Code(s): I63.9 - CEREBRAL INFARCTION, UNSPECIFIED Qualifiers: CVA mechanism: unspecified Qualified Code(s): I63.9 - Cerebral infarction, unspecified (5) Hypertension Code(s): I10 - ESSENTIAL (PRIMARY) HYPERTENSION Qualifiers: Hypertension type: unspecified Qualified Code(s): I10 - Essential (primary ) hypertension (6) Type 2 diabetes mellitus Code(s): E11.9 - TYPE 2 DIABETES MELLITUS WITHOUT COMPLICATIONS Qualifiers: Diabetes mellitus chcf insulin use: unspecified chcf insulin use status Diabetes mellitus complication status: with unspecified complications Problem List - Problems (1) Cholecystitis Code(s): K81.9 - CHOLECYSTITIS, UNSPECIFIED (2) Cholecystostomy tube dysfunction Code(s): T85.518A - BREAKDOWN (MECHANICAL) OF GI PROSTH DEV/GRFT, INIT Qualifiers: Encounter type: initial encounter Qualified Code(s): T85.518A - Breakdown ( mechanical) of other gastrointestinal prosthetic devices, implants and grafts, initial encounter (3) Benign prostatic hyperplasia Code(s): N40.0 - BENIGN PROSTATIC HYPERPLASIA WITHOUT LOWER URINRY TRACT SYMP (4) CVA (cerebral vascular accident) Code(s): I63.9 - CEREBRAL INFARCTION, UNSPECIFIED Qualifiers: CVA mechanism: unspecified Qualified Code(s): I63.9 - Cerebral infarction, unspecified (5) Hypertension Code(s): I10 - ESSENTIAL (PRIMARY) HYPERTENSION Qualifiers: Hypertension type: unspecified Qualified Code(s): I10 - Essential (primary ) hypertension (6) Type 2 diabetes mellitus Code(s): E11.9 - TYPE 2 DIABETES MELLITUS WITHOUT COMPLICATIONS Qualifiers: Diabetes mellitus chcf insulin use: unspecified predatory animal exterminator insulin use status Diabetes mellitus complication status: with unspecified complications
[2019-04-09 09:04] LABS: ALBUMIN 2.4 g/dl (3.4-5.0); BILIRUBIN,DIRECT 0.3 mg/dL (0.0-0.2); BILIRUBIN,TOTAL 0.8 mg/dL (0.2-1); BLOOD UREA NITROGEN 9.7 mg/dL (7-18); CALCIUM 8.1 mg/dL (8.5-10.1); CREATININE 0.7 mg/dL (0.55-1.3); MAGNESIUM 1.5 mg/dL (1.8-2.4); PHOSPHOROUS 2.1 mg/dL (2.5-4.9); POTASSIUM 3.3 mmol/L (3.5-5.1); TOT PROT 5.9 g/dl (6.4-8.2)
[2019-04-09] MEDS ORDERED: POTASSIUM CHLORIDE ORAL LIQUID 20 MEQ/15 ML PO ONE (09:45)
[2019-04-09] MEDS ORDERED: MAGNESIUM SULF 50% (8.12 MEQ/2 ML-1 GM VIAL) IVPB ONE (09:57)
--- NOTE | 2019-04-09 10:32 | PN ---
Progress Note, Physician History of Present Illness: stable wbc has increased - Current Medication List Current Medications: Active Medications Acetaminophen (Ofirmev Injection -) 1,000 mg IVPB Q6H PRN PRN Reason: PAIN OR FEVER Last Admin: 04/08/19 17:02 Dose: 1,000 mg Apixaban (Eliquis -) 5 mg PO BID [facility] Last Admin: 04/08/19 21:53 Dose: 5 mg Atorvastatin Calcium (Lipitor -) 80 mg PO HS [facility] Last Admin: 04/08/19 21:53 Dose: 80 mg Emollient Ointment (Aquaphor -) 1 applic TP TID [facility] Last Admin: 04/09/19 06:25 Dose: 1 applic Fluoxetine HCl (Prozac -) 40 mg PO DAILY [facility] Last Admin: 04/08/19 10:35 Dose: 40 mg Piperacillin Sod/Tazobactam (Sod 3.375 gm/ Dextrose) 50 mls @ 100 mls/hr IVPB Q8H-IV [facility]; Protocol Last Admin: 04/09/19 02:49 Dose: 100 mls/hr Potassium Chloride/Sodium Chloride (Ns+20 Meq Kcl -) 20 meq in 1,000 mls @ 75 mls/hr IV ASDIR [facility] Insulin Aspart (Novolog Vial Sliding Scale -) 1 vial SQ ACHS [facility]; Protocol Last Admin: 04/09/19 07:08 Dose: 2 units Metoprolol Succinate (Toprol Xl -) 50 mg PO DAILY [facility] Last Admin: 04/08/19 10:35 Dose: 50 mg Oxycodone HCl (Roxicodone -) 5 mg PO Q4H PRN PRN Reason: PAIN LEVEL 1-5 Last Admin: 04/09/19 02:58 Dose: 5 mg Potassium Phos/Sodium Phos (Phos-Nak Packet -) 2 packet PO BID [facility] Stop: 04/10/19 22:01 - Objective Vital Signs: Vital Signs Temperature 98.8 F 04/09/19 06:32 Pulse Rate 76 04/09/19 06:32 Respiratory Rate 20 04/09/19 06:32 Blood Pressure 144/80 04/09/19 06:32 O2 Sat by Pulse Oximetry (%) 100 04/08/19 21:00 Constitutional: Yes: No Distress, Calm Cardiovascular: Yes: S1, S2 Respiratory: Yes: Regular, CTA Bilaterally Gastrointestinal: Yes: Hypoactive Bowel Sounds Musculoskeletal: Yes: WNL Extremities: Yes: WNL Neurological: Yes: Alert, Other Labs: CBC, BMP 04/09/19 06:43 04/09/19 06:43 INR, PTT INR 1.36 (0.83-1.09) H 04/07/19 07:23 Assessment/Plan Problem List - Problems (1) Cholecystitis Code(s): K81.9 - CHOLECYSTITIS, UNSPECIFIED (2) CVA (cerebral vascular accident) Code(s): I63.9 - CEREBRAL INFARCTION, UNSPECIFIED Qualifiers: CVA mechanism: unspecified Qualified Code(s): I63.9 - Cerebral infarction, unspecified (3) Hypertension Code(s): I10 - ESSENTIAL (PRIMARY) HYPERTENSION Qualifiers: Hypertension type: unspecified Qualified Code(s): I10 - Essential (primary ) hypertension (4) Type 2 diabetes mellitus Code(s): E11.9 - TYPE 2 DIABETES MELLITUS WITHOUT COMPLICATIONS Qualifiers: Diabetes mellitus [facility] insulin use: unspecified 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
[2019-04-09 10:39] LABS: ANISOCYTOSIS 0; MACROCYTOSIS 0; PLATELET ESTIMATE NORMAL
[2019-04-09] MEDS: ACETAMINOPHEN 1000 MG/100 ML VIAL (NON FORMULARY) IVPB PRN ×2 (11:11→17:36)
[2019-04-09] MEDS: APIXABAN 5 MG TABLET PO SCH ×2 (11:12→21:43)
[2019-04-09] MEDS: FLUoxetine HCL 20 MG CAPSULE (FP) PO SCH (11:12)
[2019-04-09] MEDS: NAPH,MB-DB/K PH,MBDB POWDER PACKET PO SCH ×2 (11:13→22:02)
[2019-04-09] MEDS: SODIUM CHLORIDE 0.9%/KCL 20 MEQ/1,000 ML INFUS.BAG IV SCH (11:19)
--- NOTE | 2019-04-09 11:59 | PN ---
Progress Note (short form) - Note Progress Note: s: no chest pain, palps, dyspnea Current Medications Acetaminophen (Ofirmev Injection -) 1,000 mg IVPB Q6H PRN PRN Reason: PAIN OR FEVER Last Admin: 04/09/19 11:11 Dose: 1,000 mg Apixaban (Eliquis -) 5 mg PO BID [facility] Last Admin: 04/09/19 11:12 Dose: 5 mg Atorvastatin Calcium (Lipitor -) 80 mg PO HS [facility] Last Admin: 04/08/19 21:53 Dose: 80 mg Emollient Ointment (Aquaphor -) 1 applic TP TID [facility] Last Admin: 04/09/19 06:25 Dose: 1 applic Fluoxetine HCl (Prozac -) 40 mg PO DAILY [facility] Last Admin: 04/09/19 11:12 Dose: 40 mg Piperacillin Sod/Tazobactam (Sod 3.375 gm/ Dextrose) 50 mls @ 100 mls/hr IVPB Q8H-IV [facility]; Protocol Last Admin: 04/09/19 11:11 Dose: 100 mls/hr Potassium Chloride/Sodium Chloride (Ns+20 Meq Kcl -) 20 meq in 1,000 mls @ 75 mls/hr IV ASDIR [facility] Last Admin: 04/09/19 11:19 Dose: 75 mls/hr Insulin Aspart (Novolog Vial Sliding Scale -) 1 vial SQ ACHS [facility]; Protocol Last Admin: 04/09/19 11:28 Dose: 2 units Metoprolol Succinate (Toprol Xl -) 50 mg PO DAILY [facility] Last Admin: 04/09/19 11:12 Dose: 50 mg Oxycodone HCl (Roxicodone -) 5 mg PO Q4H PRN PRN Reason: PAIN LEVEL 1-5 Last Admin: 04/09/19 02:58 Dose: 5 mg Potassium Phos/Sodium Phos (Phos-Nak Packet -) 2 packet PO BID [facility] Stop: 04/10/19 22:01 Last Admin: 04/09/19 11:13 Dose: 2 packet Vital Signs Period Temp Pulse Resp BP Sys/Meléndez Pulse Ox Last 24 Hr 97.8 F-99.5 F 65-78 18-20 120-153/67-80 100 Constitutional: Yes: No Distress Cardiovascular: Yes: Regular Rate and Rhythm Respiratory: Yes: CTA Bilaterally Gastrointestinal: Yes: Soft, Other (abdominal drain in place) Edema: No Neurological: Yes: Alert, Oriented no jaundice, diaphoresis not agitated Assessment/Plan ecg: sr nl intervals no ischemic changes cxr: clear lungs echo 01/2019: nl lv/rv, no sig valve path a/p: 64 m hx afib, htn, hld, cva, dm, sent from [place] after accidentally removing his GB tube. afib: -in sinus here, cont bb - eliquis resumed htn: -bp controlled -cont bb hld: -cont statin h/o CVA: -cont prior sec prevention regimen (statin, bp control, AC) cholecystitis s/p lap angelia: -no signs/sx's of active CAD, CHF, tolerated surgery well
[2019-04-09 16:37] VITALS: BMI 26.9
--- NOTE | 2019-04-09 18:42 | PN ---
Physical Exam: SUBJECTIVE: Patient seen and examined, reports some abdominal pain, no other concerns. OBJECTIVE: Vital Signs Period Temp Pulse Resp BP Sys/Meléndez Pulse Ox Last 24 Hr 98.0 F-98.8 F 67-76 18-20 125-153/67-80 100 Intake & Output 04/06/19 04/07/19 04/08/19 04/09/19 23:59 23:59 23:59 23:59 Intake Total 3515 2470 1050 1080 Output Total 622 1840 75 5 Balance 2893 916 806 5832 Weight 201 lb 8 oz 198 lb 199 lb 199 lb GENERAL: sitting in bed in no acute distress Chest: CTAB, no rales or wheezing Abdomen:Soft, tenderness around laparoscopic sites, more in RUQ, mildly distended abdomen, no voluntary or involuntary guarding or rigidity, pos bowel sounds Extremities: no edema neuro: expressive aphasia. Laboratory Results - last 24 hr 04/08/19 04/09/19 04/09/19 21:53 06:27 06:43 WBC 19.9 H RBC 3.47 L Hgb 10.2 L Hct 29.7 L MCV 85.5 MCH 29.3 MCHC 34.3 RDW 15.1 Plt Count 208 MPV 9.2 Absolute Neuts (auto) 18.1 H Neutrophils % 91.4 H Neutrophils % (Manual) 97.0 H Band Neutrophils % 0.0 Lymphocytes % 4.6 L D Lymphocytes % (Manual) 3.0 L Monocytes % 3.4 L Monocytes % (Manual) 0 L Eosinophils % 0.0 Eosinophils % (Manual) 0.0 Basophils % 0.6 Basophils % (Manual) 0.0 Myelocytes % (Man) 0 Promyelocytes % (Man) 0 Blast Cells % (Manual) 0 Nucleated RBC % 0 Metamyelocytes 0 Hypochromia 0 Platelet Estimate Normal Polychromasia 0 Poikilocytosis 1+ Anisocytosis 0 Microcytosis 0 Macrocytosis 0 Acanthocytes (Spur) 1+ Sodium Potassium Chloride Carbon Dioxide Anion Gap BUN Creatinine Est GFR (CKD-EPI)AfAm Est GFR (CKD-EPI)NonAf POC Glucometer 158 152 Random Glucose Calcium Phosphorus Magnesium Total Bilirubin Direct Bilirubin AST ALT Alkaline Phosphatase Total Protein Albumin 04/09/19 04/09/19 04/09/19 06:43 11:21 16:54 WBC RBC Hgb Hct MCV MCH MCHC RDW Plt Count MPV Absolute Neuts (auto) Neutrophils % Neutrophils % (Manual) Band Neutrophils % Lymphocytes % Lymphocytes % (Manual) Monocytes % Monocytes % (Manual) Eosinophils % Eosinophils % (Manual) Basophils % Basophils % (Manual) Myelocytes % (Man) Promyelocytes % (Man) Blast Cells % (Manual) Nucleated RBC % Metamyelocytes Hypochromia Platelet Estimate Polychromasia Poikilocytosis Anisocytosis Microcytosis Macrocytosis Acanthocytes (Spur) Sodium 136 Potassium 3.3 L Chloride 102 Carbon Dioxide 23 Anion Gap 11 BUN 9.7 Creatinine 0.7 Est GFR (CKD-EPI)AfAm 113.98 Est GFR (CKD-EPI)NonAf 98.34 POC Glucometer 155 169 Random Glucose 141 H Calcium 8.1 L Phosphorus 2.1 L Magnesium 1.5 L Total Bilirubin 0.8 Direct Bilirubin 0.3 H AST 11 L ALT 10 L Alkaline Phosphatase 81 Total Protein 5.9 L Albumin 2.4 L Active Medications Generic Name Dose Route Start Last Admin Trade Name Freq PRN Reason Stop Dose Admin Acetaminophen 1,000 mg 04/08/19 14:14 04/09/19 17:36 Ofirmev Injection - IVPB 1,000 mg Q6H PRN Administration PAIN OR FEVER Apixaban 5 mg 04/08/19 22:00 04/09/19 11:12 Eliquis - PO 5 mg BID [facility] Administration Atorvastatin Calcium 80 mg 04/07/19 22:00 04/08/19 21:53 Lipitor - PO 80 mg HS [facility] Administration Emollient Ointment 1 applic 04/07/19 22:00 04/09/19 16:29 Aquaphor - TP 1 applic TID [facility] Administration Fluoxetine HCl 40 mg 04/08/19 10:00 04/09/19 11:12 Prozac - PO 40 mg DAILY [facility] Administration Piperacillin Sod/Tazobactam 50 mls @ 100 mls/hr 04/07/19 18:00 04/09/19 17:36 Sod 3.375 gm/ Dextrose IVPB 100 mls/hr Q8H-IV [facility] Administration Protocol Potassium Chloride/Sodium Chloride 20 meq in 1,000 mls @ 75 mls/hr 04/09/19 10 :00 04/09/19 11:19 Ns+20 Meq Kcl - IV 75 mls/hr ASDIR [facility] Administration Insulin Aspart 1 vial 04/07/19 13:57 04/09/19 17:35 Novolog Vial Sliding Scale - SQ 2 units ACHS [facility] Administration Protocol Metoprolol Succinate 50 mg 04/08/19 10:00 04/09/19 11:12 Toprol Xl - PO 50 mg DAILY [facility] Administration Oxycodone HCl 5 mg 04/08/19 10:54 04/09/19 02:58 Roxicodone - PO 5 mg Q4H PRN Administration PAIN LEVEL 1-5 Potassium Phos/Sodium Phos 2 packet 04/09/19 10:00 04/09/19 11:13 Phos-Nak Packet - PO 04/10/19 22:01 2 packet BID [facility] Administration ASSESSMENT/PLAN: 64 yom with PMhx of HTN, HLD, NIDDM, CVA(LLE weakness, expressive aphasia; 2016) , Afib(on Eliquis), ESBL UTI/Cholecystitis in , d/dennis on cholecystostomy tube, comes back with dislodged cholecystostomy tube. -Subacute cholecystitis s/p Cholecystotomy tube dislodgement -S/p Subtotal cholecystectomy 04/07/2019 -Leucocytosis, ?Stress response, r/o worsening infection -HTN -HLD -CVA with residual expressive aphasia and LLE weakness -Afib on eliquis -Recent ESBL UTI, in 02/2019 Plan: s/p JUSTICE drain removal today. WBC rising, monitor closely. Check urine studies, incentive spirometry. Monitor closely. Additional imaging per clinical course. ID input noted, zosyn. Eliquis resumed per surgery. Continue statin/metoprolol/fluoxetine. DVTPPX on eliquis Dispo pending clinical improvement. Discussed with nursing, surgery. Visit type - Emergency Visit Emergency Visit: Yes ED Registration Date: 04/02/19 Care time: The patient presented to the Emergency Department on the above date and was hospitalized for further evaluation of their emergent condition. - New Patient This patient is new to me today: Yes Date on this admission: 04/09/19 - Critical Care Critical Care patient: No - Discharge Referral Referred to [facility] Med P.C.: No
[2019-04-09 18:45] LABS: EPI CELLS 2.9 /HPF (0-5/HPF); HYALINE CASTS 8 /lpf (0-8); URINE APPEARANCE CLEAR; URINE BILIRUBIN NEGATIVE (NEGATIVE); URINE COLOR YELLOW; URINE GLUCOSE (UA) NEGATIVE (NEGATIVE); URINE KETONE TRACE (NEGATIVE); URINE LEUK ESTERASE NEGATIVE (NEGATIVE); URINE NITRITE NEGATIVE (NEGATIVE); URINE PROTEIN 1+ (NEGATIVE); URINE RBC 3 /hpf (0-4); URINE WBC 1 /hpf (0-5)
--- NOTE | 2019-04-09 20:18 | PATH ---
Surgical Pathology Report Patient Name: STELLA BURGOS Med. Rec. #: [id number] /Age/Gender: 1955 (Age: 64) / M Account: [id number] Location: [facility] MED/SURG Taken: 04/07/2019 Received: 04/07/2019 Reported: 04/09/2019 Physicians: Pilo Ferreira MD Specimen(s) Received GALLBLADDER Clinical History Cholecystitis and cholecystotomy tube displacement Final Diagnosis GALLBLADDER, LAPAROSCOPIC SUBTOTAL CHOLECYSTECTOMY: MARKEDLY INFLAMED AND NECROTIC MUCOSA AND SOFT TISSUE COMPATIBLE WITH ACUTE GANGRENOUS CHOLECYSTITIS. Electronically Signed Leai Ramos M.D. Gross Description Received in formalin labeled "gallbladder," is a 7.5 x 4.0 x 1.9 cm aggregate of multiple bowen-brown to green, gangrenous-appearing portions of tissue, consistent with a markedly torn and disrupted gallbladder. Due to the markedly fragmented nature of the gallbladder, no cystic duct is identified. The identifiable mucosa is green-brown and gangrenous. The wall of the gallbladder averages 0.1 cm in thickness. House Manager sections are submitted in one cassette. /04/08/2019 saudi04/08/2019
[2019-04-09] MEDS: ATORVASTATIN CA 80 MG TABLET (FP) PO SCH (21:43)
[2019-04-10] MEDS ORDERED: PIPERACILLIN/TAZOBACTAM 3.375 GM VIAL IVPB ONE ×3 (02:11→17:09)
[2019-04-10] MEDS ORDERED: DEXTROSE 5%-WATER - 50 ML IVPB ONE ×3 (02:12→17:09)
[2019-04-10] MEDS: PIPERACILLIN/TAZOB 3.375 GM 3.375 GM in DEXTROSE 5%-WATER - 50 ML IVPB SCH ×3 (02:26→17:17)
[2019-04-10] MEDS: SODIUM CHLORIDE 0.9%/KCL 20 MEQ/1,000 ML INFUS.BAG IV SCH ×3 (03:30→17:17)
[2019-04-10] MEDS: MINERAL OIL/PET HY-PHL TOPICAL OINTMENT 454 GM JAR TP SCH ×3 (06:30→22:04)
[2019-04-10] MEDS: INSULIN SLIDING SCALE (NOVOLOG) 1 VIAL SQ SCH ×4 (06:30→22:03)
[2019-04-10 06:58] LABS: INR 1.65 (0.83-1.09); PROTHROMBIN TIME (PATIENT) 19.6 SEC (9.7-13.0)
[2019-04-10 07:12] LABS: ALBUMIN 2.2 g/dl (3.4-5.0); BILIRUBIN,TOTAL 0.5 mg/dL (0.2-1); BLOOD UREA NITROGEN 9.7 mg/dL (7-18); CALCIUM 7.9 mg/dL (8.5-10.1); CREATININE 0.7 mg/dL (0.55-1.3); PHOSPHOROUS 2.2 mg/dL (2.5-4.9); POTASSIUM 3.4 mmol/L (3.5-5.1); TOT PROT 5.8 g/dl (6.4-8.2)
[2019-04-10 07:14] LABS: BASO % 0.4 % (0-2.0); EOS % 1.3 % (0-4.5); HEMATOCRIT 28.9 % (35.4-49); HEMOGLOBIN 9.8 GM/dL (11.7-16.9); LYMPH % 7.3 % (8-40); MCH 29.2 pg (25.7-33.7); MCHC 33.8 g/dl (32.0-35.9); MEAN CELL VOLUME 86.4 fl (80-96); MONO % 3.5 % (3.8-10.2); NEUT % 87.5 % (42.8-82.8); PLATELET COUNT 233 K/MM3 (134-434); RBC 3.35 M/mm3 (4.00-5.60); RDW 14.9 % (11.9-15.9); WHITE BLOOD COUNT 18.4 K/mm3 (4.0-10.0)
--- NOTE | 2019-04-10 08:11 | SPA.POSTOP ---
- POST-OP NOTE POD #3 s/p Laproscopic subtotal cholecystectomy No acute events since surgical procedure per RN notes. Patient resting comfortably. Pain management via prn meds. Tolerating PO diet. Denies n/v/f/c, CP or SOB. Last Vital Signs Temp Pulse Resp BP Pulse Ox 98.3 F 98 H 20 130/80 99 04/10/19 07:45 04/10/19 07:45 04/10/19 07:45 04/10/19 07:45 04/09/19 21:00 CBC, BMP 04/10/19 05:30 04/10/19 05:30 Hepatic Panel Total Bilirubin 0.5 mg/dL (0.2-1) 04/10/19 05:30 Direct Bilirubin 0.3 mg/dL (0.0-0.2) H 04/09/19 06:43 AST 9 U/L (15-37) L 04/10/19 05:30 ALT 9 U/L (13-61) L 04/10/19 05:30 Alkaline Phosphatase 80 U/L (45-117) 04/10/19 05:30 Albumin 2.2 g/dl (3.4-5.0) L 04/10/19 05:30 Urine Test Results Urine Color Yellow 04/09/19 13:30 Urine Appearance Clear 04/09/19 13:30 Urine pH 6.0 (5.0-8.0) 04/09/19 13:30 Ur Specific [place] 1.026 (1.010-1.035) 04/09/19 13:30 Urine Protein 1+ (NEGATIVE) H 04/09/19 13:30 Urine Glucose (UA) Negative (NEGATIVE) 04/09/19 13:30 Urine Ketones Trace (NEGATIVE) H 04/09/19 13:30 Urine Blood Negative (NEGATIVE) 04/09/19 13:30 Urine Nitrite Negative (NEGATIVE) 04/09/19 13:30 Urine Bilirubin Negative (NEGATIVE) 04/09/19 13:30 Ur Leukocyte Esterase Negative (NEGATIVE) 04/09/19 13:30 Problem List - Problems (1) Cholecystitis Assessment/Plan: POD #3 s/p laproscopic subtotal cholecystectomy Cont DM diet Cont Incentive spirometer DVT PPX ASA & Eliquis Trend his WBC Cont medical management Tight glycemic control Correct elytes PRN Cont medical management Reconsult surgery PRN. On behalf of Dr. Ferreira, thank you for the opportunity to participate in your patient's care Code(s): K81.9 - CHOLECYSTITIS, UNSPECIFIED (2) Cholecystostomy tube dysfunction Code(s): T85.518A - BREAKDOWN (MECHANICAL) OF GI PROSTH DEV/GRFT, INIT Qualifiers: Encounter type: initial encounter Qualified Code(s): T85.518A - Breakdown ( mechanical) of other gastrointestinal prosthetic devices, implants and grafts, initial encounter (3) Benign prostatic hyperplasia Code(s): N40.0 - BENIGN PROSTATIC HYPERPLASIA WITHOUT LOWER URINRY TRACT SYMP (4) CVA (cerebral vascular accident) Code(s): I63.9 - CEREBRAL INFARCTION, UNSPECIFIED Qualifiers: CVA mechanism: unspecified Qualified Code(s): I63.9 - Cerebral infarction, unspecified (5) Hypertension Code(s): I10 - ESSENTIAL (PRIMARY) HYPERTENSION Qualifiers: Hypertension type: unspecified Qualified Code(s): I10 - Essential (primary ) hypertension (6) Type 2 diabetes mellitus Code(s): E11.9 - TYPE 2 DIABETES MELLITUS WITHOUT COMPLICATIONS Qualifiers: Diabetes mellitus halfway insulin use: unspecified rat exterminator insulin use status Diabetes mellitus complication status: with unspecified complications Problem List - Problems (1) Cholecystitis Code(s): K81.9 - CHOLECYSTITIS, UNSPECIFIED (2) Cholecystostomy tube dysfunction Code(s): T85.518A - BREAKDOWN (MECHANICAL) OF GI PROSTH DEV/GRFT, INIT Qualifiers: Encounter type: initial encounter Qualified Code(s): T85.518A - Breakdown ( mechanical) of other gastrointestinal prosthetic devices, implants and grafts, initial encounter (3) Benign prostatic hyperplasia Code(s): N40.0 - BENIGN PROSTATIC HYPERPLASIA WITHOUT LOWER URINRY TRACT SYMP (4) CVA (cerebral vascular accident) Code(s): I63.9 - CEREBRAL INFARCTION, UNSPECIFIED Qualifiers: CVA mechanism: unspecified Qualified Code(s): I63.9 - Cerebral infarction, unspecified (5) Hypertension Code(s): I10 - ESSENTIAL (PRIMARY) HYPERTENSION Qualifiers: Hypertension type: unspecified Qualified Code(s): I10 - Essential (primary ) hypertension (6) Type 2 diabetes mellitus Code(s): E11.9 - TYPE 2 DIABETES MELLITUS WITHOUT COMPLICATIONS Qualifiers: Diabetes mellitus halfway insulin use: unspecified halfway insulin use status Diabetes mellitus complication status: with unspecified complications Problem List - Problems (1) Cholecystitis Code(s): K81.9 - CHOLECYSTITIS, UNSPECIFIED (2) Cholecystostomy tube dysfunction Code(s): T85.518A - BREAKDOWN (MECHANICAL) OF GI PROSTH DEV/GRFT, INIT Qualifiers: Encounter type: initial encounter Qualified Code(s): T85.518A - Breakdown ( mechanical) of other gastrointestinal prosthetic devices, implants and grafts, initial encounter (3) Benign prostatic hyperplasia Code(s): N40.0 - BENIGN PROSTATIC HYPERPLASIA WITHOUT LOWER URINRY TRACT SYMP (4) CVA (cerebral vascular accident) Code(s): I63.9 - CEREBRAL INFARCTION, UNSPECIFIED Qualifiers: CVA mechanism: unspecified Qualified Code(s): I63.9 - Cerebral infarction, unspecified (5) Hypertension Code(s): I10 - ESSENTIAL (PRIMARY) HYPERTENSION Qualifiers: Hypertension type: unspecified Qualified Code(s): I10 - Essential (primary ) hypertension (6) Type 2 diabetes mellitus Code(s): E11.9 - TYPE 2 DIABETES MELLITUS WITHOUT COMPLICATIONS Qualifiers: Diabetes mellitus rat exterminator insulin use: unspecified rat exterminator insulin use status Diabetes mellitus complication status: with unspecified complications Visit type - Case Type Case Type: ED Admission
[2019-04-10] MEDS: NAPH,MB-DB/K PH,MBDB POWDER PACKET PO SCH ×2 (09:19→21:52)
[2019-04-10] MEDS: APIXABAN 5 MG TABLET PO SCH ×2 (09:19→21:52)
[2019-04-10] MEDS: FLUoxetine HCL 20 MG CAPSULE (FP) PO SCH (09:19)
--- NOTE | 2019-04-10 10:27 | PN ---
Progress Note, Physician History of Present Illness: no new issues awaiting urine report - Current Medication List Current Medications: Active Medications Acetaminophen (Ofirmev Injection -) 1,000 mg IVPB Q6H PRN PRN Reason: PAIN OR FEVER Last Admin: 04/09/19 17:36 Dose: 1,000 mg Apixaban (Eliquis -) 5 mg PO BID [facility] Last Admin: 04/10/19 09:19 Dose: 5 mg Atorvastatin Calcium (Lipitor -) 80 mg PO HS [facility] Last Admin: 04/09/19 21:43 Dose: 80 mg Emollient Ointment (Aquaphor -) 1 applic TP TID [facility] Last Admin: 04/10/19 06:30 Dose: 1 applic Fluoxetine HCl (Prozac -) 40 mg PO DAILY [facility] Last Admin: 04/10/19 09:19 Dose: 40 mg Piperacillin Sod/Tazobactam (Sod 3.375 gm/ Dextrose) 50 mls @ 100 mls/hr IVPB Q8H-IV [facility]; Protocol Last Admin: 04/10/19 09:20 Dose: 100 mls/hr Potassium Chloride/Sodium Chloride (Ns+20 Meq Kcl -) 20 meq in 1,000 mls @ 75 mls/hr IV ASDIR [facility] Last Admin: 04/10/19 03:30 Dose: 75 mls/hr Insulin Aspart (Novolog Vial Sliding Scale -) 1 vial SQ ACHS [facility]; Protocol Last Admin: 04/10/19 06:30 Dose: Not Given Metoprolol Succinate (Toprol Xl -) 50 mg PO DAILY [facility] Last Admin: 04/10/19 09:19 Dose: 50 mg Oxycodone HCl (Roxicodone -) 5 mg PO Q4H PRN PRN Reason: PAIN LEVEL 1-5 Last Admin: 04/09/19 21:52 Dose: 5 mg Potassium Phos/Sodium Phos (Phos-Nak Packet -) 2 packet PO BID [facility] Stop: 04/10/19 22:01 Last Admin: 04/10/19 09:19 Dose: 2 packet - Objective Vital Signs: Vital Signs Temperature 98.3 F 04/10/19 07:45 Pulse Rate 98 H 04/10/19 07:45 Respiratory Rate 18 04/10/19 09:17 Blood Pressure 157/77 04/10/19 09:17 O2 Sat by Pulse Oximetry (%) 99 04/09/19 21:00 Constitutional: Yes: No Distress, Calm Cardiovascular: Yes: S1, S2 Respiratory: Yes: Regular, CTA Bilaterally Gastrointestinal: Yes: Normal Bowel Sounds, Soft Musculoskeletal: Yes: WNL Extremities: Yes: WNL Neurological: Yes: Alert, Other Labs: CBC, BMP 04/10/19 05:30 04/10/19 05:30 INR, PTT INR 1.65 (0.83-1.09) H 04/10/19 05:30 Assessment/Plan Problem List - Problems (1) Cholecystitis Code(s): K81.9 - CHOLECYSTITIS, UNSPECIFIED (2) CVA (cerebral vascular accident) Code(s): I63.9 - CEREBRAL INFARCTION, UNSPECIFIED Qualifiers: CVA mechanism: unspecified Qualified Code(s): I63.9 - Cerebral infarction, unspecified (3) Hypertension Code(s): I10 - ESSENTIAL (PRIMARY) HYPERTENSION Qualifiers: Hypertension type: unspecified Qualified Code(s): I10 - Essential (primary ) hypertension (4) Type 2 diabetes mellitus Code(s): E11.9 - TYPE 2 DIABETES MELLITUS WITHOUT COMPLICATIONS Qualifiers: Diabetes mellitus director long term care insulin use: unspecified mcc insulin use status Diabetes mellitus complication status: with unspecified complications plan continue current mgmt abx nutrition rest as per the team monitor wbc
--- NOTE | 2019-04-10 11:21 | PN ---
Progress Note (short form) - Note Progress Note: s: no chest pain, palps, dyspnea Current Medications Generic Name Dose Route Start Last Admin Trade Name Freq PRN Reason Stop Dose Admin Acetaminophen 1,000 mg 04/08/19 14:14 04/09/19 17:36 Ofirmev Injection - IVPB 1,000 mg Q6H PRN Administration PAIN OR FEVER Apixaban 5 mg 04/08/19 22:00 04/10/19 09:19 Eliquis - PO 5 mg BID [facility] Administration Atorvastatin Calcium 80 mg 04/07/19 22:00 04/09/19 21:43 Lipitor - PO 80 mg HS [facility] Administration Emollient Ointment 1 applic 04/07/19 22:00 04/10/19 06:30 Aquaphor - TP 1 applic TID [facility] Administration Fluoxetine HCl 40 mg 04/08/19 10:00 04/10/19 09:19 Prozac - PO 40 mg DAILY [facility] Administration Piperacillin Sod/Tazobactam 50 mls @ 100 mls/hr 04/07/19 18:00 04/10/19 09:20 Sod 3.375 gm/ Dextrose IVPB 100 mls/hr Q8H-IV [facility] Administration Protocol Potassium Chloride/Sodium Chloride 20 meq in 1,000 mls @ 75 mls/hr 04/09/19 10 :00 04/10/19 03:30 Ns+20 Meq Kcl - IV 75 mls/hr ASDIR [facility] Administration Insulin Aspart 1 vial 04/07/19 13:57 04/10/19 06:30 Novolog Vial Sliding Scale - SQ Not Given ACHS [facility] Protocol Metoprolol Succinate 50 mg 04/08/19 10:00 04/10/19 09:19 Toprol Xl - PO 50 mg DAILY [facility] Administration Oxycodone HCl 5 mg 04/08/19 10:54 04/09/19 21:52 Roxicodone - PO 5 mg Q4H PRN Administration PAIN LEVEL 1-5 Potassium Phos/Sodium Phos 2 packet 04/09/19 10:00 04/10/19 09:19 Phos-Nak Packet - PO 04/10/19 22:01 2 packet BID K[facility]Y Administration Vital Signs Period Temp Pulse Resp BP Sys/Meléndez Pulse Ox Last 24 Hr 98.3 F-98.6 F 68-98 18-20 125-157/73-80 99 Constitutional: Yes: No Distress Cardiovascular: Yes: Regular Rate and Rhythm Respiratory: Yes: CTA Bilaterally Gastrointestinal: Yes: Soft, Other (abdominal drain in place) Edema: No Neurological: Yes: Alert no jaundice, diaphoresis not agitated CBC, BMP 04/10/19 05:30 04/10/19 05:30 ecg: sr nl intervals no ischemic changes cxr: clear lungs echo 01/2019: nl lv/rv, no sig valve path a/p: 64 m hx afib, htn, hld, cva, dm, sent from [place] after accidentally removing his GB tube. afib: -in sinus here, cont bb -eliquis resumed htn: -bp controlled -cont bb hld: -cont statin h/o CVA: -cont prior sec prevention regimen (statin, bp control, AC) cholecystitis s/p lap angelia: -no signs/sx's of active CAD, CHF, tolerated surgery well
--- NOTE | 2019-04-10 12:50 | PN ---
Progress Note (short form) - Note Progress Note: Attending Surgeon POD#3 No c/o ??; tolerating diet VSS AF abdo-soft; nt; port sites c/d/i WBC decreasing IMP: doing well PLAN: Should have combination of IVABS/oral for 10-14 days since tx. started. OOB and d/c planning Pilo Ferreira MD FACS
--- NOTE | 2019-04-10 15:25 | PN ---
Physical Exam: SUBJECTIVE: Patient seen and examined, reports abdominal pain, anxious, no nausea, vomiting or new complaints. OBJECTIVE: Vital Signs Period Temp Pulse Resp BP Sys/Meléndez Pulse Ox Last 24 Hr 97.6 F-98.6 F 68-98 18-20 125-157/73-90 99 Intake & Output 04/07/19 04/08/19 04/09/19 04/10/19 23:59 23:59 23:59 23:59 Intake Total 2470 1050 1260 1675 Output Total 1840 75 5 Balance 489 154 5749 1675 Weight 198 lb 199 lb 199 lb 203 lb 4.8 oz GENERAL: sitting in bed in no acute distress Neck: soft, supple Chest: decreased effort, no rales or wheezing HEENT: PERRL Abdomen: soft, mild tenderness right upper abdomen and around laparoscopic site , no voluntary or involuntary guarding or rigidity, pos bowel sounds Extremities: no edema Psych; Anxious, co-operative Laboratory Results - last 24 hr 04/09/19 04/09/19 04/09/19 13:30 16:54 21:40 WBC RBC Hgb Hct MCV MCH MCHC RDW Plt Count MPV Absolute Neuts (auto) Neutrophils % Lymphocytes % Monocytes % Eosinophils % Basophils % Nucleated RBC % PT with INR INR Sodium Potassium Chloride Carbon Dioxide Anion Gap BUN Creatinine Est GFR (CKD-EPI)AfAm Est GFR (CKD-EPI)NonAf POC Glucometer 169 164 Random Glucose Calcium Phosphorus Magnesium Total Bilirubin AST ALT Alkaline Phosphatase Total Protein Albumin Urine Color Yellow Urine Appearance Clear Urine pH 6.0 Ur Specific [place] 1.026 Urine Protein 1+ H Urine Glucose (UA) Negative Urine Ketones Trace H Urine Blood Negative Urine Nitrite Negative Urine Bilirubin Negative Urine Urobilinogen 1.0 Ur Leukocyte Esterase Negative Urine WBC (Auto) 1 Urine RBC (Auto) 3 Urine Casts (Auto) 8 U Epithel Cells (Auto) 2.9 Urine Bacteria (Auto) 1.0 04/10/19 04/10/19 04/10/19 05:30 05:30 05:30 WBC 18.4 H RBC 3.35 L Hgb 9.8 L Hct 28.9 L MCV 86.4 MCH 29.2 MCHC 33.8 RDW 14.9 Plt Count 233 MPV 9.0 Absolute Neuts (auto) 16.2 H Neutrophils % 87.5 H Lymphocytes % 7.3 L D Monocytes % 3.5 L Eosinophils % 1.3 D Basophils % 0.4 Nucleated RBC % 0 PT with INR 19.60 H INR 1.65 H Sodium 138 Potassium 3.4 L Chloride 104 Carbon Dioxide 28 Anion Gap 7 L BUN 9.7 Creatinine 0.7 Est GFR (CKD-EPI)AfAm 113.98 Est GFR (CKD-EPI)NonAf 98.34 POC Glucometer Random Glucose 115 H Calcium 7.9 L Phosphorus 2.2 L Magnesium 2.0 Total Bilirubin 0.5 AST 9 L ALT 9 L Alkaline Phosphatase 80 Total Protein 5.8 L Albumin 2.2 L Urine Color Urine Appearance Urine pH Ur Specific [place] Urine Protein Urine Glucose (UA) Urine Ketones Urine Blood Urine Nitrite Urine Bilirubin Urine Urobilinogen Ur Leukocyte Esterase Urine WBC (Auto) Urine RBC (Auto) Urine Casts (Auto) U Epithel Cells (Auto) Urine Bacteria (Auto) 04/10/19 04/10/19 05:45 11:38 WBC RBC Hgb Hct MCV MCH MCHC RDW Plt Count MPV Absolute Neuts (auto) Neutrophils % Lymphocytes % Monocytes % Eosinophils % Basophils % Nucleated RBC % PT with INR INR Sodium Potassium Chloride Carbon Dioxide Anion Gap BUN Creatinine Est GFR (CKD-EPI)AfAm Est GFR (CKD-EPI)NonAf POC Glucometer 124 170 Random Glucose Calcium Phosphorus Magnesium Total Bilirubin AST ALT Alkaline Phosphatase Total Protein Albumin Urine Color Urine Appearance Urine pH Ur Specific [place] Urine Protein Urine Glucose (UA) Urine Ketones Urine Blood Urine Nitrite Urine Bilirubin Urine Urobilinogen Ur Leukocyte Esterase Urine WBC (Auto) Urine RBC (Auto) Urine Casts (Auto) U Epithel Cells (Auto) Urine Bacteria (Auto) Active Medications Generic Name Dose Route Start Last Admin Trade Name Crowq PRN Reason Stop Dose Admin Acetaminophen 1,000 mg 04/08/19 14:14 04/09/19 17:36 Ofirmev Injection - IVPB 1,000 mg Q6H PRN Administration PAIN OR FEVER Apixaban 5 mg 04/08/19 22:00 04/10/19 09:19 Eliquis - PO 5 mg BID K[facility]IDY Administration Atorvastatin Calcium 80 mg 04/07/19 22:00 04/09/19 21:43 Lipitor - PO 80 mg HS [facility]IDY Administration Emollient Ointment 1 applic 04/07/19 22:00 04/10/19 06:30 Aquaphor - TP 1 applic TID KASSIDY Administration Fluoxetine HCl 40 mg 04/08/19 10:00 04/10/19 09:19 Prozac - PO 40 mg DAILY [facility] Administration Piperacillin Sod/Tazobactam 50 mls @ 100 mls/hr 04/07/19 18:00 04/10/19 09:20 Sod 3.375 gm/ Dextrose IVPB 100 mls/hr Q8H-IV [facility] Administration Protocol Potassium Chloride/Sodium Chloride 20 meq in 1,000 mls @ 75 mls/hr 04/09/19 10 :00 04/10/19 12:44 Ns+20 Meq Kcl - IV Not Given ASDIR KASSIDY Insulin Aspart 1 vial 04/07/19 13:57 04/10/19 12:43 Novolog Vial Sliding Scale - SQ 2 units ACHS KASSIDY Administration Protocol Metoprolol Succinate 50 mg 04/08/19 10:00 04/10/19 09:19 Toprol Xl - PO 50 mg DAILY [facility]ASSIDY Administration Oxycodone HCl 5 mg 04/08/19 10:54 04/09/19 21:52 Roxicodone - PO 5 mg Q4H PRN Administration PAIN LEVEL 1-5 Potassium Phos/Sodium Phos 2 packet 04/09/19 10:00 04/10/19 09:19 Phos-Nak Packet - PO 04/10/19 22:01 2 packet BID KASSIDY Administration ASSESSMENT/PLAN: 64 yom with PMhx of HTN, HLD, NIDDM, CVA(LLE weakness, expressive aphasia; 2016) , Afib(on Eliquis), ESBL UTI/Cholecystitis in , d/dennis on cholecystostomy tube, comes back with dislodged cholecystostomy tube. -Subacute cholecystitis s/p Cholecystotomy tube dislodgement -S/p Subtotal cholecystectomy 04/07/2019 -Leucocytosis, ?Stress response, r/o worsening infection -HTN -HLD -CVA with residual expressive aphasia and LLE weakness -Afib on eliquis -Recent ESBL UTI, in 02/2019 Plan: WBC with some improvement. Abdominal symptoms improved and exam benign. Surgery input noted. ua, CXR, cultures neg so far. No fevers. Trend WBC. ID input appreciated. Eliquis resumed per surgery. Continue statin/metoprolol/fluoxetine. DVTPPX on eliquis Dispo back to [place] in 24-48 hours if WBC continues to improve and no new concerns. Discussed with nursing, surgery. Visit type - Emergency Visit Emergency Visit: Yes ED Registration Date: 04/02/19 Care time: The patient presented to the Emergency Department on the above date and was hospitalized for further evaluation of their emergent condition. - New Patient This patient is new to me today: No - Critical Care Critical Care patient: No - Discharge Referral Referred to [facility] Med P.C.: No
[2019-04-10] MEDS: ATORVASTATIN CA 80 MG TABLET (FP) PO SCH (21:52)
[2019-04-10] MEDS ORDERED: PT OWN MED DRAWER 7, Y5N ONE (21:53)
[2019-04-10] MEDS: NYSTATIN POWDER 100,000 UNITS/GM - 15 GM TOPICAL POWDER TP SCH (21:54)
[2019-04-11] MEDS ORDERED: DEXTROSE 5%-WATER - 50 ML IVPB ONE ×2 (01:35→09:41)
[2019-04-11] MEDS ORDERED: PIPERACILLIN/TAZOBACTAM 3.375 GM VIAL IVPB ONE ×2 (01:35→09:41)
[2019-04-11] MEDS: PIPERACILLIN/TAZOB 3.375 GM 3.375 GM in DEXTROSE 5%-WATER - 50 ML IVPB SCH ×3 (02:42→17:46)
[2019-04-11] MEDS: INSULIN SLIDING SCALE (NOVOLOG) 1 VIAL SQ SCH ×5 (06:02→22:43)
[2019-04-11] MEDS: MINERAL OIL/PET HY-PHL TOPICAL OINTMENT 454 GM JAR TP SCH ×3 (06:03→22:46)
[2019-04-11] MEDS ORDERED: PT OWN MED DRAWER 7, Y5N ONE ×3 (06:42→15:42)
[2019-04-11 07:55] LABS: ALBUMIN 2.3 g/dl (3.4-5.0); BILIRUBIN,TOTAL 0.5 mg/dL (0.2-1); BLOOD UREA NITROGEN 7.8 mg/dL (7-18); CALCIUM 7.7 mg/dL (8.5-10.1); CREATININE 0.7 mg/dL (0.55-1.3); MAGNESIUM 1.7 mg/dL (1.8-2.4); PHOSPHOROUS 2.4 mg/dL (2.5-4.9); POTASSIUM 3.3 mmol/L (3.5-5.1); TOT PROT 5.8 g/dl (6.4-8.2)
[2019-04-11] MEDS ORDERED: MAGNESIUM SULF 50% (8.12 MEQ/2 ML-1 GM VIAL) IVPB ONE ×2 (08:15→14:54)
[2019-04-11 08:23] LABS: BASO % 0.3 % (0-2.0); EOS % 2.1 % (0-4.5); HEMATOCRIT 29.1 % (35.4-49); LYMPH % 9.9 % (8-40); MCH 29.5 pg (25.7-33.7); MCHC 34.3 g/dl (32.0-35.9); MEAN CELL VOLUME 86.2 fl (80-96); MONO % 5.8 % (3.8-10.2); NEUT % 81.9 % (42.8-82.8); PLATELET COUNT 259 K/MM3 (134-434); RBC 3.37 M/mm3 (4.00-5.60); RDW 14.9 % (11.9-15.9); WHITE BLOOD COUNT 12.9 K/mm3 (4.0-10.0)
[2019-04-11] MEDS ORDERED: POTASSIUM PHOSPHATE 25 MM in SODIUM CHLORIDE 250 ML IVPB ONE (09:00)
--- NOTE | 2019-04-11 09:15 | PN ---
Progress Note, Physician History of Present Illness: patient says he is not feeling well c/o of scrotal pain - Current Medication List Current Medications: Active Medications Acetaminophen (Ofirmev Injection -) 1,000 mg IVPB Q6H PRN PRN Reason: PAIN OR FEVER Last Admin: 04/09/19 17:36 Dose: 1,000 mg Apixaban (Eliquis -) 5 mg PO BID [facility] Last Admin: 04/10/19 21:52 Dose: 5 mg Atorvastatin Calcium (Lipitor -) 80 mg PO HS [facility] Last Admin: 04/10/19 21:52 Dose: 80 mg Emollient Ointment (Aquaphor -) 1 applic TP TID [facility] Last Admin: 04/11/19 06:03 Dose: 1 applic Fluoxetine HCl (Prozac -) 40 mg PO DAILY [facility] Last Admin: 04/10/19 09:19 Dose: 40 mg Piperacillin Sod/Tazobactam (Sod 3.375 gm/ Dextrose) 50 mls @ 100 mls/hr IVPB Q8H-IV [facility]; Protocol Last Admin: 04/11/19 02:42 Dose: 100 mls/hr Potassium Chloride/Sodium Chloride (Ns+20 Meq Kcl -) 20 meq in 1,000 mls @ 75 mls/hr IV ASDIR [facility] Last Admin: 04/10/19 17:17 Dose: 75 mls/hr Potassium Phosphate 25 mm/ (Sodium Chloride) 258.3333 mls @ 43.056 mls/hr IVPB ONCE ONE Stop: 04/11/19 14:59 Insulin Aspart (Novolog Vial Sliding Scale -) 1 vial SQ ACHS [facility]; Protocol Last Admin: 04/11/19 06:02 Dose: Not Given Metoprolol Succinate (Toprol Xl -) 50 mg PO DAILY [facility] Last Admin: 04/10/19 09:19 Dose: 50 mg Nystatin (Nystop Powder -) 1 applic TP DAILY [facility] Last Admin: 04/10/19 21:54 Dose: 1 applic Oxycodone HCl (Roxicodone -) 5 mg PO Q4H PRN PRN Reason: PAIN LEVEL 1-5 Last Admin: 04/09/19 21:52 Dose: 5 mg - Objective Vital Signs: Vital Signs Temperature 97.8 F 04/11/19 06:49 Pulse Rate 74 04/11/19 06:49 Respiratory Rate 20 04/11/19 06:49 Blood Pressure 144/80 04/11/19 06:49 O2 Sat by Pulse Oximetry (%) 100 04/10/19 20:32 Constitutional: Yes: Calm, Mild Distress Cardiovascular: Yes: S1, S2 Respiratory: Yes: Regular, CTA Bilaterally Gastrointestinal: Yes: Normal Bowel Sounds, Soft Genitourinary: Yes: Other (scrotal skin redness) Musculoskeletal: Yes: WNL Extremities: Yes: WNL Wound/Incision: Yes: Other Neurological: Yes: Alert, Oriented Psychiatric: Yes: Alert, Oriented Labs: CBC, BMP 04/11/19 06:45 04/11/19 06:45 INR, PTT INR 1.65 (0.83-1.09) H 04/10/19 05:30 Assessment/Plan Problem List - Problems (1) Cholecystitis Code(s): K81.9 - CHOLECYSTITIS, UNSPECIFIED (2) CVA (cerebral vascular accident) Code(s): I63.9 - CEREBRAL INFARCTION, UNSPECIFIED Qualifiers: CVA mechanism: unspecified Qualified Code(s): I63.9 - Cerebral infarction, unspecified (3) Hypertension Code(s): I10 - ESSENTIAL (PRIMARY) HYPERTENSION Qualifiers: Hypertension type: unspecified Qualified Code(s): I10 - Essential (primary ) hypertension (4) Type 2 diabetes mellitus Code(s): E11.9 - TYPE 2 DIABETES MELLITUS WITHOUT COMPLICATIONS Qualifiers: Diabetes mellitus 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
[2019-04-11] MEDS: SODIUM CHLORIDE 0.9%/KCL 20 MEQ/1,000 ML INFUS.BAG IV SCH ×3 (09:53→14:23)
[2019-04-11] MEDS: NYSTATIN POWDER 100,000 UNITS/GM - 15 GM TOPICAL POWDER TP SCH (09:53)
[2019-04-11] MEDS: FLUoxetine HCL 20 MG CAPSULE (FP) PO SCH (09:54)
[2019-04-11] MEDS: APIXABAN 5 MG TABLET PO SCH ×2 (09:54→22:43)
--- NOTE | 2019-04-11 11:05 | DS ---
Physical Exam: SUBJECTIVE: Patient seen and examined, anxious but no complaints. Eating breakfast. OBJECTIVE: Vital Signs Period Temp Pulse Resp BP Sys/Meléndez Pulse Ox Last 24 Hr 97.6 F-98.6 F 70-74 18-20 139-152/66-90 100 PHYSICAL EXAM GENERAL: sitting in bed, anxious but no acute distress Chest: Decreased effort, no rales or wheezing Neck: soft, supple, no JVd Abdomen:Soft, NT throughout, laparoscopic sites clean, pos bowel sounds, obese, no voluntary or involuntary guarding or rigidity Genital: no scrotal edema/erythema or tenderness Extremities: no edema CVS:S1S2 irregular LABS Laboratory Results - last 24 hr 04/10/19 04/10/19 04/10/19 11:38 17:19 22:02 WBC RBC Hgb Hct MCV MCH MCHC RDW Plt Count MPV Absolute Neuts (auto) Neutrophils % Lymphocytes % Monocytes % Eosinophils % Basophils % Nucleated RBC % Sodium Potassium Chloride Carbon Dioxide Anion Gap BUN Creatinine Est GFR (CKD-EPI)AfAm Est GFR (CKD-EPI)NonAf POC Glucometer 170 145 127 Random Glucose Calcium Phosphorus Magnesium Total Bilirubin AST ALT Alkaline Phosphatase Total Protein Albumin 04/11/19 04/11/19 04/11/19 05:49 06:45 06:45 WBC 12.9 H RBC 3.37 L Hgb 10.0 L Hct 29.1 L MCV 86.2 MCH 29.5 MCHC 34.3 RDW 14.9 Plt Count 259 MPV 9.0 Absolute Neuts (auto) 10.6 H Neutrophils % 81.9 Lymphocytes % 9.9 D Monocytes % 5.8 Eosinophils % 2.1 Basophils % 0.3 Nucleated RBC % 0 Sodium 138 Potassium 3.3 L Chloride 104 Carbon Dioxide 26 Anion Gap 8 BUN 7.8 Creatinine 0.7 Est GFR (CKD-EPI)AfAm 113.98 Est GFR (CKD-EPI)NonAf 98.34 POC Glucometer 125 Random Glucose 125 H Calcium 7.7 L Phosphorus 2.4 L Magnesium 1.7 L Total Bilirubin 0.5 AST 8 L ALT 7 L Alkaline Phosphatase 78 Total Protein 5.8 L Albumin 2.3 L Microbiology 04/09/19 13:30 Urine - Urine Clean Catch Urine Culture - Final NO GROWTH OBTAINED HOSPITAL COURSE: Date of Admission:04/02/19 Date of Discharge: 04/11/19 Minutes to complete discharge: 40 Discharge Summary Reason For Visit: CHOLECYSTECTOMY TUBE DYSFUNCTION Current Active Problems Cholecystostomy tube dysfunction (Acute) Condition: Stable - Instructions Diet, Activity, Other Instructions: Dr. Ferreira Discharge Instructions Dear STELLA BURGOS, Post Operative Instructions Physical activity Resume your normal everyday activity as tolerated no heavy lifting or exercise until seen by your surgeon. You may walk unlimited amounts of and climb stairs. You may resume driving the car when you feel safe and comfortable behind the wheel. Wound care If you have a bandage, leave it on, and keep dry for 48 - 72 hours. After that time discard the outer bandage. If there are tapes on the skin under the outer bandage, leave them in place. They will peel off in the next 7 to 10 days. Do Not peel them off. You may shower 2 days after surgery. If there are tapes present on the skin, they can get wet. Diet There are no dietary restrictions. Eat healthy, high-fiber foods. Drink 6 to 8 glasses of liquid each day. This will assist in keeping your bowels are regular. Pain management You may take Tylenol or acetaminophen or Ibuprofen (for example, Motrin, Advil etc.) Any pain prescription medication ordered should be taken as prescribed for moderate to severe pain. You have been prescribed an antibiotic Augmentin twice daily for next [address] Ferreira for any of the following: Severe pain not relieved by medication Fever of 101 or higher Excessive bleeding or drainage on dressing Inability to urinate Call the office at [phone] for a post operative appointment in 7 - 10 days. MEDICAL INSTRUCTIONS: Hold your januvia and hydrochlorothiazie for now. Advise to continue insulin sliding scale in the meantime per facility protocol. Resume januvia and hydrochlorothiazie based on your blood sugar and blood pressure readings but longterm MD. Neutra-phos 2 packets twice daily for 4 more dose Magnesium oxide 800 mg daily for 3 doses Antibiotic augmentin twice daily for 7 days Continue other medications as before. Incentive spirometry every hour when awake as able. Referrals: Pilo Ferreira MD [Staff Physician] - Joe Quinteros MD [Primary Care Provider] - Disposition: ASSISTED FACILITY - Home Medications Comprehensive Discharge Medication List: Ambulatory Orders Apixaban [Eliquis] 5 mg PO BID 01/15/19 Atorvastatin Calcium 80 mg PO HS 01/15/19 Fluoxetine HCl [Prozac] 40 mg PO DAILY 01/15/19 LORazepam [Ativan] 0.5 mg PO TID 01/15/19 Metoprolol Succinate 50 mg PO DAILY 01/15/19 Cholecalciferol (Vitamin D3) [Vitamin D3] 2,000 unit PO DAILY 01/16/19 Aa/Hydrolyzed Collagen, Whey [Lps 15-30 Liquid] 30 ml PO DAILY 04/02/19 Docusate Sodium [Colace] 100 mg PO HS 04/02/19 Amoxicillin/Potassium Clav [Augmentin 875-125 Tablet] 1 each PO BID #14 tablet 04/11/19 Insulin Sliding Scale [Novolog Vial Sliding Scale -] 1 vial SQ ACHS units 04/11 Magnesium Oxide [Mag-Ox -] 800 mg PO DAILY #3 tablet 04/11/19 Mineral Oil/Pet Hy-Phl [Aquaphor -] 1 applic TP TID jar 04/11/19 Naph,Mb-Db/K pH,Mbdb [PHOS-NaK PACKET -] 2 packet PO BID #8 pow 04/11/19 Nystatin Powder [Nystop Powder -] 1 applic TP DAILY PRN applic 04/11/19 - Discharge Referral Referred to [facility] No
--- NOTE | 2019-04-11 11:17 | PN ---
Progress Note, Physician Chief Complaint: Having chest pain. Points to chest. for "2 hours" No SOB. No palps. Nonpleuritic. - Current Medication List Current Medications: Active Medications Acetaminophen (Ofirmev Injection -) 1,000 mg IVPB Q6H PRN PRN Reason: PAIN OR FEVER Last Admin: 04/09/19 17:36 Dose: 1,000 mg Apixaban (Eliquis -) 5 mg PO BID KASSIDY Last Admin: 04/11/19 09:54 Dose: 5 mg Atorvastatin Calcium (Lipitor -) 80 mg PO HS KASSIDY Last Admin: 04/10/19 21:52 Dose: 80 mg Emollient Ointment (Aquaphor -) 1 applic TP TID KASSIDY Last Admin: 04/11/19 06:03 Dose: 1 applic Fluoxetine HCl (Prozac -) 40 mg PO DAILY [facility] Last Admin: 04/11/19 09:54 Dose: 40 mg Piperacillin Sod/Tazobactam (Sod 3.375 gm/ Dextrose) 50 mls @ 100 mls/hr IVPB Q8H-IV KASSIDY; Protocol Last Admin: 04/11/19 09:53 Dose: 100 mls/hr Potassium Chloride/Sodium Chloride (Ns+20 Meq Kcl -) 20 meq in 1,000 mls @ 75 mls/hr IV ASDIR [facility] Last Admin: 04/11/19 09:53 Dose: 75 mls/hr Potassium Phosphate 25 mm/ (Sodium Chloride) 258.3333 mls @ 43.056 mls/hr IVPB ONCE ONE Stop: 04/11/19 14:59 Last Admin: 04/11/19 09:55 Dose: 43.056 mls/hr Insulin Aspart (Novolog Vial Sliding Scale -) 1 vial SQ ACHS KASSIDY; Protocol Last Admin: 04/11/19 06:02 Dose: Not Given Magnesium Oxide (Mag-Ox -) 800 mg PO DAILY [facility] Stop: 04/14/19 10:01 Metoprolol Succinate (Toprol Xl -) 50 mg PO DAILY [facility] Last Admin: 04/11/19 09:54 Dose: 50 mg Nystatin (Nystop Powder -) 1 applic TP DAILY [facility] Last Admin: 04/11/19 09:53 Dose: 1 applic - Objective Vital Signs: Vital Signs Temperature 97.8 F 04/11/19 06:49 Pulse Rate 74 04/11/19 06:49 Respiratory Rate 20 04/11/19 06:49 Blood Pressure 144/80 04/11/19 06:49 O2 Sat by Pulse Oximetry (%) 100 04/10/19 20:32 Constitutional: Yes: No Distress, Calm Eyes: Yes: Conjunctiva Clear Cardiovascular: Yes: Regular Rate and Rhythm Respiratory: Yes: CTA Bilaterally (no wheezing or rales) Gastrointestinal: Yes: Soft Edema: No Neurological: Yes: Alert, Oriented ...Motor Strength: WNL Labs: CBC, BMP 04/11/19 06:45 04/11/19 06:45 INR, PTT INR 1.65 (0.83-1.09) H 04/10/19 05:30 - ....Imaging EKG: Pending Assessment/Plan ecg: sr nl intervals no ischemic changes cxr: clear lungs echo 01/2019: nl lv/rv, no sig valve path A/P: 64 m hx afib, htn, hld, cva, dm, sent from [place] after accidentally removing his GB tube, now c/o chest pain for 2 hours. Hemodynamically stable. AF: -in sinus here, cont bb -eliquis resumed HTN: -bp controlled -cont bb HLD: -cont statin h/o CVA: -cont prior sec prevention regimen (statin, bp control, AC) cholecystitis s/p lap angelia: -no signs/sx's of active CAD, CHF, tolerated surgery well Chest pain: for last 2 hours. Poor historian -ECG, cardiac enzymes, Echo -Telemetry, EDWIN -Will follow.
[2019-04-11] MEDS ORDERED: ACETAMINOPHEN 1000 MG/100 ML VIAL (NON FORMULARY) IVPB PRN (11:48)
[2019-04-11] MEDS: LORazepam 0.5 MG TABLET PO SCH ×2 (12:08→22:43)
[2019-04-11] MEDS: ACETAMINOPHEN 325 MG TABLET (FP) PO PRN ×2 (12:30→22:46)
--- NOTE | 2019-04-11 12:47 | ECHO ---
Name: STELLA BURGOS Exam:Adult Echocardiogram Study Date: 04/11/2019 11:34 AM Age: 64 yrs Reason For Study: Chest pain Height: 72 in Weight: 202 lb BSA: 2.1 m2 MMode/2D Measurements & Calculations IVSd: 1.2 cm Ao root diam: 3.0 cm LVIDd: 4.5 cm LA dimension: 3.7 cm LVIDs: 3.0 cm LVPWd: 1.0 cm EDV(Teich): 92.3 ml LVOT diam: 2.0 cm ESV(Teich): 35.7 ml LAV (MOD-bp): 87.0 ml Doppler Measurements & Calculations MV E max lee: 68.9 cm/sec Ao V2 max: 149.3 cm/sec MV A max lee: 90.2 cm/sec Ao max P.9 mmHg MV E/A: 0.76 MV dec time: 0.22 sec LEONID(V,D): 2.7 cm2 LV V1 max P.7 mmHg Med Peak E' Lee: 6.3 cm/sec LV V1 max: 129.5 cm/sec Med E/e': 10.9 Lat Peak E' Lee: 8.9 cm/sec Lat E/e': 7.7 Left Ventricle There is mild concentric left ventricular hypertrophy. Left ventricular systolic function is normal. Ejection Fraction = 55-60%. The transmitral spectral Doppler flow pattern is suggestive of impaired LV relaxat ion. The left ventricular wall motion is normal. Right Ventricle The right ventricle is normal in size and function. Mitral Valve The mitral valve leaflets appear thickened, but open well. There is no mitral valve stenosis. There i s trace mitral regurgitation. Tricuspid Valve The tricuspid valve is normal in structure and function. There is trace tricuspid regurgitation. Aortic Valve There is mild aortic sclerosis.;. No hemodynamically significant valvular aortic stenosis. No aortic regurgitation is present. Pulmonic Valve The pulmonic valve is not well seen, but is grossly normal. There is no pulmonic valvular stenosis. Great Vessels The aortic root is normal size. Pericardium/Pleura There is no pericardial effusion. Interpretation Summary The mitral valve leaflets appear thickened, but open well. There is mild aortic sclerosis.; There is mild concentric left ventricular hypertrophy. Left ventricular systolic function is normal. Ejection Fraction = 55-60%. There is trace tricuspid regurgitation. The right ventricle is normal in size and function. The aortic root is normal size. There is no pericardial effusion. MD Dubon *Evens 04/11/2019 12:46 PM
--- NOTE | 2019-04-11 13:59 | EKG ---
Test Reason : Blood Pressure : / mmHG Vent. Rate : 076 BPM Atrial Rate : 076 BPM P-R Int : 144 ms QRS Dur : 102 ms QT Int : 458 ms P-R-T Axes : -13 -20 016 degrees QTc Int : 515 ms SINUS RHYTHM WITH PREMATURE SUPRAVENTRICULAR COMPLEXES PROLONGED QT ABNORMAL ECG WHEN COMPARED WITH ECG OF 02-APR-2019 22:05, SINUS RHYTHM HAS REPLACED ECTOPIC ATRIAL RHYTHM QT HAS LENGTHENED Confirmed by RAUL SEBASTIAN MD ([id number]) on 04/11/2019 1:59:09 PM Referred By: FIDELINA CARTER DR Confirmed By:RAUL SEBASTIAN MD
--- NOTE | 2019-04-11 14:43 | PN ---
Physical Exam: SUBJECTIVE: Patient seen and examined, reported lower abdominal pain, anxious, dysarthric,but no other complaints. OBJECTIVE: Vital Signs Period Temp Pulse Resp BP Sys/Meléndez Pulse Ox Last 24 Hr 97.8 F-98.6 F 70-78 18-20 139-144/66-80 99-100 Intake & Output 04/08/19 04/09/19 04/10/19 04/11/19 23:59 23:59 23:59 23:59 Intake Total 1050 1260 1725 900 Output Total 75 5 1 1 Balance 975 1255 1724 899 Weight 199 lb 199 lb 203 lb 4.8 oz 202 lb 9 oz GENERAL: sitting in bed anxious, no acute distress Chest: decreased effort, no rales or wheezing CVS:S1S2 regular Abdomen:soft, NT throughout, improved distension, no tenderness/erythema or discharge around the laparoscopic site Genital: no scrotal erythema/discharged or tenderness noted Extremities: no edema Laboratory Results - last 24 hr 04/10/19 04/10/19 04/11/19 17:19 22:02 05:49 WBC RBC Hgb Hct MCV MCH MCHC RDW Plt Count MPV Absolute Neuts (auto) Neutrophils % Lymphocytes % Monocytes % Eosinophils % Basophils % Nucleated RBC % Sodium Potassium Chloride Carbon Dioxide Anion Gap BUN Creatinine Est GFR (CKD-EPI)AfAm Est GFR (CKD-EPI)NonAf POC Glucometer 145 127 125 Random Glucose Calcium Phosphorus Magnesium Total Bilirubin AST ALT Alkaline Phosphatase Creatine Kinase Troponin I Total Protein Albumin 04/11/19 04/11/19 04/11/19 06:45 06:45 11:30 WBC 12.9 H RBC 3.37 L Hgb 10.0 L Hct 29.1 L MCV 86.2 MCH 29.5 MCHC 34.3 RDW 14.9 Plt Count 259 MPV 9.0 Absolute Neuts (auto) 10.6 H Neutrophils % 81.9 Lymphocytes % 9.9 D Monocytes % 5.8 Eosinophils % 2.1 Basophils % 0.3 Nucleated RBC % 0 Sodium 138 Potassium 3.3 L Chloride 104 Carbon Dioxide 26 Anion Gap 8 BUN 7.8 Creatinine 0.7 Est GFR (CKD-EPI)AfAm 113.98 Est GFR (CKD-EPI)NonAf 98.34 POC Glucometer Random Glucose 125 H Calcium 7.7 L Phosphorus 2.4 L Magnesium 1.7 L Total Bilirubin 0.5 AST 8 L ALT 7 L Alkaline Phosphatase 78 Creatine Kinase 22 L Troponin I < 0.02 Total Protein 5.8 L Albumin 2.3 L 04/11/19 12:07 WBC RBC Hgb Hct MCV MCH MCHC RDW Plt Count MPV Absolute Neuts (auto) Neutrophils % Lymphocytes % Monocytes % Eosinophils % Basophils % Nucleated RBC % Sodium Potassium Chloride Carbon Dioxide Anion Gap BUN Creatinine Est GFR (CKD-EPI)AfAm Est GFR (CKD-EPI)NonAf POC Glucometer 153 Random Glucose Calcium Phosphorus Magnesium Total Bilirubin AST ALT Alkaline Phosphatase Creatine Kinase Troponin I Total Protein Albumin Active Medications Generic Name Dose Route Start Last Admin Trade Name Freq PRN Reason Stop Dose Admin Acetaminophen 1,000 mg 04/11/19 11:48 Ofirmev Injection - IVPB 04/12/19 11:47 Q6H PRN FEVER Acetaminophen 650 mg 04/11/19 11:51 04/11/19 12:30 Tylenol - PO 650 mg Q6H PRN Administration PAIN LEVEL 1-5 Apixaban 5 mg 04/11/19 22:00 Eliquis - PO BID KASSIDY Atorvastatin Calcium 80 mg 04/11/19 22:00 Lipitor - PO HS KASSIDY Emollient Ointment 1 applic 04/11/19 14:00 04/11/19 14:22 Aquaphor - TP 1 applic TID KASSIDY Administration Fluoxetine HCl 40 mg 04/12/19 10:00 Prozac - PO DAILY KASSIDY Potassium Phosphate 25 mm/ 258.3333 mls @ 43.056 mls/hr 04/11/19 09:00 09:55 Sodium Chloride IVPB 04/11/19 14:59 43.056 mls/hr ONCE ONE Administration Potassium Chloride/Sodium Chloride 20 meq in 1,000 mls @ 75 mls/hr 04/11/19 11 :48 04/11/19 14:23 Ns+20 Meq Kcl - IV 75 mls/hr ASDIR K[facility]Y Administration Piperacillin Sod/Tazobactam 50 mls @ 100 mls/hr 04/11/19 18:00 Sod 3.375 gm/ Dextrose IVPB Q8H-IV K[facility]IDY Protocol Insulin Aspart 1 vial 04/11/19 16:30 04/11/19 12:09 Novolog Vial Sliding Scale - SQ 2 units ACHS K[facility]IDY Administration Protocol Lorazepam 0.5 mg 04/11/19 11:45 04/11/19 12:08 Ativan - PO 0.5 mg BID [facility] Administration Magnesium Oxide 800 mg 04/12/19 10:00 Mag-Ox - PO 04/14/19 10:01 DAILY [facility] Metoprolol Succinate 50 mg 04/12/19 10:00 Toprol Xl - PO DAILY [facility] Nystatin 1 applic 04/12/19 10:00 Nystop Powder - TP DAILY [facility] Microbiology 04/09/19 13:30 Urine - Urine Clean Catch Urine Culture - Final NO GROWTH OBTAINED ASSESSMENT/PLAN: 64 yom with PMhx of HTN, HLD, NIDDM, CVA(LLE weakness, expressive aphasia; 2016) , Afib(on Eliquis), ESBL UTI/Cholecystitis in , d/dennis on cholecystostomy tube, comes back with dislodged cholecystostomy tube. -Subacute cholecystitis s/p Cholecystotomy tube dislodgement -S/p Subtotal cholecystectomy 04/07/2019 -Leucocytosis, ?Stress response, r/o worsening infection -?Atypical chest pain -Hypomagnesemia -Hypokalemia -Hypophosphatemia -Prolonged QTc -HTN -HLD -CVA with residual expressive aphasia and LLE weakness -Afib on eliquis -Recent ESBL UTI, in 02/2019 Plan: WBC improved, abdominal exam non concerning. Cleared by surgery for dc. Plan for transition to augment on dc. ?Foul smelling stool per RN, check C difficile Patient denies any chest symptoms on my evaluation, anxious, dysarthric. However reported "chest pain for 2 hours" to cardiology. EKG/2D echo noted. cycle tn, low suspicion for active concerns. Aggressive Mg suppl, KPhos. ID input noted. patient highly anxious, speech more scattered per RN than 2 days ago, CT brain neg for new concerns. Resume home ativan. Eliquis resumed per surgery. Continue statin/metoprolol/fluoxetine. DVTPPX on eliquis Dispo back to [place] in 24 hours if cardiac w/u unrevealing and no new concerns. Discussed with nursing, surgery, ID and cardiology. Visit type - Emergency Visit Emergency Visit: Yes ED Registration Date: 04/02/19 Care time: The patient presented to the Emergency Department on the above date and was hospitalized for further evaluation of their emergent condition. - New Patient This patient is new to me today: No - Critical Care Critical Care patient: No - Discharge Referral Referred to [facility] No
[2019-04-11] MEDS ORDERED: MAGNESIUM SULF 50% (8.12 MEQ/2 ML-1 GM VIAL) ONE (15:18)
[2019-04-11] MEDS: ATORVASTATIN CA 80 MG TABLET (FP) PO SCH (22:43)
[2019-04-12] MEDS ORDERED: DEXTROSE 5%-WATER - 50 ML IVPB ONE ×2 (01:25→08:55)
[2019-04-12] MEDS ORDERED: PIPERACILLIN/TAZOBACTAM 3.375 GM VIAL IVPB ONE ×2 (01:25→08:55)
[2019-04-12] MEDS: PIPERACILLIN/TAZOB 3.375 GM 3.375 GM in DEXTROSE 5%-WATER - 50 ML IVPB SCH ×2 (01:37→09:45)
[2019-04-12] MEDS: MINERAL OIL/PET HY-PHL TOPICAL OINTMENT 454 GM JAR TP SCH ×3 (06:38→22:08)
[2019-04-12] MEDS: INSULIN SLIDING SCALE (NOVOLOG) 1 VIAL SQ SCH ×4 (06:39→22:07)
[2019-04-12 08:27] LABS: BASO % 0.4 % (0-2.0); EOS % 2.5 % (0-4.5); HEMATOCRIT 27.9 % (35.4-49); HEMOGLOBIN 9.7 GM/dL (11.7-16.9); LYMPH % 12.5 % (8-40); MCH 29.6 pg (25.7-33.7); MCHC 34.9 g/dl (32.0-35.9); MEAN CELL VOLUME 84.9 fl (80-96); MEAN PLT VOLUME 8.5 fl (7.5-11.1); MONO % 6.7 % (3.8-10.2); NEUT % 77.9 % (42.8-82.8); PLATELET COUNT 273 K/MM3 (134-434); RBC 3.29 M/mm3 (4.00-5.60); RDW 14.8 % (11.9-15.9); WHITE BLOOD COUNT 10.9 K/mm3 (4.0-10.0)
[2019-04-12 09:02] LABS: ALBUMIN 2.1 g/dl (3.4-5.0); BILIRUBIN,TOTAL 0.5 mg/dL (0.2-1); CALCIUM 7.6 mg/dL (8.5-10.1); CREATININE 0.5 mg/dL (0.55-1.3); MAGNESIUM 2.1 mg/dL (1.8-2.4); PHOSPHOROUS 2.6 mg/dL (2.5-4.9); POTASSIUM 3.3 mmol/L (3.5-5.1); TOT PROT 5.6 g/dl (6.4-8.2)
[2019-04-12] MEDS: MAGNESIUM OXIDE 400 MG TABLET (FP) PO SCH (09:44)
[2019-04-12] MEDS: LORazepam 0.5 MG TABLET PO SCH ×2 (09:44→22:07)
[2019-04-12] MEDS: FLUoxetine HCL 20 MG CAPSULE (FP) PO SCH (09:44)
[2019-04-12] MEDS: APIXABAN 5 MG TABLET PO SCH ×2 (09:45→22:07)
[2019-04-12] MEDS ORDERED: MAGNESIUM OXIDE 400 MG TABLET (FP) PO SCH (10:00)
--- NOTE | 2019-04-12 10:36 | PN ---
Progress Note, Physician History of Present Illness: No Events Tele: NSR with PVCs - Current Medication List Current Medications: Active Medications Acetaminophen (Ofirmev Injection -) 1,000 mg IVPB Q6H PRN PRN Reason: FEVER Stop: 04/12/19 11:47 Acetaminophen (Tylenol -) 650 mg PO Q6H PRN PRN Reason: PAIN LEVEL 1-5 Last Admin: 04/11/19 22:46 Dose: 650 mg Apixaban (Eliquis -) 5 mg PO BID [facility] Last Admin: 04/12/19 09:45 Dose: 5 mg Atorvastatin Calcium (Lipitor -) 80 mg PO HS [facility] Last Admin: 04/11/19 22:43 Dose: 80 mg Emollient Ointment (Aquaphor -) 1 applic TP TID [facility] Last Admin: 04/12/19 06:38 Dose: 1 applic Fluoxetine HCl (Prozac -) 40 mg PO DAILY [facility] Last Admin: 04/12/19 09:44 Dose: 40 mg Potassium Chloride/Sodium Chloride (Ns+20 Meq Kcl -) 20 meq in 1,000 mls @ 75 mls/hr IV ASDIR [facility] Last Admin: 04/11/19 14:23 Dose: 75 mls/hr Piperacillin Sod/Tazobactam (Sod 3.375 gm/ Dextrose) 50 mls @ 100 mls/hr IVPB Q8H-IV [facility]; Protocol Last Admin: 04/12/19 09:45 Dose: 100 mls/hr Insulin Aspart (Novolog Vial Sliding Scale -) 1 vial SQ ACHS [facility]; Protocol Last Admin: 04/12/19 06:39 Dose: Not Given Lorazepam (Ativan -) 0.5 mg PO BID [facility] Last Admin: 04/12/19 09:44 Dose: 0.5 mg Magnesium Oxide (Mag-Ox -) 800 mg PO DAILY [facility] Stop: 04/14/19 10:01 Last Admin: 04/12/19 09:44 Dose: 800 mg Metoprolol Succinate (Toprol Xl -) 50 mg PO DAILY [facility] Last Admin: 04/12/19 09:44 Dose: 50 mg Nystatin (Nystop Powder -) 1 applic TP DAILY [facility] - Objective Vital Signs: Vital Signs Temperature 97.8 F 04/12/19 08:51 Pulse Rate 66 04/12/19 08:51 Respiratory Rate 18 04/12/19 09:00 Blood Pressure 143/79 04/12/19 08:51 O2 Sat by Pulse Oximetry (%) 100 04/12/19 09:00 Constitutional: Yes: No Distress Cardiovascular: Yes: Regular Rate and Rhythm Respiratory: Yes: CTA Bilaterally Edema: No Labs: CBC, BMP 04/12/19 05:33 04/12/19 05:33 INR, PTT INR 1.65 (0.83-1.09) H 04/10/19 05:30 Assessment/Plan A/P: 64 m hx afib, htn, hld, cva, dm, sent from [place] after accidentally removing his GB tube, now c/o chest pain for 2 hours. Hemodynamically stable. AF: -in sinus here, cont bb -eliquis resumed HTN: -bp controlled -cont bb HLD: -cont statin h/o CVA: -cont prior sec prevention regimen (statin, bp control, AC) cholecystitis s/p lap angelia: -no signs/sx's of active CAD, CHF, tolerated surgery well Chest pain: for last 2 hours. Poor historian -ECG, cardiac enzymes, Echo report reviewed with normal biventricular size and function, no significant valavular abnormality, mild cLVH. -Telemetry, Troponin neg x 2
--- NOTE | 2019-04-12 10:54 | DS ---
Physical Exam: SUBJECTIVE: Patient seen and examined, no complaints. Asking for assistance with breakfast. OBJECTIVE: Vital Signs Period Temp Pulse Resp BP Sys/Meléndez Pulse Ox Last 24 Hr 97.5 F-98.5 F 57-69 18-20 142-157/77-84 100-100 Intake & Output 04/09/19 04/10/19 04/11/19 04/12/19 23:59 23:59 23:59 23:59 Intake Total 1260 1725 1590 Output Total 5 1 1 Balance 1255 1724 1589 Weight 199 lb 203 lb 4.8 oz 202 lb 9 oz 199 lb 3.2 oz PHYSICAL EXAM GENERAL: sitting in bed, calm, no acute distress Neck: soft, supple, no JVD Chest: CTAB, no rales or wheezing Abdomen:soft, NT throughout, laparoscopic sites clean, no voluntary or involuntary guarding or rigidity, pos bowel sounds Extremities: no edema CVS:S1S2 irregular LABS Laboratory Results - last 24 hr 04/11/19 04/11/19 04/11/19 11:30 12:07 15:12 WBC RBC Hgb Hct MCV MCH MCHC RDW Plt Count MPV Absolute Neuts (auto) Neutrophils % Lymphocytes % Monocytes % Eosinophils % Basophils % Nucleated RBC % Sodium Potassium Chloride Carbon Dioxide Anion Gap BUN Creatinine Est GFR (CKD-EPI)AfAm Est GFR (CKD-EPI)NonAf POC Glucometer 153 Random Glucose Calcium Phosphorus Magnesium Total Bilirubin AST ALT Alkaline Phosphatase Creatine Kinase 22 L 21 L Troponin I < 0.02 < 0.02 Total Protein Albumin 04/11/19 04/11/19 04/11/19 17:43 20:00 22:42 WBC RBC Hgb Hct MCV MCH MCHC RDW Plt Count MPV Absolute Neuts (auto) Neutrophils % Lymphocytes % Monocytes % Eosinophils % Basophils % Nucleated RBC % Sodium Potassium Chloride Carbon Dioxide Anion Gap BUN Creatinine Est GFR (CKD-EPI)AfAm Est GFR (CKD-EPI)NonAf POC Glucometer 136 150 Random Glucose Calcium Phosphorus Magnesium Total Bilirubin AST ALT Alkaline Phosphatase Creatine Kinase 24 L Troponin I < 0.02 Total Protein Albumin 04/12/19 04/12/19 04/12/19 05:33 05:33 05:53 WBC 10.9 H RBC 3.29 L Hgb 9.7 L Hct 27.9 L MCV 84.9 MCH 29.6 MCHC 34.9 RDW 14.8 Plt Count 273 MPV 8.5 Absolute Neuts (auto) 8.5 H Neutrophils % 77.9 Lymphocytes % 12.5 D Monocytes % 6.7 Eosinophils % 2.5 Basophils % 0.4 Nucleated RBC % 0 Sodium 137 Potassium 3.3 L Chloride 102 Carbon Dioxide 25 Anion Gap 10 BUN 7.0 Creatinine 0.5 L Est GFR (CKD-EPI)AfAm 130.88 Est GFR (CKD-EPI)NonAf 112.92 POC Glucometer 131 Random Glucose 114 H Calcium 7.6 L Phosphorus 2.6 Magnesium 2.1 Total Bilirubin 0.5 AST 11 L ALT 8 L Alkaline Phosphatase 70 Creatine Kinase Troponin I Total Protein 5.6 L Albumin 2.1 L Microbiology 04/09/19 13:30 Urine - Urine Clean Catch Urine Culture - Final NO GROWTH OBTAINED 2D echo: Mild concentric LVH, EF 55-60%, Mild aortic sclerosis, Mitral valve leaflets appear thickened, trace TR, no pericardial effusion US Abdomen: CLINICAL INFORMATION: evaluate gallbladder, status post cholecystostomy tube removal In comparison to a CT exam of 02/16/2019 there is no longer visualization of a percutaneous cholecystostomy tube in place consistent with the provided clinical history. Heterogeneous mildly echogenic material is seen completely opacifying the gallbladder lumen which may represent inspissated bile/sludge, inflammatory debris and/or blood. CT evaluation may be considered. The common bile duct diameter appears slightly prominent measuring 0.7 cm. The liver, right kidney and partially visualized pancreas demonstrate no obvious sonographic abnormality. No free intraperitoneal fluid is seen. IMPRESSION: Nonspecific heterogeneous material is seen completely opacifying the gallbladder lumen as noted above. CT A/p: The lung bases are clear. The gallbladder is distended and thick walled. There is air noted within the gallbladder lumen and extensive inflammatory changes in the pericholecystic space. These changes involve the adjacent anterior abdominal wall, as well. This is consistent with severe acute cholecystitis. No discrete abscess is associated with this process. There is no evidence of intra or extrahepatic biliary ductal dilatation. The liver, spleen, pancreas, adrenal glands and kidneys demonstrate no significant abnormalities. There is a 7.2 cm left renal cysts present. There is no evidence of intra-abdominal or retroperitoneal lymphadenopathy or fluid collections. IMPRESSION: Severe acute cholecystitis with pericholecystic inflammation also involving the anterior abdominal wall. Clinical correlation and follow-up recommended. Please see above discussion. CT brain: Compared to prior examination dated 02/07/2019 Previously described likely chronic infarct in the left temporal and frontal lobe extending to the posterior frontal/parietal junction and left parietal lobe is again seen without interval change. There is moderate volume loss, ventricular dilatation and periventricular chronic microvascular ischemic disease changes. No mass lesion, gross acute infarct or intracranial hemorrhage are identified. There is no shift of the midline structures. Minimal deviation of the nasal septum to the left and minimal mucosal thickening in the ethmoid air cells. The mastoid air cells are well aerated and the calvarium is intact. Calcification of the cavernous carotid arteries are present IMPRESSION: Encephalomalacia/chronic infarct again seen in left temporal, frontal and parietal lobe with ex vacuo dilatation of the left lateral ventricle, posteriorly. Moderate atrophy and chronic microvascular ischemic disease changes. No CT evidence of acute intracranial pathology is identified. Correlate clinically to determine further evaluation and follow-up. HOSPITAL COURSE: Date of Admission:04/02/19 Date of Discharge: 04/12/19 Minutes to complete discharge: 40 Discharge Summary Reason For Visit: CHOLECYSTECTOMY TUBE DYSFUNCTION Current Active Problems Cholecystostomy tube dysfunction (Acute) Hospital Course: 64 yom with PMhx of HTN, HLD, NIDDM, CVA(LLE weakness, expressive aphasia; 2017) , Afib(on Eliquis), ESBL UTI/Cholecystitis in , d/dennis on cholecystostomy tube, comes back with dislodged cholecystostomy tube. He had CT A/P as above showing severe acute cholecystitis with pericholecystitic fluid. He was seen by surgery and had subtotal cholecystectomy on 04/07/2019. His JUSTICE drain was removed and abdominal symptoms improved. His diet was advanced which he tolerated well. He was continued on zosyn. He had post op leucocyctosis upto 19, repeat infectious work up was negative. It was likely stress reponse and resolved without additional interventions. He reported vague atypical chest pain to cardiology, was watched on telemetry, ACS was ruled out and had 2D echo as above with no acute concerns. He will be discharged back to [facility] in stable condition with 1 week of augmentin. His K, Phos, Mg were aggressively repleted. His hydrochlorothiazie and januvia are being held on discharge which may be resumed outpatient as tolerated by DEANDRE MCCLENDON. Condition: Stable - Instructions Diet, Activity, Other Instructions: Dr. Ferreira Discharge Instructions Dear STELLA BURGOS, Post Operative Instructions Physical activity Resume your normal everyday activity as tolerated no heavy lifting or exercise until seen by your surgeon. You may walk unlimited amounts of and climb stairs. You may resume driving the car when you feel safe and comfortable behind the wheel. Wound care If you have a bandage, leave it on, and keep dry for 48 - 72 hours. After that time discard the outer bandage. If there are tapes on the skin under the outer bandage, leave them in place. They will peel off in the next 7 to 10 days. Do Not peel them off. You may shower 2 days after surgery. If there are tapes present on the skin, they can get wet. Diet There are no dietary restrictions. Eat healthy, high-fiber foods. Drink 6 to 8 glasses of liquid each day. This will assist in keeping your bowels are regular. Pain management You may take Tylenol or acetaminophen or Ibuprofen (for example, Motrin, Advil etc.) Any pain prescription medication ordered should be taken as prescribed for moderate to severe pain. You have been prescribed an antibiotic Augmentin twice daily for next [address] Ferreira for any of the following: Severe pain not relieved by medication Fever of 101 or higher Excessive bleeding or drainage on dressing Inability to urinate Call the office at [phone] for a post operative appointment in 7 - 10 days. MEDICAL INSTRUCTIONS: Antibiotic augmentin twice daily for 7 days Hold your januvia and hydrochlorothiazie for now. Advise to continue insulin sliding scale in the meantime per facility protocol. Resume januvia and hydrochlorothiazie based on your blood sugar and blood pressure readings but longterm MD. Potssium chloride 40 meq daily for 3 days. Continue other medications as before. Incentive spirometry every hour when awake as able. Referrals: Pilo Ferreira MD [Staff Physician] - Joe Quinteros MD [Primary Care Provider] - Disposition: CUSTODIAL FACILITY - Home Medications Comprehensive Discharge Medication List: Ambulatory Orders Apixaban [Eliquis] 5 mg PO BID 01/15/19 Atorvastatin Calcium 80 mg PO HS 01/15/19 Fluoxetine HCl [Prozac] 40 mg PO DAILY 01/15/19 LORazepam [Ativan] 0.5 mg PO TID 01/15/19 Metoprolol Succinate 50 mg PO DAILY 01/15/19 Cholecalciferol (Vitamin D3) [Vitamin D3] 2,000 unit PO DAILY 01/16/19 Aa/Hydrolyzed Collagen, Whey [Lps 15-30 Liquid] 30 ml PO DAILY 04/02/19 Docusate Sodium [Colace] 100 mg PO HS 04/02/19 Amoxicillin/Potassium Clav [Augmentin 875-125 Tablet] 1 each PO BID #14 tablet 04/11/19 Insulin Sliding Scale [Novolog Vial Sliding Scale -] 1 vial SQ ACHS units 04/11 Mineral Oil/Pet Hy-Phl [Aquaphor -] 1 applic TP TID jar 04/11/19 Nystatin Powder [Nystop Powder -] 1 applic TP DAILY PRN applic 04/11/19 Potassium Chloride 40 meq PO DAILY #3 liquid 04/12/19 This patient is new to me today: No Emergency Visit: Yes ED Registration Date: 04/02/19 Care time: The patient presented to the Emergency Department on the above date and was hospitalized for further evaluation of their emergent condition. Critical Care patient: No - Discharge Referral Referred to [facility] Med P.C.: No
[2019-04-12] MEDS: NYSTATIN POWDER 100,000 UNITS/GM - 15 GM TOPICAL POWDER TP SCH (11:57)
[2019-04-12] MEDS: SODIUM CHLORIDE 0.9%/KCL 20 MEQ/1,000 ML INFUS.BAG IV SCH ×2 (11:59→18:14)
[2019-04-12] MEDS: AMOX TR/POT CLAV 875MG/125MG TABLETS (FP) PO SCH (18:10)
--- NOTE | 2019-04-12 18:46 | PN ---
Progress Note, Physician History of Present Illness: Pt seen and examined, events noted, labs/imaging results reviewed. Pt is alert, without distress. Aphasic, not a reliable source of history. Remains afebrile, wbc trending down. Had normal BM this AM as per RN. - Current Medication List Current Medications: Active Medications Acetaminophen (Tylenol -) 650 mg PO Q6H PRN PRN Reason: PAIN LEVEL 1-5 Last Admin: 04/11/19 22:46 Dose: 650 mg Amoxicillin/Clavulanate Potassium (Augmentin - 875mg Tablet) 1 tab PO BID@0800, 1730 [facility] Last Admin: 04/12/19 18:10 Dose: 1 tab Apixaban (Eliquis -) 5 mg PO BID [facility] Last Admin: 04/12/19 09:45 Dose: 5 mg Atorvastatin Calcium (Lipitor -) 80 mg PO HS [facility] Last Admin: 04/11/19 22:43 Dose: 80 mg Emollient Ointment (Aquaphor -) 1 applic TP TID [facility] Last Admin: 04/12/19 13:51 Dose: 1 applic Fluoxetine HCl (Prozac -) 40 mg PO DAILY [facility] Last Admin: 04/12/19 09:44 Dose: 40 mg Potassium Chloride/Sodium Chloride (Ns+20 Meq Kcl -) 20 meq in 1,000 mls @ 75 mls/hr IV ASDIR [facility] Last Admin: 04/12/19 18:14 Dose: 75 mls/hr Insulin Aspart (Novolog Vial Sliding Scale -) 1 vial SQ ACHS [facility]; Protocol Last Admin: 04/12/19 17:12 Dose: Not Given Lorazepam (Ativan -) 0.5 mg PO BID [facility] Last Admin: 04/12/19 09:44 Dose: 0.5 mg Magnesium Oxide (Mag-Ox -) 800 mg PO DAILY [facility] Stop: 04/14/19 10:01 Last Admin: 04/12/19 09:44 Dose: 800 mg Metoprolol Succinate (Toprol Xl -) 50 mg PO DAILY [facility] Last Admin: 04/12/19 09:44 Dose: 50 mg Nystatin (Nystop Powder -) 1 applic TP DAILY [facility] Last Admin: 04/12/19 11:57 Dose: 1 applic - Objective Vital Signs: Vital Signs Temperature 97.8 F 04/12/19 08:51 Pulse Rate 66 04/12/19 08:51 Respiratory Rate 18 08/03/19 09:00 Blood Pressure 143/79 04/12/19 08:51 O2 Sat by Pulse Oximetry (%) 100 04/12/19 09:00 Constitutional: Yes: No Distress, Calm Cardiovascular: Yes: Regular Rate and Rhythm Respiratory: Yes: Regular Gastrointestinal: Yes: Normal Bowel Sounds, Soft, Other (no guarding) Genitourinary: Yes: WNL Extremities: Yes: Other (SCDs on) Integumentary: Yes: WNL Neurological: Yes: Alert, Aphasia Labs: CBC, BMP 04/12/19 05:33 04/12/19 05:33 INR, PTT INR 1.65 (0.83-1.09) H 04/10/19 05:30 Microbiology 04/09/19 13:30 Urine - Urine Clean Catch Urine Culture - Final NO GROWTH OBTAINED - ....Imaging Cat Scan: Report Reviewed Problem List - Problems (1) Cholecystostomy tube dysfunction Code(s): T85.518A - BREAKDOWN (MECHANICAL) OF GI PROSTH DEV/GRFT, INIT Qualifiers: Encounter type: initial encounter Qualified Code(s): T85.518A - Breakdown ( mechanical) of other gastrointestinal prosthetic devices, implants and grafts, initial encounter (2) History of ESBL E. coli infection Code(s): Z86.19 - PERSONAL HISTORY OF OTHER INFECTIOUS AND PARASITIC DISEASES (3) CVA (cerebral vascular accident) Code(s): I63.9 - CEREBRAL INFARCTION, UNSPECIFIED Qualifiers: CVA mechanism: unspecified Qualified Code(s): I63.9 - Cerebral infarction, unspecified (4) Hypertension Code(s): I10 - ESSENTIAL (PRIMARY) HYPERTENSION Qualifiers: Hypertension type: unspecified Qualified Code(s): I10 - Essential (primary ) hypertension (5) Type 2 diabetes mellitus Code(s): E11.9 - TYPE 2 DIABETES MELLITUS WITHOUT COMPLICATIONS Qualifiers: Diabetes mellitus intermission coordinator insulin use: unspecified intermission coordinator insulin use status Diabetes mellitus complication status: with unspecified complications Assessment/Plan Dislodged Cholecystostomy tube now s/p subtotal cholecytectomy Hx of Acute cholecystitis Leukocytosis DM CVA AFIB HTN HLD -- continue Augmentin -- wbc decreased, pt afebrile -- continue monitor
[2019-04-12] MEDS ORDERED: INSULIN (NOVOLOG) ASPART 100 UNITS/ML 10ML VIAL ONE (21:41)
[2019-04-12] MEDS: ATORVASTATIN CA 80 MG TABLET (FP) PO SCH (22:07)
[2019-04-13] MEDS: ACETAMINOPHEN 325 MG TABLET (FP) PO PRN ×2 (02:42→22:50)
[2019-04-13] MEDS: INSULIN SLIDING SCALE (NOVOLOG) 1 VIAL SQ SCH ×4 (06:03→22:52)
[2019-04-13] MEDS: MINERAL OIL/PET HY-PHL TOPICAL OINTMENT 454 GM JAR TP SCH ×3 (06:30→22:52)
[2019-04-13] MEDS: AMOX TR/POT CLAV 875MG/125MG TABLETS (FP) PO SCH ×2 (07:45→17:07)
[2019-04-13] MEDS: SODIUM CHLORIDE 0.9%/KCL 20 MEQ/1,000 ML INFUS.BAG IV SCH (09:05)
[2019-04-13] MEDS: MAGNESIUM OXIDE 400 MG TABLET (FP) PO SCH (09:28)
[2019-04-13] MEDS: APIXABAN 5 MG TABLET PO SCH ×2 (09:29→22:51)
[2019-04-13] MEDS: LORazepam 0.5 MG TABLET PO SCH ×2 (09:29→22:52)
[2019-04-13] MEDS: FLUoxetine HCL 20 MG CAPSULE (FP) PO SCH (09:29)
[2019-04-13] MEDS: NYSTATIN POWDER 100,000 UNITS/GM - 15 GM TOPICAL POWDER TP SCH (09:29)
--- NOTE | 2019-04-13 10:43 | PN ---
Progress Note, Physician History of Present Illness: No Cv complaints today Feels improved from yesterday. Tele: NSR with PACs - Current Medication List Current Medications: Active Medications Acetaminophen (Tylenol -) 650 mg PO Q6H PRN PRN Reason: PAIN LEVEL 1-5 Last Admin: 04/13/19 02:42 Dose: 650 mg Amoxicillin/Clavulanate Potassium (Augmentin - 875mg Tablet) 1 tab PO BID@0800, 1730 [facility] Last Admin: 04/13/19 07:45 Dose: 1 tab Apixaban (Eliquis -) 5 mg PO BID [facility] Last Admin: 04/13/19 09:29 Dose: 5 mg Atorvastatin Calcium (Lipitor -) 80 mg PO HS [facility] Last Admin: 04/12/19 22:07 Dose: 80 mg Emollient Ointment (Aquaphor -) 1 applic TP TID [facility] Last Admin: 04/13/19 06:30 Dose: 1 applic Fluoxetine HCl (Prozac -) 40 mg PO DAILY [facility] Last Admin: 04/13/19 09:29 Dose: 40 mg Potassium Chloride/Sodium Chloride (Ns+20 Meq Kcl -) 20 meq in 1,000 mls @ 75 mls/hr IV ASDIR [facility] Last Admin: 04/13/19 09:05 Dose: 75 mls/hr Insulin Aspart (Novolog Vial Sliding Scale -) 1 vial SQ ACHS [facility]; Protocol Last Admin: 04/13/19 06:03 Dose: Not Given Lorazepam (Ativan -) 0.5 mg PO BID [facility] Last Admin: 04/13/19 09:29 Dose: 0.5 mg Magnesium Oxide (Mag-Ox -) 800 mg PO DAILY [facility] Stop: 04/14/19 10:01 Last Admin: 04/13/19 09:28 Dose: 800 mg Metoprolol Succinate (Toprol Xl -) 50 mg PO DAILY [facility] Last Admin: 04/13/19 09:29 Dose: 50 mg Nystatin (Nystop Powder -) 1 applic TP DAILY [facility] Last Admin: 04/13/19 09:29 Dose: 1 applic - Objective Vital Signs: Vital Signs Temperature 97.6 F 04/13/19 08:36 Pulse Rate 60 04/13/19 08:36 Respiratory Rate 18 04/13/19 08:39 Blood Pressure 140/79 04/13/19 08:36 O2 Sat by Pulse Oximetry (%) 98 04/13/19 08:39 Constitutional: Yes: No Distress, Calm Cardiovascular: Yes: Regular Rate and Rhythm Respiratory: Yes: CTA Bilaterally Edema: No Labs: CBC, BMP 04/12/19 05:33 04/12/19 05:33 INR, PTT INR 1.65 (0.83-1.09) H 04/10/19 05:30 Assessment/Plan A/P: 64 m hx afib, htn, hld, cva, dm, sent from [place] after accidentally removing his GB tube, now c/o chest pain for 2 hours. Hemodynamically stable. AF: -in sinus here, cont bb -eliquis resumed HTN: -bp controlled -cont bb HLD: -cont statin h/o CVA: -cont prior sec prevention regimen (statin, bp control, AC) cholecystitis s/p lap angelia: -no signs/sx's of active CAD, CHF, tolerated surgery well Chest pain: for last 2 hours. Poor historian -ECG, cardiac enzymes, Echo report reviewed with normal biventricular size and function, no significant valavular abnormality, mild cLVH. -Telemetry, Troponin neg x 2
--- NOTE | 2019-04-13 10:59 | PN ---
Physical Exam: SUBJECTIVE: Patient seen and examined, no complaints, anxious. OBJECTIVE: Vital Signs Period Temp Pulse Resp BP Sys/Meléndez Pulse Ox Last 24 Hr 97.4 F-98.5 F 60-74 18-18 134-155/67-87 98-98 Intake & Output 04/10/19 04/11/19 04/12/19 04/13/19 23:59 23:59 23:59 23:59 Intake Total 1725 1590 1340 900 Output Total 1 1 Balance 1724 1589 1340 900 Weight 203 lb 4.8 oz 202 lb 9 oz 199 lb 3.2 oz 200 lb 5 oz GENERAL: sitting in bed anxious, no acute distress Chest: decreased effort, no rales or wheezing CVS:S1S2 regular Abdomen:soft, NT throughout, improved distension, no tenderness/erythema or discharge around the laparoscopic site Genital: no scrotal erythema/discharged or tenderness noted Extremities: no edema Psych: anxious, no acute distress Laboratory Results - last 24 hr 04/12/19 04/12/19 04/12/19 11:40 17:05 22:04 POC Glucometer 159 149 155 04/13/19 05:48 POC Glucometer 125 Active Medications Generic Name Dose Route Start Last Admin Trade Name Freq PRN Reason Stop Dose Admin Acetaminophen 650 mg 04/11/19 11:51 04/13/19 02:42 Tylenol - PO 650 mg Q6H PRN Administration PAIN LEVEL 1-5 Amoxicillin/Clavulanate Potassium 1 tab 04/12/19 17:30 04/13/19 07:45 Augmentin - 875mg Tablet PO 1 tab BID@0800,1730 [facility] Administration Apixaban 5 mg 04/11/19 22:00 04/13/19 09:29 Eliquis - PO 5 mg BID [facility] Administration Atorvastatin Calcium 80 mg 04/11/19 22:00 04/12/19 22:07 Lipitor - PO 80 mg HS [facility] Administration Emollient Ointment 1 applic 04/11/19 14:00 04/13/19 06:30 Aquaphor - TP 1 applic TID [facility] Administration Fluoxetine HCl 40 mg 04/12/19 10:00 04/13/19 09:29 Prozac - PO 40 mg DAILY [facility] Administration Insulin Aspart 1 vial 04/11/19 16:30 04/13/19 06:03 Novolog Vial Sliding Scale - SQ Not Given ACHS [facility] Protocol Lorazepam 0.5 mg 04/11/19 11:45 04/13/19 09:29 Ativan - PO 0.5 mg BID [facility] Administration Magnesium Oxide 800 mg 04/12/19 10:00 04/13/19 09:28 Mag-Ox - PO 04/14/19 10:01 800 mg DAILY [facility] Administration Metoprolol Succinate 50 mg 04/12/19 10:00 04/13/19 09:29 Toprol Xl - PO 50 mg DAILY [facility] Administration Nystatin 1 applic 04/12/19 10:00 04/13/19 09:29 Nystop Powder - TP 1 applic DAILY [facility] Administration ASSESSMENT/PLAN: 64 yom with PMhx of HTN, HLD, NIDDM, CVA(LLE weakness, expressive aphasia; 2016) , Afib(on Eliquis), ESBL UTI/Cholecystitis in , d/dennis on cholecystostomy tube, comes back with dislodged cholecystostomy tube. -Subacute cholecystitis s/p Cholecystotomy tube dislodgement -S/p Subtotal cholecystectomy 04/07/2019 -Leucocytosis, ?Stress response, r/o worsening infection -?Atypical chest pain -Hypomagnesemia -Hypokalemia -Hypophosphatemia -Prolonged QTc -HTN -HLD -CVA with residual expressive aphasia and LLE weakness -Afib on eliquis -Recent ESBL UTI, in 02/2019 Plan: Doing well, afebrile, WBC improved. tolerating diet. Augmentin day 2 Telemetry with no events, ACS ruled out. 2D echo reviewed. Cleared by surgery for dc replete lytes prn Dispo medically ready for dc. Awaiting SNF bed arrangement to dc back to [facility] tele Discussed with nursing. Visit type - Emergency Visit Emergency Visit: Yes ED Registration Date: 04/02/19 Care time: The patient presented to the Emergency Department on the above date and was hospitalized for further evaluation of their emergent condition. - New Patient This patient is new to me today: No - Critical Care Critical Care patient: No - Discharge Referral Referred to [facility] Med P.C.: No
--- NOTE | 2019-04-13 15:16 | PN ---
Progress Note, Physician History of Present Illness: Pt remains alert, afebrile. c/o pain in tongue but denies difficulty swallowing. Aphasic. Normal BMs per nurse, no respiratory distress. - Current Medication List Current Medications: Active Medications Acetaminophen (Tylenol -) 650 mg PO Q6H PRN PRN Reason: PAIN LEVEL 1-5 Last Admin: 04/13/19 02:42 Dose: 650 mg Amoxicillin/Clavulanate Potassium (Augmentin - 875mg Tablet) 1 tab PO BID@0800, 1730 [facility] Last Admin: 04/13/19 07:45 Dose: 1 tab Apixaban (Eliquis -) 5 mg PO BID [facility] Last Admin: 04/13/19 09:29 Dose: 5 mg Atorvastatin Calcium (Lipitor -) 80 mg PO HS [facility] Last Admin: 04/12/19 22:07 Dose: 80 mg Emollient Ointment (Aquaphor -) 1 applic TP TID [facility] Last Admin: 04/13/19 13:24 Dose: 1 applic Fluoxetine HCl (Prozac -) 40 mg PO DAILY [facility] Last Admin: 04/13/19 09:29 Dose: 40 mg Insulin Aspart (Novolog Vial Sliding Scale -) 1 vial SQ ACHS [facility]; Protocol Last Admin: 04/13/19 11:50 Dose: 2 units Lorazepam (Ativan -) 0.5 mg PO BID [facility] Last Admin: 04/13/19 09:29 Dose: 0.5 mg Magnesium Oxide (Mag-Ox -) 800 mg PO DAILY [facility] Stop: 04/14/19 10:01 Last Admin: 04/13/19 09:28 Dose: 800 mg Metoprolol Succinate (Toprol Xl -) 50 mg PO DAILY [facility] Last Admin: 04/13/19 09:29 Dose: 50 mg Nystatin (Nystop Powder -) 1 applic TP DAILY [facility] Last Admin: 04/13/19 09:29 Dose: 1 applic - Objective Vital Signs: Vital Signs Temperature 97.6 F 04/13/19 08:36 Pulse Rate 60 04/13/19 08:36 Respiratory Rate 18 04/13/19 08:39 Blood Pressure 140/79 04/13/19 08:36 O2 Sat by Pulse Oximetry (%) 98 04/13/19 08:39 Constitutional: Yes: No Distress Eyes: Yes: Conjunctiva Clear, EOM Intact HENT: Yes: Atraumatic, Other (no thrush, no tongue/buccal ulcers) Neck: Yes: Supple Cardiovascular: Yes: Regular Rate and Rhythm Respiratory: Yes: CTA Bilaterally Gastrointestinal: Yes: Normal Bowel Sounds, Soft Extremities: Yes: WNL Integumentary: Yes: WNL Neurological: Yes: Alert, Aphasia Labs: CBC, BMP 04/12/19 05:33 04/12/19 05:33 INR, PTT INR 1.65 (0.83-1.09) H 04/10/19 05:30 Microbiology 04/09/19 13:30 Urine - Urine Clean Catch Urine Culture - Final NO GROWTH OBTAINED Problem List - Problems (1) Cholecystostomy tube dysfunction Code(s): T85.518A - BREAKDOWN (MECHANICAL) OF GI PROSTH DEV/GRFT, INIT Qualifiers: Encounter type: initial encounter Qualified Code(s): T85.518A - Breakdown ( mechanical) of other gastrointestinal prosthetic devices, implants and grafts, initial encounter (2) History of ESBL E. coli infection Code(s): Z86.19 - PERSONAL HISTORY OF OTHER INFECTIOUS AND PARASITIC DISEASES (3) CVA (cerebral vascular accident) Code(s): I63.9 - CEREBRAL INFARCTION, UNSPECIFIED Qualifiers: CVA mechanism: unspecified Qualified Code(s): I63.9 - Cerebral infarction, unspecified (4) Hypertension Code(s): I10 - ESSENTIAL (PRIMARY) HYPERTENSION Qualifiers: Hypertension type: unspecified Qualified Code(s): I10 - Essential (primary ) hypertension (5) Type 2 diabetes mellitus Code(s): E11.9 - TYPE 2 DIABETES MELLITUS WITHOUT COMPLICATIONS Qualifiers: Diabetes mellitus chcf insulin use: unspecified continuous 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
[2019-04-13] MEDS: ATORVASTATIN CA 80 MG TABLET (FP) PO SCH (22:51)
[2019-04-14] MEDS: INSULIN SLIDING SCALE (NOVOLOG) 1 VIAL SQ SCH (06:05)
[2019-04-14] MEDS: MINERAL OIL/PET HY-PHL TOPICAL OINTMENT 454 GM JAR TP SCH (06:06)
--- NOTE | 2019-04-14 08:06 | DS ---
Physical Exam: SUBJECTIVE: Patient seen and examined, waking up, no complaints. Tolerating diet well as discussed with nursing. OBJECTIVE: Vital Signs Period Temp Pulse Resp BP Sys/Meléndez Pulse Ox Last 24 Hr 97.6 F-98.4 F 52-69 16-18 113-147/58-88 98-100 PHYSICAL EXAM GENERAL: sitting in bed, calm, no acute distress Neck: soft, supple, no JVD Chest: CTAB, no rales or wheezing Abdomen:soft, NT throughout, laparoscopic sites clean, no voluntary or involuntary guarding or rigidity, pos bowel sounds Extremities: no edema CVS:S1S2 irregular LABS Laboratory Results - last 24 hr 04/13/19 04/13/19 04/13/19 11:30 16:57 21:57 POC Glucometer 165 130 113 04/14/19 05:15 POC Glucometer 116 Laboratory Last Values WBC 10.9 K/mm3 (4.0-10.0) H 04/12/19 05:33 RBC 3.29 M/mm3 (4.00-5.60) L 04/12/19 05:33 Hgb 9.7 GM/dL (11.7-16.9) L 04/12/19 05:33 Hct 27.9 % (35.4-49) L 04/12/19 05:33 MCV 84.9 fl (80-96) 04/12/19 05:33 MCH 29.6 pg (25.7-33.7) 04/12/19 05:33 MCHC 34.9 g/dl (32.0-35.9) 04/12/19 05:33 RDW 14.8 % (11.9-15.9) 04/12/19 05:33 Plt Count 273 K/MM3 (134-434) 04/12/19 05:33 MPV 8.5 fl (7.5-11.1) 04/12/19 05:33 Absolute Neuts (auto) 8.5 K/mm3 (1.5-8.0) H 04/12/19 05:33 Neutrophils % 77.9 % (42.8-82.8) 04/12/19 05:33 Neutrophils % (Manual) 97.0 % (42.8-82.8) H 04/09/19 06:43 Band Neutrophils % 0.0 % 04/09/19 06:43 Lymphocytes % 12.5 % (8-40) D 04/12/19 05:33 Lymphocytes % (Manual) 3.0 % (8-40) L 04/09/19 06:43 Monocytes % 6.7 % (3.8-10.2) 04/12/19 05:33 Monocytes % (Manual) 0 % (3.8-10.2) L 04/09/19 06:43 Eosinophils % 2.5 % (0-4.5) 04/12/19 05:33 Eosinophils % (Manual) 0.0 % (0-4.5) 04/09/19 06:43 Basophils % 0.4 % (0-2.0) 04/12/19 05:33 Basophils % (Manual) 0.0 % (0-2.0) 04/09/19 06:43 Myelocytes % (Man) 0 % (0-2) 04/09/19 06:43 Promyelocytes % (Man) 0 % (0-2) 04/09/19 06:43 Blast Cells % (Manual) 0 % (0-0) 04/09/19 06:43 Nucleated RBC % 0 % (0-0) 04/12/19 05:33 Metamyelocytes 0 % (0-2) 04/09/19 06:43 Hypochromia 0 04/09/19 06:43 Platelet Estimate Normal 04/09/19 06:43 Polychromasia 0 04/09/19 06:43 Poikilocytosis 1+ 04/09/19 06:43 Anisocytosis 0 04/09/19 06:43 Microcytosis 0 04/09/19 06:43 Macrocytosis 0 04/09/19 06:43 Acanthocytes (Spur) 1+ 04/09/19 06:43 PT with INR 19.60 SEC (9.7-13.0) H 04/10/19 05:30 INR 1.65 (0.83-1.09) H 04/10/19 05:30 PTT (Actin FS) 34.6 SECONDS (25.2-36.5) 04/07/19 07:23 Sodium 137 mmol/L (136-145) 04/12/19 05:33 Potassium 3.3 mmol/L (3.5-5.1) L 04/12/19 05:33 Chloride 102 mmol/L (98-107) 04/12/19 05:33 Carbon Dioxide 25 mmol/L (21-32) 04/12/19 05:33 Anion Gap 10 MMOL/L (8-16) 04/12/19 05:33 BUN 7.0 mg/dL (7-18) 04/12/19 05:33 Creatinine 0.5 mg/dL (0.55-1.3) L 04/12/19 05:33 Est GFR (CKD-EPI)AfAm 130.88 04/12/19 05:33 Est GFR (CKD-EPI)NonAf 112.92 04/12/19 05:33 POC Glucometer 116 UNITS (80-120) 04/14/19 05:15 Random Glucose 114 mg/dL (74-106) H 04/12/19 05:33 Calcium 7.6 mg/dL (8.5-10.1) L 04/12/19 05:33 Phosphorus 2.6 mg/dL (2.5-4.9) 04/12/19 05:33 Magnesium 2.1 mg/dL (1.8-2.4) 04/12/19 05:33 Total Bilirubin 0.5 mg/dL (0.2-1) 04/12/19 05:33 Direct Bilirubin 0.3 mg/dL (0.0-0.2) H 04/09/19 06:43 AST 11 U/L (15-37) L 04/12/19 05:33 ALT 8 U/L (13-61) L 04/12/19 05:33 Alkaline Phosphatase 70 U/L (45-117) 04/12/19 05:33 Creatine Kinase 24 U/L (26-308) L 04/11/19 20:00 Troponin I < 0.02 ng/ml (0.00-0.05) 04/11/19 20:00 Total Protein 5.6 g/dl (6.4-8.2) L 04/12/19 05:33 Albumin 2.1 g/dl (3.4-5.0) L 04/12/19 05:33 Urine Color Yellow 04/09/19 13:30 Urine Appearance Clear 04/09/19 13:30 Urine pH 6.0 (5.0-8.0) 04/09/19 13:30 Ur Specific Cana 1.026 (1.010-1.035) 04/09/19 13:30 Urine Protein 1+ (NEGATIVE) H 04/09/19 13:30 Urine Glucose (UA) Negative (NEGATIVE) 04/09/19 13:30 Urine Ketones Trace (NEGATIVE) H 04/09/19 13:30 Urine Blood Negative (NEGATIVE) 04/09/19 13:30 Urine Nitrite Negative (NEGATIVE) 04/09/19 13:30 Urine Bilirubin Negative (NEGATIVE) 04/09/19 13:30 Urine Urobilinogen 1.0 mg/dL (0.2-1.0) 04/09/19 13:30 Ur Leukocyte Esterase Negative (NEGATIVE) 04/09/19 13:30 Urine WBC (Auto) 1 /hpf (0-5) 04/09/19 13:30 Urine RBC (Auto) 3 /hpf (0-4) 04/09/19 13:30 Urine Casts (Auto) 8 /lpf (0-8) 04/09/19 13:30 U Epithel Cells (Auto) 2.9 /HPF (0-5/HPF) 04/09/19 13:30 Urine Bacteria (Auto) 1.0 /hpf (NEGATIVE) 04/09/19 13:30 Blood Type O POSITIVE 04/06/19 10:47 Antibody Screen Negative 04/06/19 10:47 Microbiology 04/09/19 13:30 Urine - Urine Clean Catch Urine Culture - Final NO GROWTH OBTAINED 2D echo: Mild concentric LVH, EF 55-60%, Mild aortic sclerosis, Mitral valve leaflets appear thickened, trace TR, no pericardial effusion US Abdomen: CLINICAL INFORMATION: evaluate gallbladder, status post cholecystostomy tube removal In comparison to a CT exam of 02/16/2019 there is no longer visualization of a percutaneous cholecystostomy tube in place consistent with the provided clinical history. Heterogeneous mildly echogenic material is seen completely opacifying the gallbladder lumen which may represent inspissated bile/sludge, inflammatory debris and/or blood. CT evaluation may be considered. The common bile duct diameter appears slightly prominent measuring 0.7 cm. The liver, right kidney and partially visualized pancreas demonstrate no obvious sonographic abnormality. No free intraperitoneal fluid is seen. IMPRESSION: Nonspecific heterogeneous material is seen completely opacifying the gallbladder lumen as noted above. CT A/p: The lung bases are clear. The gallbladder is distended and thick walled. There is air noted within the gallbladder lumen and extensive inflammatory changes in the pericholecystic space. These changes involve the adjacent anterior abdominal wall, as well. This is consistent with severe acute cholecystitis. No discrete abscess is associated with this process. There is no evidence of intra or extrahepatic biliary ductal dilatation. The liver, spleen, pancreas, adrenal glands and kidneys demonstrate no significant abnormalities. There is a 7.2 cm left renal cysts present. There is no evidence of intra-abdominal or retroperitoneal lymphadenopathy or fluid collections. IMPRESSION: Severe acute cholecystitis with pericholecystic inflammation also involving the anterior abdominal wall. Clinical correlation and follow-up recommended. Please see above discussion. CT brain: Compared to prior examination dated 02/07/2019 Previously described likely chronic infarct in the left temporal and frontal lobe extending to the posterior frontal/parietal junction and left parietal lobe is again seen without interval change. There is moderate volume loss, ventricular dilatation and periventricular chronic microvascular ischemic disease changes. No mass lesion, gross acute infarct or intracranial hemorrhage are identified. There is no shift of the midline structures. Minimal deviation of the nasal septum to the left and minimal mucosal thickening in the ethmoid air cells. The mastoid air cells are well aerated and the calvarium is intact. Calcification of the cavernous carotid arteries are present IMPRESSION: Encephalomalacia/chronic infarct again seen in left temporal, frontal and parietal lobe with ex vacuo dilatation of the left lateral ventricle, posteriorly. Moderate atrophy and chronic microvascular ischemic disease changes. No CT evidence of acute intracranial pathology is identified. Correlate clinically to determine further evaluation and follow-up. HOSPITAL COURSE: Date of Admission:04/02/19 Date of Discharge: 04/14/19 Minutes to complete discharge: 40 Discharge Summary Reason For Visit: CHOLECYSTECTOMY TUBE DYSFUNCTION Current Active Problems Cholecystostomy tube dysfunction (Acute) Hospital Course: 64 yom with PMhx of HTN, HLD, NIDDM, CVA(LLE weakness, expressive aphasia; 2017) , Afib(on Eliquis), ESBL UTI/Cholecystitis in , d/dennis on cholecystostomy tube, comes back with dislodged cholecystostomy tube. He had CT A/P as above showing severe acute cholecystitis with pericholecystitic fluid. He was seen by surgery and had subtotal cholecystectomy on 04/07/2019. His JUSTICE drain was removed and abdominal symptoms improved. His diet was advanced which he tolerated well. He was continued on zosyn. He had post op leucocyctosis upto 19, repeat infectious work up was negative. It was likely stress reponse and resolved without additional interventions. He reported vague atypical chest pain to cardiology, was watched on telemetry, ACS was ruled out and had 2D echo as above with no acute concerns. He will be discharged back to [facility] in stable condition with 1 week of augmentin. His K, Phos, Mg were aggressively repleted. His hydrochlorothiazie and januvia are being held on discharge which may be resumed outpatient as tolerated by [place] MD Condition: Stable - Instructions Diet, Activity, Other Instructions: Dr. Ferreira Discharge Instructions Dear STELLA BURGOS, Post Operative Instructions Physical activity Resume your normal everyday activity as tolerated no heavy lifting or exercise until seen by your surgeon. You may walk unlimited amounts of and climb stairs. You may resume driving the car when you feel safe and comfortable behind the wheel. Wound care If you have a bandage, leave it on, and keep dry for 48 - 72 hours. After that time discard the outer bandage. If there are tapes on the skin under the outer bandage, leave them in place. They will peel off in the next 7 to 10 days. Do Not peel them off. You may shower 2 days after surgery. If there are tapes present on the skin, they can get wet. Diet There are no dietary restrictions. Eat healthy, high-fiber foods. Drink 6 to 8 glasses of liquid each day. This will assist in keeping your bowels are regular. Pain management You may take Tylenol or acetaminophen or Ibuprofen (for example, Motrin, Advil etc.) Any pain prescription medication ordered should be taken as prescribed for moderate to severe pain. You have been prescribed an antibiotic Augmentin twice daily for next [address] Ferreira for any of the following: Severe pain not relieved by medication Fever of 101 or higher Excessive bleeding or drainage on dressing Inability to urinate Call the office at [phone] for a post operative appointment in 7 - 10 days. MEDICAL INSTRUCTIONS: Antibiotic augmentin twice daily for 7 days Hold your januvia and hydrochlorothiazie for now. Advise to continue insulin sliding scale in the meantime per facility protocol. Resume januvia and hydrochlorothiazie based on your blood sugar and blood pressure readings but senior living MD. Potssium chloride 40 meq daily for 3 days. Continue other medications as before. Incentive spirometry every hour when awake as able. Referrals: Pilo Ferreira MD [Staff Physician] - Joe Quinteros MD [Primary Care Provider] - Disposition: [facility] - Home Medications Comprehensive Discharge Medication List: Ambulatory Orders Apixaban [Eliquis] 5 mg PO BID 01/15/19 Atorvastatin Calcium 80 mg PO HS 01/15/19 Fluoxetine HCl [Prozac] 40 mg PO DAILY 01/15/19 LORazepam [Ativan] 0.5 mg PO TID 01/15/19 Metoprolol Succinate 50 mg PO DAILY 01/15/19 Cholecalciferol (Vitamin D3) [Vitamin D3] 2,000 unit PO DAILY 01/16/19 Aa/Hydrolyzed Collagen, Whey [Lps 15-30 Liquid] 30 ml PO DAILY 04/02/19 Docusate Sodium [Colace] 100 mg PO HS 04/02/19 Insulin Sliding Scale [Novolog Vial Sliding Scale -] 1 vial SQ ACHS units 04/11 Mineral Oil/Pet Hy-Phl [Aquaphor -] 1 applic TP TID jar 04/11/19 Nystatin Powder [Nystop Powder -] 1 applic TP DAILY PRN applic 04/11/19 Amox-Tr/K Cl [Augmentin 875-125mg Tablet -] 1 tab PO BID@0800,1730 #10 tablet This patient is new to me today: No Emergency Visit: Yes ED Registration Date: 04/02/19 Care time: The patient presented to the Emergency Department on the above date and was hospitalized for further evaluation of their emergent condition. Critical Care patient: No - Discharge Referral Referred to [facility] Med P.C.: No
--- NOTE | 2019-04-14 10:33 | PN ---
Progress Note, Physician - Current Medication List Current Medications: Active Medications Acetaminophen (Tylenol -) 650 mg PO Q6H PRN PRN Reason: PAIN LEVEL 1-5 Last Admin: 04/13/19 22:50 Dose: 650 mg Amoxicillin/Clavulanate Potassium (Augmentin - 875mg Tablet) 1 tab PO BID@0800, 1730 [facility] Last Admin: 04/13/19 17:07 Dose: 1 tab Apixaban (Eliquis -) 5 mg PO BID [facility] Last Admin: 04/13/19 22:51 Dose: 5 mg Atorvastatin Calcium (Lipitor -) 80 mg PO HS [facility] Last Admin: 04/13/19 22:51 Dose: 80 mg Emollient Ointment (Aquaphor -) 1 applic TP TID [facility] Last Admin: 04/14/19 06:06 Dose: 1 applic Fluoxetine HCl (Prozac -) 40 mg PO DAILY [facility] Last Admin: 04/13/19 09:29 Dose: 40 mg Insulin Aspart (Novolog Vial Sliding Scale -) 1 vial SQ ACHS [facility]; Protocol Last Admin: 04/14/19 06:05 Dose: Not Given Lorazepam (Ativan -) 0.5 mg PO BID [facility] Last Admin: 04/13/19 22:52 Dose: 0.5 mg Metoprolol Succinate (Toprol Xl -) 50 mg PO DAILY [facility] Last Admin: 04/13/19 09:29 Dose: 50 mg Nystatin (Nystop Powder -) 1 applic TP DAILY [facility] Last Admin: 04/13/19 09:29 Dose: 1 applic - Objective Vital Signs: Vital Signs Temperature 98.0 F 04/14/19 06:00 Pulse Rate 52 L 04/14/19 06:00 Respiratory Rate 18 04/14/19 06:00 Blood Pressure 113/58 L 04/14/19 06:00 O2 Sat by Pulse Oximetry (%) 100 04/13/19 20:34 Labs: CBC, BMP 04/12/19 05:33 04/12/19 05:33 INR, PTT INR 1.65 (0.83-1.09) H 04/10/19 05:30 Assessment/Plan A/P: 64 m hx afib, htn, hld, cva, dm, sent from [place] after accidentally removing his GB tube, now c/o chest pain for 2 hours. Hemodynamically stable. AF: -in sinus here, cont bb -eliquis resumed HTN: -bp controlled -cont bb HLD: -cont statin h/o CVA: -cont prior sec prevention regimen (statin, bp control, AC) cholecystitis s/p lap angelia: -no signs/sx's of active CAD, CHF, tolerated surgery well Chest pain on 04/11: -ruled out (trop x 3), ECG non-ischemic, echo with normal biventricular size and function, no significant valavular abnormality
[2019-04-14 10:36] VITALS: BP 164/78; PULSE 63; TEMP 97.7
[2019-04-14] MEDS: LORazepam 0.5 MG TABLET PO SCH (10:43)
[2019-04-14] MEDS: AMOX TR/POT CLAV 875MG/125MG TABLETS (FP) PO SCH (10:43)
[2019-04-14] MEDS: APIXABAN 5 MG TABLET PO SCH (10:44)
[2019-04-14] MEDS: MAGNESIUM OXIDE 400 MG TABLET (FP) PO SCH (10:44)
[2019-04-14] MEDS: FLUoxetine HCL 20 MG CAPSULE (FP) PO SCH (10:45)
[2019-04-14] MEDS: NYSTATIN POWDER 100,000 UNITS/GM - 15 GM TOPICAL POWDER TP SCH (10:45)
--- NOTE | 2019-04-14 12:37 | PN ---
Progress Note, Physician - Objective Vital Signs: Vital Signs Temperature 97.7 F 04/14/19 10:00 Pulse Rate 63 04/14/19 10:00 Respiratory Rate 20 04/14/19 10:00 Blood Pressure 164/78 04/14/19 10:00 O2 Sat by Pulse Oximetry (%) 100 04/13/19 20:34 Labs: CBC, BMP 04/12/19 05:33 04/12/19 05:33 INR, PTT INR 1.65 (0.83-1.09) H 04/10/19 05:30
--- NOTE | 2019-04-17 18:41 | OP ---
DATE OF OPERATION: 04/07/2019 PREOPERATIVE DIAGNOSIS: Cholecystitis and cholecystostomy tube displacement. PROCEDURE: Laparoscopic subtotal cholecystectomy. SURGEON: Pilo Ferreira MD VETERINARY TECHNICIAN: MAGED Wright ANESTHESIA: General. OPERATIVE FINDINGS: There was adherence of the fundus of the gallbladder to the abdominal wall at the site of the previous cholecystostomy tube. There were gangrenous changes of the gallbladder with marked inflammation towards the neck of the gallbladder and cystic artery and duct, there were adhesions of the omentum to the gallbladder, and the rest of the findings were unremarkable. PROCEDURE: The patient was placed on the operating table in the supine position , and after the induction of general anesthesia, the patient's abdomen was prepped with ChloraPrep and draped in sterile fashion. A timeout was taken and then pneumoperitoneum established above the umbilicus using a Veress needle to an intraabdominal pressure of 15 mmHg. A subxiphoid 12-mm port was placed under direct vision and then 2 lateral 5-mm ports were placed as well. The previously noted findings were observed. The gallbladder was mobilized by taking down all the adhesions of omentum that were over the gallbladder and the abdominal wall using a combination of blunt dissection and scissors with electrocautery. Once the omentum was taken down, the fundus of the gallbladder was taken down from the abdominal wall, where it was adhered, using the same technique. Next, it was decided that complete laparoscopic cholecystectomy could not safely be achieved due to marked inflammation in the triangle of Calot, and the gallbladder was opened using scissors with electrocautery. The entire anterior gallbladder was removed along with the mucosa and this was taken down as far as possible but not quite to the distal neck of the gallbladder. The subtotal cholecystectomy specimen was placed in an EndoCatch and brought out through the subxiphoid port and sent for pathological examination. Pneumoperitoneum was reestablished. Copious irrigation was carried out until the return was clear and hemostasis was achieved with electrocautery. Again, irrigation was carried out with normal saline. Hemostasis was then verified again and a 10 -mm Jayjay-Pollard drain was placed in the gallbladder fossa and brought out through one of the 5-mm port sites, where the drain was sutured to the skin with 2-0 silk suture. Again hemostasis was verified. At this point, some omentum was manipulated into the gallbladder fossa and then all ports were removed under laparoscopic vision without evidence of bleeding from the port sites. The pneumoperitoneum was evacuated and all port sites were infiltrated with 0.5% Marcaine. The defect in the fascia at the subxiphoid port was closed with a 0 Vicryl [id number] suture. The drain was connected to bulb suction and the port site incisions were closed with 4-0 Monocryl in a subcuticular fashion followed by Steri-Strips and Band-Aid dressings. The patient was then aroused from general anesthesia and transferred to the post-anesthesia care unit in stable condition, awake and alert. Estimated blood loss: 100 mL, Replacements: Crystalloid Drains: One 10-mm Jayjay-Pollard in the gallbladder fossa. Specimen: Gallbladder to Pathology. I, Pilo Ferreira, was physically present in the operating room from the time the patient was placed on the operating table until he was transferred to the post-anesthesia care unit in my accompaniment. MD PAULINE [id number] MTDD
== END 2019-04-14 12:03 | DRG 920 ==
LOC: JER 20:06 → JERBED 21:30 → J8W 04-03 20:01 → J4W 04-11 13:39
PROVIDERS: ADMIT Internal Medicine; ATTEND Hospitalist
PROC: 0FB44ZX Excision of Gallbladder, Percutaneous Endoscopic Approach, Diagnostic (ICD-10-PCS; principal; 2019-04-07 10:00)
DX: T85.520A Displacement of bile duct prosthesis, initial encounter (principal); K81.2 Acute cholecystitis with chronic cholecystitis; G81.94 Hemiplegia, unspecified affecting left nondominant side; I69.354 Hemiplegia and hemiparesis following cerebral infarction affecting left non-dominant side; Z87.891 Personal history of nicotine dependence; I10 Essential (primary) hypertension; E78.5 Hyperlipidemia, unspecified; E11.9 Type 2 diabetes mellitus without complications; F03.90 Unspecified dementia, unspecified severity, without behavioral disturbance, psychotic disturbance, mood disturbance, and anxiety; D72.829 Elevated white blood cell count, unspecified; Y83.9 Surgical procedure, unspecified as the cause of abnormal reaction of the patient, or of later complication, without mention of misadventure at the time of the procedure; I48.91 Unspecified atrial fibrillation; E83.42 Hypomagnesemia; E83.39 Other disorders of phosphorus metabolism; R07.89 Other chest pain; I69.320 Aphasia following cerebral infarction
CPT/HCPCS: 36415; 70450-TC; 71045-TC-FY; 74160-TC; 76705-TC; 80048; 80053; 80076; 81003; 82550; 82962; 83735; 84100; 84484; 85025; 85610; 85730; 86850; 86900; 86901; 87086; 88304-TC; 93005; 93010; 93306-TC; 94010; 94760; 97116-GP; 97162-GP; 99284-25; E0186; J0131

== ENCOUNTER 2019-04-17 11:00 | Inpatient (IN) | payer OTHER | END 2019-04-22 13:24 | LOC: JER 11:00 → JERBED 14:03 → J4W 20:56 ==